=== PATIENT | female | born 1960 | race Caucasian/White ===

== ENCOUNTER 2020-06-01 12:55 | Emergency (ER) | payer OTHER ==
--- OUTSIDE RECORDS SUMMARY | 2020-06-01 12:58 | XMS REPORT | Continuity of Care Document ---
:1960 Author Organization [facility] t Address [address] [place] [address] Care Team Providers Name Role Phone Jenn BOTELLO L. Primary Care Physician Kian Barajas MD. Attending Clinician Payers Payer Name Policy Type Policy Effective Date Expiration Date Sour ce Number AETNAAETNA PPO [id number] 1997 [facility] 00:00:00 [employer] [id number] 1997-Present PPO Problems This patient has no known problems. Allergies, Adverse Reactions, Alerts Allergy Allergy Status Severity Reaction(s) Onset Inactive Treating Comm ents Source Name Type Date Date Clinician lactulos DA Active [place] 2020-0 [facility] [place] [facility] fructose FA Active [place] 2020-0 [facility] [place] [facility] Iodinate DA Active U 2020-0 [facility] [place] Contrast 00:00: d Media [facility] lactose FA Active [place] 2020-0 [facility] 3[facility] [place] [facility] d [facility] Iodinate DA Active U 2020-0 [facility] d 3-24 [facility] Contrast 00:00: Garza Media 00 [facility] Social History Social Habit Start Date Stop Date Quantity Comments Source Exposure to Not sure [place] [facility] SARS-CoV-2 (event) Sex Assigned At [birth year] [facility] ethodist 00:00:00 00:00:00 Medications This patient has no known medications. Procedures Procedure Date / Time Performed Performing Clinician [place] e COVID-19 QUALITATIVE PCR 2020-05-06 09:26:00 Camacho Barajas Plan of Care Planned Activity Planned Date Details Comments Source Future Scheduled 2019-10-04 INFLUENZA VACCINE [place] [facility] 00:00:00 [code = INFLUENZA VACCINE] Future Scheduled 2010 BREAST CANCER [place] [facility] Test 00:00:00 SCREENING [code = BREAST CANCER SCREENING] Future Scheduled 2010 COLONOSCOPY SCREENING [place] [facility] Test 00:00:00 [code = COLONOSCOPY SCREENING] Future Scheduled 2010 SHINGLES VACCINES [place] [facility] 00:00:00 (#1) [code = SHINGLES VACCINES (#1)] Future Scheduled [address] [facility] thodist Test 00:00:00 malignant neoplasm of cervix (procedure) [code = 142768137] Future Scheduled 1978 Hepatitis C screening [place] [facility] Test 00:00:00 (procedure) [code = 889404127] Future Scheduled 1976 COVID-19 VACCINE (1) [place] [facility] Test 00:00:00 [code = COVID-19 VACCINE (1)] Encounters Start End Encounter Admission Attending Care Care Encounter Source Date/Time Date/Time Type Type Clinicians Facility Department ID 2020-05-06 2020-05-06 Out[facility] [id number] [place] 00:00:00 00:00:00 CAMACHO [facility] Method [facility] Results Test Description Test Time Test Comments Results Result [facility] e Comments - CT ABD PELVIS 2020-05-28 W/O CONT 16:53:00 [facility] 1960 Sex: F Name: JUAN IRIZARRYland : 1960 Age/S: 59 / F [address] Unit #: [id number] Loc: [place] [address] Phys: Yulia Archuleta MD Acct: [id number] Dis Date: Status: ADM IN PHONE #: [phone] Exam Date: 05/28/2020 1635 FAX #: Reason: abd pain EXAMS: CPT: [id number] CT ABD PELVIS W/O CONT 13055 EXAMINATION: - CT ABD PELVIS W/O CONT. LOCATION: S17. HISTORY: Abdominal pain, large bowel obstruction, cholecystectomy. COMPARISON: None. TECHNIQUE: CT of abdomen and pelvis was performed without intravenous contrast as protocol. Oral contrast was administered. One or more the following dose reduction techniques were used: Automated exposure control, adjustment of mA and/or kV according to patient size, and use of iterative reconstruction technique. FINDINGS: Evaluation of intra-abdominal viscera is limited due to lack of intravenous contrast. Visualized lung bases demonstrate dependent changes. 4 mm left lower lobe nodule. Cholecystectomy. Multiple punctate calcifications within spleen. Liver, pancreas and adrenals appear unremarkable. No nephroureterolithiasis . No hydroureteronephrosis. Underdistended urinary bladder. The bowel loops appear normal in course. No bowel obstruction. Administered oral contrast is noted to the level of rectum. Few scattered colonic diverticula. Focal circumferential thickening and luminal narrowing involving hepatic flexure of colon (series 2 image 33). Focal luminal tubular outpouching is also noted proximally (series 601 image 38), nonspecific. Unremarkable appendix. There is suggestion of proximal ascending and terminal ileum wall thickening. No abdominal or pelvic bulky lymphadenopathy. No pneumoperitoneum or free fluid. Atherosclerotic vascular calcifications. Uterus appears unremarkable by CT technique. Visualized osseous structures demonstrate mild degenerative changes. IMPRESSION: Focal circumferential wall thickening with luminal narrowing involving PAGE 1 Signed Report (CONTINUED) Name: JUAN IRIZARRYland : 1960 Age/S: 59 / F [address] Unit #: [id number] Loc: [place] [address] Phys: Yulia Archuleta MD Acct: [id number] Dis Date: Status: ADM IN PHONE #: [phone] Exam Date: 05/28/2020 1630 FAX #: Reason: abd pain EXAMS: CPT: [id number] CT ABD PELVIS W/O CONT 07303 <Continued> hepatic flexure of colon, correlate with colonoscopy and surgical consult. Focal luminal tubular outpouching is also appreciated proximally, nonspecific. No bowel obstruction. Administered oral contrast is noted to the level of rectum. Other findings as above. Findings discussed with MD Geremias at 05/28/2020 4:45 PM. at 1653 Reported and signed by: Terri Braswell M.D. CC: Yulia Archuleta MD; Miky Bianchi MD Technologist:Lindsay Velazquez, RT(R) CTDI: DLP: Trnscb Date/Time: 05/28/2020 (1652) [email or web address] Orig Print D/T: S: 05/28/2020 (051) PAGE 2 Signed Report - XR ABDOMEN 1 V 2020-05-27 08:17:00 [facility] 1960 Sex: F Name: JUAN IRIZARRY [facility] : 1960 Age/S: 59 / F [address] Unit #: [id number] Loc: [place] [address] Phys: Umair Pierce MD Acct: [id number] Dis Date: Status: ADM IN PHONE #: [phone] Exam Date: 05/27/2020604 FAX #: Reason: LARGE BOWEL OBSTRUCTION EXAMS: CPT: [id number] XR ABDOMEN 1 V 14908 Fluoro Time: DAP (Gy m2): Air Kerma (mGy): EXAMINATION: - XR ABDOMEN 1 V. LOCATION: S17. HISTORY: Large bowel obstruction. COMPARISON: Abdominal x-ray 05/26/2020. FINDINGS/ IMPRESSION: Two frontal views of the abdomen demonstrates lung bases to be clear. Presumed calcified right suprahilar lymph node noted. Interval removal of enteric tube. Postoperative clips in right upper quadrant of abdomen. Scattered air noted throughout colon and small bowel loops. Degenerative changes of lumbar spine, including both sacroiliac joints. at 0817 Reported and signed by: Terri Braswell M.D. CC: Yulia Archuleta MD; Umair Pierce MD; Miky Bianchi MD; Liliana CALLEJAS PAGE 1 Signed Report Name: JUAN IRIZARRY [place] : 1960 Age/S: 59 / F [address] Unit #: [id number] Loc: [place] [address] Phys: Umair Pierce MD Acct: [id number] Dis Date: Status: ADM IN PHONE #: [phone] Exam Date: 05/27/2020604 FAX #: Reason: LARGE BOWEL OBSTRUCTION EXAMS: CPT: [id number] XR ABDOMEN 1 V 07173 Fluoro Time: DAP (Gy m2): Air Kerma (mGy): <Continued> Technologist: RT Janeen(R) Trnscb Date/Time: 05/27/2020 (816) [email or web address] Orig Print D/T: S: 05/27/2020 (819) PAGE 2 Signed Report COMPREHENSIVE METABOLIC PANEL 2020-05-27 06:07:00 Test Item Value Reference Range Interpretation Comme nts SODIUM (test code = NA) 141 mmol/L 134-147 N POTASSIUM (test code = K) 3.7 mmol/L 3.4-5.0 N CHLORIDE (test code = CL) 113 mmol/L 100-108 H CARBON DIOXIDE (test code = CO2) 22 mmol/L 21-32 N ANION GAP (test code = GAP) 6.0 GAP calc 4.0-15.0 N GLUCOSE (test code = GLU) 75 MG/DL 70-110 N BLOOD UREA NITROGEN (test code = BUN) 11 MG/DL 7-18 N GLOMERULAR FILTRATION RATE (test code = GFR) >=60 max estimate estG FR >60 CREATININE (test code = CREAT) 0.5 MG/DL 0.6-1.0 L TOTAL PROTEIN (test code = PROT) 5.5 G/DL 6.4-8.2 L ALBUMIN (test code = ALB) 2.9 G/DL 3.4-5.0 L GLOBULIN (test code = GLOB) 2.6 GM/dL ALBUMIN/GLOBULIN RATIO (test code = A/G) 1.1 RATIO 1.2-2.2 L CALCIUM (test code = CA) 8.1 MG/DL 8.5-10.1 L BILIRUBIN TOTAL (test code = BILT) 0.60 MG/DL 0.2-1.2 N SGOT/AST (test code = AST) 127 Unit/L 15-37 H SGPT/ALT (test code = ALT) 136 Unit/L 12-78 H ALKALINE PHOSPHATASE TOTAL (test code = ALKP) 108 Unit/L 45-117 N CBC W/AUTO [id number] 05:34:00 Test Item Value Reference Range Interpretation Comments WHITE BLOOD CELL (test code = 6.3 K/mm3 3.5-11.0 N WBC) RED BLOOD CELL (test code = 3.91 M/mm3 4.70-6.10 L RBC) HEMOGLOBIN (test code = HGB) 12.2 G/DL 10.4-14.9 N HEMATOCRIT (test code = HCT) 37.1 % 31.5-44.1 N MEAN CELL VOLUME (test code = 94.9 Fl 84.5-98.6 N MCV) MEAN CELL HGB (test code = MCH) 31.2 pg 27.0-34.2 N MEAN CELL HGB CONCETRATION 32.9 G/DL 31.5-34.0 N (test code = MCHC) RED CELL DISTRIBUTION WIDTH 13.3 SD 11.5-14.5 N (test code = RDW) PLATELET COUNT (test code = 193 K/mm3 150-450 N PLT) MEAN PLATELET VOLUME (test code 12.10 fL 7.0-10.5 H = MPV) NEUTROPHIL % (test code = NT%) 51.2 % 40-76 N IMMATURE GRANULOCYTE % (test 0.3 % 0.0-5.0 N code = IG%) LYMPHOCYTE % (test code = LY%) 35.2 % 20.5-51.1 N MONOCYTE % (test code = MO%) 8.2 % 1.7-9.3 N EOSINOPHIL % (test code = EO%) 3.5 % 0.0-6.0 N BASOPHIL % (test code = BA%) 1.6 % 0.0-2.0 N NUCLEATED RBC % (test code = 0.0 /100WBC% 0.0-1.0 N NRBC%) NEUTROPHIL # (test code = NT#) 3.2 K/mm3 1.8-7.6 N IMMATURE GRANULOCYTE # (test 0.02 x10 3/uL 0.00-0.03 N code = IG#) LYMPHOCYTE # (test code = LY#) 2.2 K/mm3 0.6-3.2 N MONOCYTE # (test code = MO#) 0.5 K/mm3 0.3-1.1 N EOSINOPHIL # (test code = EO#) 0.2 K/mm3 0.0-0.4 N BASOPHIL # (test code = BA#) 0.1 K/mm3 0.0-0.1 N NUCLEATED RBC # (test code = 0.0 K/mm3 0.0-0.1 N NRBC#) MANUAL DIFF REQUIRED (test code NO DIFF/SCN CRITERIA = MDIFF) - XR ABDOMEN 1 [id number] 22:43:00 [facility] 1960 Sex: F Name: JUAN IRIZARRY : 1960 Age/S: 59 / F [address] [facility] Unit #: [id number] Loc: [place] [address] Phys: Umair Pierce MD Acct: [id number] Dis Date: Status: ADM IN PHONE #: [phone] Exam Date: 05/26/20202233 FAX #: Reason: NGT PLACEMENT EXAMS: CPT: [id number] XR ABDOMEN 1 V 02362 Fluoro Time: DAP (Gy m2): Air Kerma (mGy): EXAM: ABDOMEN ONE VIEW IN DICATION: NGT PLACEMENT LOCATION: B2 COMPARISON: None available TECHNIQUE: AP view of the abdomen. FINDINGS: The enteric tube tip overliesthe stomach with the sidehole in the distal esophagus. The bowel gas pattern is normal. No pneumoperitoneum is identified. No abnormal calcifications. There are surgical clips in the right upper quadrant. The osseous structures are unremarkable. IMPRESSION: Enteric tube tip overlies the stomach with the sidehole in the distal esophagus. Recommend advancement. at 2243 Reported and signed by: Estefany Schafer M.D. CC: Yulia Archuleta MD; Umair Pierce MD; Miky Bianchi MD; Liliana ANGLIN 1 Signed Report Name: JUAN IRIZARRYland : 1960 Age/S: 59 / F [id number] [place] [address] Unit #: [id number] Loc: [place] [address] Phys: Umair Pierce MD Acct: [id number] Dis Date: Status: ADM IN PHONE #: [phone] Exam Date: 05/26/20202233 FAX #: Reason: NGT PLACEMENT EXAMS: CPT: [id number] XR ABDOMEN 1 V 15045 Fluoro Time: DAP (Gy m2): Air Kerma (mGy): <Continued> Technologist: Tereza Muñiz RT(R)(CT) Trnscb Date/Time: 05/26/2020 (530) [email or web address] Orig Print D/T: S: 05/26/2020 (0668) PAGE 2 Signed Report GLUCOSE BEDSIDE [id number] 22:09:00 Test Item Value Reference Range Interpretation Comments GLUCOSE BEDSIDE TESTING (test code = 81 mg/dL 70-110 N GLUBED) COVID-19 qualitative [id number] 20:40:40 Test Item Value Reference Range Interpretation Comments Interpretation (test Negative results do code = 0440658) not preclude 2019-nCoV infection and should not be used as the sole basis for treatment or other patient management decisions. Negative results must be combined with clinical observations, patient history, and epidemiological information. COVID-19 qualitative Not-Detected Not-Detected PCR result (test code = 12084-3) COVID-19 qualitative See link below for C ase Number: PCR (test code = PDF Lab Report [id number]) Montez Villalta
[2020-06-01 14:04] LABS: Urine Blood Negative (Negative); Urine Glucose Negative (Negative); Urine Protein Negative (Negative)
[2020-06-01] MEDS ORDERED: MORPHINE 4 MG/ML SYR ONE ×3 (14:28→22:24)
[2020-06-01] MEDS ORDERED: ONDANSETRON 4 MG/2 ML VIAL ONE (14:29)
[2020-06-01] MEDS ORDERED: NA CHLORIDE 0.9% 1,000 ML ONE ×2 (14:29→22:14)
[2020-06-01 14:39] LABS: Basophils % 0.2 % (0-1.3); Hematocrit 45.5 % (36.0-45.0); MPV 11.4 fL (7.6-11.3); RBC Red Blood Cell Count 4.93 M/uL (3.86-4.86)
[2020-06-01 15:15] LABS: ALT/SGPT 38 U/L (12-78); AST/SGOT 17 U/L (15-37); Alkaline Phosphatase 106 U/L (45-117); BUN Blood Urea Nitrogen 10 mg/dL (7-18); Bicarbonate 24 mmol/L (21-32); Bilirubin Direct 0.2 mg/dL (0-0.2); Bilirubin Total 0.9 mg/dL (0.2-1.0); Glucose Level 98 mg/dL (74-106); Lipase 67 U/L (73-393); Potassium 3.8 mmol/L (3.5-5.1); Protein, Total 7.5 g/dL (6.4-8.2); Sodium Level 139 mmol/L (136-145)
--- NOTE | 2020-06-01 16:46 | RAD REPORT ---
EXAM DESCRIPTION: CT - Abdomen Pelvis Wo Contrast - 06/01/2020 4:30 pm CLINICAL HISTORY: Abdominal pain COMPARISON: None TECHNIQUE: Computed axial tomography of the abdomen and pelvis was obtained. IV was not requested. O ral contrast was given. Coronal reconstructions performed. All CT scans are performed using dose optimization technique as appropriate and may include automated exposure control or mA/KV adjustment according to patient size. FINDINGS: The evaluation of solid organs and vessels is limited secondary to the lack of contrast a dministration. Splenic granulomata are present. Liver, pancreas, adrenals kidneys appear grossly normal. Moderate dilatation all of the small bowel. The ascending colon is dilated. 2.5 centimeter mass is pr esent within the hepatic flexure of the colon. The appendix is dilated. . IMPRESSION: 2.5 centimeter mass suspected within the hepatic flexure resulting in an obstruction Dilatation of the appendix probably secondary to the obstruction rather than appendicitis
--- NOTE | 2020-06-01 17:53 | ER ---
Nurse's Notes [facility] Name: Arcelia Leavitt Age: 59 yrs Sex: Female : 1960 Arrival Date: 06/01/2020 Time: 12:[address] Private MD: Diagnosis: Other intestinal obstruction;Other intra-abdominal and pelvic swelling, mass and lump-2.5 cm mass within the hepatic fixture of the colon Presentation: 06/01 13:24 Chief complaint: Patient states: Upper abd pain with N/V/slight diarrhea for 2 days. ll1 Just released from [facility] on Sunday for bowel obstruction. Feels similar. No fever. Coronavirus screen: Client denies travel out of the [place] in the last 14 days. At this time, the client does not indicate any symptoms associated with coronavirus-19. Ebola Screen: Patient denies travel to an Ebola-affected area in the 21 days before illness onset. Initial Sepsis Screen: Does the patient meet any 2 criteria? HR > 90 bpm. No. Patient's initial sepsis screen is negative. Does the patient have a suspected source of infection? Yes: Acute abdominal pain. Risk Assessment: Do you want to hurt yourself or someone else? Patient reports no desire to harm self or others. Onset of symptoms was May 31, 2020. 13:24 Method Of Arrival: Ambulatory [facility] 13:24 Acuity: [place] 3 ll1 Historical: - Allergies: 13:26 IVP dye; ll1 - PMHx: 13:26 None; ll1 - PSHx: 13:26 ; ll1 - Immunization history:: Flu vaccine is up to date. - Social history:: Smoking status: Patient reports the use of cigarette tobacco products, smokes one-half pack cigarettes per day. Screenin:30 Abuse screen: Denies threats or abuse. Denies injuries from another. Nutritional jl7 screening: No deficits noted. Tuberculosis screening: No symptoms or risk factors identified. Fall Risk IV access (20 points). Total Rodriguez Fall Scale indicates No Risk (0-24 pts). Assessment: 14:30 General: Appears in no apparent distress. uncomfortable, Behavior is calm, cooperative, jl7 appropriate for age. Pain: Complains of pain in epigastric area, right upper quadrant and right lower quadrant Pain currently is 10 out of 10 on a pain scale. Is intermittent. Neuro: Level of Consciousness is awake, alert, obeys commands, Oriented to person, place, time, situation. Cardiovascular: Patient's skin is warm and dry. Respiratory: Airway is patent Respiratory effort is even, unlabored, Respiratory pattern is regular, symmetrical. GI: Abdomen is non-distended, Abd is soft X 4 quads Abdomen is tender to palpation in epigastric area and right upper quadrant Reports nausea. Derm: Skin is pink, warm \T\ dry. 15:30 Reassessment: Patient appears in no apparent distress at this time. Patient and/or [facility] family updated on plan of care and expected duration. Pain level reassessed. Patient is alert, oriented x 3, equal unlabored respirations, skin warm/dry/pink. 16:30 Reassessment: Patient appears in no apparent distress at this time. No changes from [facility] previously documented assessment. Patient and/or family updated on plan of care and expected duration. Pain level reassessed. Patient is alert, oriented x 3, equal unlabored respirations, skin warm/dry/pink. 17:30 Reassessment: Patient appears in no apparent distress at this time. No changes from [facility] previously documented assessment. Patient and/or family updated on plan of care and expected duration. Pain level reassessed. Patient is alert, oriented x 3, equal unlabored respirations, skin warm/dry/pink. 18:30 Reassessment: Patient appears in no apparent distress at this time. No changes from [facility] previously documented assessment. Patient and/or family updated on plan of care and expected duration. Pain level reassessed. Patient is alert, oriented x 3, equal unlabored respirations, skin warm/dry/pink. 19:30 General: Appears in no apparent distress. comfortable, Behavior is calm, cooperative, rr5 appropriate for age. 19:30 Neuro: Level of Consciousness is awake, alert, obeys commands, Oriented to person, rr5 place, time. Cardiovascular: Capillary refill < 3 seconds Patient's skin is warm and dry. Respiratory: Airway is patent Respiratory effort is even, unlabored, Respiratory pattern is regular, symmetrical. GI: Abdomen is round non-distended, NGT in place, to suction. Site clean. Abd is soft Abdomen is tender to palpation in epigastric area. : No signs and/or symptoms were reported regarding the genitourinary system. EENT: No signs and/or symptoms were reported regarding the EENT system. Musculoskeletal: Capillary refill < 3 seconds. 20:40 Reassessment: Patient appears in no apparent distress at this time. Patient is alert, rr5 oriented x 3, equal unlabored respirations, skin warm/dry/pink. awaiting for dr santos to arrange transfer to other facility. 21:30 Reassessment: dr santos arrived discussed with the provider the plan of care, patient rr5 is for transfer. 22:10 Reassessment: Patient appears in no apparent distress at this time. Patient is alert, rr5 oriented x 3, equal unlabored respirations, skin warm/dry/pink. complaint of abdominal pain. ED provider with order made and carried out. 23:30 Reassessment: Patient appears in no apparent distress at this time. Patient is alert, rr5 oriented x 3, equal unlabored respirations, skin warm/dry/pink. awaiting for EMS transport. 06/02 00:36 Reassessment: Patient appears in no apparent distress at this time. Patient is alert, rr5 oriented x 3, equal unlabored respirations, skin warm/dry/pink. report given to [facility] ambulance awake alert vital signs taken and recorded. Vital Signs: 06/01 13:24 BP 142 / 100; Pulse 95; Resp 16; Temp 98.1; Pulse Ox 96% ; Weight 57.61 kg; Height 5 ll1 ft. 5 in. (165.10 cm); Pain 10/10; 15:07 BP 128 / 56; Pulse 72; Resp 15; Pulse Ox 99% ; jl7 16:00 BP 100 / 84; Pulse 68; Resp 17; Pulse Ox 98% ; jl7 16:45 BP 105 / 94; Pulse 69; Resp 15; Pulse Ox 97% ; jl7 17:30 BP 110 / 69; Pulse 61; Resp 17; Pulse Ox 96% ; jl7 18:47 BP 124 / 73; Pulse 72; Resp 17; Pulse Ox 95% ; jl7 19:40 BP 117 / 72; Pulse 61; Resp 16; Pulse Ox 94% ; rr5 20:30 BP 113 / 65; Pulse 64; Resp 17; Temp 98; Pulse Ox 98% ; rr5 21:30 BP 116 / 89; Pulse 58; Resp 15; Pulse Ox 97% ; rr5 22:22 BP 120 / 78; Pulse 63; Resp 15; Pulse Ox 98% ; rr5 23:30 BP 115 / 78; Pulse 60; Resp 15; Pulse Ox 98% ; rr5 06/02 00:37 BP 111 / 77; Pulse 65; Resp 17; Pulse Ox 98% ; rr5 06/01 13:24 Body Mass Index 21.13 (57.61 kg, 165.10 cm) ll1 ED Course: 06/01 12:58 Patient arrived in ED. as 13:25 Triage completed. ll1 13:26 Arm band placed on Patient placed in an exam room, on a stretcher. ll1 13:47 Yoshi Harvey, RN CARDIAC CATH is PHCP. pm1 13:47 Daxa Chi MD is Attending Physician. pm1 13:48 Mark Freeman RN is Primary Nurse. jl7 14:30 Patient has correct armband on for positive identification. Placed in gown. Bed in low jl7 position. Call light in reach. Side rails up X 1. Pulse ox on. NIBP on. Warm blanket given. 14:30 Initial lab(s) drawn, by me, sent to lab. Inserted saline lock: 20 gauge in right jl7 forearm, using aseptic technique. Blood collected. 16:48 Abdomen In Process Unspecified. EDMS 18:19 initiated transfer to [facility], Yoshi spoke with surgeon, surgeon bd requested to talk to dr woodward, when he is available. 18:27 spoke with Angelia Nova at [facility], stated that Dr Woodward will be in surgery for a bd couple of hours, he will return to er when he is done and will contact transfer center to be connected with surgeon manufacturing production technician. 18:51 NGT: inserted 12 Fr. via left nare. verified placement of air over stomach, verified jl7 return of gastric contents, to intermittent suction. Returned bile. Amount of gastric contents removed by suction 50ml. Patient tolerated well. 19:07 Chest Single View XRAY In Process Unspecified. EDMS 21:[address] Woodward with the surgeon at [facility]. tt3 06/02 00:38 No provider procedures requiring assistance completed. Patient transferred, IV remains rr5 in place. intact, No redness/swelling at site. Administered Medications: 06/01 14:20 Drug: Zofran (Ondansetron) 4 mg Route: IVP; Site: right forearm; jl7 15:30 Follow up: Response: No adverse reaction jl7 14:20 Drug: NS 0.9% 1000 ml Route: IV; Rate: 1000 ml; Site: right forearm; jl7 15:30 Follow up: Response: No adverse reaction; IV Status: Completed infusion; IV Intake: jl7 1000ml 14:22 Drug: morphine 4 mg Route: IVP; Site: right forearm; jl7 14:35 Follow up: Response: No adverse reaction; Pain is decreased jl7 18:30 Drug: morphine 4 mg Route: IVP; Site: right antecubital; jl7 18:49 Follow up: Response: No adverse reaction; Pain is decreased jl7 22:19 Drug: morphine 4 mg {Note: rass 0.} Route: IVP; Site: right forearm; rr5 23:20 Follow up: Response: No adverse reaction; RASS: Alert and Calm (0) rr5 22:20 Drug: NS 0.9% 1000 ml Route: IV; Rate: 125 ml/hr; Site: right forearm; rr5 06/02 00:40 Follow up: Response: No adverse reaction; IV Status: Infusion continued upon transfer; rr5 IV Intake: 250ml Intake: 06/01 15:30 IV: 1000ml; Total: 1000ml. jl7 06/02 00:40 IV: 250ml; Total: 1250ml. rr5 Outcome: 06/01 17:49 Discharge ordered by MD. pm1 17:53 ER care complete, transfer ordered by MD. pm1 06/02 00:38 Discharged to home ambulatory. rr5 Condition: stable Instructed on the need for transfer. 00:41 Patient left the ED. rr5 Signatures: Dispatcher [employer] EDMS Hetal Rothman Amelia as Marinas, Patrick, GARTH RN CARDIAC CATH pm1 Mark Freeman RN RN jl7 Jb Mathews RN RN rr5 Kristina Roman RN RN ll1 Dilshad Buchanan tt3
--- NOTE | 2020-06-01 17:53 | EDPHYS ---
Physician Documentation [facility] Name: Arcelia Leavitt Age: 59 yrs Sex: Female : 1960 Arrival Date: 06/01/2020 Time: 12:[address] Private MD: ED Physician Daxa Chi HPI: 06/01 14:00 This 59 yrs old Female presents to ER via Ambulatory with complaints of pm1 Abdominal Pain, Abdominal Swelling. 14:00 The patient presents with abdominal pain in the upper abdomen, abdominal distention in pm1 the right upper quadrant, that is not currently present. Onset: The symptoms/episode began/occurred 2 day(s) ago. The symptoms do not radiate. Associated signs and symptoms: Pertinent positives: nausea, vomiting, and diarrhea, Pertinent negatives: chest pain, constipation, dysuria, fever, shortness of breath. The symptoms are described as crampy, sharp. Modifying factors: The symptoms are alleviated by nothing, the symptoms are aggravated by food. Severity of pain: in the emergency department the pain is actually worse. Feels similar to prior bowel obstruction.. The patient has been recently seen by a physician: with similar presenting complaints, and apparently given a diagnosis of bowel obstruction. Hospitalized at [facility]. Was seen by Dr. Walden there. Historical: - Allergies: 13:26 IVP dye; ll1 - PMHx: 13:26 None; ll1 - PSHx: 13:26 ; ll1 - Immunization history:: Flu vaccine is up to date. - Social history:: Smoking status: Patient reports the use of cigarette tobacco products, smokes one-half pack cigarettes per day. ROS: 14:00 Constitutional: Negative for fever, chills, and weight loss, Cardiovascular: Negative pm1 for chest pain, palpitations, and edema, Respiratory: Negative for shortness of breath, cough, wheezing, and pleuritic chest pain. 14:00 Back: Negative for injury and pain, : Negative for injury, bleeding, discharge, and swelling, MS/Extremity: Negative for injury and deformity, Skin: Negative for injury, rash, and discoloration, Neuro: Negative for headache, weakness, numbness, tingling, and seizure. 14:00 Abdomen/GI: Positive for abdominal pain, nausea, vomiting, and diarrhea, Negative for constipation. Exam: 14:00 Constitutional: This is a well developed, well nourished patient who is awake, alert, pm1 and in no acute distress. Head/Face: Normocephalic, atraumatic. 14:00 Back: No spinal tenderness. No costovertebral tenderness. Full range of motion. Skin: Warm, dry with normal turgor. Normal color with no rashes, no lesions, and no evidence of cellulitis. MS/ Extremity: Pulses equal, no cyanosis. Neurovascular intact. Full, normal range of motion. 14:00 Cardiovascular: Exam negative for acute changes, Rate: normal, Rhythm: regular, Pulses: no pulse deficits are appreciated, Heart sounds: normal, normal S1and S2. 14:00 Respiratory: Exam negative for acute changes, respiratory distress, shortness of breath, Breath sounds: are clear throughout. 14:00 Abdomen/GI: Inspection: abdomen appears normal, distension, is not seen, Palpation: soft, in all quadrants, mild abdominal tenderness, in the epigastric area, mass, is not appreciated. 14:00 Neuro: Exam negative for acute changes, Orientation: is normal, Mentation: is normal, Motor: is normal, moves all fours, Sensation: is normal, no obvious gross deficits. Vital Signs: 13:24 BP 142 / 100; Pulse 95; Resp 16; Temp 98.1; Pulse Ox 96% ; Weight 57.61 kg; Height 5 ll1 ft. 5 in. (165.10 cm); Pain 10/10; 15:07 BP 128 / 56; Pulse 72; Resp 15; Pulse Ox 99% ; jl7 16:00 BP 100 / 84; Pulse 68; Resp 17; Pulse Ox 98% ; jl7 16:45 BP 105 / 94; Pulse 69; Resp 15; Pulse Ox 97% ; jl7 17:30 BP 110 / 69; Pulse 61; Resp 17; Pulse Ox 96% ; jl7 18:47 BP 124 / 73; Pulse 72; Resp 17; Pulse Ox 95% ; jl7 19:40 BP 117 / 72; Pulse 61; Resp 16; Pulse Ox 94% ; rr5 20:30 BP 113 / 65; Pulse 64; Resp 17; Temp 98; Pulse Ox 98% ; rr5 21:30 BP 116 / 89; Pulse 58; Resp 15; Pulse Ox 97% ; rr5 22:22 BP 120 / 78; Pulse 63; Resp 15; Pulse Ox 98% ; rr5 23:30 BP 115 / 78; Pulse 60; Resp 15; Pulse Ox 98% ; rr5 06/02 00:37 BP 111 / 77; Pulse 65; Resp 17; Pulse Ox 98% ; rr5 06/01 13:24 Body Mass Index 21.13 (57.61 kg, 165.10 cm) ll1 MDM: 06/01 13:48 Patient medically screened. pm1 15:47 Data reviewed: vital signs. Data interpreted: Pulse oximetry: on room air is 99 %. pm1 Interpretation: normal. 16:23 Physician consultation: Sunday Walden MD regarding consult, patient's condition, Is pm1 familiar with the patient and saw her at [facility] when she was admitted there. She is a patient of Dr. Kc and would like for me to contact him first . 16:53 Physician consultation: Sunday Walden MD in the emergency department to see patient at pm1 16:53, consult with Dr. Urrutia and contact Dr. Kc. If Dr. Kc is not available would be available for consultation. 17:27 Physician consultation: Juan Francisco Urrutia MD was contacted at 17:27, regarding consult, pm1 patient's condition, after a discussion of the case, a recommendation for transfer for higher level of care is made, Dr. Urrutia evaluated the patient and discussed with Dr. Walden. They both recommend transfer of the patient. 17:37 Counseling: I had a detailed discussion with the patient and/or guardian regarding: the pm1 historical points, exam findings, and any diagnostic results supporting the discharge/admit diagnosis, lab results, radiology results, the need to transfer to another facility, for higher level of care. 18:15 Physician consultation: MD Mackenzie regarding regarding transfer, to [facility]. pm1 patient's condition, Would like to talk to Dr. Urrutia. Informed him that DR. Urrutia is currently in the OR and will have him contact him through the transfer center once he is available after surgery. 21:40 ED course: Dr. Urrutia came back to the ER, reevaluated the patient. He spoke to the pm1 general surgeon, Dr. Mackenzie, at [facility]. Patient was accepted for transfer. 21:48 Physician consultation: MD Damon was contacted at 21:49, regarding regarding pm1 transfer, patient's condition, and will see patient. 06/01 13:59 Order name: Basic Metabolic Panel pm1 06/01 13:59 Order name: CBC with Diff pm1 06/01 13:59 Order name: Hepatic Function; Complete Time: 15:38 pm1 06/01 13:59 Order name: Lipase; Complete Time: 15:38 pm1 06/01 14:00 Order name: Basic Metabolic Panel; Complete Time: 15:38 EDMS 06/01 14:00 Order name: CBC with Automated Diff; Complete Time: 15:11 EDMS 06/01 14:03 Order name: Urine Dipstick-Ancillary; Complete Time: 14:41 EDMS 06/01 14:05 Order name: Abdomen ; Complete Time: 16:51 EDMS 06/01 18:56 Order name: Chest Single View XRAY; Complete Time: 19:16 pm1 06/01 13:59 Order name: IV Saline Lock; Complete Time: 15:04 pm1 06/01 13:59 Order name: Labs collected and sent; Complete Time: 15:04 pm1 06/01 13:59 Order name: Urine Dipstick-Ancillary (obtain specimen); Complete Time: 15:04 pm1 06/01 18:02 Order name: NG Tube; Complete Time: 18:46 pm1 Administered Medications: 14:20 Drug: Zofran (Ondansetron) 4 mg Route: IVP; Site: right forearm; jl7 15:30 Follow up: Response: No adverse reaction jl7 14:20 Drug: NS 0.9% 1000 ml Route: IV; Rate: 1000 ml; Site: right forearm; jl7 15:30 Follow up: Response: No adverse reaction; IV Status: Completed infusion; IV Intake: jl7 1000ml 14:22 Drug: morphine 4 mg Route: IVP; Site: right forearm; jl7 14:35 Follow up: Response: No adverse reaction; Pain is decreased jl7 18:30 Drug: morphine 4 mg Route: IVP; Site: right antecubital; jl7 18:49 Follow up: Response: No adverse reaction; Pain is decreased jl7 22:19 Drug: morphine 4 mg {Note: rass 0.} Route: IVP; Site: right forearm; rr5 23:20 Follow up: Response: No adverse reaction; RASS: Alert and Calm (0) rr5 22:20 Drug: NS 0.9% 1000 ml Route: IV; Rate: 125 ml/hr; Site: right forearm; rr5 06/02 00:40 Follow up: Response: No adverse reaction; IV Status: Infusion continued upon transfer; rr5 IV Intake: 250ml Disposition: 06/01/20 17:53 Transfer ordered to [facility]. Diagnosis are Other intestinal obstruction, Other intra-abdominal and pelvic swelling, mass and lump - 2.5 cm mass within the hepatic fixture of the colon. - Reason for transfer: Higher level of care. - Accepting physician is MD. - Condition is Stable. - Problem is new. - Symptoms have improved. Addendum: 06/04/2020 15:39 Co-signature as Attending Physician, Daxa Chi MD. m a2 Signatures: Dispatcher [employer] EDWI Yoshi Harvey, GARTH STAKEHOLDER MANAGER pm1 Mark Freeman RN RN jl7 Daxa Chi MD MD ma2 Jb Mathews, ERIC RN rr5 Kristina Roman, ERIC RN ll1 Corrections: (The following items were deleted from the chart) 06/01 14:05 14:00 Abdomen Pelvis W Con+CT.RAD.BRZ ordered. [facility] EDMS 17:50 17:49 06/01/2020 17:49 Discharged to Home. Impression: Other intestinal obstruction; pm1 Intra-abdominal and pelvic swelling, mass and lump - 2.5 cm mass at hepatic flexure of the colon. Condition is Stable. Forms are Medication Reconciliation Form, Thank You Letter, Antibiotic Education, Prescription Opioid Use. Follow up: Emergency Department; When: As needed; Reason: Worsening of condition. Follow up: Private Physician; When: 2 - 3 days; Reason: Recheck today's complaints, Continuance of care, Re-evaluation by your physician. Problem is new. Symptoms have improved. pm1 06/02 00:41 06/01 17:53 06/01/2020 17:53 Transfer ordered to [facility]. rr5 Diagnosis is Other intestinal obstruction; Other intra-abdominal and pelvic swelling, mass and lump - 2.5 cm mass within the hepatic fixture of the colon. Reason for transfer: Higher level of care. Accepting physician is MD. Condition is Stable. Problem is new. Symptoms have improved. pm1 06/02 00:06/01 16:53 Physician consultation: Sunday Walden MD in the emergency department to pm1 see patient at 16:53, consult with Dr. Urrutia and contact Dr. Kc. If Dr. Kc is not available would be available for consultation, pm1 06/02 00:06/01 21:40 ED course: Dr. Urrutia came back to the ER, reevaluated the patient. He pm1 spoke to the general surgeon, Dr. Mackenzie, at [facility]. Patient was accepted for transfer. pm1 06/02 00:06/01 18:15 Physician consultation: MD Mackenzie regarding regarding transfer, to [address] patient's condition, Would like to talk to Dr. Urrutia, pm1
[2020-06-01] MEDS ORDERED: LIDOCAINE VISCOUS 2% SOLN 15 ML UDC ONE (18:37)
--- NOTE | 2020-06-01 19:13 | RAD REPORT ---
EXAM DESCRIPTION: Kirstin Single View06/01/2020 7:07 pm CLINICAL HISTORY: Device placement nasogastric tube placement IMPRESSION: A nasogastric tube has its tip within the stomach. .
[2020-06-02 02:47] VITALS: TEMP 98
[2020-06-02 02:54] VITALS: O2SAT 98
[2020-06-02 02:56] VITALS: BP 111/77
== END 2020-06-02 00:41 | disposition short-term general hospital (02) ==
LOC: ER 12:55
DX: K56.699 Other intestinal obstruction unspecified as to partial versus complete obstruction (principal); R19.09 Other intra-abdominal and pelvic swelling, mass and lump; F17.210 Nicotine dependence, cigarettes, uncomplicated; Z88.8 Allergy status to other drugs, medicaments and biological substances
CPT/HCPCS: 85025; 80048; 36415; 80076; 81003; 83690; 74176; 71045; J7030 ×2; J2405; 99285

== ENCOUNTER 2020-10-19 16:43 | Emergency (ER) | payer OTHER ==
--- OUTSIDE RECORDS SUMMARY | 2020-10-19 16:49 | XMS REPORT | Continuity of Care Document ---
:1960 Author Organization [facility] t Address [address] [place] [address] [address] [place] [address] Care Team Providers Name Role Phone Jenn BOTELLO L. Primary Care Physician TIFFANY Attending Clinician Unavailable MARILIA Attending Clinician Unavailable Tiffany BOTELLO Attending Clinician TIFFANY Attending Clinician Unavailable Anne Zacarias MD Attending Clinician Marilia BOTELLO Attending Clinician ANNE ZACARIAS Attending Clinician Unavailable Alea Glaser MD Attending Clinician Nadja BOTELLO Attending Clinician Lisa Damon MD Attending Clinician Nury BOTELLO Attending Clinician Lisa DAMON Attending Clinician Unavailable Jenn BOTELLO L. Attending Clinician MD Kian BARAJAS. Attending Clinician Unavailable MARILIA Admitting Clinician Unavailable Lisa DAMON Admitting Clinician Unavailable MD Bibiana BARAJAS Admitting Clinician Unavailable Payers Payer Name Policy Type Policy Effective Date Expiration Date Sour ce Number HMO/QPOS/SELECT [id number] 2017 2020 - AETNA 00:00:00 00:00:00 AETNA - MGD [id number] [facility] - CAREAETNA HMO 00:00:[address] POS [id number] 03/1997-PresentHM O/POS AETNAAETNA PPO [id number] [facility] OPEN 00:00:00 Hospital [id number] 1997-Present PPO Problems Condition Condition Condition Status Onset Resolution Last Treating Co mments Source Name Details Category Date Date Treatment Clinician Date Acute Acute Disease Active [facility]-22 [facility] - failure failure 00:00: Medical without without 00 Center hepatic hepatic coma coma Acute Acute Disease Active [facility] dehydratio dehydratio 4-22 [facility] k[facility] - n n 00:00: Medical 00 [place] Anemia, Anemia, Disease Active [facility] chronic chronic 4-22 [facility] - disease disease 00:00: Medical 00 Center S/P right S/P right Disease Active [facility] hemicolect hemicolect 4-15 Valorie kes - freddie freddie 00:00: Medical 00 Center Acute Acute Disease Active [facility] postoperat postoperat 4-15 Val[facility] kes - nusrat pain nusrat pain 00:00: Medica l 00 Center Postproced Postproced Disease Active [facility] ural ural 4-15 [facility] - hypotensio hypotensio 00:00: Me dical n n 00 Center Acute Acute Disease Active [facility] blood loss blood loss 4-15 Valorie kes - anemia anemia 00:00: Medical 00 Center Nausea and Nausea and Disease Active [facility] vomiting, vomiting, 4-12 Luke [facility] - intractabi intractabi 00:00: Me dical lity of lity of 00 Center vomiting vomiting not not specified, specified, unspecifie unspecifie d vomiting d vomiting type type Large Large Disease Active [facility] bowel bowel 3-31 [facility] - obstructio obstructio 00:00: Me dical n n 00 Center Allergies, Adverse Reactions, Alerts Allergy Allergy Status Severity Reaction(s) Onset Inactive Treating Comm ents Source Name Type Date Date Clinician Iodine Drug Active Itching, I.v [facility] And Intolera Palpitations 3-31 contrast [facility] - Iodide nce 00:00: only Medical Containi 00 Center ng Products Iodinate DA Active [facility] d 3-26 [place] Contrast 00:00: d Media 00 [facility] lactulos DA Active HI [facility] e 3-26 Clear 00:00: Garza 00 [facility] lactose FA Active [facility] 3-26 Clear 00:00: Garza [facility] fructose FA Active HI [facility] 3-26 Clear 00:00: Garza [facility] Iodinate DA Active U [facility] d 3-24 Clear Contrast 00:00: Garza Media [facility] Iodinate DA Active U [facility] d 4-24 Clear Contrast 00:00: Garza Media 00 [facility] morphine DA Active U 1997- [facility] 4-24 Clear 00:00: Garza [facility] sertrali DA Active U [facility] ne 4-24 Clear 00:00: Garza [facility] nefazodo DA Active U 1997- [facility] ne 4-24 Clear 00:00: Garza [facility] Social History Social Habit Start Date Stop Date Quantity Comments Source History SDVT [facility] - Alcohol Std Drinks Medica [facility] History SDVT [facility] - Alcohol Binge Medical Gerri [facility] Sex Assigned At [facility] Cigarettes smoked 2020-06-16 2020-06-[address] [facility] [facility] - current (pack per 00:00:00 00:00:00 [facility] Center day) - Reported Cigarette 2020-06-16 2020-06-[address] [facility] - pack-years 00:00:00 00:00:00 [facility] Tobacco use and 2020-06-16 2020-06-16 Never used [facility] kes - exposure 00:00:00 00:00:00 [facility] Alcohol intake 2020-06-16 2020-06-[address] [facility] - 00:00:00 00:00:00 non-drinker Medical Cente r (finding) History SDOH 2020-06-15 2020-06-[address] [facility] - Alcohol Frequency 00:00:00 00:00:00 Medical Center Smoking Status Start Date Stop Date Source Unknown if ever smoked [facility] Current every day smoker 2020-06-16 00:00:[address] [facility] Medications Ordered Filled Start Stop Current Ordering Indication Dosage Frequency Signature Comments Components Source Medication Medication Date Date Medication? Clinician (SIG) Name Name pantoprazol Yes 40mg QD Take [address] e 4-21 by mouth [facility] - (PROTONIX) 18:15: daily. Medic al 40 MG 08 Center tablet acetaminoph Yes 650mg Take [address] en 4-21 mg by [facility] - (TYLENOL) 18:15: mouth Medical 325 MG 08 every 6 Center tablet (six) hours as needed for Pain. gabapentin 2021- No 300mg [id number] Take [address] (NEURONTIN) 06-23- [id number] capsule [facility] - 300 MG 00:00: 23:59 3D (300 mg Medical capsule 00 :00 total) by Center mouth 3 (three) times daily. cyclobenzap 2020- No 10mg Q.[id number] Take [address] rine 06-23 05- [id number] tablet (10 Valorie kes - (FLEXERIL) 00:00: 23:59 3D mg total) M edical 10 MG 00 :00 by mouth 3 Center tablet (three) times daily for 10 days. cephalexin No 250mg Q.25D Take [address] (KEFLEX) 06-23- capsule [facility] - 250 MG 00:00: 23:59 (250 mg Medical capsule 00 :00 total) by Center mouth 4 (four) times daily for 5 days. traMADoL 2020- No 50mg Take [address] (ULTRAM) 50 06-04 tablet (50 L ukes - mg tablet 00:00: 00:00 mg total) Me dical 00 :00 by mouth Center every 8 (eight) hours as needed for Pain for up to 10 days. Max Daily Amount: 150 mg polyethylen 2020- No 17g QD Take [address] e glycol 06-04-05 by mouth [facility] - (GLYCOLAX) 00:00: 23:59 daily for M edical 17 gram 00 :00 3 days. Center packet traMADoL 50mg Take 1 [facility] (ULTRAM) 50 4-02 06-04 tablet (50 L ukes - mg tablet 00:00: 00:00 mg total) Me dical 00 :00 by mouth Center every 8 (eight) hours as needed for Pain for up to 10 days. Max Daily Amount: 150 mg Vital Signs Vital Name Observation Time Observation Value Comments Source Systolic blood 2020-07-19 10:25:00 105 mm[Hg] [facility] Diastolic blood 2020-07-19 10:25:00 63 mm[Hg] [facility] Heart rate 2020-07-19 10:25:00 89 /min [facility] Body temperature 2020-07-19 10:25:00 36.33 [facility] Respiratory rate 2020-07-19 10:25:00 14 /min [facility] Oxygen saturation in 2020-07-19 10:25:00 100 /min [facility] Arterial blood by Medical Ce nter Pulse oximetry Body height 2020-07-19 08:20:00 165.1 cm [facility] Body weight 2020-07-19 08:20:00 50.803 kg [facility] BMI 2020-07-19 08:20:00 18.64 kg/m2 [facility] Procedures Procedure Date / Time Performing Clinician Source Performed IR PORT-A-CATH PLACEMENT 2020-07-19 10:20:00 Rachel Allen [place] [facility] CBC W/PLT COUNT & AUTO 2020-07-19 07:38:00 Opal Bergeron [facility] DIFFERENTIAL [facility] PROTHROMBIN TIME/INR 2020-07-19 07:38:00 Opal Bergeron [facility] APTT 2020-07-19 07:38:00 Opal Bergeron [facility] POCT-GLUCOSE METER 2020-06-23 12:01:00 Marilia [facility] POCT-GLUCOSE METER 2020-06-23 05:51:00 Castillo-Talbert, [facility] MAGNESIUM 2020-06-23 04:54:00 Tyree Carmona [facility] PHOSPHORUS 2020-06-23 04:54:00 Mathew [facility] CBC (HEMOGRAM ONLY) 2020-06-23 04:54:00 Kristie Aly [facility] HEPATIC FUNCTION PANEL 2020-06-23 04:54:00 Kristie Aly [facility] BASIC METABOLIC PANEL (7) 2020-06-23 04:54:00 HensonTerell chavez [facility] POCT-GLUCOSE METER 2020-06-23 00:01:00 Castillo-Talbert, [facility] POCT-GLUCOSE METER 2020-06-22 17:48:00 Castillo-Talbert, [facility] POCT-GLUCOSE METER 2020-06-22 11:51:00 Castillo-Talbert, [facility] POCT-GLUCOSE METER 2020-06-22 05:45:00 Castillo-Talbert, [facility] MAGNESIUM 2020-06-22 04:27:00 Mathew Loreeumberto [facility] PHOSPHORUS 2020-06-22 04:27:00 Mathew [facility] CBC (HEMOGRAM ONLY) 2020-06-22 04:27:00 Kristie Aly [facility] HEPATIC FUNCTION PANEL 2020-06-22 04:27:00 Kristie Aly [facility] BASIC METABOLIC PANEL (7) 2020-06-22 04:27:00 HensonTerell chavez [facility] POCT-GLUCOSE METER 2020-06-22 00:11:00 Castillo-Talbert, [facility] POCT-GLUCOSE METER 2020-06-21 17:40:00 [facility]SE [facility]ER 2020-06-21 11:36:00 Castillo-Talbert, [facility] POCT-GLUCOSE METER 2020-06-21 05:12:00 Castillo-Talbert, [facility] MAGNESIUM 2020-06-21 02:53:00 Mathew, [facility] PHOSPHORUS 2020-06-21 02:53:00 [facility], [facility] CBC (HEMOGRAM ONLY) 2020-06-21 02:53:00 Kristie Aly [facility] HEPATIC FUNCTION PANEL 2020-06-21 02:53:00 Kristie Aly [facility] BASIC METABOLIC PANEL (7) 2020-06-21 02:53:00 Kristie Aly [facility] POCT-GLUCOSE METER 2020-06-20 23:43:[facility] (7) 2020-06-20 21:54:00 Kristie Aly [place] POCT-GLUCOSE METER 2020-06-20 17:55:[facility]OLIC PANEL (7) 2020-06-20 14:21:00 Kristie Aly [place] [facility] POCT-GLUCOSE METER 2020-06-20 11:45:00 [facility] POCT-GLUCOSE METER 2020-06-20 05:45:00 Castillo-Talbert, [facility] MAGNESIUM 2020-06-20 04:45:00 [facility] 2020-06-20 04:45:00 [facility], [facility] CBC (HEMOGRAM ONLY) 2020-06-20 04:45:00 Kristie Aly [facility] HEPATIC FUNCTION PANEL 2020-06-20 04:45:00 Kristie Aly [facility] BASIC METABOLIC PANEL (7) 2020-06-20 04:45:00 Kristie Aly [place] [facility] POCT-GLUCOSE METER 2020-06-19 23:49:00 [facility] BASIC METABOLIC PANEL (7) 2020-06-19 22:02:00 Kristie Aly [place] [facility] POCT-GLUCOSE METER 2020-06-19 18:20:00 [facility] BASIC METABOLIC PANEL (7) 2020-06-19 13:44:00 Kristie Aly [place] POCT-GLUCOSE METER 2020-06-19 11:30:00 [facility] POCT-GLUCOSE METER 2020-06-19 05:56:00 [facility] MAGNESIUM 2020-06-19 04:35:00 Mathew [facility] PHOSPHORUS 2020-06-19 04:35:00 [facility] CBC (HEMOGRAM ONLY) 2020-06-19 04:35:00 Kristie Aly [facility] HEPATIC FUNCTION PANEL 2020-06-19 04:35:00 Kristie Aly [facility] BASIC METABOLIC PANEL (7) 2020-06-19 04:35:00 Kristie Aly [place] TRIGLYCERIDES 2020-06-19 04:35:00 Kristie Aly [facility] POCT-GLUCOSE METER 2020-06-19 00:05:00 [facility] PREPARE RBC 2020-06-18 23:54:00 [facility] BASIC METABOLIC PANEL (7) 2020-06-18 21:37:00 Kristie Aly [facility] POCT-GLUCOSE METER 2020-06-18 17:24:00 [facility] BASIC METABOLIC PANEL (7) 2020-06-18 13:56:00 Kristie Aly [place] [facility] CBC W/PLT COUNT & AUTO 2020-06-18 13:56:00 Kristie Aly [facility] MAGNESIUM 2020-06-18 13:56:00 Kristie Aly [facility] PHOSPHORUS 2020-06-18 13:56:00 Kristie Aly [facility] POCT-GLUCOSE METER 2020-06-18 12:01:00 [facility] POCT-GLUCOSE METER 2020-06-18 05:43:00 [facility] MAGNESIUM 2020-06-18 05:26:00 [facility] PHOSPHORUS 2020-06-18 05:26:00 [facility] COMPREHENSIVE METABOLIC 2020-06-18 05:26:00 [facility] CBC (HEMOGRAM ONLY) 2020-06-18 05:26:00 [facility] TRIGLYCERIDES 2020-06-18 05:26:00 [facility] POCT-GLUCOSE METER 2020-06-17 23:10:00 [facility] CBC W/PLT COUNT & AUTO 2020-06-17 20:08:00 Kristie Aly [facility] PROTHROMBIN TIME/INR 2020-06-17 20:08:00 [facility] APTT 2020-06-17 20:08:00 [facility] FIBRINOGEN 2020-06-17 20:08:00 [facility] POCT-GLUCOSE METER 2020-06-17 17:20:00 [facility]IEW PORTABLE / 2020-06-17 16:20:00 Kristie Aly [facility] CBC (HEMOGRAM ONLY) 2020-06-17 15:06:00 [facility] POCT-GLUCOSE METER 2020-06-17 12:00:00 [facility] CBC (HEMOGRAM ONLY) 2020-06-17 07:27:00 Cathy Neff [facility] THROMBOELASTOGRAPH (TEG) 2020-06-17 03:44:00 [facility] PROTHROMBIN TIME/INR 2020-06-17 03:43:00 [facility] APTT 2020-06-17 03:43:00 [facility] FIBRINOGEN 2020-06-17 03:43:00 Cathy Neff [facility] MAGNESIUM 2020-06-17 03:43:00 Mathew [facility] PHOSPHORUS 2020-06-17 03:43:00 [facility] COMPREHENSIVE METABOLIC 2020-06-17 03:43:00 Castillo-[facility] CBC (HEMOGRAM ONLY) 2020-06-17 03:43:00 Cathy Neff [facility] POCT-GLUCOSE METER 2020-06-17 03:43:00 [facility] TRANSFUSE LEUKO-REDUCED RED 2020-06-17 03:27:09 [facility] BLOOD CELLS [facility] CBC W/PLT COUNT & AUTO 2020-06-16 20:19:00 Luciano Espinoza [facility] POCT-GLUCOSE METER 2020-06-16 17:56:00 Castillo-[facility] CBC (HEMOGRAM ONLY) 2020-06-16 16:44:00 [facility] PROTHROMBIN TIME/INR 2020-06-16 16:44:00 [facility] APTT 2020-06-16 16:44:00 [facility] FIBRINOGEN 2020-06-16 16:44:00 [facility] PLATELET COUNT 2020-06-16 16:44:00 [facility] LACTIC ACID, VENOUS 2020-06-16 15:48:00 [facility] POCT-GLUCOSE METER 2020-06-16 11:34:00 [facility] COMPREHENSIVE METABOLIC 2020-06-16 06:13:00 [facility] CBC W/PLT COUNT & AUTO 2020-06-16 03:19:00 Beau Olvera [facility] MAGNESIUM 2020-06-16 03:19:00 Tyree Carmona [facility] PHOSPHORUS 2020-06-16 03:19:00 Mathew [facility] TISSUE EXAM 2020-06-16 01:10:00 [facility] HGB/HCT (H&H) - STAT LAB 2020-06-16 00:45:28 Nam Glaser [facility] BLOOD GAS, ARTERIAL 2020-06-16 00:45:28 Nam Glaser [facility] CALCIUM, IONIZED 2020-06-16 00:45:28 Nam Glaser [facility] SODIUM NA-STAT LAB 2020-06-16 00:45:28 Nam Glaser [facility] POTASSIUM-STAT LAB 2020-06-16 00:45:28 Nam Glaser [facility] GLUCOSE-STAT LAB 2020-06-16 00:45:28 Nam Glaser [facility] LAPAROTOMY,EXPLORATORY 2020-06-15 23:36:00 Marilia [facility] XR ABDOMEN / KUB 1 VIEW 2020-06-15 13:08:00 [facility] XR ABDOMEN / KUB 1 VIEW 2020-06-15 10:35:00 [facility] PT/APTT 2020-06-15 08:44:00 [facility] HEPATITIS C ANTIBODY 2020-06-15 08:44:00 [facility] HEPATITIS C PCR, 2020-06-15 08:44:00 [facility] HEPATITIS B PANEL 2020-06-15 08:44:00 [facility] HEPATITIS A PANEL 2020-06-15 08:44:00 [facility] ABORH, MANUAL 2020-06-15 04:39:00 Jeaneth Weiner [facility] TYPE AND SCREEN, AUTOMATED 2020-06-15 01:39:00 HensonTerell neff [facility] CBC W/PLT COUNT & AUTO 2020-06-15 01:39:[address] [facility] DIFFERENTIAL [facility] CARCINOEMBRYONIC ANTIGEN 2020-06-15 01:39:00 Terell Henson [facility] ([facility]) [facility] BASIC METABOLIC PANEL (7) 2020-06-15 01:39:00 HensonTerell [facility] MAGNESIUM 2020-06-15 01:39:00 Tyree Carmona [facility] PHOSPHORUS 2020-06-15 01:39:00 Tyree Carmona [facility] HEPATIC FUNCTION PANEL 2020-06-15 01:39:00 HensonTerell [facility] SARS-COV2/RT-PCR ([facility] & REF 2020-06-15 00:55:00 MathewTyree sandoval [facility] - LABS) [facility] ECG 12-LEAD 2020-06-14 22:15:11 Unknown, Hl7 Doctor [facility] CT ABDOMEN/PELVIS WITHOUT IV 2020-06-14 20:09:[address] [facility] CONTRAST [facility] US ABDOMEN LIMITED 2020-06-14 19:07:00 Rell [facility] LACTIC ACID, VENOUS 2020-06-14 17:22:[address] [facility] CBC W/PLT COUNT & AUTO 2020-06-14 16:15:00 Rell [facility] DIFFERENTIAL [facility] COMPREHENSIVE METABOLIC 2020-06-14 16:15:00 [facility] 2020-06-14 [facility] 2020-06-14 16:15[facility]00 [facility] RE[facility] OF PROCEDURE - 2020-06-14 00:00:00 Provider, Default [facility] - ENDOSCOPY SCAN Scanning [facility] CBC W/PLT COUNT & AUTO 2020-06-04 03:45:[address] [facility] S t [facility] - DIFFERENTIAL [facility] COMPREHENSIVE METABOLIC 2020-06-04 03:45:[address] [facility] CBC W/PLT COUNT & AUTO 2020-06-03 04:20:00 Civuniguntdevan, [facility] S t [facility] - DIFFERENTIAL [facility] MAGNESIUM 2020-06-03 04:20:[address] [facility] PHOSPHORUS 2020-06-03 04:20:[address] [facility] COMPREHENSIVE METABOLIC 2020-06-03 04:20:00 Civunjorgea [facility] - PANEL [facility] XR ABDOMEN / KUB 1 VIEW 2020-06-02 13:50:00 Nitin Ana [facility] SARS-COV2/RT-PCR ([facility] & REF 2020-06-02 10:03:00 [facility] CBC W/PLT COUNT & AUTO 2020-06-02 09:02:00 Grace Damon [facility] BASIC METABOLIC PANEL (7) 2020-06-02 09:02:00 Grace Damon [facility] HEPATIC FUNCTION PANEL 2020-06-02 09:02:00 Grace Damon [facility] PROTHROMBIN TIME/INR 2020-06-02 09:02:00 Grace Damon [facility] COVID-19 QUALITATIVE RT-PCR 2020-05-06 15:26:00 Camacho Barajas [facility] Plan of Care Planned Activity Planned Date Details Comments Source Future Scheduled 2020-11-03 INFLUENZA VACCINE (#1) [facility] Test 00:00:00 [code = INFLUENZA Medical Ce nter VACCINE (#1)] Future Scheduled 2020-03-[address] [facility] - Test 00:00:00 (12+) [code = Medical Center DEPRESSION SCREENING (12+)] Future Scheduled 2010 SHINGLES VACCINES ([address] [facility] - Test 00:00:00 of 2) [code = SHINGLES Medic al Center VACCINES (1 of 2)] Future Scheduled [address] [facility] - Test 00:00:00 (procedure) [code = Medical Center 81173056] Future Scheduled [address] [facility] - Test 00:00:00 [facility] cervix (procedure) [code = 504851109] Future Scheduled 1979-12-21 DTAP/TDAP/TD VACCINES [facility] Test 00:00:00 (1 - Tdap) [code = Medical C enter DTAP/TDAP/TD VACCINES (1 - Tdap)] Future Scheduled 1972 COVID-19 VACCINE (1) [facility] - Test 00:00:00 [code = COVID-[address] VACCINE (1)] Future Scheduled [address] [facility] - Test 00:00:00 0-64 YRS (1 of 1 - Medical C enter PPSV23) [code = PNEUMOCOCCAL VACCINE 0-64 YRS (1 of 1 - PPSV23)] Future Scheduled [address] [facility] - Test 00:00:00 [facility] breast (procedure) [code = 889636732] Future Scheduled [address] [facility] - Test 00:00:[address] [facility] colon (procedure) [code = 252769279] Future Scheduled Screening for [facility] Test malignant neoplasm of cervix (procedure) [code = 032984065] Future Scheduled BREAST CANCER [facility] Test SCREENING [code = BREAST CANCER SCREENING] Future Scheduled [facility] [code = COLONOSCOPY SCREENING] Future Scheduled SHINGLES VACCINES (#[facility]) [facility] [code = SHINGLES VACCINES (#1)] Future Scheduled [facility]ZA [facility]INE [facility] [code = INFLUENZA VACCINE] Future Scheduled COVID-19 [facility]ACCINE (1) [facility] [code = COVID-19 VACCINE (1)] Future Scheduled [facility] (procedure) [code = 146736419] Encounters Start End Encounter Admission Attending Care Care Encounter Source Date/Time Date/Time Type Type Clinicians Facility Department ID 2020-10-15 2020-10-15 Outpatient [facility] [id number] [facility] 07:47:06 23:59:00 [facility] 2020-10-13 2020-10-13 Outpatient TIFFANY [facility] [id number] [facility] 15:35:42 15:52:31 RACHEL [facility] 2020-10-01 2020-10-01 Outpatient [facility] [id number] [facility] 07:42:07 23:59:00 [facility] 2020-09-29 2020-09-29 Outpatient TIFFANY, [facility] [id number] [facility] 14:38:16 15:05:55 TANNAZ [facility] 2020-09-17 2020-09-17 Outpatient [facility] [id number] [facility] 07:28:51 23:59:00 [facility] 2020-09-15 2020-09-15 Outpatient TIFFANY, [facility] [id number] [facility] 13:35:21 14:05:27 TANNAZ [facility] 2020-09-09 2020-09-09 Outpatient CASTILLO-VALENTIN [facility] [id number] [facility] 12:35:53 14:43:35 L, VERITO [facility] 2020-09-03 2020-09-03 Outpatient [facility] [id number] [facility] 07:37:50 23:59:00 [facility] 2020-09-01 2020-09-01 Outpatient TIFFANY, [facility] [facility] [id number] [facility] 13:57:35 14:48:52 [employer] 2020-08-26 2020-08-26 Outpatient [facility] [id number] [facility] 14:15:22 15:32:16 L, VERITO [employer] 2020-05-06 2020-05-06 [facility] Jenn, 1.2.840.1 [id number] Methodi 09:19:56 09:34:56 Camacho L. [address] 3.430.2.7 Hospit a .3.030949 l .8 2020-05-06 2020-05-06 Outpatient [facility]ENLESLEY [facility] [id number] [place] 00:00:00 00:00:00 CAMACHO [address] 2020-05-06 2020-05-06 Travel 1.2.840.1 1.2.979.945 [id number] Methodi 00:00:00 00:00:[address] 3.430.2.7 0.2.7.3.698 spita .3.309074 084.8 l .8 Results Test Description Test Time Test Comments Results Result Sourc e Comments ANG, TUNNEL CATH 2020-07-19 Reason for [facility]EN[facility] INS 16:15:00 Exam:->C18.2 W/[facility] 1960 Sex: F FINAL REPORT Chest port insertion, 07/19/2020. History: Colon cancer. Modality: Sonography and fluoroscopy. Sedation: Versed 1 mg and fentanyl 50 mcg given intravenously for conscious sedation. Vital signs were monitored throughout the procedure by a nurse, and remained stable. Physician intra-service time was 30 minutes. Sales Coach: Chary. Executive Office Manager: None. Approach: Internal jugular vein - right. Estimated blood loss: < 5 cc. Specimen: None. Fluoroscopy Time: 0.04 min. Dose (Ka,r): 0.5 mGy. Technique: Informed written consent was obtained. Discussion of risks, benefits, and alternatives were made with the patient. The patient expressed understanding and agreed to proceed. All elements maximal sterile barrier technique was utilized for this procedure, including utilization of sterile scrub solution for skin prep, a large sterile sheet to cover the areas of the patient that were not prepped, and hand hygiene, mask, head covering, and sterile gown for performing radiologist and scrub technologist. The skin was anesthetized with 2% lidocaine. Ultrasound evaluation showed a patent and compressible right internal jugular vein, which was punctured under direct real-time ultrasound guidance with a micropuncture needle. An ultrasound image was saved to PACS. A 0.018 inch wire was placed through the needle into the right atrium. A 4 Danish micropuncture sheath was placed. A subcutaneous tunnel and pocket were created in the right anterior chest wall by blunt dissection. The pocket was flushed with antibiotic solution. A Bard power injectable port was placed within the pocket and the catheter brought through the tunnel. A peel-away sheath was placed in the right IJ vein and the catheter was advanced through the sheath, with its distal tip terminating near the cavoatrial junction. The peel-away sheath was removed. The catheter was cut at 23 cm and attached to the port. The port was flushed and aspirated easily following placement. The skin incision was closed with 3-0 running subcuticular Monocryl and Steri-Strips. The small jugular incision site was closed using Steri-Strips. The patient tolerated the procedure well and left the department in the same condition. Results: Spot radiograph of the chest demonstrates the new right IJ Port-A-Cath to lie in the expected position with its tip near the cavoatrial junction. Impression: Successful, uncomplicated placement of a right internal jugular chest port using sonographic and fluoroscopic guidance, with conscious sedation. Signed: Robbie Diez MDReport Verified Date/Time: 07/19/2020 16:15:16 Reading Location: [place] [address] Angio Body Reading Room Port-a-Cath 2020-07-19 Interface, External C [facility] Placement 16:15:00 Ris In - 07/19/2020 - Med ical 4:17 PM [facility] REPORT Chest port insertion, 07/19/2020. History: Colon cancer. Modality: Sonography and fluoroscopy. Sedation: Versed 1 mg and fentanyl 50 mcg given intravenously for conscious sedation. Vital signs were monitored throughout the procedure by a nurse, and remained stable. Physician intra-service time was 30 minutes. Sales Coach: Chary. Executive Office Manager: None. Approach: Internal jugular vein - right. Estimated blood loss: < 5 cc. Specimen: None. Fluoroscopy Time: 0.04 min. Dose (Ka,r): 0.5 mGy. Technique: Informed written consent was obtained. Discussion of risks, benefits, and alternatives were made with the patient. The patient expressed understanding and agreed to proceed. All elements maximal sterile barrier technique was utilized for this procedure, including utilization of sterile scrub solution for skin prep, a large sterile sheet to cover the areas of the patient that were not prepped, and hand hygiene, mask, head covering, and sterile gown for performing radiologist and scrub technologist. The skin was anesthetized with 2% lidocaine. Ultrasound evaluation showed a patent and compressible right internal jugular vein, which was punctured under direct real-time ultrasound guidance with a micropuncture needle. An ultrasound image was saved to PACS. A 0.018 inch wire was placed through the needle into the right atrium. A 4 Danish micropuncture sheath was placed. A subcutaneous tunnel and pocket were created in the right anterior chest wall by blunt dissection. The pocket was flushed with antibiotic solution. A [employer] power injectable port was placed within the pocket and the catheter brought through the tunnel. A peel-away sheath was placed in the right IJ vein and the catheter was advanced through the sheath, with its distal tip terminating near the cavoatrial junction. The peel-away sheath was removed. The catheter was cut at 23 cm and attached to the port. The port was flushed and aspirated easily following placement. The skin incision was closed with 3-0 running subcuticular Monocryl and Steri-Strips. The small jugular incision site was closed using Steri-Strips. The patient tolerated the procedure well and left the department in the same condition. Results: Spot radiograph of the chest demonstrates the new right IJ Port-A-Cath to lie in the expected position with its tip near the cavoatrial junction. Impression: Successful, uncomplicated placement of a right internal jugular chest port using sonographic and fluoroscopic guidance, with conscious sedation. Signed: Robbie Diez MDReport Verified Date/Time: 07/19/2020 16:15:16 Reading Location: [place] [address] Angio Body Reading Room Prothrombin time/INR 2020-07-19 08:09:00 Test Item Value Reference Range Interpretation Comme nts Protime (test code = 12.9 See_Comment [Autom ated message] The 5902-2) system which ge nerated this result tra nsmitted reference range : 11.9 - 14.2 seconds. T he reference range was not used to interpr et this result as normal/abnormal . INR (test code = 1.00 See_Comment [Automated message] The 6301-6) system which ge nerated this result tra nsmitted reference range : <=5.90. The reference r ariana was not used to int erpret this result as normal/abnormal . ALEXIS (test code = ALEXIS) Effective 07/31/2018: PT Reference Range ChangeNew: 11.9-14.2 Previous: 11.7-14.7 RECOMMENDED COUMADIN/WARFARIN INR THERAPY RANGESSTANDARD DOSE: 2.0-3.0 Includes: PROPHYLAXIS for venous thrombosis, systemic embolization; TREATMENT for venous thrombosis and/or pulmonary embolus.HIGH RISK: Target INR is 2.5-3.5 for patients wiht mechanical heart valves. Lab Interpretation Normal (test code = 94142-5) [facility] 08:09[facility]00 Test Item Value Reference Range Interpretation Comments PTT (test code = 26729-4) 27.8 See_Comment [ Automated message] The system Maimai generated this result transmitted ref erence range: 22.5 - 3 6.0 seconds. The re ference range was not u sed to interpret this result as normal/abnor mal. Lab Interpretation (test Normal code = 64471-8) [facility]/[id number] 08:09:00 Test Item Value Reference Range Interpretation Comments PROTIME (BEAKER) 12.9 seconds 11.9-14.2 (test code = 759) INR (BEAKER) (test 1.00 See_Comment [Automat ed message] code = 370) The system Maimai generated this result transmitted ref erence range: <=5.90. The reference range was not used to int erpret this result as normal/abnormal . Effective 07/31/2018: PT Reference Range ChangeNew: 11.9-14.2 Previous: 11.7- 14.7RECOMMENDED COUMADIN/WARFARIN INR THERAPY RANGESSTANDARD DOSE: 2.0-3.0 Includes: PROPHYLAXIS for venous thrombosis, systemic embolization; TREATMENT for venous thrombosis and/or pulmonary embolus.HIGH RISK: Target INR is2.5-3.5 for patients wiht mechanical heart valves.[id number] 08:09:00 Test Item Value Reference Range Interpretation Comments PARTIAL THROMBOPLASTIN TIME 27.8 seconds 22.5-36.0 (BEAKER) (test code = 760) CBC with platelet count + automated [id number] 08:05:00 Test Item Value Reference Range Interpretation Comments WBC (test code = 6690-2) 9.1 See_Comment [A utomated message] The system Maimai generated this result transmitted ref erence range: 3.5 - 10 .5 K/L. The refe rence range was not u sed to interpret this result as normal/abnor mal. RBC (test code = 789-8) 4.37 See_Comment [Au tomated message] The system Maimai generated this result transmitted ref erence range: 3.93 - 5 .22 M/L. The refe rence range was not u sed to interpret this result as normal/abnor mal. MCHC (test code = 786-4) 31.7 See_Comment L [A utomated message] The system Maimai generated this result transmitted ref erence range: 32.2 - 3 5.5 GM/DL. The refe rence range was not u sed to interpret this result as normal/abnor mal. Hematocrit (test code = 39.8 % 34.1-44.9 4544-3) MCV (test code = 787-2) 91.1 fL 79.4-94.8 MCH (test code = 785-6) 28.8 pg 25.6-32.2 RDW (test code = 788-0) 14.3 % 11.7-14.4 Platelets (test code = 450 See_Comment [Aut omated message] 777-3) The system Maimai generated this result transmitted ref erence range: 150 - 45 0 K/CU MM. The referen ce range was not u sed to interpret this result as normal/abnor mal. MPV (test code = 9.9 fL 9.4-12.3 86764-9) nRBC (test code = 413) 0 See_Comment [Aut omated message] The system Maimai generated this result transmitted ref erence range: 0 - 0 /1 00 WBC. The refere nce range was not u sed to interpret this result as normal/abnor mal. % Neutros (test code = 64 % 429) % Lymphs (test code = 27 % 430) % Monos (test code = 6 % 431) % Eos (test code = 432) 2 % % Baso (test code = 437) 1 % # Neutros (test code = 5.82 See_Comment [Aut omated message] 670) The system Maimai generated this result transmitted ref erence range: 1.56 - 6 .13 K/L. The refe rence range was not u sed to interpret this result as normal/abnor mal. # Lymphs (test code = 2.42 See_Comment [Auto mated message] 414) The system Maimai generated this result transmitted ref erence range: 1.18 - 3 .74 K/L. The refe rence range was not u sed to interpret this result as normal/abnor mal. # Monos (test code = 0.50 See_Comment H [Autom ated message] 415) The system Maimai generated this result transmitted ref erence range: 0.24 - 0 .36 K/L. The refe rence range was not u sed to interpret this result as normal/abnor mal. # Eos (test code = 416) 0.18 See_Comment [Au tomated message] The system Maimai generated this result transmitted ref erence range: 0.04 - 0 .36 K/L. The refe rence range was not u sed to interpret this result as normal/abnor mal. # Baso (test code = 417) 0.11 See_Comment H [A utomated message] The system Maimai generated this result transmitted ref erence range: 0.01 - 0 .08 K/L. The refe rence range was not u sed to interpret this result as normal/abnor mal. Immature 0 % 0-1 Granulocytes-Relative (test code = 2801) Lab Interpretation (test Abnormal code = 74315-2) [facility] W/PLT COUNT & AUTO [id number] 08:05:00 Test Item Value Reference Range Interpretation Comments WHITE BLOOD CELL COUNT (BEAKER) 9.1 K/ L 3.5-10.5 (test code = 775) RED BLOOD CELL COUNT (BEAKER) 4.37 M/ L 3.93-5.22 (test code = 761) HEMOGLOBIN (BEAKER) (test code = 12.6 GM/DL 11.2-15.7 410) HEMATOCRIT (BEAKER) (test code = 39.8 % 34.1-44.9 411) MEAN CORPUSCULAR VOLUME (BEAKER) 91.1 fL 79.4-94.8 (test code = 753) MEAN CORPUSCULAR HEMOGLOBIN 28.8 pg 25.6-32.2 (BEAKER) (test code = 751) MEAN CORPUSCULAR HEMOGLOBIN CONC 31.7 GM/DL 32.2-35.5 L (BEAKER) (test code = 752) RED CELL DISTRIBUTION WIDTH 14.3 % 11.7-14.4 (BEAKER) (test code = 412) PLATELET COUNT (BEAKER) (test 450 K/CU MM 150-450 code = 756) MEAN PLATELET VOLUME (BEAKER) 9.9 fL 9.4-12.3 (test code = 754) NUCLEATED RED BLOOD CELLS 0 /100 WBC 0-0 (BEAKER) (test code = 413) NEUTROPHILS RELATIVE PERCENT 64 % (BEAKER) (test code = 429) LYMPHOCYTES RELATIVE PERCENT 27 % (BEAKER) (test code = 430) MONOCYTES RELATIVE PERCENT 6 % (BEAKER) (test code = 431) EOSINOPHILS RELATIVE PERCENT 2 % (BEAKER) (test code = 432) BASOPHILS RELATIVE PERCENT 1 % (BEAKER) (test code = 437) NEUTROPHILS ABSOLUTE COUNT 5.82 K/ L 1.56-6.13 (BEAKER) (test code = 670) LYMPHOCYTES ABSOLUTE COUNT 2.42 K/ L 1.18-3.74 (BEAKER) (test code = 414) MONOCYTES ABSOLUTE COUNT (BEAKER) 0.50 K/ L 0.24-0.36 H (test code = 415) EOSINOPHILS ABSOLUTE COUNT 0.18 K/ L 0.04-0.36 (BEAKER) (test code = 416) BASOPHILS ABSOLUTE COUNT (BEAKER) 0.11 K/ L 0.01-0.08 H (test code = 417) IMMATURE GRANULOCYTES-RELATIVE 0 % 0-1 PERCENT (BEAKER) (test code = 2801) CT THORAX [id number] 07:56:16 [facility] : 1960 Sex: FCLINICAL INDICATION: C18.2 Malignant neoplasm of ascending colon. Diagnosed with colon cancer 2 weeks ago. Emergency surgery, now has ileostomy bag. Rule out mets. Status post cholecystectomy and two C-sections.MODALITY: DTI - [employer] CT TECHNIQUE: Unenhanced helical scans through the chest were performed.Computed Tomography Dose Index (CTDI): 5.75 mGy.IMPRESSION:1. No evidence of metastatic disease in the chest.2. Mild fibrotic changes.3. Evidence of prior granulomatous disease.FINDINGS:COMPARISON: None.There is mild apical paraseptal emphysema and mild honeycombing at the posterior aspectof the lower lobes. No suspicious pulmonary nodule or significant parenchymal consolidation. A calcified granuloma is present in the left upper lobe. The airways are patent. There is no pleural effusion, focal thickening or mass.There are mediastinal calcifications, with a bulky conglomerate at the right lower paratracheal/hilar lymph node station measuring 2.0 x 2.0 x 4.0 cm. Scattered, noncalcifiedlymph nodes are noted, however there is no pathologic mediastinal or hilar lymphadenopathy. Coronaryartery and aortic arch calcifications are present. The heart is not enlarged. No pericardial thickening or effusion. The great vessels are otherwise unremarkable. No pathologic axillary or supraclavicular lymphadenopathy. The thyroid is homogeneous without focal abnormality.The chest wall is intact. No lytic or blastic osseous lesions. Thoracic spondylosis.Scattered punctate calcifications are noted throughout the spleen. Status post cholecystectomy.[facility] 436: [id number] (For official use only.)Tissue Exam 2020-06-25 11:27:00 Test Item Value Reference Range Interpretation Comments Case Report (test Surgical Pathology Report code = 104) Case: [id number] Authorizing Provider: Verito Capellan MD Collected: 06/16/2020 01:10 AM Ordering Location: [facility] Received: 06/16/2020 09:42 AM SERVICES Pathologist: Radha Limon MD Specimen: Soft Tissue, Other, RIGHT COLON DIAGNOSIS (test r2qclRFsWWDtv6fpBANdbBVcHtP code = 3220) wMzNcZnRuYmpcdWMxIHtccnRmMV xlcGljOTIwMlxhbnNpXHNwbHRwZ 3GqwphiUJbqFA9vAU7bpWthoKUw pJJwUOTsOeLel3cpb596fCSzm9p iTAJNczjhsHj5tCkgE89bq9J8Ad gkP2cxVHOoQXEvG6LzNB1hVDNjG rs9CKV5SWq3XOYdonZuyGmbuR6u NyMsNROOWkGSB1vBZpqaSemKHZQ eCDaHWLoGE8hIZ0AIZRt3QLVgnl w1JLSwLYAJQJRQC8HULnYSVh7CY SvvKQ5JGHZOUYTZCD4CC12ZSImr ZOcIOdGBXL5POAJYGTUhlNQbWSE gICAgICAgICAgICAtIEdSRUFURV HILMPWRI4YYQGFDISTJ0dXEbK2V DQuMiBDTVxwYXIgICAgICAgICAg NFDqNJ3cQ0RGA9yYO74SWJdMXrR IHYBjKNcEB7LMGBDANOFSCJnVFx nVSNLWL9HDOWSjMO5ZWrTCIACIZ 13YSXLvSoWVEJoRXd7EPmeIHpID HZDGE1KiJvNBDQXATWVYDUVWDIH BZG5CSZPSCGUggvp7ICIwLAZJSN ADYBRHKWPKBCWGH0JVR15zOSTZE 8mDNlRRIVkAPPeLCMIKT5RlYBUX Lg9NSBlwHMpUVSLWZxWQBEFPHPE RJSVEMCNhEIxNYHENEEYTY3OGKD UXYfPBZiQSA0eMHEGIEDRNK7ONK mVWDp6FDNvcUIJvKRUgRKDgOTKu MRTmJT6rBm2HMLfjFZvTVPoMElL SK2IMAXFxVQ2YGPQHXygJJGTSWK mfJS1NXUMEB91xGCXFOrYPRdsWO HovVFCkzVYwDO6cWq3EImQHBS4f ZJgGPEirQa5WTTFpG2yAKO5AWKQ NISXMA4DFDZuMENQNZuBWRu5QRR GuBK0wJSwqKAKxuexsDMZnNIUsT THvIEJgHOHdFWoaQWJNZVYMRS3D ZLJiVGHzDEGXMBDXLJRSOX2LKo1 IYJJPKB9VTSFimzp2ROQnODSEGZ FGLyEUQGOUMWJIEU5PZNPLLGeVM Q9AXGRCXVYWZULIAjEVZC2TZDVn eni8YAJmPOWFCAeZNYMPOFYKNXV FAOtPXYPVLyUZCEBKGKXOVR9CNI FTIChTRVZFTikgSURFTlRJRklFR SbgQHGsJPKUZ7FsWp8EFxN+MTAg YQ1arCMkXRDtIdMdNWMFIkUHSDP iAXZGFr2WRJNtSKaDX9OQULWOSU LOWUsKBZZQBWXleqp5LJVoRTQTM EJBOaOOHXMHHVQqJF8NYOBQMUNa O31EBIQFPIDACXaCFTCAWESpyyU dYIWvAGNuOMVeTLVbZDKhN4pzSf UjfKEnKMYKGX8AW3cSZoKNUXFCY AKWBWXYS6cUINVQEItHHpGgyQHE PXdpKVmVHaO4nLmmDVWasEbelwy tPXMIXBIeNM6xWR34VGLscbRxOT RrEDOuRSOwMNCuQKYOFTKfK6vIB 9DBWMUkIeRLE7SSWOXdme18KKA4 NyRgu6G4BYV5OLZkFRTrs5flZJP mbGFuZzEwMzNcZnRuYmpcdWMxXG IrGxIjk2qau409iMHxy9ccJOXrN eD0jWSsCMThnSFrV982UKBiJQcc w9rdi8OhVAFbuPOiv6V1DNNVxik xiJt8eEpoJ69rz1D7QumaY8ybXC LqROUnY7IsVH6tOCLmKrt8KWU7U YK0VZShPAFuL8VmYZ5yTMDshCWn XTz1u9iowPhvANGjZVM0d9ijGSo jhrFsTH8zov9oaJx4b4vzxvIuIW YpUNWcgSZQRGXmQ9QjuApmDz0sq Qp0eQavIgpfYLG2Ozo8BC9zfr51 ymd0nVbjDZMjgffvSrK3BCheNAZ axwiiMIg1TIssTZItmWH4KPRvmL JrU4KeFPAkST3mjjz0VCW1TXmiR OKoQjZ4CGKboUOqGJHtiZpbMFcx n797ZIR3XkKrKN9pK8Fjg5L0rY3 elUJdWKUfqYHxZtSnUIVigc3ucU QiMEvcc3YhMYE8cbW8qAAdgJDlQ YWvWjR5SYzlQP9fez71WYLrOLK3 vx9ljJEqlIvozxXvvYWnSDrrQ7J cYCAyp594ESIkI1ZlEUYqi6B3sk DqIfGkKNNqmXN8uvD0YEQoGU7ri ccuq3qbEWisMCckHCHuckL4upU2 PYSrrZOuG9ZwbA0zAHQmMW6sozt ov9vdXQD6WYenFRWfTJI9WdMrQD Kdh7Uhmqg1EgKbf4LhlGBjQQwgQ 81xd465PTFuajJgH1hvtTEsablr lCWrwdafVNjevcV6KGPaDMzycrj gQSZgKAkaM7ayPjWuILMraFxoSG uvm6DvWRPzROZaJhHvsDKsYMXrT io7APFjyUKmRPFlXdKqO8bqzmxj FtEYMNGpa4ihG7csjYJXhNDqW1D gPQhqwhGcUObtSTiuQGJrLRS5UY 99PBztUZVhql32 COMMENT (test code t9mybRDhWWSwyQQ6EbYcMPQem5o = 3359) ik8CzrFHskVYkCFyjwQLfccCwam 45aKT5rR61RM1qXHFpGmW8DWAqt kR2Jis2DNUfWOSfsEXhR092c7ue u6fygaHboXA2uAztWHNbOJLuYIe pCQOdSwIvAHRmb3PdpVBceXSlo7 YrVMEnUJIhob42qJ1maVOwcLZ4S sXaYNUdNSEzx59qSQVqF7zrr7Vo k7cfXMSsZoOwRWIqpGLnf4Nov0J 0IS4ml0Zqx5khFRIvVDEyYOLsZG Jny6a9lLXyRKLfYNukGI39mTGdB HOyJWUwxUYam2a8jPUhUFDjDJ16 YW9qTXMrEFCvtCDaBCIodNYcz7W yIHBvbHlwcyBhcmUgPiAxMCBtbS 5vGOydoiUrcXzfBOK8ifYsSCJfF HAyZCYcg8j7wA9vwATou2alORCx xPQxAJSfEYMwfS3kGOTdzAKFQZ6 uXHBhclxwYXIgUmVmZXJlbmNlOi CoyRUbcgyrS8l9lg8uWWG3yx0ko 5ZuerBdIx3bKi2warXdJ4yiX3Jf ALX4CWFhYDBcChBuHkMjAIhvWM8 wZGZccGFyfQ== SYNOPTIC REPORT COLON AND RECTUM: (test code = 71) Resection, Including Transanal Disk Excision of Rectal Neoplasms (COLON AND RECTUM: RESECTION - All Specimens) 8th Edition - Protocol posted: 04/30/2019 SPECIMEN Procedure: Right hemicolectomy TUMOR Tumor Site: Ascending colon Histologic Type: Adenocarcinoma Histologic Grade: G2: Moderately differentiated Tumor Size: Greatest dimension (Centimeters): 4.2 cm Tumor Extension: Tumor invades the visceral peritoneum Macroscopic Tumor Perforation: Present Lymphovascular Invasion: Present Perineural Invasion: Present Treatment Effect: No known presurgical therapy MARGINS Margins: Proximal Margin: Uninvolved by invasive carcinoma, high grade dysplasia / intramucosal carcinoma, and low grade dysplasia Distance of Tumor from Margin: 15.8 cm Distal Margin: Uninvolved by invasive carcinoma, high grade dysplasia / intramucosal carcinoma, and low grade dysplasia Distance of Tumor from Margin: 7.2 cm Radial (circumferential) or Mesenteric Margin: Uninvolved by invasive carcinoma Distance of Tumor from Margin: Cannot be determined LYMPH NODES Number of Lymph Nodes Involved: 0 Number of Lymph Nodes Examined: 14 Tumor Deposits: Not identified PATHOLOGIC STAGE CLASSIFICATION (pTNM, AJCC 8th Edition) Primary Tumor (pT): pT4a Regional Lymph Nodes (pN): pN0 ADDITIONAL FINDINGS Additional Findings: Adenoma(s) Additional Findings: sessile serrated and hyperplastic polyps Colon and Rectum Biomarker Reporting Template (COLON AND RECTUM: BIOMARKER REPORTING TEMPLATE - All Specimens) Protocol posted: 05/01/2018 RESULTS Mismatch Repair: Immunohistochemistry (IHC) Testing for Mismatch Repair (MMR) Proteins: MLH1 Result: Intact nuclear expression Immunohistochemistry (IHC) Testing for Mismatch Repair (MMR) Proteins: MSH2 Result: Intact nuclear expression Immunohistochemistry (IHC) Testing for Mismatch Repair (MMR) Proteins: MSH6 Result: Intact nuclear expression Immunohistochemistry (IHC) Testing for Mismatch Repair (MMR) Proteins: PMS2 Result: Intact nuclear expression Immunohistochemistry (IHC) Testing for Mismatch Repair (MMR) Proteins: Background nonneoplastic tissue / internal control with intact nuclear expression IHC Interpretation#: No loss of nuclear expression of MMR proteins: low probability of MSI-H Microsatellite Instability (MSI): MSI-Stable (NUPUR) CPT Code(s) (test v7ikgSBpDXRofTG9XwOyMCFqz1v code = 3357) iu0KwnBCumBQvPNdbaYUojiLgdg 88pMP4uQ75NS7yLCIhKxO4SAUbf kO0Kij6HNUxJPVprBCuS000n4ye x6huagKwcLJ0rNarPHNwCZOgABn oGEOmHmTkVTpjIHzuBCf4WxWuAK ggMSwgODgzNDEgeCAzXHBhcn0= CLINICAL HISTORY y3ebaIFoEUJfjNF4LwMmEQMan9v (test code = 3356) pz4CekUUdcBZzNTcyrZLxqpRkob 01nCZ0lY48LN2hSQBoVyQ0FWBuj eX3Kyz3SSBgGRCcsYUsP294m5yk c6pwmhZwhWW0cHccEBHnXONlIBi yRCCjUhDhR49jlEioKu37LPrmz8 XndUC0A4Nri15nPRPzar5= SPECIMEN SOURCE t9nhnMDeSWWyzMN4WyAsOVNur8d (test code = 3377) ht4XrxGYkrYBpCRgmtREkvdGmxv 48bKZ5nE30TY1qCOApLzO8QIMgn dO5Kwi9WUEvZPJrgDNlE945k9ah k1ueplWlbDQ9lUcpAGElWRQqVEb vWUIjZkAqN13taQQ4zJWgnFVuWT 90iBOeBWcsVBV5 GROSS DESCRIPTION z3lolGQlRTKwvFE4PdLtUQYnk0s (test code = 3366) yr9BauMTrmQKwDNighJYepxQhfg 88zYZ8xW01QN7bFUVqXrX6TYJim yX0Zzs9NTJqDGPgsYBlP059z3rz n5paxqNxjXD4jYsmWDZcZXAnMVn eXCTwPtRpVX8sEcXpEUj4OKUxLb Xrh9yqjHOyXPfxHXH7gBHdHYLcT ERrYCKzJI86V0EhaaHrTSamQHZm LOPrqN1aDI50gEShuqInnmUuLaK tJiGzfLebf7EdJJUtqMsuchxewr zlfTSiE33id06xDQfjFLQfXS4uD ZDsXLkpUOixdet3sMA1YOBgTgHf rXWypyYifMFfMQElmjP5IYWwfD4 zbNBcoGB7yOraIHPjEA5tMBLaEZ gaWGkulxq1tMF6MLWiHOYinRCaq qQtxAOuIKXavwYtg7tytpghMI0b ABKaOS37HXAbRIukZRcvacr3wGS 4IDAuOSBjbSBpbiBkaWFtZXRlci BsbNDsJ1mdPHYtmRFterWlnHDpc zGnlKIrqZ4vFL72NEBsTD5wKLB4 rKUsqWJzLI2id2XkeEUhjL3wSUy eWPRbef7eSPWxjcY2WW0lsEokhi aln67mk1YgXFNvFRMoyKHhnsSyj WMuXHBhclxwYXIgVXBvbiBvcGVu dW7pBNE5lJMrDWHdupPmIJMmRzK zjJEnlgYfER5nqVxdN8whI6DhKq WwPP20cOEpUZX5ptyluXLjTACdz FVxvrIkvvE3dGRhILDrCN6zzJ8h DBWkyM5lWPShPHGhtVYaBy4dMUG eVWYlu98kvByoKFBvs6UvbPEcBB PhlK7sSA9bRNY5EqsnG56wNqYrs HL1aDDxvBGfuSnlOOghbFXkN3xr PE42VSTvXJbzIAqrzDqiKBSxVSV wwzNxeKOzWG80GCP6YYVaXCCesH AgyUSuBE0lv8IsuEBioB9iNItdL O7uc4LcL3Rrc3BelHEkySPbBBAu MUIqSBWhkYXgjv0lNCFdYRDrYOV az4QmINlqJGYnoCKpXFjoBIJeZE XnTHC2tZAyzdZyYPBcFA4mcZ8gQ IZrvE5hDLApAUCaMTMjEIGwoDa4 nGHoFIUzO2BzECEvaeM6vFPjPZM yXRKdzm1hkP5eVVOnu6NinKAimU 9seXBzIHJhbmdpbmcgZnJvbSAwL rdhwK9sQx3uWMNxKTqvDSpcINR1 ORH7TFNfnIMlp1wyvt0xUWssLG8 kAEEeq9HjwN2lkYKjnSCvZQ3rJD WtQWZiy74giNxhTLLuw2ojwXRxF V0uyntdxyEsbqCbYX3pRKMrORYn m58waUxnGHOri7WyrFWeRCTbxD5 qJTXiRAEqDGY9zOYbjeRjQHKnMR 7wdF7gYDXxnC9zBT60S86iGZQjj yBlZGVtYXRvdXMuIFxwYXJccGFy OUNzCPP5KYVxhX3wyASowDP7lDH pjzAaFVhttGDaZVCbiS8jMARubA 09u3h3DUYvjBMxt5BaTHqdFSWzZ Y1ilO8iVHsfpMxdbl5foGYcASLl Z1ifzZKpsLQyJDkfBc1sAJRfLBB bTREzSVFvOEhkQKYsyiwniNj3EB AyN5Avi62tXEW3jvLcNBMmXNabI CM5sNnir01fp3Twk0XfVB6fIGYa IGFuZCBhcHBlYXJzIHRvIGludmF kZSBpbnRvIHRoZSBtZXNlbnRlcn moBFVyHVK1LBazWLHklOWhbnBrs pGxAU7dDJYkMpQlwRDoHkWthY2y TR81OFEjZZm9sBwvm2YkuKFvcXI 7lIIpv5Hipr78bZAzvZRpxwtlLM xwYXJccGFyIFRoZSBhcHBlbmRpe DBvcpReUEMgWLwagEPsZTI1xH8w TWNrfN9bwuX4GTCbHS3mYGVoI1S hiJFiUrWSnHTfqEOfHV9tuKBlQO 19NKMrSDBaXPX8nTNiv1PenLW0n Mnhy89zz4RplYJzBN9nSEYmNzIG nCt2xPSxHFLqeY2tuLIzv3CkycZ mwpXgzWWufuOaVmvhYTIoCL0maP 9iXAFsq42zTG85NCSiFLWsEZHhu YRrbeDnydDlkHMauYNujO6vjjQj a23oXMQuOCGjfHMnb7AgUsQdHWF aFsM1iLGwxBRpC7XuyAIqkS6blP Iuz3HcqzApcoK0OX8hoTcqqjVao vIqcN7oa9ybunOguAKnPELumISo e5YemGX7tBCeHVLkJ3Nqx23bFQM gGHYkcFXseZL1STIdRQUwpaaqMO EoSE7lTUCaCMU3SAMmciXDruBtD 5ItoVXqrBvdGSsjvOSpG2wdNXOi obPDeYUuVLMyaw9pFUGdtwVwiOz lnznmc2Dzij74tDIfnHEaa2qrDO KebREcREDmG5Ifr32uA30eAWlza VJnHKRbEK19N73pONifmPDvF3po QKBxoeErKMRbGMFqimZVXb8tICJ pwmFcledgLF5gyhzerhmqZM9qJh QuVUiiDXVfFGDcSMXef4Iojo43v LRmdTHqgtGeHGWyN2SbCJEko4Jc IGBzyVoee8QnbN37SAThu95hTUY kvlBYWO6sCHBxCDDxPFXjP1NxUO dnMfLvz2cddfNmYWwspWDuDPyjY UDlQESafEOzfmB9fgXsIKH8dLRa cHJveGltYWwpKFxwYXIgQTctQTk mgGQavnExMOirqCIjhnX0nsLeAN Hnl8ZjFWXdbiGQAPHvFUH4WKPjk 9GrkBKzeH3qtIWjAGMccaPRSxJw QZHaZY1omQkyEisyMKD2WTLoxJb gOKK2GVniONLzjULbp1PpuXU1wZ EhTNasTEFfOBIdIS5sKXOdfM1tj FZul2GeAIDweBIhF4TcXOSxdHLo WHGlXn54w91uyXenkZmejy2zNAI qLHQgv2EypPZtZHjiQGMzWFOiPX 4oYNNltN2ndVIuj6KcPDQdnWLmE 9WlNXUibHMdHIJiNU7dmcVwaMom tBrckc2oBIxjWuawTBE8WCDvIXL vxuDYXaIwg69kJQo1hNJsNN3pAT CgUPTwd0JqqCAhQBvmJVJvXJQ6Z KJczcYybCxaySvjkv6vMJDsFTkt iEFmtPvhNXHvYOK7HOF6ST3jYPa er9OrPOTzw7V4JQKyNTGtFEAkef 9zYVxwYXIgSkcvZXdccGFyXHBhc eDCRATbNbMKdKIiY4UsFKodrwZr seBikAEdTAHgYBFtQTI7HImiJcS xQLisKWFeUF9wFQ0nj2UyQXN3mT ehrFvfA9qjQOZxUIRrscQYIBRiI hOxJOzjcMXdxTIvkK5olLNom2Nq r5ksBRBqM0fqfKUozV== MICROSCOPIC v6jumBLvUNDpwJB0AwKbHBYdc6k DESCRIPTION (test ss8RabYRreGJuYBwjoWZtpfRiyn code = 3371) 33tBD6bY64IV6yBKYxUtX3CVHzl bS7Utr9INQwTBDtmTOiB863q7uj o3oaerIzxFN6bBtxFTEzISGxCNe bWZUiKaHlWNDiOc2jwMLrIzuwIX J9 SPECIAL STUDIES u7eljXRkGUVeqEZ0PwIzHMLjt4n (test code = 3376) gp8CwtTLocNVwWJqywRQfmjYncd 29vMI2gE94AE7eBDRzRzD3FEGnd gZ7Rzt0UGWdCSAfvYXcT554TAVk VEIouZzvfwu4yQ28IDDxsF2kmRH cXYw4RIWlzwOdkZdhrI4bTsVjAw FiAbNMkBYmmX93SXYljwB4UHYpu 60ql4EhjGdxtmMyWMBmPFruR9j7 JTHkNGFbQAI6v2Cgz5TxeE7buW8 gaVatrM0pjEGomLP2mbxgn2Fgh3 ZpK6sblXHhaWLvahHiQXMsbvAiQ JEzHBWVnJ56ah3ccUV6h5OaYD2i o7KnxDElFUyLCSDWPGF3xI0pAUP vciBNaXNtYXRjaCBSZXBhaXIgKE 1NUikgUHJvdGVpbnMgXHBhciAgI QAnDOYzVTQnNVRbIRvDIO2eTJ85 NMN4GN16W1dyERAtAYmyevQag3h vblxwYXIgICAgICAgICAgICAgIE 1TSDItIEludGFjdCBudWNsZWFyI XV2cCHwn8Que87ewCAgXPOzYWEu MMCoSPRbITHZZ5a3OOMCipRxE4I ptaEqzUZqjcQvrRSfZTVddF5fSC GcwoHbITMyBKUsQFVcNKWgTF1YD c3nPX06KIM5PU69I6rtIBKzDSij zmYyb2iplyyhLQKoOUGdBDCtUEV kCCXeMQFbB0cqsh00daBdxf2jbn ZgjKmem9CaJfR9cJHkrYCvdE31V EVsKTucC40urKYfxZD3hGRzULjs gLKqmTPtfDWwGALpCXC7oNDot1J hy62keSJmPRCnDCPzCIImGhCAWM VsOK05UGZdwdB2TZQxn84mkKMyO XElQKLsEZOkVBSiDAXrNUFoMd7l nS7cxyHqCwXvwTEfFZSvXRJ7pXD cx1Mij67hu7GeBU6BLSCll9MlgE 7eNrGhe8rglYToUvMadNpeoZixz 5FxpYtank1rZLWgtSeoxZImwT5a dGFiaWxpdHktaGlnaCAoTVNJLUg tLPDuvwptKHKkQi6HSHxpKBDlCY RcGCKlFMZplUPjhXLqb23tBVTiZ GEvBPWhLj58TUHIUBTplU17ZCDy bmJ8XYJau41lQbADeBXpDJUiBEA 5gSFhBKIzd6TrVQKaz9TrNfDxD5 6pf2alRGLnAPUlhvAhb95oUQMvq 33oEXKaLUXvmXiecCQfyVHjm4Ny LKjvvNlpfaX6oKOfHFcathG9kGP yL747gkVznDvqLsHpqhRlUXGeoM 6fftLeKGF9ngYax4Gud7NeyEeyF D2qPSSiVc6vSGckuf5gbW6qKAAe e9OasghbAHVsvnugYIKgzIJnQHP Dl446hi3mKHMvcBTgfcAxvgArDH KrfRPovFLlIRpiCXRzIQ4dpW8ui NwvnH3ktARvgGG5fpmjlWEumL8i D3GaRPXgg0Cobhdmr8ElECVnzeO tca7kTHFpiESRVGbgc5MqD3BwAH j3f9UnsMtiGEgaZUo3IzIxGXEcr NHrvBUASN86NBEwEMBqkNlxjJ7c xZJRGIObdmB5l3V7GFduIRLiGOi 0PApaezKrKAIspZ9sPXRqLG3jRP a0ypXfVPYus1KvVY5gRYThpKYpM RO5PMTdw5IrU0Wkx8DlOEWqKASp le7xweEyDaDIaDNxOMVdom59NTL kCH6iN3cnKCQhDKSokpFoaXKfx3 HzQHFzkHZ2iJMpTJ5IImJFi89kO VMpWEJHdnCpDFDavFiaaDN1yvX4 sU9eMlUNsVLtVcLPQEcmtaZlLBG lbh5yyhYtUOGsEKMwy2TmoVIfoA JaqcJkR5Esu9OsCTOwuu33QKcmv GRzam95ZV9gO6Pxr1UfmN0lYGuo YTRzi4ZthCDahBSeVTRgw9XzL6w mmlatGVhuvZTtlN9oXYPgCTa7WR Jjq2RxSFKti6FaCrSocdJnFOQoZ IUdVISblZ09IIS4iLmtiIdqxyYw EJ8lFALugjHnOJLpNLVwqD0xTWa iwqNtWLIhqaF3p9O8ZVrfGACyln LpBfwaXZK0cvCmoeV5eHCeW3xly tjdQSfaFVYbd8KqgE8kxEPXnNVa w5VmqNBuqYWDfBMwAO1kcqTgVH0 hCGV4VLxcKUGXPMJwAQqlZPGkCQ B7OHweVxjcKJZ1okIwFKBuj5RmP UfhK6peC21dzTeirJg2xLQnhWcv oVIxkUFoYAYqjsG3e9N9EPKge8O pbmcuXHBhclxmMFxmczIwXHBhcn 0= Gross assessment [facility] was performed at [place], Department of (test code = 2777) Pathology, [address] [place] [address], Technical component [facility] was performed at [place], Department of (test code = 2778) Pathology, [address] [place] [address], [facility] component was [facility] Department of performed at (test Pathology, [address] [place] [address] code = [address], [place] [address], [facility] [id number] 11:27:00Surgical Pathology Report Case: [id number] Authorizing Provider: Verito Capellan MD Collected: 06/16/2020 01:10 AM Ordering Location: [facility] PERIOPERATIVE Received: 06/16/2020 09:42 AM SERVICES Pathologist: Radha Limon MD Specimen: Soft Tissue, Other, RIGHT COLON A. COLON, RIGHT, HEMICOLECTOMY: - ADENOCARCINOMA, MODERATELY-POORLY DIFFERENTIATED - GREATEST TUMOR DIMENSION : 4.2 CM - CARCINOMA INVADES THROUGH MUSCULARIS PROPRIA INTO PERICOLIC FAT INVOLVING SEROSA / VISCERAL PERITONEUM - SURGICAL RESECTION MARGINS NEGATIVE FOR ADENOMA, HIGH GRADE DYSPLASIA,INTRAMUCOSAL OR INVASIVE ADENOCARCINOMA - FOCAL LYMPHOVASCULAR AND PERINEURAL INVASION IDENTIFIED - FOURTEEN LYMPH NODES WITHOUT METASTATIC CARCINOMA (0/14) - CARCINOMA IS MSI STABLE/PROFICIENT - APPENDIX WITH NO PATHOLOGICAL ALTERATION - MULTIPLE SESSILE SERRATED ADENOMAS (SEVEN) IDENTIFIED, AT LEAST FOUR >10 MM - TUBULAR ADENOMAS (FOUR) IDENTIFIED - HYPERPLASTIC POLYPS(ONE) IDENTIFIED - PATHOLOGIC STAGE CLASSIFICATION (pTNM, AJCC 8th Edition)- pT4 a N0 Mx - SEE SYNOPTIC REPORT Signing Pathologist Direct Phone Line: [phone] signed by Radha Limon MD on 06/25/2020 at 11:27 AMTumor is measured approximately 4. 2 cm from 14 glass slides. At least seven sessile serrated polyps are identified, all polyps are >5 mm and at least four polyps are > 10 mm. This suggests serrated polyposis syndrome as defined by WHO.Reference: https://www.gastrojournal.org/article/[email or web address])[email or web address]/pdfCOLON AND RECTUM: Resection, Including Transanal Disk Excision of Rectal Neoplasms (COLON AND RECTUM: RESECTION - All Specimens)8th Edition - Protocol posted: 04/30/2019SPECIMEN Procedure: Right hemicolectomy TUMOR Tumor Site: Ascending colon Histologic Type: Adenocarcinoma Histologic Grade: G2: Moderately differentiated Tumor Size: Greatest dimension (Centimeters): 4.2 cm Tumor Extension: Tumor invades the visceral peritoneum Macroscopic Tumor Perforation: Present Lymphovascular Invasion: Present Perineural Invasion: Present Treatment Effect: No known presurgical therapyMARGINS Margins: Proximal Margin: Uninvolved by invasive carcinoma, high grade dysplasia / intramucosal carcinoma, and low grade dysplasia Distance of Tumor from Margin: 15.8 cm Distal Margin: Uninvolved by invasive carcinoma, high grade dysplasia / intramucosal carcinoma, and low grade dysplasia Distance of Tumor from Margin: 7.2 cm Radial (circumferential) or Mesenteric Margin: Uninvolved by invasive carcinoma Distance of Tumor from Margin: Cannot be determined LYMPH NODES Number of Lymph Nodes Involved: 0 Number of Lymph Nodes Examined: 14 Tumor Deposits: Not identified PATHOLOGIC STAGE CLASSIFICATION (pTNM, AJCC 8th Edition) Primary Tumor (pT): pT4a Regional Lymph Nodes (pN): pN0 ADDITIONAL FINDINGS Additional Findings: Adenoma(s) Additional Findings: sessile serrated and hyperplastic polyps Colon and Rectum Biomarker Reporting Template (COLON AND RECTUM: BIOMARKER REPORTING TEMPLATE - All Specimens)Protocol posted: 05/01/2018RESULTS Mismatch Repair: Immunohistochemistry (IHC) Testing for Mismatch Repair (MMR) Proteins: MLH1 Result: Intact nuclear expression Immuno histochemistry (IHC) Testing for Mismatch Repair (MMR) Proteins: MSH2 Result: Intact nuclear expression Immunohistochemistry (IHC) Testing for Mismatch Repair (MMR) Proteins: MSH6 Result: Intact nuclear expression Immunohistochemistry (IHC) Testing for Mismatch Repair (MMR) Proteins: PMS2 Result: Intact nuclear expression Immunohistochemistry (IHC) Testing for Mismatch Repair (MMR) Proteins: Background nonneoplastic tissue / internal control with intact nuclear expression IHC Interpretation#: No loss of nuclear expression of MMR proteins: low probability of MSI-H Microsatellite Instability (MSI): MSI-Stable (NUPUR) 26905, 45449 x 1, 15629 x 3Small-bowel obstruction Soft tissue, other A. Received fresh labeled with the patient's name, accession number and "soft tissue, other, right colon" is a 8.0 cm in length x 2.6 cm in diameter terminal ileum, a 15.2 cm in length x 5.1 cm in diameter colon, and a 5.6 cm in length x 0.9 cm in diameter attached appendix and up to 4.8 cm of attached mesentery. The serosa is montiel-pink, smooth and hyperemic.Upon opening, there is a 2.3 cm in length circumferential strictured mass in the ascending colon that is 7.2 cm from the distal margin and 15.8 cm from the proximal margin overlaid with adherent mesentery and omentum mesentery. The mass grossly appears 0.5 cm from the serosa. In the cecum and ascending colon there are multiple (greater than 5) montiel-pink sessile polyps ranging from 0.8 to 2.0 cm in greatest dimension. The nearest polyp is 8.3 cm from the proximal margin and 1.0 cm from the distal margin. The cecum and ascending colon mucosa is edematous. The terminal ileum and distal colon uninvolved mucosa is red-pink with normal architectural folds. The mass is serially sectioned to reveal a thickness of 1.3 cm and appears to invade into the mesentery. The wall thickness ranges from 0.3 to 0.8 cm (thickest at the stenotic mass). The appendix is serially sectioned to reveal no fecalith. The lumen is 0.4 cm and the wall thickness is 0.2 cm. Multiple lymph nodes are identified ranging from 0.4 to 1.0 cm in greatest dimension. The cut surface of the largest lymph nodes is montiel-pink and homogeneous. [employer] sections are submitted.Ink code:[place]-proximal marginBlue-serosa overlying stenotic massSection code:A1- mucosal margin, en faceA2-mesenteric margin, en lkdqU8-A4-raxcfomsbdtn (A3- greatest depth of invasion)A5-mass to ascending colon (distal)A6-mass to cecum (proximal)(A7-A9-mass (A9 mass to serosa)M27-M70-igsrwcm skaxfaD34-jkguoifm bisected tip, wall service representative A21-one lymph node, bisected A22-two lymph nodes, bisected A23-one lymph node, bisected A24-one lymph node, bisected A25- one lymph node, bisected R45-obas lymph nodes, yrvyncR32-Q64-puwehnc tissue near serosaJG/Gaby 42: Ileocecal valveA 43-A 49: Remainder of mass, full thicknessA 50: 2 intact lymph nodesCGPerformed.The interpretation of this case included the use of immunohistochemistry or special stains.- Immunohistochemistry (IHC) Testing for Mismatch Repair (MMR) Proteins MLH1- Intactnuclear expression MSH2- Intact nuclear expression MSH6- Intact nuclear expression PMS2- Intact nuclear expression Background nonneoplastic tissue/internal control with intact nuclear expression IHC Interpretation - No loss of nuclear expression of MMR proteins: low probability of microsatellite instability-high (MSI-H)NOTE: There are exceptions to the above IHC interpretations. These results should not be considered in isolation, andclinical correlation with genetic counseling is recommended to assess the need for germline testing.Control slides are adequate. Immunohistochemistry technical testing was performed at [facility], Pathology Laboratory where it was developed and its performance characteristics were determined. It has not been cleared or approved by the U.S. Food and Drug Administration. The FDA has determined that such clearance or approval is not necessary. The test is used for clinical purposes. It should not be regarded as investigational or for research. This laboratory is certified under the Clinical Laboratory Improvement Amendments of 1988 (CLIA-88) as qualified to perform high complexity clinical laboratory testing.[facility], Department of Pathology, [address] [place] [address], [facility], [facility] of [facility] , [address] [place] [address], [facility], [facility], [address] [place] [address], HIW-Glucose [id number] 12:14:00 Test Item Value Reference Range Interpretation Comments POC-Glucose Meter (test 116 mg/dL 70-110 H : TE STED AT [facility] code = 1538) [address] [place] [address], 770 [address]: Extrusion Former/Techni juan ID = [id number] for RBENDA MARIANO S Lab Interpretation (test Abnormal code = 55217-0) [facility] [id number] 12:14:00 Test Item Value Reference Range Interpretation Comments POC-GLUCOSE METER 116 mg/dL 70-110 H : TESTED A T [facility] 6720 (BEAKER) (test code = BANDARCHRISTOFER Méndez [facility], 1538) [address]: Extrusion Former/Techni juan ID = [id number] for PRINCESS SHERITA Basic Metabolic [id number] 06:27:00 Test Item Value Reference Range Interpretation Comments Sodium (test code = 135 meq/L 136-145 L 2951-2) Potassium (test code = 4.3 meq/L 3.5-5.1 2823-3) Chloride (test code = 102 meq/L 98-107 2075-0) CO2 (test code = 25 meq/L 22-29 8-9) BUN (test code = 15 mg/dL 7-21 3094-0) Creatinine (test code 0.50 mg/dL 0.57-1.25 L = 2160-0) Glucose (test code = 96 mg/dL 70-105 2345-7) Calcium (test code = 8.6 mg/dL 8.4-10.2 58019-4) EGFR (test code = 126 mL/min/1.73 [place] [address]-5) NOT ACCURATE CREATININE CLEARANCE IN PREDICTING GLOMERULAR FILTRATION RATE . ESTIMATED GFR I S NOT APPLICABLE FOR DIALYSIS PATIENTS. ALEXIS (test code = ALEXIS) Extrusion Former ID - JONH W Lab Interpretation Abnormal (test code = 29770-0) [facility] CampusHepatic function [id number] 06:27:00 Test Item Value Reference Range Interpretation Comments Protein, Total (test 6.2 See_Comment [Autom ated code = 2885-2) message] The system which generated this result transmit norberto reference range : 6.0 - 8.3 gm/dL . The reference range was not u sed to interpret th is result as normal/abnormal . Albumin (test code = 3.2 g/dL 3.5-5 L 91667-1) Total Bilirubin (test 0.7 mg/dL 0.2-1.2 code = 1974-2) Bilirubin, Direct 0.3 mg/dL 0.1-0.5 (test code = 1967-7) Alkaline Phosphatase 217 U/L 40-150 H (test code = 6768-6) AST (test code = 66 U/L 5-34 H 1920-8) ALT (test code = 141 U/L 6-55 H 1742-6) ALEXIS (test code = ALEXIS) Extrusion Former ID - JONH W Lab Interpretation Abnormal (test code = 86659-5) [facility] CampusMagnesium2021-04-21 06:27:00 Test Item Value Reference Range Interpretation Comments Magnesium (test code = 2.1 mg/dL 1.6-2.6 69443-6) ALEXIS (test code = ALEXIS) Extrusion Former ID - JONH W Lab Interpretation (test Normal code = 65908-3) [facility] CampusPhosphorus2021-04-21 06:27:00 Test Item Value Reference Range Interpretation Comments Phosphorus (test code = 4.4 mg/dL 2.3-4.7 2777-1) ALEXIS (test code = ALEXIS) Extrusion Former ID Yue BORJA W Lab Interpretation (test Normal code = 44695-8) [facility] CampusBASIC METABOLIC [id number] 06:27:00 Test Item Value Reference Range Interpretation Comments SODIUM (BEAKER) 135 meq/L 136-145 L (test code = 381) POTASSIUM (BEAKER) 4.3 meq/L 3.5-5.1 (test code = 379) CHLORIDE (BEAKER) 102 meq/L 98-107 (test code = 382) CO2 (BEAKER) (test 25 meq/L 22-29 code = 355) BLOOD UREA NITROGEN 15 mg/dL 7-21 (BEAKER) (test code = 354) CREATININE (BEAKER) 0.50 mg/dL 0.57-1.25 L (test code = 358) GLUCOSE RANDOM 96 mg/dL 70-105 (BEAKER) (test code = 652) CALCIUM (BEAKER) 8.6 mg/dL 8.4-10.2 (test code = 697) EGFR (BEAKER) (test 126 mL/min/1.73 ESTIM ATED GFR IS code = 1092) sq m NOT ACCURATE CREATININE CLEARANCE IN PREDICTING GLOMERULAR FILTRATION RATE . ESTIMATED GFR I S NOT APPLICABLE FOR DIALYSIS PATIEN TS. Extrusion Former ID - JONH [id number] 06:27:00 Test Item Value Reference Range Interpretation Comments MAGNESIUM (BEAKER) (test code = 2.1 mg/dL 1.6-2.6 627) Extrusion Former ID Yue BORJA [id number] 06:27:00 Test Item Value Reference Range Interpretation Comments PHOSPHORUS (BEAKER) (test code = 4.4 mg/dL 2.3-4.7 604) Extrusion Former ID - JONH WHEPATIC FUNCTION [id number] 06:27:00 Test Item Value Reference Range Interpretation Comments TOTAL PROTEIN (BEAKER) (test code = 6.2 gm/dL 6.0-8.3 770) ALBUMIN (BEAKER) (test code = 1145) 3.2 g/dL 3.5-5.0 L BILIRUBIN TOTAL (BEAKER) (test code 0.7 mg/dL 0.2-1.2 = 377) BILIRUBIN DIRECT (BEAKER) (test 0.3 mg/dL 0.1-0.5 code = 706) ALKALINE PHOSPHATASE (BEAKER) (test 217 U/L 40-150 H code = 346) AST (SGOT) (BEAKER) (test code = 66 U/L 5-34 H 353) ALT (SGPT) (BEAKER) (test code = 141 U/L 6-55 H 347) Extrusion Former ID - JONH WPOCT-GLUCOSE [id number] 06:04:00 Test Item Value Reference Range Interpretation Comments POC-GLUCOSE METER 109 mg/dL 70-110 : TESTED A T [facility] 6720 (BEAKER) (test code = [place], 1538) [address]: Extrusion Former/Techni juan ID = [id number] for Maria Victoria Gaines CBC (Hemogram only)2020-06-23 05:40:00 Test Item Value Reference Range Interpretation Comments WBC (test code = 6690-2) 9.0 See_Comment [A utomated message] The system Maimai generated this result transmitted ref erence range: 3.5 - 10 .5 K/L. The refe rence range was not u sed to interpret this result as normal/abnor mal. RBC (test code = 789-8) 3.43 See_Comment L [Au tomated message] The system Maimai generated this result transmitted ref erence range: 3.93 - 5 .22 M/L. The refe rence range was not u sed to interpret this result as normal/abnor mal. MCHC (test code = 786-4) 32.7 See_Comment L [A utomated message] The system Maimai generated this result transmitted ref erence range: 32.2 - 3 5.5 GM/DL. The refe rence range was not u sed to interpret this result as normal/abnor mal. Hematocrit (test code = 32.4 % 34.1-44.9 L 4544-3) MCV (test code = 787-2) 94.5 fL 79.4-94.8 MCH (test code = 785-6) 30.9 pg 25.6-32.2 RDW (test code = 788-0) 13.6 % 11.7-14.4 Platelets (test code = 254 See_Comment [Aut omated message] 770-3) The system Maimai generated this result transmitted ref erence range: 150 - 45 0 K/CU MM. The referen ce range was not u sed to interpret this result as normal/abnor mal. MPV (test code = 10.7 fL 9.4-12.3 99805-5) nRBC (test code = 413) 0 See_Comment [Aut omated message] The system Maimai generated this result transmitted ref erence range: 0 - 0 /1 00 WBC. The refere nce range was not u sed to interpret this result as normal/abnor mal. Lab Interpretation (test Abnormal code = 11116-7) [facility] (HEMOGRAM ONLY)2020-06-23 05:40:00 Test Item Value Reference Range Interpretation Comments WHITE BLOOD CELL COUNT (BEAKER) 9.0 K/ L 3.5-10.5 (test code = 775) RED BLOOD CELL COUNT (BEAKER) 3.43 M/ L 3.93-5.22 L (test code = 761) HEMOGLOBIN (BEAKER) (test code = 10.6 GM/DL 11.2-15.7 L 410) HEMATOCRIT (BEAKER) (test code = 32.4 % 34.1-44.9 L 411) MEAN CORPUSCULAR VOLUME (BEAKER) 94.5 fL 79.4-94.8 (test code = 753) MEAN CORPUSCULAR HEMOGLOBIN 30.9 pg 25.6-32.2 (BEAKER) (test code = 751) MEAN CORPUSCULAR HEMOGLOBIN CONC 32.7 GM/DL 32.2-35.5 (BEAKER) (test code = 752) RED CELL DISTRIBUTION WIDTH 13.6 % 11.7-14.4 (BEAKER) (test code = 412) PLATELET COUNT (BEAKER) (test 254 K/CU MM 150-450 code = 756) MEAN PLATELET VOLUME (BEAKER) 10.7 fL 9.4-12.3 (test code = 754) NUCLEATED RED BLOOD CELLS 0 /100 WBC 0-0 (BEAKER) (test code = 413) POCT-GLUCOSE [id number] 00:14:00 Test Item Value Reference Range Interpretation Comments POC-GLUCOSE METER 117 mg/dL 70-110 H : TESTED A T [facility] 6720 (BEAKER) (test code = [facility], 1538) [address]: Extrusion Former/Techni juan ID = [id number] for Maria Victoria Gaines POCT-GLUCOSE [id number] 18:09:00 Test Item Value Reference Range Interpretation Comments POC-GLUCOSE METER 105 mg/dL 70-110 : TESTED A T [facility] 6720 (BEAKER) (test code = [facility], 1538) [address]: Extrusion Former/Techni juan ID = [id number] for Wi lliams, Areiona POCT-GLUCOSE [id number] 12:04:00 Test Item Value Reference Range Interpretation Comments POC-GLUCOSE METER 134 mg/dL 70-110 H : TESTED A T [facility] 6720 (BEAKER) (test code = [facility], 1538) [address]: Extrusion Former/Techni juan ID = [id number] for Wi lliams, Areiona POCT-GLUCOSE [id number] 05:57:00 Test Item Value Reference Range Interpretation Comments POC-GLUCOSE METER 108 mg/dL 70-110 : TESTED A T [facility] 6720 (BEAKER) (test code = [facility], 1538) [address]: Extrusion Former/Techni juan ID = [id number] for Maria Victoria Gaines BASIC METABOLIC [id number] 05:32:00 Test Item Value Reference Range Interpretation Comments SODIUM (BEAKER) 135 meq/L 136-145 L (test code = 381) POTASSIUM (BEAKER) 4.3 meq/L 3.5-5.1 (test code = 379) CHLORIDE (BEAKER) 102 meq/L 98-107 (test code = 382) CO2 (BEAKER) (test 24 meq/L 22-29 code = 355) BLOOD UREA NITROGEN 14 mg/dL 7-21 (BEAKER) (test code = 354) CREATININE (BEAKER) 0.49 mg/dL 0.57-1.25 L (test code = 358) GLUCOSE RANDOM 96 mg/dL 70-105 (BEAKER) (test code = 652) CALCIUM (BEAKER) 8.7 mg/dL 8.4-10.2 (test code = 697) EGFR (BEAKER) (test 129 mL/min/1.73 ESTIM ATED GFR IS code = 1092) sq m NOT ACCURATE CREATININE CLEARANCE IN PREDICTING GLOMERULAR FILTRATION RATE . ESTIMATED GFR I S NOT APPLICABLE FOR DIALYSIS PATIEN TS. Extrusion Former ID - FLOWER [id number] 05:32:00 Test Item Value Reference Range Interpretation Comments MAGNESIUM (BEAKER) (test code = 2.0 mg/dL 1.6-2.6 627) Extrusion Former ID - FLOWER [id number] 05:32:00 Test Item Value Reference Range Interpretation Comments PHOSPHORUS (BEAKER) (test code = 4.2 mg/dL 2.3-4.7 604) Extrusion Former ID - FLOWER MHEPATIC FUNCTION [id number] 05:32:00 Test Item Value Reference Range Interpretation Comments TOTAL PROTEIN (BEAKER) (test code = 6.2 gm/dL 6.0-8.3 770) ALBUMIN (BEAKER) (test code = 1145) 3.3 g/dL 3.5-5.0 L BILIRUBIN TOTAL (BEAKER) (test code 0.9 mg/dL 0.2-1.2 = 377) BILIRUBIN DIRECT (BEAKER) (test 0.4 mg/dL 0.1-0.5 code = 706) ALKALINE PHOSPHATASE (BEAKER) (test 208 U/L 40-150 H code = 346) AST (SGOT) (BEAKER) (test code = 59 U/L 5-34 H 353) ALT (SGPT) (BEAKER) (test code = 140 U/L 6-55 H 347) Extrusion Former ID - FLOWER [facility] (HEMOGRAM ONLY)2020-06-22 05:08:00 Test Item Value Reference Range Interpretation Comments WHITE BLOOD CELL COUNT (BEAKER) 9.3 K/ L 3.5-10.5 (test code = 775) RED BLOOD CELL COUNT (BEAKER) 3.51 M/ L 3.93-5.22 L (test code = 761) HEMOGLOBIN (BEAKER) (test code = 10.6 GM/DL 11.2-15.7 L 410) HEMATOCRIT (BEAKER) (test code = 33.0 % 34.1-44.9 L 411) MEAN CORPUSCULAR VOLUME (BEAKER) 94.0 fL 79.4-94.8 (test code = 753) MEAN CORPUSCULAR HEMOGLOBIN 30.2 pg 25.6-32.2 (BEAKER) (test code = 751) MEAN CORPUSCULAR HEMOGLOBIN CONC 32.1 GM/DL 32.2-35.5 L (BEAKER) (test code = 752) RED CELL DISTRIBUTION WIDTH 13.7 % 11.7-14.4 (BEAKER) (test code = 412) PLATELET COUNT (BEAKER) (test 207 K/CU MM 150-450 code = 756) MEAN PLATELET VOLUME (BEAKER) 10.8 fL 9.4-12.3 (test code = 754) NUCLEATED RED BLOOD CELLS 0 /100 WBC 0-0 (BEAKER) (test code = 413) POCT-GLUCOSE [id number] 00:25:00 Test Item Value Reference Range Interpretation Comments POC-GLUCOSE METER 116 mg/dL 70-110 H : TESTED A T [facility] ([facility]) (test code = [facility], 153) 36038: Extrusion Former/Techni juan ID = [id number] for Maria Victoria Gaines POCT-GLUCOSE [id number] 18:07:00 Test Item Value Reference Range Interpretation Comments POC-GLUCOSE METER 120 mg/dL 70-110 H : TESTED A T [facility] (BEAKER) (test code = [facility], 153) 91252: Extrusion Former/Techni juan ID = [id number] for Wi lliams, Areiona POCT-GLUCOSE [id number] 11:49:00 Test Item Value Reference Range Interpretation Comments POC-GLUCOSE METER 118 mg/dL 70-110 H : TESTED A T [facility] (BEAKER) (test code = [facility], 153) [id number]: Extrusion Former/Techni juan ID = [id number] for Wi lliams, Areiona POCT-GLUCOSE [id number] 05:24:00 Test Item Value Reference Range Interpretation Comments POC-GLUCOSE METER 105 mg/dL 70-110 : TESTED A T [facility] (BEAKER) (test code = [facility], 153) 99152: Extrusion Former/Techni juan ID = [id number] for WI LLIAMS, MAGGIE BASIC METABOLIC [id number] 04:34:00 Test Item Value Reference Range Interpretation Comments SODIUM (BEAKER) 138 meq/L 136-145 (test code = 381) POTASSIUM (BEAKER) 4.5 meq/L 3.5-5.1 (test code = 379) CHLORIDE (BEAKER) 104 meq/L 98-107 (test code = 382) CO2 (BEAKER) (test 24 meq/L 22-29 code = 355) BLOOD UREA NITROGEN 12 mg/dL 7-21 (BEAKER) (test code = 354) CREATININE (BEAKER) 0.51 mg/dL 0.57-1.25 L (test code = 358) GLUCOSE RANDOM 85 mg/dL 70-105 (BEAKER) (test code = 652) CALCIUM (BEAKER) 9.0 mg/dL 8.4-10.2 (test code = 697) EGFR (BEAKER) (test 123 mL/min/1.73 ESTIM ATED GFR IS code = 1092) sq m NOT ACCURATE CREATININE CLEARANCE IN PREDICTING GLOMERULAR FILTRATION RATE . ESTIMATED GFR I S NOT APPLICABLE FOR DIALYSIS PATIEN TS. Extrusion Former ID - [id number] 04:34:00 Test Item Value Reference Range Interpretation Comments MAGNESIUM (BEAKER) (test code = 2.1 mg/dL 1.6-2.6 627) Extrusion Former ID - [id number] 04:34:00 Test Item Value Reference Range Interpretation Comments PHOSPHORUS (BEAKER) (test code = 4.1 mg/dL 2.3-4.7 604) Extrusion Former ID - ADMINHEPATIC FUNCTION [id number] 04:34:00 Test Item Value Reference Range Interpretation Comments TOTAL PROTEIN (BEAKER) (test code = 6.5 gm/dL 6.0-8.3 770) ALBUMIN (BEAKER) (test code = 1145) 3.5 g/dL 3.5-5.0 BILIRUBIN TOTAL (BEAKER) (test code 1.0 mg/dL 0.2-1.2 = 377) BILIRUBIN DIRECT (BEAKER) (test 0.5 mg/dL 0.1-0.5 code = 706) ALKALINE PHOSPHATASE (BEAKER) (test 196 U/L 40-150 H code = 346) AST (SGOT) (BEAKER) (test code = 52 U/L 5-34 H 353) ALT (SGPT) (BEAKER) (test code = 171 U/L 6-55 H 347) Extrusion Former ID - ADMINCBC (HEMOGRAM ONLY)2020-06-21 04:16:00 Test Item Value Reference Range Interpretation Comments WHITE BLOOD CELL COUNT (BEAKER) 9.0 K/ L 3.5-10.5 (test code = 775) RED BLOOD CELL COUNT (BEAKER) 3.68 M/ L 3.93-5.22 L (test code = 761) HEMOGLOBIN (BEAKER) (test code = 11.2 GM/DL 11.2-15.7 410) HEMATOCRIT (BEAKER) (test code = 34.6 % 34.1-44.9 411) MEAN CORPUSCULAR VOLUME (BEAKER) 94.0 fL 79.4-94.8 (test code = 753) MEAN CORPUSCULAR HEMOGLOBIN 30.4 pg 25.6-32.2 (BEAKER) (test code = 751) MEAN CORPUSCULAR HEMOGLOBIN CONC 32.4 GM/DL 32.2-35.5 (BEAKER) (test code = 752) RED CELL DISTRIBUTION WIDTH 13.8 % 11.7-14.4 (BEAKER) (test code = 412) PLATELET COUNT (BEAKER) (test 210 K/CU MM 150-450 code = 756) MEAN PLATELET VOLUME (BEAKER) 11.2 fL 9.4-12.3 (test code = 754) NUCLEATED RED BLOOD CELLS 0 /100 WBC 0-0 (BEAKER) (test code = 413) POCT-GLUCOSE [id number] 23:57:00 Test Item Value Reference Range Interpretation Comments POC-GLUCOSE METER 107 mg/dL 70-110 : TESTED A T [facility] 6720 (BEAKER) (test code = YE Méndez [facility], 1538) [address]: Extrusion Former/Techni juan ID = [id number] for MAGGIE GIRARD BASIC METABOLIC [id number] 22:34:00 Test Item Value Reference Range Interpretation Comments SODIUM (BEAKER) 136 meq/L 136-145 (test code = 381) POTASSIUM (BEAKER) 4.5 meq/L 3.5-5.1 Specimen slightly (test code = 379) hemolyzed CHLORIDE (BEAKER) 105 meq/L 98-107 (test code = 382) CO2 (BEAKER) (test 22 meq/L 22-29 code = 355) BLOOD UREA NITROGEN 11 mg/dL 7-21 (BEAKER) (test code = 354) CREATININE (BEAKER) 0.48 mg/dL 0.57-1.25 L Specimen slightly (test code = 358) hemolyzed GLUCOSE RANDOM 110 mg/dL 70-105 H (BEAKER) (test code = 652) CALCIUM (BEAKER) 8.3 mg/dL 8.4-10.2 L (test code = 697) EGFR (BEAKER) (test 132 mL/min/1.73 ESTIM ATED GFR IS code = 1092) sq m NOT ACCURATE CREATININE CLEARANCE IN PREDICTING GLOMERULAR FILTRATION RATE . ESTIMATED GFR I S NOT APPLICABLE FOR DIALYSIS PATIEN TS. Extrusion Former ID - DBPOCT-GLUCOSE [id number] 18:07:00 Test Item Value Reference Range Interpretation Comments POC-GLUCOSE METER 110 mg/dL 70-110 : TESTED A T [facility] 6720 (BEAKER) (test code = [facility] Dev [facility], 1538) 624[address]: Extrusion Former/Techni juan ID = [id number] for LILIBETH LIM BASIC METABOLIC [id number] 14:53:00 Test Item Value Reference Range Interpretation Comments SODIUM (BEAKER) 139 meq/L 136-145 (test code = 381) POTASSIUM (BEAKER) 4.2 meq/L 3.5-5.1 (test code = 379) CHLORIDE (BEAKER) 105 meq/L 98-107 (test code = 382) CO2 (BEAKER) (test 26 meq/L 22-29 code = 355) BLOOD UREA NITROGEN 10 mg/dL 7-21 (BEAKER) (test code = 354) CREATININE (BEAKER) 0.48 mg/dL 0.57-1.25 L (test code = 358) GLUCOSE RANDOM 118 mg/dL 70-105 H (BEAKER) (test code = 652) CALCIUM (BEAKER) 8.4 mg/dL 8.4-10.2 (test code = 697) EGFR (BEAKER) (test 132 mL/min/1.73 ESTIM ATED GFR IS code = 1092) sq m NOT ACCURATE CREATININE CLEARANCE IN PREDICTING GLOMERULAR FILTRATION RATE . ESTIMATED GFR I S NOT APPLICABLE FOR DIALYSIS PATIEN TS. Extrusion Former ID - DBPOCT-GLUCOSE [id number] 11:57:00 Test Item Value Reference Range Interpretation Comments POC-GLUCOSE METER 112 mg/dL 70-110 H : TESTED A T [facility] 6720 (BEAKER) (test code = [facility] Dev [place], 1538) 699[address]: Extrusion Former/Techni juan ID = [id number] for LILIBETH LIM POCT-GLUCOSE [id number] 06:16:00 Test Item Value Reference Range Interpretation Comments POC-GLUCOSE METER 107 mg/dL 70-110 : TESTED A T [facility] 6720 (BEAKER) (test code = YE Méndez [place], 1538) 77[address]: Extrusion Former/Techni juan ID = [id number] for MAGGIE GIRARD BASIC METABOLIC [id number] 05:49:00 Test Item Value Reference Range Interpretation Comments SODIUM (BEAKER) 138 meq/L 136-145 (test code = 381) POTASSIUM (BEAKER) 4.0 meq/L 3.5-5.1 (test code = 379) CHLORIDE (BEAKER) 105 meq/L 98-107 (test code = 382) CO2 (BEAKER) (test 25 meq/L 22-29 code = 355) BLOOD UREA NITROGEN 9 mg/dL 7-21 (BEAKER) (test code = 354) CREATININE (BEAKER) 0.48 mg/dL 0.57-1.25 L (test code = 358) GLUCOSE RANDOM 115 mg/dL 70-105 H (BEAKER) (test code = 652) CALCIUM (BEAKER) 8.1 mg/dL 8.4-10.2 L (test code = 697) EGFR (BEAKER) (test 132 mL/min/1.73 ESTIM ATED GFR IS code = 1092) sq m NOT ACCURATE CREATININE CLEARANCE IN PREDICTING GLOMERULAR FILTRATION RATE . ESTIMATED GFR I S NOT APPLICABLE FOR DIALYSIS PATIEN TS. Extrusion Former ID - [id number] 05:49:00 Test Item Value Reference Range Interpretation Comments MAGNESIUM (BEAKER) (test code = 2.1 mg/dL 1.6-2.6 627) Extrusion Former ID - [id number] 05:49:00 Test Item Value Reference Range Interpretation Comments PHOSPHORUS (BEAKER) (test code = 4.6 mg/dL 2.3-4.7 604) Extrusion Former ID - EDASIHEPATIC FUNCTION [id number] 05:49:00 Test Item Value Reference Range Interpretation Comments TOTAL PROTEIN (BEAKER) (test code = 5.3 gm/dL 6.0-8.3 L 770) ALBUMIN (BEAKER) (test code = 1145) 2.9 g/dL 3.5-5.0 L BILIRUBIN TOTAL (BEAKER) (test code 0.9 mg/dL 0.2-1.2 = 377) BILIRUBIN DIRECT (BEAKER) (test 0.4 mg/dL 0.1-0.5 code = 706) ALKALINE PHOSPHATASE (BEAKER) (test 140 U/L 40-150 code = 346) AST (SGOT) (BEAKER) (test code = 25 U/L 5-34 353) ALT (SGPT) (BEAKER) (test code = 178 U/L 6-55 H 347) Extrusion Former ID - EDASICBC (HEMOGRAM ONLY)2020-06-20 05:17:00 Test Item Value Reference Range Interpretation Comments WHITE BLOOD CELL COUNT (BEAKER) 6.1 K/ L 3.5-10.5 (test code = 775) RED BLOOD CELL COUNT (BEAKER) 3.19 M/ L 3.93-5.22 L (test code = 761) HEMOGLOBIN (BEAKER) (test code = 9.7 GM/DL 11.2-15.7 L 410) HEMATOCRIT (BEAKER) (test code = 29.8 % 34.1-44.9 L 411) MEAN CORPUSCULAR VOLUME (BEAKER) 93.4 fL 79.4-94.8 (test code = 753) MEAN CORPUSCULAR HEMOGLOBIN 30.4 pg 25.6-32.2 (BEAKER) (test code = 751) MEAN CORPUSCULAR HEMOGLOBIN CONC 32.6 GM/DL 32.2-35.5 (BEAKER) (test code = 752) RED CELL DISTRIBUTION WIDTH 14.0 % 11.7-14.4 (BEAKER) (test code = 412) PLATELET COUNT (BEAKER) (test 152 K/CU MM 150-450 code = 756) MEAN PLATELET VOLUME (BEAKER) 11.3 fL 9.4-12.3 (test code = 754) NUCLEATED RED BLOOD CELLS 0 /100 WBC 0-0 (BEAKER) (test code = 413) POCT-GLUCOSE [id number] 00:10:00 Test Item Value Reference Range Interpretation Comments POC-GLUCOSE METER 131 mg/dL 70-110 H : TESTED A T [facility] 6720 (BEAKER) (test code = [facility], 1538) 716[address]: Extrusion Former/Techni juan ID = [id number] for MAGGIE GIRARD BASIC METABOLIC [id number] 22:40:00 Test Item Value Reference Range Interpretation Comments SODIUM (BEAKER) 137 meq/L 136-145 (test code = 381) POTASSIUM (BEAKER) 4.6 meq/L 3.5-5.1 Specimen moderately (test code = 379) hemolyzed CHLORIDE (BEAKER) 105 meq/L 98-107 (test code = 382) CO2 (BEAKER) (test 22 meq/L 22-29 code = 355) BLOOD UREA NITROGEN 8 mg/dL 7-21 (BEAKER) (test code = 354) CREATININE (BEAKER) 0.50 mg/dL 0.57-1.25 L Specimen moderately (test code = 358) hemolyzed GLUCOSE RANDOM 115 mg/dL 70-105 H (BEAKER) (test code = 652) CALCIUM (BEAKER) 8.1 mg/dL 8.4-10.2 L (test code = 697) EGFR (BEAKER) (test 126 mL/min/1.73 ESTIM ATED GFR IS code = 1092) sq m NOT ACCURATE CREATININE CLEARANCE IN PREDICTING GLOMERULAR FILTRATION RATE . ESTIMATED GFR I S NOT APPLICABLE FOR DIALYSIS PATIEN TS. Extrusion Former ID - DBOperator ID - DBPOCT-GLUCOSE [id number] 18:33:00 Test Item Value Reference Range Interpretation Comments POC-GLUCOSE METER 117 mg/dL 70-110 H : TESTED A T [facility] 6720 (BEAKER) (test code = [facility], 1538) 57766: Extrusion Former/Techni juan ID = [id number] for LILIBETH LIM BASIC METABOLIC [id number] 14:12:00 Test Item Value Reference Range Interpretation Comments SODIUM (BEAKER) 139 meq/L 136-145 (test code = 381) POTASSIUM (BEAKER) 4.0 meq/L 3.5-5.1 Specimen slightly (test code = 379) hemolyzed CHLORIDE (BEAKER) 103 meq/L 98-107 (test code = 382) CO2 (BEAKER) (test 28 meq/L 22-29 code = 355) BLOOD UREA NITROGEN 7 mg/dL 7-21 (BEAKER) (test code = 354) CREATININE (BEAKER) 0.50 mg/dL 0.57-1.25 L Specimen slightly (test code = 358) hemolyzed GLUCOSE RANDOM 141 mg/dL 70-105 H (BEAKER) (test code = 652) CALCIUM (BEAKER) 8.3 mg/dL 8.4-10.2 L (test code = 697) EGFR (BEAKER) (test 126 mL/min/1.73 ESTIM ATED GFR IS code = 1092) sq m NOT ACCURATE CREATININE CLEARANCE IN PREDICTING GLOMERULAR FILTRATION RATE . ESTIMATED GFR I S NOT APPLICABLE FOR DIALYSIS PATIEN TS. Extrusion Former ID - EDASIPOCT-GLUCOSE [id number] 11:41:00 Test Item Value Reference Range Interpretation Comments POC-GLUCOSE METER 104 mg/dL 70-110 : TESTED A T [facility] 6720 (BEAKER) (test code = [facility], 1538) 57853: Extrusion Former/Techni juan ID = [id number] for LILIBETH LIM POCT-GLUCOSE [id number] 06:22:00 Test Item Value Reference Range Interpretation Comments POC-GLUCOSE METER 128 mg/dL 70-110 H : TESTED A T [facility] 6720 (BEAKER) (test code = [facility] [employer] [facility], 1538) 65966: Extrusion Former/Techni juan ID = [id number] for MAGGIE GIRARD [id number] 05:29:00 Test Item Value Reference Range Interpretation Comments Triglycerides (test 116 mg/dL code = 2571-8) ALEXIS (test code = ALEXIS) TRIGLYCERIDE REFERENCE RANGELow Risk <150Borderline Risk 150-199High Risk 200-499Very High Risk >=500Operator ID - [facility] [id number] 05:29:00 Test Item Value Reference Range Interpretation Comments MAGNESIUM (BEAKER) (test code = 1.9 mg/dL 1.6-2.6 627) Extrusion Former ID - EDASIBASIC METABOLIC [id number] 05:29:00 Test Item Value Reference Range Interpretation Comments SODIUM (BEAKER) 137 meq/L 136-145 (test code = 381) POTASSIUM (BEAKER) 3.7 meq/L 3.5-5.1 (test code = 379) CHLORIDE (BEAKER) 102 meq/L 98-107 (test code = 382) CO2 (BEAKER) (test 29 meq/L 22-29 code = 355) BLOOD UREA NITROGEN 7 mg/dL 7-21 (BEAKER) (test code = 354) CREATININE (BEAKER) 0.44 mg/dL 0.57-1.25 L (test code = 358) GLUCOSE RANDOM 111 mg/dL 70-105 H (BEAKER) (test code = 652) CALCIUM (BEAKER) 8.0 mg/dL 8.4-10.2 L (test code = 697) EGFR (BEAKER) (test 146 mL/min/1.73 ESTIM ATED GFR IS code = 1092) sq m NOT ACCURATE CREATININE CLEARANCE IN PREDICTING GLOMERULAR FILTRATION RATE . ESTIMATED GFR I S NOT APPLICABLE FOR DIALYSIS PATIEN TS. Extrusion Former ID - [id number] 05:29:00 Test Item Value Reference Range Interpretation Comments PHOSPHORUS (BEAKER) (test code = 2.8 mg/dL 2.3-4.7 604) Extrusion Former ID - [id number] 05:29:00 Test Item Value Reference Range Interpretation Comments TRIGLYCERIDES (BEAKER) (test code = 116 mg/dL 540) TRIGLYCERIDE REFERENCE RANGELow Risk <150Borderline Risk 150-199High Risk 200-499Very High Risk>=500Operator ID - EDASIHEPATIC FUNCTION [id number] 05:29:00 Test Item Value Reference Range Interpretation Comments TOTAL PROTEIN (BEAKER) (test code = 5.2 gm/dL 6.0-8.3 L 770) ALBUMIN (BEAKER) (test code = 1145) 2.9 g/dL 3.5-5.0 L BILIRUBIN TOTAL (BEAKER) (test code 0.9 mg/dL 0.2-1.2 = 377) BILIRUBIN DIRECT (BEAKER) (test 0.5 mg/dL 0.1-0.5 code = 706) ALKALINE PHOSPHATASE (BEAKER) (test 142 U/L 40-150 code = 346) AST (SGOT) (BEAKER) (test code = 42 U/L 5-34 H 353) ALT (SGPT) (BEAKER) (test code = 261 U/L 6-55 H 347) Extrusion Former ID - EDASICBC (HEMOGRAM ONLY)2020-06-19 05:03:00 Test Item Value Reference Range Interpretation Comments WHITE BLOOD CELL COUNT (BEAKER) 5.9 K/ L 3.5-10.5 (test code = 775) RED BLOOD CELL COUNT (BEAKER) 3.27 M/ L 3.93-5.22 L (test code = 761) HEMOGLOBIN (BEAKER) (test code = 10.0 GM/DL 11.2-15.7 L 410) HEMATOCRIT (BEAKER) (test code = 30.1 % 34.1-44.9 L 411) MEAN CORPUSCULAR VOLUME (BEAKER) 92.0 fL 79.4-94.8 (test code = 753) MEAN CORPUSCULAR HEMOGLOBIN 30.6 pg 25.6-32.2 (BEAKER) (test code = 751) MEAN CORPUSCULAR HEMOGLOBIN CONC 33.2 GM/DL 32.2-35.5 (BEAKER) (test code = 752) RED CELL DISTRIBUTION WIDTH 14.3 % 11.7-14.4 (BEAKER) (test code = 412) PLATELET COUNT (BEAKER) (test 147 K/CU MM 150-450 L code = 756) MEAN PLATELET VOLUME (BEAKER) 11.7 fL 9.4-12.3 (test code = 754) NUCLEATED RED BLOOD CELLS 0 /100 WBC 0-0 (BEAKER) (test code = 413) POCT-GLUCOSE [id number] 00:27:00 Test Item Value Reference Range Interpretation Comments POC-GLUCOSE METER 113 mg/dL 70-110 H : TESTED A T [facility] 6720 (BEAKER) (test code = [place], 1538) [address]: Extrusion Former/Techni juan ID = [id number] for MAGGIE GIRARD [id number] 23:54:00 Test Item Value Reference Range Interpretation Comments CROSSMATCH (test code = 2264) COMPATIBLE Unit ABO (test code = A Pos [id number]) UNIT NUMBER (test code = [id number] 934-0) Status (test code = 6377738) READY Blood Bank Product (test code RED BLOOD CELLS = 2263) PRODUCT CODE (test code = [id number] 933-2) [facility] Campus[facility] [id number] 22:19:00 Test Item Value Reference Range Interpretation Comments SODIUM (BEAKER) 139 meq/L 136-145 (test code = 381) POTASSIUM (BEAKER) 3.5 meq/L 3.5-5.1 (test code = 379) CHLORIDE (BEAKER) 103 meq/L 98-107 (test code = 382) CO2 (BEAKER) (test 30 meq/L 22-29 H code = 355) BLOOD UREA NITROGEN 5 mg/dL 7-21 L (BEAKER) (test code = 354) CREATININE (BEAKER) 0.45 mg/dL 0.57-1.25 L (test code = 358) GLUCOSE RANDOM 103 mg/dL 70-105 (BEAKER) (test code = 652) CALCIUM (BEAKER) 7.8 mg/dL 8.4-10.2 L (test code = 697) EGFR (BEAKER) (test 143 mL/min/1.73 ESTIM ATED GFR IS code = 1092) sq m NOT ACCURATE CREATININE CLEARANCE IN PREDICTING GLOMERULAR FILTRATION RATE . ESTIMATED GFR I S NOT APPLICABLE FOR DIALYSIS PATIEN TS. Extrusion Former ID - RALPH CPOCT-GLUCOSE [id number] 17:36:00 Test Item Value Reference Range Interpretation Comments POC-GLUCOSE METER 130 mg/dL 70-110 H : TESTED A T [facility] 6720 (BEAKER) (test code = YE Dev [facility], 1538) 965[address]: Extrusion Former/Techni juan ID = [id number] for RA MOS, NEGIN BASIC METABOLIC [id number] 15:07:00 Test Item Value Reference Range Interpretation Comments SODIUM (BEAKER) 138 meq/L 136-145 (test code = 381) POTASSIUM (BEAKER) 3.7 meq/L 3.5-5.1 (test code = 379) CHLORIDE (BEAKER) 103 meq/L 98-107 (test code = 382) CO2 (BEAKER) (test 29 meq/L 22-29 code = 355) BLOOD UREA NITROGEN 11 mg/dL 7-21 (BEAKER) (test code = 354) CREATININE (BEAKER) 0.46 mg/dL 0.57-1.25 L (test code = 358) GLUCOSE RANDOM 140 mg/dL 70-105 H (BEAKER) (test code = 652) CALCIUM (BEAKER) 7.5 mg/dL 8.4-10.2 L (test code = 697) EGFR (BEAKER) (test 139 mL/min/1.73 ESTIM ATED GFR IS code = 1092) sq m NOT ACCURATE CREATININE CLEARANCE IN PREDICTING GLOMERULAR FILTRATION RATE . ESTIMATED GFR I S NOT APPLICABLE FOR DIALYSIS PATIEN TS. Extrusion Former ID - [id number] 15:02:00 Test Item Value Reference Range Interpretation Comments MAGNESIUM (BEAKER) (test code = 2.5 mg/dL 1.6-2.6 627) Extrusion Former ID - [id number] 15:02:00 Test Item Value Reference Range Interpretation Comments PHOSPHORUS (BEAKER) (test code = 3.2 mg/dL 2.3-4.7 604) Extrusion Former ID - DBCBC W/PLT COUNT & AUTO [id number] 14:09:00 Test Item Value Reference Range Interpretation Comments WHITE BLOOD CELL COUNT (BEAKER) 4.6 K/ L 3.5-10.5 (test code = 775) RED BLOOD CELL COUNT (BEAKER) 2.96 M/ L 3.93-5.22 L (test code = 761) HEMOGLOBIN (BEAKER) (test code = 9.2 GM/DL 11.2-15.7 L 410) HEMATOCRIT (BEAKER) (test code = 27.3 % 34.1-44.9 L 411) MEAN CORPUSCULAR VOLUME (BEAKER) 92.2 fL 79.4-94.8 (test code = 753) MEAN CORPUSCULAR HEMOGLOBIN 31.1 pg 25.6-32.2 (BEAKER) (test code = 751) MEAN CORPUSCULAR HEMOGLOBIN CONC 33.7 GM/DL 32.2-35.5 (BEAKER) (test code = 752) RED CELL DISTRIBUTION WIDTH 14.5 % 11.7-14.4 H (BEAKER) (test code = 412) PLATELET COUNT (BEAKER) (test 123 K/CU MM 150-450 L code = 756) MEAN PLATELET VOLUME (BEAKER) 11.6 fL 9.4-12.3 (test code = 754) NUCLEATED RED BLOOD CELLS 0 /100 WBC 0-0 (BEAKER) (test code = 413) NEUTROPHILS RELATIVE PERCENT 58 % (BEAKER) (test code = 429) LYMPHOCYTES RELATIVE PERCENT 33 % (BEAKER) (test code = 430) MONOCYTES RELATIVE PERCENT 7 % (BEAKER) (test code = 431) EOSINOPHILS RELATIVE PERCENT 1 % (BEAKER) (test code = 432) BASOPHILS RELATIVE PERCENT 0 % (BEAKER) (test code = 437) NEUTROPHILS ABSOLUTE COUNT 2.67 K/ L 1.56-6.13 (BEAKER) (test code = 670) LYMPHOCYTES ABSOLUTE COUNT 1.50 K/ L 1.18-3.74 (BEAKER) (test code = 414) MONOCYTES ABSOLUTE COUNT (BEAKER) 0.33 K/ L 0.24-0.36 (test code = 415) EOSINOPHILS ABSOLUTE COUNT 0.06 K/ L 0.04-0.36 (BEAKER) (test code = 416) BASOPHILS ABSOLUTE COUNT (BEAKER) 0.02 K/ L 0.01-0.08 (test code = 417) IMMATURE GRANULOCYTES-RELATIVE 0 % 0-1 PERCENT (BEAKER) (test code = 2801) POCT-GLUCOSE [id number] 12:14:00 Test Item Value Reference Range Interpretation Comments POC-GLUCOSE METER 131 mg/dL 70-110 H : TESTED A T [facility] 6720 (BEAKER) (test code = [place], 1538) [address]: Extrusion Former/Techni juan ID = [id number] for Vi ce (contract), Yeimy le [id number] 11:18:00 Test Item Value Reference Range Interpretation Comments TRIGLYCERIDES (BEAKER) (test code = 107 mg/dL 540) TRIGLYCERIDE REFERENCE RANGELow Risk <150Borderline Risk 150-199High Risk 200-499Very High Risk>=500Operator ID - RALPH [id number] 06:53:00 Test Item Value Reference Range Interpretation Comments PHOSPHORUS (BEAKER) (test code = 1.4 mg/dL 2.3-4.7 LL 604) Extrusion Former ID - EDASIComprehensive metabolic [id number] 06:46:00 Test Item Value Reference Range Interpretation Comments Protein, Total (test 4.7 See_Comment L [Autom ated code = 2885-2) message] The system which generated this result transmit norberto reference range : 6.0 - 8.3 gm/dL . The reference range was not u sed to interpret th is result as normal/abnormal . Albumin (test code = 2.7 g/dL 3.5-5 L 55789-5) Alkaline Phosphatase 120 U/L 40-150 (test code = 6768-6) Total Bilirubin (test 1.1 mg/dL 0.2-1.2 code = 1974-2) Sodium (test code = 138 meq/L 187-283 7110-2) Potassium (test code 3.4 meq/L 3.5-5.1 L = 2823-3) Chloride (test code = 104 meq/L 98-107 2075-0) CO2 (test code = 30 meq/L 22-29 H 2028-9) BUN (test code = 10 mg/dL 7-21 3094-0) Creatinine (test code 0.49 mg/dL 0.57-1.25 L = 2160-0) Glucose (test code = 126 mg/dL 70-105 H 2345-7) Calcium (test code = 7.5 mg/dL 8.4-10.2 L 58702-6) AST (test code = 71 U/L 5-34 H 1920-8) ALT (test code = 320 U/L 6-55 H 1742-6) EGFR (test code = 129 mL/min/1.73 [place] [address]-8) NOT ACCURATE CREATININE CLEARANCE IN PREDICTING GLOMERULAR FILTRATION RATE . ESTIMATED GFR I S NOT APPLICABLE FOR DIALYSIS PATIEN TS. ALEXIS (test code = ALEXIS) Extrusion Former ID - [id number] Lab Interpretation Abnormal (test code = 55124-6) [facility] [id number] 06:46:00 Test Item Value Reference Range Interpretation Comments TOTAL PROTEIN 4.7 gm/dL 6.0-8.3 L (BEAKER) (test code = 770) ALBUMIN (BEAKER) 2.7 g/dL 3.5-5.0 L (test code = 1145) ALKALINE PHOSPHATASE 120 U/L 40-150 (BEAKER) (test code = 346) BILIRUBIN TOTAL 1.1 mg/dL 0.2-1.2 (BEAKER) (test code = 377) SODIUM (BEAKER) (test 138 meq/L 136-145 code = 381) POTASSIUM (BEAKER) 3.4 meq/L 3.5-5.1 L (test code = 379) CHLORIDE (BEAKER) 104 meq/L 98-107 (test code = 382) CO2 (BEAKER) (test 30 meq/L 22-29 H code = 355) BLOOD UREA NITROGEN 10 mg/dL 7-21 (BEAKER) (test code = 354) CREATININE (BEAKER) 0.49 mg/dL 0.57-1.25 L (test code = 358) GLUCOSE RANDOM 126 mg/dL 70-105 H (BEAKER) (test code = 652) CALCIUM (BEAKER) 7.5 mg/dL 8.4-10.2 L (test code = 697) AST (SGOT) (BEAKER) 71 U/L 5-34 H (test code = 353) ALT (SGPT) (BEAKER) 320 U/L 6-55 H (test code = 347) EGFR (BEAKER) (test 129 ESTIMATE D GFR IS code = 1092) mL/min/1.73 sq NOT ACCURA TE m CREATININE CLEARANCE IN PREDICTING GLOMERULAR FILTRATION RATE . ESTIMATED GFR I S NOT APPLICABLE FOR DIALYSIS PATIEN TS. Extrusion Former ID - [id number] 06:45:00 Test Item Value Reference Range Interpretation Comments MAGNESIUM (BEAKER) (test code = 1.9 mg/dL 1.6-2.6 627) Extrusion Former ID - [id number] (HEMOGRAM ONLY)2020-06-18 06:05:00 Test Item Value Reference Range Interpretation Comments WHITE BLOOD CELL COUNT (BEAKER) 4.7 K/ L 3.5-10.5 (test code = 775) RED BLOOD CELL COUNT (BEAKER) 2.95 M/ L 3.93-5.22 L (test code = 761) HEMOGLOBIN (BEAKER) (test code = 8.9 GM/DL 11.2-15.7 L 410) HEMATOCRIT (BEAKER) (test code = 27.2 % 34.1-44.9 L 411) MEAN CORPUSCULAR VOLUME (BEAKER) 92.2 fL 79.4-94.8 (test code = 753) MEAN CORPUSCULAR HEMOGLOBIN 30.2 pg 25.6-32.2 (BEAKER) (test code = 751) MEAN CORPUSCULAR HEMOGLOBIN CONC 32.7 GM/DL 32.2-35.5 (BEAKER) (test code = 752) RED CELL DISTRIBUTION WIDTH 14.7 % 11.7-14.4 H (BEAKER) (test code = 412) PLATELET COUNT (BEAKER) (test 128 K/CU MM 150-450 L code = 756) MEAN PLATELET VOLUME (BEAKER) 11.8 fL 9.4-12.3 (test code = 754) NUCLEATED RED BLOOD CELLS 0 /100 WBC 0-0 (BEAKER) (test code = 413) POCT-GLUCOSE [id number] 05:56:00 Test Item Value Reference Range Interpretation Comments POC-GLUCOSE METER 122 mg/dL 70-110 H : TESTED A T BSC 6720 (BEAKER) (test code = YE Dev [facility], 1538) [address]235: Extrusion Former/Techni juan ID = [id number] for MS IBI, MNCEDISI RAD, CHEST, 1 VIEW, NON [id number] 23:36:00Reason for exam:->Post picc placement verificationShould this be performed at the bedside?->Yes [facility] CJUAN VALORIE : 1960 Sex: FFINAL REPORT History: PICC line placement. Comparison: None. Findings: A single view of the chest is submitted. A left PICC line tip overlies the cavoatrial junction. Thecardiac silhouette is within normal limits for size. There are calcified lymph nodes in the right paratracheal mediastinum. There is no focal consolidation, pneumothorax, large pleural effusion or evidence of overt pulmonary edema. There is no acute bony abnormality. An enteric tube tip overlies the mid gastric lumen. Surgical clips overlie the right upper quadrant. Signed: Bereket Herrera MDReport Verified Date/Time: 06/17/2020 23:36:21 XR chest 1 view portable / [id number] 23:36:00Interface, External Ris In - 06/17/2020 11:38 PM CDTFINAL REPORT History: PICC line placement. Comparison: None. Findings: A single view of the chest is submitted. A left PICC line tip overlies the cavoatrial junction. The cardiac silhouette is within normal limits for size. There are calcified lymph nodes in the right paratracheal mediastinum. There is no focal consolidation, pneumothorax, large pleural effusion or evidence of overt pulmonary edema. There is no acute bony abnormality. An enteric tube tip overlies the mid gastric lumen. Surgical clips overlie the right upper quadrant. Signed: Bereket Herrera MDReport Verified Date/Time: 06/17/2020 23:36:21 [facility] 2020[facility]06[facility]17 23:22:00 Test Item Value Reference Range Interpretation Comments POC-GLUCOSE METER 108 mg/dL 70-110 : TESTED A T [facility] 6720 (BEAKER) (test code = YE Méndez [facility], 1538) [address]: Extrusion Former/Techni juan ID = [id number] for GUSTAVO EDWARDS [id number] 20:37:00 Test Item Value Reference Range Interpretation Comments Fibrinogen (test code = 3255-7) 479 mg/dl 225-434 H Lab Interpretation (test code = Abnormal 97939-7) [facility] Campus[facility]/[id number] 20:37:00 Test Item Value Reference Range Interpretation Comments PROTIME (BEAKER) 16.2 seconds 11.9-14.2 H (test code = 759) INR (BEAKER) (test 1.34 See_Comment [Automat ed message] code = 370) The system Maimai generated this result transmitted ref erence range: <=5.90. The reference range was not used to int erpret this result as normal/abnormal . Effective 07/31/2018: PT Reference Range ChangeNew: 11.9-14.2 Previous: 11.7- 14.7RECOMMENDED COUMADIN/WARFARIN INR THERAPY RANGESSTANDARD DOSE: 2.0-3.0 Includes: PROPHYLAXIS for venous thrombosis, systemic embolization; TREATMENT for venous thrombosis and/or pulmonary embolus.HIGH RISK: Target INR is2.5-3.5 for patients wiht mechanical heart valves.[id number] 20:37:00 Test Item Value Reference Range Interpretation Comments FIBRINOGEN LEVEL (BEAKER) (test 479 mg/dl 225-434 H code = 658) [id number] 20:37:00 Test Item Value Reference Range Interpretation Comments PARTIAL THROMBOPLASTIN TIME 38.3 seconds 22.5-36.0 H (BEAKER) (test code = 760) CBC W/PLT COUNT & AUTO [id number] 20:27:00 Test Item Value Reference Range Interpretation Comments WHITE BLOOD CELL COUNT (BEAKER) 4.4 K/ L 3.5-10.5 (test code = 775) RED BLOOD CELL COUNT (BEAKER) 2.87 M/ L 3.93-5.22 L (test code = 761) HEMOGLOBIN (BEAKER) (test code = 8.7 GM/DL 11.2-15.7 L 410) HEMATOCRIT (BEAKER) (test code = 26.4 % 34.1-44.9 L 411) MEAN CORPUSCULAR VOLUME (BEAKER) 92.0 fL 79.4-94.8 (test code = 753) MEAN CORPUSCULAR HEMOGLOBIN 30.3 pg 25.6-32.2 (BEAKER) (test code = 751) MEAN CORPUSCULAR HEMOGLOBIN CONC 33.0 GM/DL 32.2-35.5 (BEAKER) (test code = 752) RED CELL DISTRIBUTION WIDTH 14.9 % 11.7-14.4 H (BEAKER) (test code = 412) PLATELET COUNT (BEAKER) (test 129 K/CU MM 150-450 L code = 756) MEAN PLATELET VOLUME (BEAKER) 11.8 fL 9.4-12.3 (test code = 754) NUCLEATED RED BLOOD CELLS 0 /100 WBC 0-0 (BEAKER) (test code = 413) NEUTROPHILS RELATIVE PERCENT 65 % (BEAKER) (test code = 429) LYMPHOCYTES RELATIVE PERCENT 25 % (BEAKER) (test code = 430) MONOCYTES RELATIVE PERCENT 8 % (BEAKER) (test code = 431) EOSINOPHILS RELATIVE PERCENT 1 % (BEAKER) (test code = 432) BASOPHILS RELATIVE PERCENT 1 % (BEAKER) (test code = 437) NEUTROPHILS ABSOLUTE COUNT 2.84 K/ L 1.56-6.13 (BEAKER) (test code = 670) LYMPHOCYTES ABSOLUTE COUNT 1.08 K/ L 1.18-3.74 L (BEAKER) (test code = 414) MONOCYTES ABSOLUTE COUNT (BEAKER) 0.37 K/ L 0.24-0.36 H (test code = 415) EOSINOPHILS ABSOLUTE COUNT 0.06 K/ L 0.04-0.36 (BEAKER) (test code = 416) BASOPHILS ABSOLUTE COUNT (BEAKER) 0.03 K/ L 0.01-0.08 (test code = 417) IMMATURE GRANULOCYTES-RELATIVE 1 % 0-1 PERCENT (BEAKER) (test code = 2801) POCT-GLUCOSE [id number] 17:32:00 Test Item Value Reference Range Interpretation Comments POC-GLUCOSE METER 84 mg/dL 70-110 : TESTED A T [facility] 6720 (BEAKER) (test code = YE Dev [place], 1538) [address]: Extrusion Former/Techni juan ID = [id number] for SIBA I (V), ANNESSA CBC (HEMOGRAM ONLY)2020-06-17 15:22:00 Test Item Value Reference Range Interpretation Comments WHITE BLOOD CELL COUNT (BEAKER) 4.6 K/ L 3.5-10.5 (test code = 775) RED BLOOD CELL COUNT (BEAKER) 2.79 M/ L 3.93-5.22 L (test code = 761) HEMOGLOBIN (BEAKER) (test code = 8.7 GM/DL 11.2-15.7 L 410) HEMATOCRIT (BEAKER) (test code = 25.4 % 34.1-44.9 L 411) MEAN CORPUSCULAR VOLUME (BEAKER) 91.0 fL 79.4-94.8 (test code = 753) MEAN CORPUSCULAR HEMOGLOBIN 31.2 pg 25.6-32.2 (BEAKER) (test code = 751) MEAN CORPUSCULAR HEMOGLOBIN CONC 34.3 GM/DL 32.2-35.5 (BEAKER) (test code = 752) RED CELL DISTRIBUTION WIDTH 14.8 % 11.7-14.4 H (BEAKER) (test code = 412) PLATELET COUNT (BEAKER) (test 127 K/CU MM 150-450 L code = 756) MEAN PLATELET VOLUME (BEAKER) 11.8 fL 9.4-12.3 (test code = 754) NUCLEATED RED BLOOD CELLS 0 /100 WBC 0-0 (BEAKER) (test code = 413) POCT-GLUCOSE [id number] 12:13:00 Test Item Value Reference Range Interpretation Comments POC-GLUCOSE METER 62 mg/dL 70-110 L : TESTED A T [facility] 6720 (BEAKER) (test code = [place], 1538) [address]: Extrusion Former/Techni juan ID = [id number] for Dandre christina (contract)Ralph CBC (HEMOGRAM ONLY)2020-06-17 07:34:00 Test Item Value Reference Range Interpretation Comments WHITE BLOOD CELL COUNT (BEAKER) 5.6 K/ L 3.5-10.5 (test code = 775) RED BLOOD CELL COUNT (BEAKER) 3.11 M/ L 3.93-5.22 L (test code = 761) HEMOGLOBIN (BEAKER) (test code = 9.6 GM/DL 11.2-15.7 L 410) HEMATOCRIT (BEAKER) (test code = 28.8 % 34.1-44.9 L 411) MEAN CORPUSCULAR VOLUME (BEAKER) 92.6 fL 79.4-94.8 (test code = 753) MEAN CORPUSCULAR HEMOGLOBIN 30.9 pg 25.6-32.2 (BEAKER) (test code = 751) MEAN CORPUSCULAR HEMOGLOBIN CONC 33.3 GM/DL 32.2-35.5 (BEAKER) (test code = 752) RED CELL DISTRIBUTION WIDTH 14.6 % 11.7-14.4 H (BEAKER) (test code = 412) PLATELET COUNT (BEAKER) (test 142 K/CU MM 150-450 L code = 756) MEAN PLATELET VOLUME (BEAKER) 11.8 fL 9.4-12.3 (test code = 754) NUCLEATED RED BLOOD CELLS 0 /100 WBC 0-0 (BEAKER) (test code = 413) COMPREHENSIVE METABOLIC [id number] 06:31:00 Test Item Value Reference Range Interpretation Comments TOTAL PROTEIN 4.4 gm/dL 6.0-8.3 L (BEAKER) (test code = 770) ALBUMIN (BEAKER) 2.8 g/dL 3.5-5.0 L (test code = 1145) ALKALINE PHOSPHATASE 135 U/L 40-150 (BEAKER) (test code = 346) BILIRUBIN TOTAL 2.0 mg/dL 0.2-1.2 H (BEAKER) (test code = 377) SODIUM (BEAKER) (test 137 meq/L 136-145 code = 381) POTASSIUM (BEAKER) 4.2 meq/L 3.5-5.1 (test code = 379) CHLORIDE (BEAKER) 103 meq/L 98-107 (test code = 382) CO2 (BEAKER) (test 25 meq/L 22-29 code = 355) BLOOD UREA NITROGEN 11 mg/dL 7-21 (BEAKER) (test code = 354) CREATININE (BEAKER) 0.56 mg/dL 0.57-1.25 L (test code = 358) GLUCOSE RANDOM 89 mg/dL 70-105 (BEAKER) (test code = 652) CALCIUM (BEAKER) 7.8 mg/dL 8.4-10.2 L (test code = 697) AST (SGOT) (BEAKER) 148 U/L 5-34 H (test code = 353) ALT (SGPT) (BEAKER) 466 U/L 6-55 H (test code = 347) EGFR (BEAKER) (test 111 ESTIMATE D GFR IS code = 1092) mL/min/1.73 sq NOT ACCURA TE m CREATININE CLEARANCE IN PREDICTING GLOMERULAR FILTRATION RATE . ESTIMATED GFR I S NOT APPLICABLE FOR DIALYSIS PATIEN TS. Extrusion Former ID - FLOWER MSpecimen slightly [id number] 06:29:00 Test Item Value Reference Range Interpretation Comments MAGNESIUM (BEAKER) (test code = 2.0 mg/dL 1.6-2.6 627) Extrusion Former ID - FLOWER [id number] 06:29:00 Test Item Value Reference Range Interpretation Comments PHOSPHORUS (BEAKER) (test code = 2.9 mg/dL 2.3-4.7 604) Extrusion Former ID - FLOWER MThromboelastograph (TEG)2020-06-17 05:46:00 Test Item Value Reference Range Interpretation Comments TEG Activated Clotting 4.2 See_Comment [Aut omated message] Time (test code = The system which 07064-2) generated this result transmitted ref erence range: 4.0 - 7. 0 minutes. The reference range was not used to int erpret this result as normal/abnormal . TEG Fibrinogen Activity 72.0 See_Comment [Au tomated message] (test code = 60761-5) The sy stem which generated this result transmitted ref erence range: 61.0 - 7 3.0 degrees. The reference range was not used to int erpret this result as normal/abnormal . TEG Platelet Aggregation 63.9 See_Comment [A utomated message] (test code = 15842-2) The sy stem which generated this result transmitted ref erence range: 55.0 - 6 5.0 MM. The referen ce range was not u sed to interpret this result as normal/abnor mal. TEG Fibrinolysis (test 4.7 % 0-5 code = 36461-2) TEG-H Activated Clotting 4.3 See_Comment [A utomated message] Time (test code = 1411) The system which generated this result transmitted ref erence range: 4.0 - 7. 0 minutes. The reference range was not used to int erpret this result as normal/abnormal . TEG-H Fibrinogen 71.7 See_Comment [Automated message] Activity (test code = The sy stem which 1412) generated this result transmitted ref erence range: 61.0 - 7 3.0 degrees. The reference range was not used to int erpret this result as normal/abnormal . TEG-H Platelet 63.0 See_Comment [Automated m essage] Aggregation (test code = The system which 1413) generated this result transmitted ref erence range: 55.0 - 6 5.0 MM. The referen ce range was not u sed to interpret this result as normal/abnor mal. TEG-H Fibrinolysis (test 6.7 % 0-5 H code = 1414) Lab Interpretation (test Abnormal code = 58279-3) [facility]ROMBO[facility]AST[facility] ([facility]G)2020-06-17 05:46:00 Test Item Value Reference Range Interpretation Comments TEG ACTIVATED CLOTTING TIME 4.2 minutes 4.0-7.0 (BEAKER) (test code = 1407) TEG FIBRINOGEN ACTIVITY (BEAKER) 72.0 degrees 61.0-73.0 (test code = 1408) TEG PLT. AGGREGATION (BEAKER) 63.9 MM 55.0-65.0 (test code = 1409) TEG FIBRINOLYSIS (BEAKER) (test 4.7 % 0.0-5.0 code = 1410) [facility] ACTIVATED CLOTTING TIME 4.3 minutes 4.0-7.0 (BEAKER) (test code = 1411) [facility] FIBRINOGEN ACTIVITY (BEAKER) 71.7 degrees 61.0-73.0 (test code = 1412) TGH PLT. AGGREGATION (BEAKER) 63.0 MM 55.0-65.0 (test code = 1413) [facility] FIBRINOLYSIS (BEAKER) (test 6.7 % 0.0-5.0 H code = 1414) [id number] 04:38:00 Test Item Value Reference Range Interpretation Comments FIBRINOGEN LEVEL (BEAKER) (test 371 mg/dl 225-434 code = 658) [id number] 04:38:00 Test Item Value Reference Range Interpretation Comments PARTIAL THROMBOPLASTIN TIME 36.2 seconds 22.5-36.0 H (BEAKER) (test code = 760) PROTHROMBIN TIME/[id number] 04:37:00 Test Item Value Reference Range Interpretation Comments PROTIME (BEAKER) 18.1 seconds 11.9-14.2 H (test code = 759) INR (BEAKER) (test 1.54 See_Comment [Automat ed message] code = 370) The system Maimai generated this result transmitted ref erence range: <=5.90. The reference range was not used to int erpret this result as normal/abnormal . Effective 07/31/2018: PT Reference Range ChangeNew: 11.9-14.2 Previous: 11.7- 14.7RECOMMENDED COUMADIN/WARFARIN INR THERAPY RANGESSTANDARD DOSE: 2.0-3.0 Includes: PROPHYLAXIS for venous thrombosis, systemic embolization; TREATMENT for venous thrombosis and/or pulmonary embolus.HIGH RISK: Target INR is2.5-3.5 for patients wiht mechanical heart valves.CBC (HEMOGRAM ONLY)2020-06-17 04:18:00 Test Item Value Reference Range Interpretation Comments WHITE BLOOD CELL COUNT (BEAKER) 6.0 K/ L 3.5-10.5 (test code = 775) RED BLOOD CELL COUNT (BEAKER) 3.29 M/ L 3.93-5.22 L (test code = 761) HEMOGLOBIN (BEAKER) (test code = 10.1 GM/DL 11.2-15.7 L 410) HEMATOCRIT (BEAKER) (test code = 30.3 % 34.1-44.9 L 411) MEAN CORPUSCULAR VOLUME (BEAKER) 92.1 fL 79.4-94.8 (test code = 753) MEAN CORPUSCULAR HEMOGLOBIN 30.7 pg 25.6-32.2 (BEAKER) (test code = 751) MEAN CORPUSCULAR HEMOGLOBIN CONC 33.3 GM/DL 32.2-35.5 (BEAKER) (test code = 752) RED CELL DISTRIBUTION WIDTH 13.9 % 11.7-14.4 (BEAKER) (test code = 412) PLATELET COUNT (BEAKER) (test 140 K/CU MM 150-450 L code = 756) MEAN PLATELET VOLUME (BEAKER) 12.4 fL 9.4-12.3 H (test code = 754) NUCLEATED RED BLOOD CELLS 0 /100 WBC 0-0 (BEAKER) (test code = 413) POCT-GLUCOSE [id number] 03:55:00 Test Item Value Reference Range Interpretation Comments POC-GLUCOSE METER 86 mg/dL 70-110 : TESTED A T [facility] 6720 (BEAKER) (test code = YE [place], 1538) [address]: Extrusion Former/Techni juan ID = [id number] for Thalia Hargrove CBC W/PLT COUNT & AUTO [id number] 21:40:00 Test Item Value Reference Range Interpretation Comments WHITE BLOOD CELL COUNT (BEAKER) 7.6 K/ L 3.5-10.5 (test code = 775) RED BLOOD CELL COUNT (BEAKER) 2.56 M/ L 3.93-5.22 L (test code = 761) HEMOGLOBIN (BEAKER) (test code = 7.9 GM/DL 11.2-15.7 L 410) HEMATOCRIT (BEAKER) (test code = 24.0 % 34.1-44.9 L 411) MEAN CORPUSCULAR VOLUME (BEAKER) 93.8 fL 79.4-94.8 (test code = 753) MEAN CORPUSCULAR HEMOGLOBIN 30.9 pg 25.6-32.2 (BEAKER) (test code = 751) MEAN CORPUSCULAR HEMOGLOBIN CONC 32.9 GM/DL 32.2-35.5 (BEAKER) (test code = 752) RED CELL DISTRIBUTION WIDTH 13.1 % 11.7-14.4 (BEAKER) (test code = 412) PLATELET COUNT (BEAKER) (test 153 K/CU MM 150-450 code = 756) MEAN PLATELET VOLUME (BEAKER) 12.2 fL 9.4-12.3 (test code = 754) NUCLEATED RED BLOOD CELLS 0 /100 WBC 0-0 (BEAKER) (test code = 413) NEUTROPHILS RELATIVE PERCENT 86 % (BEAKER) (test code = 429) LYMPHOCYTES RELATIVE PERCENT 9 % (BEAKER) (test code = 430) MONOCYTES RELATIVE PERCENT 5 % (BEAKER) (test code = 431) EOSINOPHILS RELATIVE PERCENT 0 % (BEAKER) (test code = 432) BASOPHILS RELATIVE PERCENT 0 % (BEAKER) (test code = 437) NEUTROPHILS ABSOLUTE COUNT 6.48 K/ L 1.56-6.13 H (BEAKER) (test code = 670) LYMPHOCYTES ABSOLUTE COUNT 0.70 K/ L 1.18-3.74 L (BEAKER) (test code = 414) MONOCYTES ABSOLUTE COUNT (BEAKER) 0.36 K/ L 0.24-0.36 (test code = 415) EOSINOPHILS ABSOLUTE COUNT 0.00 K/ L 0.04-0.36 L (BEAKER) (test code = 416) BASOPHILS ABSOLUTE COUNT (BEAKER) 0.01 K/ L 0.01-0.08 (test code = 417) IMMATURE GRANULOCYTES-RELATIVE 0 % 0-1 PERCENT (BEAKER) (test code = 2801) Hepatitis C PCR, [id number] 21:00:00 Test Item Value Reference Range Interpretation Comments HCV PCR, Quantitative HCV RNA not detected HCV RNA not (test code = 91914-9) detected ALEXIS (test code = ALEXIS) This test uses a Real-Time Polymerase Chain Reaction (RT-PCR) methodology and was performed using LÓPE[employer] Ampliprep/LÓPEZ TaqMan HCV test kit version 2.0 ([employer]). Reportable range for this assay is 15 - 100,000,000 IU per mL (1.18 - 8.00 Log IU/mL). Lab Interpretation Normal (test code = 78435-3) [facility], [id number] 21:00:00 Test Item Value Reference Range Interpretation Comments HCV RESULT COMPONENT HCV RNA not detected HCV RNA not detected (ANANDAKER) (test code = 2699) This test uses a Real-Time Polymerase Chain Reaction (RT-PCR) methodology and was performed using [employer] Ampliprep/LÓPEZ TaqMan HCV test kit version 2.0 ([employer]).Reportable range for this assay is 15 - 100,000,000 IU per mL (1.18 - 8.00 Log IU/mL).POCT-GLUCOSE [id number] 18:08:00 Test Item Value Reference Range Interpretation Comments POC-GLUCOSE METER 113 mg/dL 70-110 H : TESTED A T [facility] 6720 (LORY) (test code = YE Méndez [facility], 1538) [address]: Extrusion Former/Techni juan ID = [id number] for Da vis, Thea ECG 12 [id number] 17:38:28Interface, External Ris In - 06/16/2020 5:38 PM CDTVentricular Rate 61 BPMAtrial Rate 61 BPMP-R Interval 140 msQRS Duration 94 msQ-T Interval 458 msQTC Calculation(Bazett) 461 msP [place] 53 degreesR [place] 73 degreesT [place] 39 degreesNormal sinus rhythmNormal ECGNo previous ECGs availableConfirmed by MD Hugo Roberto ([id number]) on 06/16/2020 5:38:25 PM [facility] CampusAPTT2021-04-14 17:02:00 Test Item Value Reference Range Interpretation Comments PARTIAL THROMBOPLASTIN TIME 32.8 seconds 22.5-36.0 (BEAKER) (test code = 760) PROTHROMBIN TIME/[id number] 17:01:00 Test Item Value Reference Range Interpretation Comments PROTIME (BEAKER) 18.0 seconds 11.9-14.2 H (test code = 759) INR (BEAKER) (test 1.53 See_Comment [Automat ed message] code = 370) The system Maimai generated this result transmitted ref erence range: <=5.90. The reference range was not used to int erpret this result as normal/abnormal . Effective 07/31/2018: PT Reference Range ChangeNew: 11.9-14.2 Previous: 11.7- 14.7RECOMMENDED COUMADIN/WARFARIN INR THERAPY RANGESSTANDARD DOSE: 2.0-3.0 Includes: PROPHYLAXIS for venous thrombosis, systemic embolization; TREATMENT for venous thrombosis and/or pulmonary embolus.HIGH RISK: Target INR is2.5-3.5 for patients wiht mechanical heart valves.[id number] 17:01:00 Test Item Value Reference Range Interpretation Comments FIBRINOGEN LEVEL (BEAKER) (test 366 mg/dl 225-434 code = 658) Platelet [id number] 16:53:00 Test Item Value Reference Range Interpretation Comments Platelets (test code = 250 See_Comment [Aut omated message] 267-3) The system Maimai generated this result transmitted ref erence range: 150 - 45 0 K/CU MM. The referen ce range was not u sed to interpret this result as normal/abnor mal. Lab Interpretation (test Normal code = 34514-0) [facility] (HEMOGRAM ONLY)2020-06-16 16:53:00 Test Item Value Reference Range Interpretation Comments WHITE BLOOD CELL COUNT (BEAKER) 14.5 K/ L 3.5-10.5 H (test code = 775) RED BLOOD CELL COUNT (BEAKER) 3.70 M/ L 3.93-5.22 L (test code = 761) HEMOGLOBIN (BEAKER) (test code = 11.5 GM/DL 11.2-15.7 410) HEMATOCRIT (BEAKER) (test code = 35.0 % 34.1-44.9 411) MEAN CORPUSCULAR VOLUME (BEAKER) 94.6 fL 79.4-94.8 (test code = 753) MEAN CORPUSCULAR HEMOGLOBIN 31.1 pg 25.6-32.2 (BEAKER) (test code = 751) MEAN CORPUSCULAR HEMOGLOBIN CONC 32.9 GM/DL 32.2-35.5 (BEAKER) (test code = 752) RED CELL DISTRIBUTION WIDTH 13.2 % 11.7-14.4 (BEAKER) (test code = 412) PLATELET COUNT (BEAKER) (test 250 K/CU MM 150-450 code = 756) MEAN PLATELET VOLUME (BEAKER) 11.8 fL 9.4-12.3 (test code = 754) NUCLEATED RED BLOOD CELLS 0 /100 WBC 0-0 (BEAKER) (test code = 413) PLATELET [id number] 16:53:00 Test Item Value Reference Range Interpretation Comments PLATELET COUNT (BEAKER) (test 250 K/CU MM 150-450 code = 756) Lactic acid, [id number] 16:09:00 Test Item Value Reference Range Interpretation Comments Lactate, Venous (test code = 1.95 mmol/L 0.5-2.2 2872) ALEXIS (test code = ALEXIS) Extrusion Former ID - BS Lab Interpretation (test Normal code = 69187-7) [facility] CampusLACTIC ACID, [id number] 16:09:00 Test Item Value Reference Range Interpretation Comments LACTATE BLOOD VENOUS (2) (BEAKER) 1.95 mmol/L 0.50-2.20 (test code = 2872) Extrusion Former ID - BSPOCT-GLUCOSE [id number] 11:46:00 Test Item Value Reference Range Interpretation Comments POC-GLUCOSE METER 98 mg/dL 70-110 : TESTED A T [facility] 6720 (BEAKER) (test code = [place], 1538) [address]: Extrusion Former/Techni juan ID = [id number] for Lenny gutierrez Thea COMPREHENSIVE METABOLIC [id number] 07:46:00 Test Item Value Reference Range Interpretation Comments TOTAL PROTEIN 5.2 gm/dL 6.0-8.3 L (BEAKER) (test code = 770) ALBUMIN (BEAKER) 3.0 g/dL 3.5-5.0 L (test code = 1145) ALKALINE PHOSPHATASE 252 U/L 40-150 H (BEAKER) (test code = 346) BILIRUBIN TOTAL 2.1 mg/dL 0.2-1.2 H (BEAKER) (test code = 377) SODIUM (BEAKER) (test 135 meq/L 136-145 L code = 381) POTASSIUM (BEAKER) 3.9 meq/L 3.5-5.1 (test code = 379) CHLORIDE (BEAKER) 102 meq/L 98-107 (test code = 382) CO2 (BEAKER) (test 20 meq/L 22-29 L code = 355) BLOOD UREA NITROGEN 9 mg/dL 7-21 (BEAKER) (test code = 354) CREATININE (BEAKER) 0.56 mg/dL 0.57-1.25 L (test code = 358) GLUCOSE RANDOM 100 mg/dL 70-105 (BEAKER) (test code = 652) CALCIUM (BEAKER) 7.6 mg/dL 8.4-10.2 L (test code = 697) AST (SGOT) (BEAKER) 830 U/L 5-34 H (test code = 353) ALT (SGPT) (BEAKER) 1262 U/L 6-55 H (test code = 347) EGFR (BEAKER) (test 111 ESTIMATE D GFR IS code = 1092) mL/min/1.73 sq NOT ACCURA TE m CREATININE CLEARANCE IN PREDICTING GLOMERULAR FILTRATION RATE . ESTIMATED GFR I S NOT APPLICABLE FOR DIALYSIS PATIEN TS. Extrusion Former ID - PIAYA [id number] 04:08:00 Test Item Value Reference Range Interpretation Comments MAGNESIUM (BEAKER) 1.7 mg/dL 1.6-2.6 Specimen moderately (test code = 627) hemolyzed Extrusion Former ID - [id number] 04:08:00 Test Item Value Reference Range Interpretation Comments PHOSPHORUS (BEAKER) 3.4 mg/dL 2.3-4.7 Specimen moderately (test code = 604) hemolyzed Extrusion Former ID - ADMINCBC W/PLT COUNT & AUTO [id number] 03:49:00 Test Item Value Reference Range Interpretation Comments WHITE BLOOD CELL COUNT (BEAKER) 9.3 K/ L 3.5-10.5 (test code = 775) RED BLOOD CELL COUNT (BEAKER) 4.73 M/ L 3.93-5.22 (test code = 761) HEMOGLOBIN (BEAKER) (test code = 14.4 GM/DL 11.2-15.7 410) HEMATOCRIT (BEAKER) (test code = 44.4 % 34.1-44.9 411) MEAN CORPUSCULAR VOLUME (BEAKER) 93.9 fL 79.4-94.8 (test code = 753) MEAN CORPUSCULAR HEMOGLOBIN 30.4 pg 25.6-32.2 (BEAKER) (test code = 751) MEAN CORPUSCULAR HEMOGLOBIN CONC 32.4 GM/DL 32.2-35.5 (BEAKER) (test code = 752) RED CELL DISTRIBUTION WIDTH 12.9 % 11.7-14.4 (BEAKER) (test code = 412) PLATELET COUNT (BEAKER) (test 238 K/CU MM 150-450 code = 756) MEAN PLATELET VOLUME (BEAKER) 11.9 fL 9.4-12.3 (test code = 754) NUCLEATED RED BLOOD CELLS 0 /100 WBC 0-0 (BEAKER) (test code = 413) NEUTROPHILS RELATIVE PERCENT 89 % (BEAKER) (test code = 429) LYMPHOCYTES RELATIVE PERCENT 9 % (BEAKER) (test code = 430) MONOCYTES RELATIVE PERCENT 2 % (BEAKER) (test code = 431) EOSINOPHILS RELATIVE PERCENT 0 % (BEAKER) (test code = 432) BASOPHILS RELATIVE PERCENT 1 % (BEAKER) (test code = 437) NEUTROPHILS ABSOLUTE COUNT 8.22 K/ L 1.56-6.13 H (BEAKER) (test code = 670) LYMPHOCYTES ABSOLUTE COUNT 0.82 K/ L 1.18-3.74 L (BEAKER) (test code = 414) MONOCYTES ABSOLUTE COUNT (BEAKER) 0.14 K/ L 0.24-0.36 L (test code = 415) EOSINOPHILS ABSOLUTE COUNT 0.01 K/ L 0.04-0.36 L (BEAKER) (test code = 416) BASOPHILS ABSOLUTE COUNT (BEAKER) 0.05 K/ L 0.01-0.08 (test code = 417) IMMATURE GRANULOCYTES-RELATIVE 1 % 0-1 PERCENT (BEAKER) (test code = 2801) Calcium, [id number] 01:05:00 Test Item Value Reference Range Interpretation Comments Calcium, Ion (test code = 1994-) 1.06 mmol/L 1.12-1.27 L pH, Blood (test code = 60393-3) 7.46 Lab Interpretation (test code = Abnormal 96385-6) [id number] 01:05:00 Test Item Value Reference Range Interpretation Comments CALCIUM IONIZED (BEAKER) (test 1.06 mmol/L 1.12-1.27 L code = 698) PH, BLOOD (BEAKER) (test code = 7.46 1810) Blood gas, [id number] 01:04:00 Test Item Value Reference Range Interpretation Comments pH, Arterial (test code 7.48 7.35-7.45 H = 2744-1) pCO2, Arterial (test 33 See_Comment L [Autom ated message] code = 2019-8) The system [facility] generated this result transmit norberto reference range : 35 - 45 mm Hg. The reference range was not used to interpret this result as normal/abnormal . pO2, Arterial (test 170 See_Comment H [Automa norberto message] code = 2703-7) The system [facility] generated this result transmit norberto reference range : 80 - 90 mm Hg. The reference range was not used to interpret this result as normal/abnormal . O2 Sat, Arterial (test 99.3 % 96-97 H code = 2708-6) HCO3, Arterial (test 24 mmol/L 21-29 code = 1960-4) Base Excess, Arterial 0.5 mmol/L -2-3 (test code = 1925-7) Patient Temperature 36.1 (test code = 8310-5) FIO2 (test code = 1819) 50 Lab Interpretation Abnormal (test code = 43715-8) [facility] [id number] 01:04:00 Test Item Value Reference Range Interpretation Comments Hemoglobin (test code = 13.5 See_Comment [Au tomated message] 786-4) The system [facility] generated this result transmitted ref erence range: 12.0 - 1 5.0 GM/DL. The refe rence range was not u sed to interpret this result as normal/abnor mal. Hematocrit (test code = 40.0 % 36-45 4544-3) Lab Interpretation (test Normal code = 54294-6) [facility] [id number] 01:04:00 Test Item Value Reference Range Interpretation Comments Glucose (test code = 2345-7) 87 mg/dL 70-110 Lab Interpretation (test code = Normal 10188-2) [facility] [id number] 01:04:00 Test Item Value Reference Range Interpretation Comments Sodium (test code = 2951-2) 132 meq/L 136-145 L Lab Interpretation (test code = Abnormal 40456-6) [facility] [id number] 01:04:00 Test Item Value Reference Range Interpretation Comments Potassium (test code = 2823-3) 3.5 meq/L 3.6-5.5 L Lab Interpretation (test code = Abnormal 49711-0) [facility]GLU[facility]SE-STAT [id number] 01:04:00 Test Item Value Reference Range Interpretation Comments GLUCOSE RANDOM (BEAKER) (test code = 87 mg/dL 70-110 652) POTASSIUM-STAT [id number] 01:04:00 Test Item Value Reference Range Interpretation Comments POTASSIUM (BEAKER) (test code = 3.5 meq/L 3.6-5.5 L 379) HGB/HCT (H&H) - STAT [id number] 01:04:00 Test Item Value Reference Range Interpretation Comments HEMOGLOBIN (BEAKER) (test code = 13.5 GM/DL 12.0-15.0 410) HEMATOCRIT (BEAKER) (test code = 40.0 % 36.0-45.0 411) BLOOD GAS, [id number] 01:04:00 Test Item Value Reference Range Interpretation Comments PH ARTERIAL (BEAKER) (test code = 7.48 7.35-7.45 H 383) PCO2 ARTERIAL (BEAKER) (test code 33 mm Hg 35-45 L = 384) PO2 ARTERIAL (BEAKER) (test code = 170 mm Hg 80-90 H 385) O2 SATURATION ARTERIAL (BEAKER) 99.3 % 96.0-97.0 H (test code = 386) HCO3 ARTERIAL (BEAKER) (test code 24 mmol/L 21-29 = 388) BASE EXCESS ARTERIAL (BEAKER) 0.5 mmol/L -2.0-3.0 (test code = 387) PATIENT TEMPERATURE (BEAKER) (test 36.1 code = 1818) FIO2 (BEAKER) (test code = 1819) 50.0 SODIUM NA-STAT [id number] 01:04:00 Test Item Value Reference Range Interpretation Comments SODIUM (BEAKER) (test code = 381) 132 meq/L 136-145 L RAD, ABDOMEN/KUB, 1 VIEW [id number] 14:05:00Reason for exam:->confirm NGT placementShould this be performed at the bedside?->Yes [facility] VALORIE : 1960 Sex: FFINAL REPORT CLINICAL HISTORY: confirm NGT placement TECHNIQUE: Supine abdomen COMPARISON: 06/15/2020 IMPRESSION: The NGT has retracted into the distal stomach. The bowel gas pattern is unchanged. Free air and air-fluid levels are not definitively seen, but also cannot be excluded on the supine view. Signed: Alea Gonzalez MDReport Verified Date/Time: 06/15/2020 14:05:02 Reading Location: [facility] Radiology Reading Room XR abdomen / KUB 1 [id number] 14:05:00Interface, External Ris In - 06/15/2020 2:07 PM CDTFINAL REPORT CLINICAL HISTORY: confirm NGT placement TECHNIQUE: Supine abdomen COMPARISON: 06/15/2020 IMPRESSION: The NGT has retracted into the distal stomach. The bowel gas pattern is unchanged. Free air and air-fluid levels are not definitively seen, but also cannot be excluded on the supine view. Signed: Alea Gonzalez Verified Date/Time: 06/15/2020 14:05:02 Reading Location: [facility] Radiology [facility] VIEW [id number] 11:30:00Reason for exam:->NGT placement [facility] : 1960 Sex: FFINAL REPORT CLINICAL HISTORY: NGT placement TECHNIQUE: Supine abdomen COMPARISON: CT 06/14/2020 IMPRESSION: There is a new NGT extending into the proximal duodenum. Right upper quadrant surgical clips are again seen. Multiple dilated loops of bowel are again seen, with slight hyperdensity suggesting retained contrast from the prior CT. Free air and air-fluid levels are not definitively seen, but also cannot be excluded on the supine view. Signed: Alea Gonzalez Verified Date/Time: 06/15/2020 11:30:17 Reading Location: [facility] Radiology Reading Room Hepatitis B [id number] 09:45:00 Test Item Value Reference Range Interpretation Comments Hep B Core Total Ab Nonreactive Nonreactive (test code = 33791-8) Hep B S Ab (test <8.0 See_Comment [Automated code = 94133-5) message] The system which generated this result transmitted reference range : <8.0 mIU/mL. Th e reference range was not used to interpret this result as normal/abnormal . HBsAg Screen (test Nonreactive Nonreactive code = 5195-3) ALEXIS (test code = Extrusion Former ID - ALEXIS) FLOWER M Lab Interpretation Normal (test code = 78226-0) [facility] B [id number] 09:45:00 Test Item Value Reference Range Interpretation Comments HEPATITIS B CORE TOTAL ANTIBODY Nonreactive Nonreactive (BEAKER) (test code = 497) HEPATITIS B SURFACE ANTIBODY < mIU/mL <8.0 (BEAKER) (test code = 647) HEPATITIS B SURFACE ANTIGEN (2) Nonreactive Nonreactive (BEAKER) (test code = 2585) Extrusion Former ID - FLOWER MHepatitis C [id number] 09:42:00 Test Item Value Reference Range Interpretation Comments Hepatitis C Ab (test Nonreactive Nonreactive code = 50093-8) ALEXIS (test code = ALEXIS) Extrusion Former ID - FLOWER M Lab Interpretation (test Normal code = 49166-4) [facility] A [id number] 09:42:00 Test Item Value Reference Range Interpretation Comments Hep A IgM (test code = Nonreactive Nonreactive 01003-1) Hep A IgG (test code = Nonreactive Nonreactive 97503-1) ALEXIS (test code = ALEXIS) Extrusion Former ID - FLOWER M Lab Interpretation (test Normal code = 79578-6) [facility] C [id number] 09:42:00 Test Item Value Reference Range Interpretation Comments HEPATITIS C ANTIBODY (BEAKER) Nonreactive Nonreactive (test code = 367) Extrusion Former ID - FLOWER MHEPATITIS A [id number] 09:42:00 Test Item Value Reference Range Interpretation Comments HEPATITIS A IGM ANTIBODY (BEAKER) Nonreactive Nonreactive (test code = 498) HEPATITIS A IGG ANTIBODY (BEAKER) Nonreactive Nonreactive (test code = 2797) Extrusion Former ID - FLOWER [id number] 09:17:00 Test Item Value Reference Interpretation Comments Range Protime (test code = 18.8 See_Comment H [Autom ated 5902-2) message] The system which generated this result transmitted reference range : 11.9 - 14.2 seconds. The reference range was not used to interpret this result as normal/abnormal . INR (test code = 1.62 See_Comment [Automated 3431-6) message] The system which generated this result transmitted reference range : <=5.90. The reference range was not used to interpret this result as normal/abnormal . PTT (test code = 38.1 See_Comment H [Automated 97537-0) message] The system which generated this result transmitted reference range : 22.5 - 36.0 seconds. The reference range was not used to interpret this result as normal/abnormal . ALEXIS (test code = Effective 07/31/2018: ALEXIS) PT Reference Range ChangeNew: 11.9-14.2 Previous: 11.7-14.7 RECOMMENDED COUMADIN/WARFARIN INR THERAPY RANGESSTANDARD DOSE: 2.0-3.0 Includes: PROPHYLAXIS for venous thrombosis, systemic embolization; TREATMENT for venous thrombosis and/or pulmonary embolus.HIGH RISK: Target INR is 2.5-3.5 for patients wiht mechanical heart valves. Lab Interpretation Abnormal (test code = 76446-0) [facility] CampusPT/[id number] 09:17:00 Test Item Value Reference Range Interpretation Comments PROTIME (BEAKER) (test 18.8 seconds 11.9-14.2 H code = 759) INR (BEAKER) (test 1.62 See_Comment [Automat ed code = 370) message] The sy stem which generated this result transmitted reference range : <=5.90. The reference range was not used to interpret this result as normal/abnormal . PARTIAL THROMBOPLASTIN 38.1 seconds 22.5-36.0 H TIME (BEAKER) (test code = 760) Effective 07/31/2018: PT Reference Range ChangeNew: 11.9-14.2 Previous: 11.7- 14.7RECOMMENDED COUMADIN/WARFARIN INR THERAPY RANGESSTANDARD DOSE: 2.0-3.0 Includes: PROPHYLAXIS for venous thrombosis, systemic embolization; TREATMENT for venous thrombosis and/or pulmonary embolus.HIGH RISK: Target INR is2.5-3.5 for patients wiht mechanical heart valves.SARS-CoV2/RT-PCR (Asymptomatic ONLY) 2020-06-15 09:07:00 Test Item Value Reference Range Interpretation Comments SARS-COV2/RT-PCR Negative Not Detected, (test code = Negative, See 08658-5) external report for linked test SARS-COV-2 [facility] PERFORMING LAB (test code = 19104-8) ALEXIS (test code = Negative result for this ALEXIS) test determines that SARS-CoV-2 RNA was not present in the specimen above the Limit of Detection (LOD). However, Negative results do not preclude SARS-CoV-2 infection and should not be used as the sole basis for treatment or patient management decisions. Negative results must be combined with clinical observations, patient history, and epidemiological information. A false negative result may occur if a specimen is improperly collected, transported or handled. A false negative result should be considered if patient's recent exposures or clinical presentation indicate that COVID-19 (SARS-CoV-2) is likely and diagnostic tests for other causes of illness are negative. Re-testing should be considered in cases of suspected false negatives. The limit of detection for this assay is 800 copies/mL. This SARS CoV-2 test is a real-time RT-PCR test intended for the qualitative detection of nucleic acid from SARS-CoV-2 in a nasopharyngeal swab specimen collected from individuals suspected of COVID-19 by their healthcare provider. This test has not been Food and Drug Administration (FDA) cleared or approved. This is a modified version of an approved Emergency Use Authorization (EUA) and is in the process of review by the FDA. Once authorized by the FDA, the issued EUA will be effective until the declaration that circumstances exist justifying the authorization of the emergency use of in vitro diagnostic tests for detection and/or diagnosis of COVID-19 is terminated under Section 564(b)(2) of the Act or the EUA is revoked under Section 564(g) of the Act. Fact Sheet for Healthcare Providers:https://www.IMGuest ideTwentyFeet.efw-suhl/sites/default/f flex/product/documents/F act_Sheet_HC_Providers_L nic_TOAP-BkZ-5.pdf Fact Sheet for Healthcare Patients:https://www.Cro Yachting.efw-suhl/sites/default/fi les/product/documents/Fa ct_Sheet_Patients_Lyra_S ARS-CoV-2.pdf Performing Laboratory:[place] [address] [place] [address] [facility])2020-06-15 09:07:00 Test Item Value Reference Range Interpretation Comments SARS-COV2/RT-PCR (test Negative Not Detected, Negative, code = 5194197) See external report for linked test SARS-COV-[address] [facility] CHIO (test code = 9858329) Negative result for this test determines that SARS-CoV-2 RNA was not present in the specimen above the Limit of Detection (LOD). However, Negative results do not preclude SARS-CoV-2 infection and should not be used as the sole basis for treatment or patient management decisions. Negative results mustbe combined with clinical observations, patient history, and epidemiological information. A false negative result may occur if a specimen is improperly collected, transported or handled. A false negative result should be considered if patient's recent exposures or clinical presentation indicate that COVID-19 (SARS-CoV-2) is likely and diagnostic tests for other causes of illness are negative. Re-testing should be considered in cases of suspected false negatives.The limit of detection for this assay is 800 copies/mL.This SARS CoV-2 test is a real-time RT-PCR test intended for the qualitative detection of nucleic acid from SARS-CoV-2 in a nasopharyngeal swab specimen collected from individuals susp ected of COVID-19 by their healthcare provider.This test has not been Food and Drug Administration (FDA) cleared or approved. This is a modified version of an approved Emergency Use Authorization (EUA) and is in the process of review by the FDA. Once authorized by the FDA, the issued EUA will be effective until the declaration that circumstances exist justifying the authorization of the emergency use of in vitro diagnostic tests for detection and/or diagnosis of COVID-19 is terminated under Section 564(b)(2) of the Act or the EUA is revoked under Section 564(g) of the Act.Fact Sheet for Healthcare Providers:https://www.WebinarHero.efw-suhl/sites/default/files/product/documents/Fact_Shee k_XA_Bvsskdtfy_Pqsd_SUAX-OlE-2.pdfFact Sheet for Healthcare Patients:https://www.WebinarHero.efw-suhl/sites/default/files/product/ documents/Rwff_Kpaek_Vhcfeyen_Gmed_RMXM-MfX-8.pdfPerforming Laboratory:[facility], [place] [address]WJBOJ, manual 2020-06-15 05:17:00 Test Item Value Reference Range Interpretation Comments ABO Grouping (test code = 2588) A Rh Factor (test code = 2589) POS [facility] CampusBASI METABOLIC [id number] 03:09:00 Test Item Value Reference Range Interpretation Comments SODIUM (BEAKER) 134 meq/L 136-145 L (test code = 381) POTASSIUM (BEAKER) 3.6 meq/L 3.5-5.1 (test code = 379) CHLORIDE (BEAKER) 100 meq/L 98-107 (test code = 382) CO2 (BEAKER) (test 25 meq/L 22-29 code = 355) BLOOD UREA NITROGEN 11 mg/dL 7-21 (BEAKER) (test code = 354) CREATININE (BEAKER) 0.56 mg/dL 0.57-1.25 L (test code = 358) GLUCOSE RANDOM 85 mg/dL 70-105 (BEAKER) (test code = 652) CALCIUM (BEAKER) 7.9 mg/dL 8.4-10.2 L (test code = 697) EGFR (BEAKER) (test 111 mL/min/1.73 ESTIM ATED GFR IS code = 1092) sq m NOT ACCURATE CREATININE CLEARANCE IN PREDICTING GLOMERULAR FILTRATION RATE . ESTIMATED GFR I S NOT APPLICABLE FOR DIALYSIS PATIEN TS. Extrusion Former ID - FLOWER [id number] 02:51:00 Test Item Value Reference Range Interpretation Comments MAGNESIUM (BEAKER) (test code = 2.0 mg/dL 1.6-2.6 627) Extrusion Former ID - FLOWER [id number] 02:51:00 Test Item Value Reference Range Interpretation Comments PHOSPHORUS (BEAKER) (test code = 3.7 mg/dL 2.3-4.7 604) Extrusion Former ID - FLOWER MHEPATIC FUNCTION [id number] 02:51:00 Test Item Value Reference Range Interpretation Comments TOTAL PROTEIN (BEAKER) (test code = 5.2 gm/dL 6.0-8.3 L 770) ALBUMIN (BEAKER) (test code = 1145) 3.2 g/dL 3.5-5.0 L BILIRUBIN TOTAL (BEAKER) (test code 1.1 mg/dL 0.2-1.2 = 377) BILIRUBIN DIRECT (BEAKER) (test 0.7 mg/dL 0.1-0.5 H code = 706) ALKALINE PHOSPHATASE (BEAKER) (test 153 U/L 40-150 H code = 346) AST (SGOT) (BEAKER) (test code = 1089 U/L 5-34 H 353) ALT (SGPT) (BEAKER) (test code = 1043 U/L 6-55 H 347) Extrusion Former ID - FLOWER MCarcinoembryonic Antigen (CEA)2020-06-15 02:40:00 Test Item Value Reference Range Interpretation Comments CEA, SERUM (test code = 2.1 ng/mL 0-5 2038-08) ALEXIS (test code = ALEXIS) Extrusion Former ID - DB Lab Interpretation (test Normal code = 33903-9) [facility] CampusCARCINOEMBRYONIC ANTIGEN (CEA)2020-06-15 02:40:00 Test Item Value Reference Range Interpretation Comments CARCINOEMBRYONIC ANTIGEN (BEAKER) 2.1 ng/mL 0.0-5.0 (test code = 685) Extrusion Former ID - DBType and screen, [id number] 02:39:00 Test Item Value Reference Range Interpretation Comments ABO/RH AUTOMATED (BEAKER) (test A POSITIVE code = 2260) Ab Scrn (test code = 890-4) NEGATIVE [facility] CampusCBC W/PLT COUNT & AUTO [id number] 01:59:00 Test Item Value Reference Range Interpretation Comments WHITE BLOOD CELL COUNT (BEAKER) 7.2 K/ L 3.5-10.5 (test code = 775) RED BLOOD CELL COUNT (BEAKER) 4.32 M/ L 3.93-5.22 (test code = 761) HEMOGLOBIN (BEAKER) (test code = 13.5 GM/DL 11.2-15.7 410) HEMATOCRIT (BEAKER) (test code = 39.1 % 34.1-44.9 411) MEAN CORPUSCULAR VOLUME (BEAKER) 90.5 fL 79.4-94.8 (test code = 753) MEAN CORPUSCULAR HEMOGLOBIN 31.3 pg 25.6-32.2 (BEAKER) (test code = 751) MEAN CORPUSCULAR HEMOGLOBIN CONC 34.5 GM/DL 32.2-35.5 (BEAKER) (test code = 752) RED CELL DISTRIBUTION WIDTH 12.8 % 11.7-14.4 (BEAKER) (test code = 412) PLATELET COUNT (BEAKER) (test 207 K/CU MM 150-450 code = 756) MEAN PLATELET VOLUME (BEAKER) 11.8 fL 9.4-12.3 (test code = 754) NUCLEATED RED BLOOD CELLS 0 /100 WBC 0-0 (BEAKER) (test code = 413) NEUTROPHILS RELATIVE PERCENT 72 % (BEAKER) (test code = 429) LYMPHOCYTES RELATIVE PERCENT 23 % (BEAKER) (test code = 430) MONOCYTES RELATIVE PERCENT 4 % (BEAKER) (test code = 431) EOSINOPHILS RELATIVE PERCENT 1 % (BEAKER) (test code = 432) BASOPHILS RELATIVE PERCENT 1 % (BEAKER) (test code = 437) NEUTROPHILS ABSOLUTE COUNT 5.12 K/ L 1.56-6.13 (BEAKER) (test code = 670) LYMPHOCYTES ABSOLUTE COUNT 1.61 K/ L 1.18-3.74 (BEAKER) (test code = 414) MONOCYTES ABSOLUTE COUNT (BEAKER) 0.26 K/ L 0.24-0.36 (test code = 415) EOSINOPHILS ABSOLUTE COUNT 0.08 K/ L 0.04-0.36 (BEAKER) (test code = 416) BASOPHILS ABSOLUTE COUNT (BEAKER) 0.07 K/ L 0.01-0.08 (test code = 417) IMMATURE GRANULOCYTES-RELATIVE 0 % 0-1 PERCENT (BEAKER) (test code = 2801) CT, [id number] 21:22:00Reason for exam:->ABDOMINAL PAINReason for exam:->NAUSEAReason for exam:->EMESISIs the patient ?->NoWhat is the patient's sedation requirement?->No Sedation [facility] 1960 Sex: FFINAL REPORT ABDOMINAL AND PELVIS CT DATED 06/14/2020 CLINICAL INFORMATION: Unlisted Reason for ExamABDOMINAL PAINNAUSEAEMESIS TECHNIQUE: Axial images of the abdomen andpelvis were obtained from diaphragm to the pubic symphysis with GI contrast. Intravenous contrast was not given. This exam was performed according to our departmental dose-optimization program, which in cludes automated exposure control, adjustment of the mA and/or kV according to patient size and/or use of interactive reconstruction technique. COMMENT: Liver and spleen are normal in size without focal abnormality. There is diffusely decreased attenuation liver consistent with fatty hepatic infiltrate. Gallbladder is contracted. No gallstone or biliary dilatation is noted. Pancreas and adrenals areunremarkable. Both kidneys are normal in size and functioning. No hydronephrosis, hydroureter, urolithiasis is seen. There is dilatation of the small bowel measures up to 4.2 cm in diameter. The small bowel is fluid-filled to that. The large bowel is also filled with fluid and air in the ascending and transverse colon. The descending and sigmoid colon are collapsed. Appendix is prominent measuring up to 9 mm in diameter. No inflammatory changes are seen adjacent to to the cecum or the appendix. Uterus is atrophic. The urinary bladder is contracted. No mass, adenopathy or ascites is present. IMPRESSION:1. Fluid-filled prompt small and large bowel suggestive of enterocolitis.2. Nonspecific dilatation of the appendix.3. Fatty liver. Signed: Jm Suttonort Verified Date/Time: 06/14/2020 21:22:32 Reading Location: [facility] [id number] Consult Reading Room CT abdomen pelvis without [id number] 21:22:00Interface, External Ris In - 06/14/2020 9:24 PM CDTFINAL REPORT ABDOMINAL AND PELVIS CT DATED 06/14/2020 CLINICAL INFORMATION: Unlisted Reason for ExamABDOMINAL PAINNAUSEAEMESIS TECHNIQUE: Axial images of the abdomen and pelvis were obtained from diaphragm to the pubic symphysis with GI contrast. Intravenous contrast was not given. This exam was performed according to our departmental dose-optimization program, which includes automated exposure control, adjustment of the mAand/or kV according to patient size and/or use of interactive reconstruction technique. COMMENT: Liver and spleen are normal in size without focal abnormality. There is diffusely decreased attenuation liver consistent with fatty hepatic infiltrate. Gallbladder is contracted. No gallstone or biliary dilatation is noted. Pancreas and adrenals are unremarkable. Both kidneys are normal in size and functioning. No hydronephrosis, hydroureter, urolithiasis is seen. There is dilatation of the small bowel measures up to 4.2 cm in diameter. The small bowel is fluid-filled to that. The large bowel is alsofilled with fluid and air in the ascending and transverse colon. The descending and sigmoid colon are collapsed. Appendix is prominent measuring up to 9 mm in diameter. No inflammatory changes are seenadjacent to to the cecum or the appendix. Uterus is atrophic. The urinary bladder is contracted. No mass, adenopathy or ascites is present. IMPRESSION:1. Fluid-filled prompt small and large bowel suggestive of enterocolitis.2. Nonspecific dilatation of the appendix.3. Fatty liver. Signed: Jm [facility] Verified Date/Time: 06/14/2020 21:22:32 Reading Location: [address] Consult Reading Room [facility], LIMITED 2020-06-14 20:21:00Abdomen limited area? Add comment if clarification is needed.->Right upper quadrantReason for exam:->ABDOMINAL PAINReason for exam:->NAUSEAReason for exam:->EMESIS [facility] : 1960 Sex: FFINAL REPORT TECHNIQUE: Grayscale ultrasound of the right abdomen. INDICATION: ABDOMINAL PAINNAUSEAEMESIS. COMPARISON: None. FINDINGS: MIDLINE VASCULATURE: The visualizedinferior vena cava is patent. Portal vein is patent. The maximum visualized aortic diameter is 1.6 cm. LIVER: Smooth liver contour. Diffusely echogenic parenchyma compatible with fatty infiltration. Nofocal lesions. The main portal vein measures 1.1 cm. BILIARY:Gallbladder: Prior cholecystectomy. Common bile duct measures 0.7 cm, within normal limits. No intrahepatic biliary ductal dilatation. PANCREAS: Incompletely visualized due to overlying bowel gas. PERITONEUM: No free fluid. RIGHT KIDNEY: Normal in size. No hydronephrosis. No sonographically evident solid mass lesion. IMPRESSION: 1. No ultrasound finding to account for abdominal pain. 2. Cholecystectomy. 3. Hepatic steatosis. Signed: Jm Blunt MDReport Verified Date/Time: 06/14/2020 20:21:26 US abdomen [id number] 20:21:00Interface, External Ris In - 06/14/2020 8:23 PM CDTFINAL REPORT TECHNIQUE: Grayscale ultrasound of the right abdomen. INDICATION: ABDOMINAL PAINNAUSEAEMESIS. COMPARISON: None. FINDINGS: MIDLINE VASCULATURE: The visualized inferior vena cava is patent. Portal vein is patent. The maximum visualized aortic diameter is 1.6 cm. LIVER: Smooth liver contour. Diffusely echogenic parenchyma compatible with fatty infiltration. No focal lesions. The main portal vein measures 1.1 cm. JEANE IARY:Gallbladder: Prior cholecystectomy. Common bile duct measures 0.7 cm, within normal limits. No intrahepatic biliary ductal dilatation. PANCREAS: Incompletely visualized due to overlying bowel gas.PERITONEUM: No free fluid. RIGHT KIDNEY: Normal in size. No hydronephrosis. No sonographically evident solid mass lesion. IMPRESSION: 1. No ultrasound finding to account for abdominal pain. 2. Cholecystectomy. 3. Hepatic steatosis. Signed: Jm Blunt MDReport Verified Date/Time: 06/14/2020 20:21:26 [facility] CenterLACTIC ACID, [id number] 17:43:00 Test Item Value Reference Range Interpretation Comments LACTATE BLOOD VENOUS 0.81 mmol/L 0.50-2.20 Specime n slightly (2) (BEAKER) (test hemolyzed code = 2872) Extrusion Former ID - [id number] 16:58:00 Test Item Value Reference Range Interpretation Comments Lipase (test code = 3040-3) 10 U/L 8-78 ALEXIS (test code = ALEXIS) Extrusion Former ID - DB Lab Interpretation (test Normal code = 22545-3) [facility] CampusCOMPREHENSIVE METABOLIC [id number] 16:58:00 Test Item Value Reference Range Interpretation Comments TOTAL PROTEIN 6.6 gm/dL 6.0-8.3 Specimen sligh tly (BEAKER) (test code = hemoly zed 770) ALBUMIN (BEAKER) 3.9 g/dL 3.5-5.0 Specimen sl ightly (test code = 1145) hemolyzed ALKALINE PHOSPHATASE 180 U/L 40-150 H (BEAKER) (test code = 346) BILIRUBIN TOTAL 1.1 mg/dL 0.2-1.2 Specimen sli ghtly (BEAKER) (test code = hemoly zed 377) SODIUM (BEAKER) (test 138 meq/L 136-145 code = 381) POTASSIUM (BEAKER) 3.8 meq/L 3.5-5.1 Specimen slightly (test code = 379) hemolyzed CHLORIDE (BEAKER) 100 meq/L 98-107 (test code = 382) CO2 (BEAKER) (test 22 meq/L 22-29 code = 355) BLOOD UREA NITROGEN 14 mg/dL 7-21 (BEAKER) (test code = 354) CREATININE (BEAKER) 0.64 mg/dL 0.57-1.25 Specimen slightly (test code = 358) hemolyzed GLUCOSE RANDOM 100 mg/dL 70-105 (BEAKER) (test code = 652) CALCIUM (BEAKER) 8.6 mg/dL 8.4-10.2 (test code = 697) AST (SGOT) (BEAKER) 1243 U/L 5-34 H Specimen slightly (test code = 353) hemolyzed ALT (SGPT) (BEAKER) 1024 U/L 6-55 H Specimen slightly (test code = 347) hemolyzed EGFR (BEAKER) (test 95 mL/min/1.73 ESTIMA NORBERTO GFR IS code = 1092) sq m NOT ACCURATE CREATININE CLEARANCE IN PREDICTING GLOMERULAR FILTRATION RATE . ESTIMATED GFR I S NOT APPLICABLE FOR DIALYSIS PATIEN TS. Extrusion Former ID - [id number] 16:58:00 Test Item Value Reference Range Interpretation Comments LIPASE (BEAKER) (test code = 749) 10 U/L 8-78 Extrusion Former ID - DBPROTHROMBIN TIME/[id number] 16:46:00 Test Item Value Reference Range Interpretation Comments PROTIME (BEAKER) 18.4 seconds 11.9-14.2 H (test code = 759) INR (BEAKER) (test 1.59 See_Comment [Automat ed message] code = 370) The system Maimai generated this result transmitted ref erence range: <=5.90. The reference range was not used to int erpret this result as normal/abnormal . Effective 07/31/2018: PT Reference Range ChangeNew: 11.9-14.2 Previous: 11.7- 14.7RECOMMENDED COUMADIN/WARFARIN INR THERAPY RANGESSTANDARD DOSE: 2.0-3.0 Includes: PROPHYLAXIS for venous thrombosis, systemic embolization; TREATMENT for venous thrombosis and/or pulmonary embolus.HIGH RISK: Target INR is2.5-3.5 for patients wiht mechanical heart valves.CBC W/PLT COUNT & AUTO [id number] 16:42:00 Test Item Value Reference Range Interpretation Comments WHITE BLOOD CELL COUNT (BEAKER) 11.6 K/ L 3.5-10.5 H (test code = 775) RED BLOOD CELL COUNT (BEAKER) 5.04 M/ L 3.93-5.22 (test code = 761) HEMOGLOBIN (BEAKER) (test code = 15.6 GM/DL 11.2-15.7 410) HEMATOCRIT (BEAKER) (test code = 45.1 % 34.1-44.9 H 411) MEAN CORPUSCULAR VOLUME (BEAKER) 89.5 fL 79.4-94.8 (test code = 753) MEAN CORPUSCULAR HEMOGLOBIN 31.0 pg 25.6-32.2 (BEAKER) (test code = 751) MEAN CORPUSCULAR HEMOGLOBIN CONC 34.6 GM/DL 32.2-35.5 (BEAKER) (test code = 752) RED CELL DISTRIBUTION WIDTH 12.7 % 11.7-14.4 (BEAKER) (test code = 412) PLATELET COUNT (BEAKER) (test 285 K/CU MM 150-450 code = 756) MEAN PLATELET VOLUME (BEAKER) 11.8 fL 9.4-12.3 (test code = 754) NUCLEATED RED BLOOD CELLS 0 /100 WBC 0-0 (BEAKER) (test code = 413) NEUTROPHILS RELATIVE PERCENT 84 % (BEAKER) (test code = 429) LYMPHOCYTES RELATIVE PERCENT 11 % (BEAKER) (test code = 430) MONOCYTES RELATIVE PERCENT 4 % (BEAKER) (test code = 431) EOSINOPHILS RELATIVE PERCENT 0 % (BEAKER) (test code = 432) BASOPHILS RELATIVE PERCENT 1 % (BEAKER) (test code = 437) NEUTROPHILS ABSOLUTE COUNT 9.67 K/ L 1.56-6.13 H (BEAKER) (test code = 670) LYMPHOCYTES ABSOLUTE COUNT 1.26 K/ L 1.18-3.74 (BEAKER) (test code = 414) MONOCYTES ABSOLUTE COUNT (BEAKER) 0.49 K/ L 0.24-0.36 H (test code = 415) EOSINOPHILS ABSOLUTE COUNT 0.02 K/ L 0.04-0.36 L (BEAKER) (test code = 416) BASOPHILS ABSOLUTE COUNT (BEAKER) 0.09 K/ L 0.01-0.08 H (test code = 417) IMMATURE GRANULOCYTES-RELATIVE 0 % 0-1 PERCENT (BEAKER) (test code = 2801) [id number] 00:00:00Ordered by an unspecified provider.[facility] Campus[facility]PREH[facility] METABOL[facility] [id number] 04:56:00 Test Item Value Reference Range Interpretation Comments TOTAL PROTEIN 5.9 gm/dL 6.0-8.3 L (BEAKER) (test code = 770) ALBUMIN (BEAKER) 3.6 g/dL 3.5-5.0 (test code = 1145) ALKALINE PHOSPHATASE 97 U/L 40-150 (BEAKER) (test code = 346) BILIRUBIN TOTAL 0.3 mg/dL 0.2-1.2 (BEAKER) (test code = 377) SODIUM (BEAKER) (test 141 meq/L 136-145 code = 381) POTASSIUM (BEAKER) 4.3 meq/L 3.5-5.1 (test code = 379) CHLORIDE (BEAKER) 108 meq/L 98-107 H (test code = 382) CO2 (BEAKER) (test 26 meq/L 22-29 code = 355) BLOOD UREA NITROGEN 6 mg/dL 7-21 L (BEAKER) (test code = 354) CREATININE (BEAKER) 0.68 mg/dL 0.57-1.25 (test code = 358) GLUCOSE RANDOM 95 mg/dL 70-105 (BEAKER) (test code = 652) CALCIUM (BEAKER) 8.9 mg/dL 8.4-10.2 (test code = 697) AST (SGOT) (BEAKER) 16 U/L 5-34 (test code = 353) ALT (SGPT) (BEAKER) 35 U/L 6-55 (test code = 347) EGFR (BEAKER) (test 89 mL/min/1.73 ESTIMA NORBERTO GFR IS code = 1092) sq m NOT ACCURATE CREATININE CLEARANCE IN PREDICTING GLOMERULAR FILTRATION RATE . ESTIMATED GFR I S NOT APPLICABLE FOR DIALYSIS PATIEN TS. Extrusion Former ID - EDASICBC W/PLT COUNT & AUTO [id number] 04:28:00 Test Item Value Reference Range Interpretation Comments WHITE BLOOD CELL COUNT (BEAKER) 6.9 K/ L 3.5-10.5 (test code = 775) RED BLOOD CELL COUNT (BEAKER) 4.19 M/ L 3.93-5.22 (test code = 761) HEMOGLOBIN (BEAKER) (test code = 12.9 GM/DL 11.2-15.7 410) HEMATOCRIT (BEAKER) (test code = 40.6 % 34.1-44.9 411) MEAN CORPUSCULAR VOLUME (BEAKER) 96.9 fL 79.4-94.8 H (test code = 753) MEAN CORPUSCULAR HEMOGLOBIN 30.8 pg 25.6-32.2 (BEAKER) (test code = 751) MEAN CORPUSCULAR HEMOGLOBIN CONC 31.8 GM/DL 32.2-35.5 L (BEAKER) (test code = 752) RED CELL DISTRIBUTION WIDTH 12.9 % 11.7-14.4 (BEAKER) (test code = 412) PLATELET COUNT (BEAKER) (test 199 K/CU MM 150-450 code = 756) MEAN PLATELET VOLUME (BEAKER) 12.6 fL 9.4-12.3 H (test code = 754) NUCLEATED RED BLOOD CELLS 0 /100 WBC 0-0 (BEAKER) (test code = 413) NEUTROPHILS RELATIVE PERCENT 53 % (BEAKER) (test code = 429) LYMPHOCYTES RELATIVE PERCENT 36 % (BEAKER) (test code = 430) MONOCYTES RELATIVE PERCENT 8 % (BEAKER) (test code = 431) EOSINOPHILS RELATIVE PERCENT 3 % (BEAKER) (test code = 432) BASOPHILS RELATIVE PERCENT 1 % (BEAKER) (test code = 437) NEUTROPHILS ABSOLUTE COUNT 3.61 K/ L 1.56-6.13 (BEAKER) (test code = 670) LYMPHOCYTES ABSOLUTE COUNT 2.47 K/ L 1.18-3.74 (BEAKER) (test code = 414) MONOCYTES ABSOLUTE COUNT (BEAKER) 0.53 K/ L 0.24-0.36 H (test code = 415) EOSINOPHILS ABSOLUTE COUNT 0.17 K/ L 0.04-0.36 (BEAKER) (test code = 416) BASOPHILS ABSOLUTE COUNT (BEAKER) 0.08 K/ L 0.01-0.08 (test code = 417) IMMATURE GRANULOCYTES-RELATIVE 0 % 0-1 PERCENT (BEAKER) (test code = 2801) COMPREHENSIVE METABOLIC [id number] 06:50:00 Test Item Value Reference Range Interpretation Comments TOTAL PROTEIN 5.5 gm/dL 6.0-8.3 L (BEAKER) (test code = 770) ALBUMIN (BEAKER) 3.4 g/dL 3.5-5.0 L (test code = 1145) ALKALINE PHOSPHATASE 100 U/L 40-150 (BEAKER) (test code = 346) BILIRUBIN TOTAL 0.4 mg/dL 0.2-1.2 (BEAKER) (test code = 377) SODIUM (BEAKER) (test 139 meq/L 136-145 code = 381) POTASSIUM (BEAKER) 3.7 meq/L 3.5-5.1 (test code = 379) CHLORIDE (BEAKER) 106 meq/L 98-107 (test code = 382) CO2 (BEAKER) (test 24 meq/L 22-29 code = 355) BLOOD UREA NITROGEN 4 mg/dL 7-21 L (BEAKER) (test code = 354) CREATININE (BEAKER) 0.57 mg/dL 0.57-1.25 (test code = 358) GLUCOSE RANDOM 98 mg/dL 70-105 (BEAKER) (test code = 652) CALCIUM (BEAKER) 8.6 mg/dL 8.4-10.2 (test code = 697) AST (SGOT) (BEAKER) 22 U/L 5-34 (test code = 353) ALT (SGPT) (BEAKER) 42 U/L 6-55 (test code = 347) EGFR (BEAKER) (test 109 ESTIMATE D GFR IS code = 1092) mL/min/1.73 sq NOT ACCURA TE m CREATININE CLEARANCE IN PREDICTING GLOMERULAR FILTRATION RATE . ESTIMATED GFR I S NOT APPLICABLE FOR DIALYSIS PATIEN TS. Extrusion Former ID - KATHY [id number] 06:50:00 Test Item Value Reference Range Interpretation Comments MAGNESIUM (BEAKER) (test code = 1.8 mg/dL 1.6-2.6 627) Extrusion Former ID - KATHY [id number] 06:50:00 Test Item Value Reference Range Interpretation Comments PHOSPHORUS (BEAKER) (test code = 3.4 mg/dL 2.3-4.7 604) Extrusion Former ID - KATHY LCBC W/PLT COUNT & AUTO [id number] 05:46:00 Test Item Value Reference Range Interpretation Comments WHITE BLOOD CELL COUNT (BEAKER) 6.5 K/ L 3.5-10.5 (test code = 775) RED BLOOD CELL COUNT (BEAKER) 3.89 M/ L 3.93-5.22 L (test code = 761) HEMOGLOBIN (BEAKER) (test code = 12.0 GM/DL 11.2-15.7 410) HEMATOCRIT (BEAKER) (test code = 36.2 % 34.1-44.9 411) MEAN CORPUSCULAR VOLUME (BEAKER) 93.1 fL 79.4-94.8 (test code = 753) MEAN CORPUSCULAR HEMOGLOBIN 30.8 pg 25.6-32.2 (BEAKER) (test code = 751) MEAN CORPUSCULAR HEMOGLOBIN CONC 33.1 GM/DL 32.2-35.5 (BEAKER) (test code = 752) RED CELL DISTRIBUTION WIDTH 12.9 % 11.7-14.4 (BEAKER) (test code = 412) PLATELET COUNT (BEAKER) (test 168 K/CU MM 150-450 code = 756) MEAN PLATELET VOLUME (BEAKER) 12.7 fL 9.4-12.3 H (test code = 754) NUCLEATED RED BLOOD CELLS 0 /100 WBC 0-0 (BEAKER) (test code = 413) NEUTROPHILS RELATIVE PERCENT 49 % (BEAKER) (test code = 429) LYMPHOCYTES RELATIVE PERCENT 39 % (BEAKER) (test code = 430) MONOCYTES RELATIVE PERCENT 7 % (BEAKER) (test code = 431) EOSINOPHILS RELATIVE PERCENT 4 % (BEAKER) (test code = 432) BASOPHILS RELATIVE PERCENT 1 % (BEAKER) (test code = 437) NEUTROPHILS ABSOLUTE COUNT 3.18 K/ L 1.56-6.13 (BEAKER) (test code = 670) LYMPHOCYTES ABSOLUTE COUNT 2.49 K/ L 1.18-3.74 (BEAKER) (test code = 414) MONOCYTES ABSOLUTE COUNT (BEAKER) 0.45 K/ L 0.24-0.36 H (test code = 415) EOSINOPHILS ABSOLUTE COUNT 0.25 K/ L 0.04-0.36 (BEAKER) (test code = 416) BASOPHILS ABSOLUTE COUNT (BEAKER) 0.08 K/ L 0.01-0.08 (test code = 417) IMMATURE GRANULOCYTES-RELATIVE 0 % 0-1 PERCENT (BEAKER) (test code = 2801) SARS-COV2/RT-PCR ([facility])2020-06-02 15:22:00 Test Item Value Reference Range Interpretation Comments SARS-COV2/RT-PCR (test Negative Not Detected, Negative, code = 5963170) See external report for linked test SARS-COV-[address] [facility] (test code = 3753835) Negative result for this test determines that SARS-CoV-2 RNA was not present in the specimen above the Limit of Detection (LOD). However, Negative results do not preclude SARS-CoV-2 infection and should not be used as the sole basis for treatment or patient management decisions. Negative results mustbe combined with clinical observations, patient history, and epidemiological information. A false negative result may occur if a specimen is improperly collected, transported or handled. A false negative result should be considered if patient's recent exposures or clinical presentation indicate that COVID-19 (SARS-CoV-2) is likely and diagnostic tests for other causes of illness are negative. Re-testing should be considered in cases of suspected false negatives.The limit of detection for this assay is 800 copies/mL.This SARS CoV-2 test is a real-time RT-PCR test intended for the qualitative detection of nucleic acid from SARS-CoV-2 in a nasopharyngeal swab specimen collected from individuals susp ected of COVID-19 by their healthcare provider.This test has not been Food and Drug Administration (FDA) cleared or approved. This is a modified version of an approved Emergency Use Authorization (EUA) and is in the process of review by the FDA. Once authorized by the FDA, the issued EUA will be effective until the declaration that circumstances exist justifying the authorization of the emergency use of in vitro diagnostic tests for detection and/or diagnosis of COVID-19 is terminated under Section 564(b)(2) of the Act or the EUA is revoked under Section 564(g) of the Act.Fact Sheet for Healthcare Providers:https://www.IMGuestidel.com/sites/default/files/product/documents/Fact_Shee h_XG_Uzyuwqngc_Aedz_FNQB-ZhZ-4.pdfFact Sheet for Healthcare Patients:https://www.IMGuestidel.com/sites/default/files/product/ documents/Wwcd_Qwsnq_Tjvmulku_Jecu_XJSQ-WuX-3.pdfPerforming Laboratory:[facility], [place] [address]LME, ABDOMEN/KUB, 1 VIEW [id number] 14:21:00Include stomach \\T\\ rectumReason for exam:->abd distention, possible obstructionShould this be performed at the bedside?->Yes [facility] : 1960 Sex: FFINAL REPORT RAD, ABDOMEN/KUB, 1 VIEW AP CLINICAL INDICATION: abd distention, possible obstruction COMPARISON: None TECHNIQUE: Two frontal radiographs of the abdomen. IMPRESSION: The bowel gas pattern is nonspecific, but nonobstructive. Stool admixed with contrast is present throughout the colon. No pneumatosis. The regional skeleton is intact. Signed: JR Engel Robert MDReport Verified Date/Time: 06/02/2020 14:21:35 Reading Location: [facility] Radiology Reading Room BASIC METABOLIC [id number] 10:07:00 Test Item Value Reference Range Interpretation Comments SODIUM (BEAKER) 138 meq/L 136-145 (test code = 381) POTASSIUM (BEAKER) 4.0 meq/L 3.5-5.1 (test code = 379) CHLORIDE (BEAKER) 109 meq/L 98-107 H (test code = 382) CO2 (BEAKER) (test 23 meq/L 22-29 code = 355) BLOOD UREA NITROGEN 7 mg/dL 7-21 (BEAKER) (test code = 354) CREATININE (BEAKER) 0.60 mg/dL 0.57-1.25 (test code = 358) GLUCOSE RANDOM 76 mg/dL 70-105 (BEAKER) (test code = 652) CALCIUM (BEAKER) 8.1 mg/dL 8.4-10.2 L (test code = 697) EGFR (BEAKER) (test 102 mL/min/1.73 ESTIM ATED GFR IS code = 1092) sq m NOT ACCURATE CREATININE CLEARANCE IN PREDICTING GLOMERULAR FILTRATION RATE . ESTIMATED GFR I S NOT APPLICABLE FOR DIALYSIS PATIEN TS. Extrusion Former ID - RALPH CHEPATIC FUNCTION [id number] 10:07:00 Test Item Value Reference Range Interpretation Comments TOTAL PROTEIN (BEAKER) (test code = 5.3 gm/dL 6.0-8.3 L 770) ALBUMIN (BEAKER) (test code = 1145) 3.2 g/dL 3.5-5.0 L BILIRUBIN TOTAL (BEAKER) (test code 0.6 mg/dL 0.2-1.2 = 377) BILIRUBIN DIRECT (BEAKER) (test 0.3 mg/dL 0.1-0.5 code = 706) ALKALINE PHOSPHATASE (BEAKER) (test 110 U/L 40-150 code = 346) AST (SGOT) (BEAKER) (test code = 42 U/L 5-34 H 353) ALT (SGPT) (BEAKER) (test code = 60 U/L 6-55 H 347) Extrusion Former ID - RALPH CPROTHROMBIN TIME/[id number] 09:37:00 Test Item Value Reference Range Interpretation Comments PROTIME (BEAKER) 14.1 seconds 11.9-14.2 (test code = 759) INR (BEAKER) (test 1.13 See_Comment [Automat ed message] code = 370) The system Maimai generated this result transmitted ref erence range: <=5.90. The reference range was not used to int erpret this result as normal/abnormal . Effective 07/31/2018: PT Reference Range ChangeNew: 11.9-14.2 Previous: 11.7- 14.7RECOMMENDED COUMADIN/WARFARIN INR THERAPY RANGESSTANDARD DOSE: 2.0-3.0 Includes: PROPHYLAXIS for venous thrombosis, systemic embolization; TREATMENT for venous thrombosis and/or pulmonary embolus.HIGH RISK: Target INR is2.5-3.5 for patients wiht mechanical heart valves.CBC W/PLT COUNT & AUTO [id number] 09:21:00 Test Item Value Reference Range Interpretation Comments WHITE BLOOD CELL COUNT (BEAKER) 5.1 K/ L 3.5-10.5 (test code = 775) RED BLOOD CELL COUNT (BEAKER) 3.71 M/ L 3.93-5.22 L (test code = 761) HEMOGLOBIN (BEAKER) (test code = 11.6 GM/DL 11.2-15.7 410) HEMATOCRIT (BEAKER) (test code = 34.9 % 34.1-44.9 411) MEAN CORPUSCULAR VOLUME (BEAKER) 94.1 fL 79.4-94.8 (test code = 753) MEAN CORPUSCULAR HEMOGLOBIN 31.3 pg 25.6-32.2 (BEAKER) (test code = 751) MEAN CORPUSCULAR HEMOGLOBIN CONC 33.2 GM/DL 32.2-35.5 (BEAKER) (test code = 752) RED CELL DISTRIBUTION WIDTH 13.0 % 11.7-14.4 (BEAKER) (test code = 412) PLATELET COUNT (BEAKER) (test 165 K/CU MM 150-450 code = 756) MEAN PLATELET VOLUME (BEAKER) 12.3 fL 9.4-12.3 (test code = 754) NUCLEATED RED BLOOD CELLS 0 /100 WBC 0-0 (BEAKER) (test code = 413) NEUTROPHILS RELATIVE PERCENT 50 % (BEAKER) (test code = 429) LYMPHOCYTES RELATIVE PERCENT 38 % (BEAKER) (test code = 430) MONOCYTES RELATIVE PERCENT 6 % (BEAKER) (test code = 431) EOSINOPHILS RELATIVE PERCENT 4 % (BEAKER) (test code = 432) BASOPHILS RELATIVE PERCENT 2 % (BEAKER) (test code = 437) NEUTROPHILS ABSOLUTE COUNT 2.56 K/ L 1.56-6.13 (BEAKER) (test code = 670) LYMPHOCYTES ABSOLUTE COUNT 1.97 K/ L 1.18-3.74 (BEAKER) (test code = 414) MONOCYTES ABSOLUTE COUNT (BEAKER) 0.30 K/ L 0.24-0.36 (test code = 415) EOSINOPHILS ABSOLUTE COUNT 0.20 K/ L 0.04-0.36 (BEAKER) (test code = 416) BASOPHILS ABSOLUTE COUNT (BEAKER) 0.09 K/ L 0.01-0.08 H (test code = 417) IMMATURE GRANULOCYTES-RELATIVE 0 % 0-1 PERCENT (BEAKER) (test code = 2801) - CT ABD PELVIS W/O [id number] 16:53:00 [facility] 1960 Sex: F Name: JUAN IRIZARRY [facility] : 1960 Age/S: 59 / F [id number] [place] Unit #: [id number] Loc: [place] [address] Phys: Yulia Archuleta MD Acct: [id number] Dis Date: Status: ADM IN PHONE #: [phone] Exam Date: 05/28/2020 1637 FAX #: Reason: abd pain EXAMS: CPT: [id number] CT ABD PELVIS W/O CONT 95113 EXAMINATION: - CT ABD PELVIS W/O CONT. LOCATION: S17. HISTORY: Abdominal pain, large bowel obstruction, cholecystectomy. COMPARISON: None. TECHNIQUE:CT of abdomen and pelvis was performed without intravenous contrast as protocol. Oral contrastwas administered. One or more the following dose [...] Liver, pancreas and adrenals appear unremarkable. No nephroureterolithiasis. No hydroureteronephrosis. Underdistended urinary bladder. The bowel loops appear normal in course. No bowel obstruction. Administered oral contrast is noted to the level of rectum. Few scattered colonic diverticula. Focal circumferential thickening and luminal narrowing involving hepatic flexure of colon (series 2 image 33). Focalluminal tubular outpouching is also noted proximally (series [...] PAGE 1 Signed Report (CONTINUED) Name: JUAN IRIZARRY [facility] : 1960 Age/S: 59 / F [id number] [place] [address] Unit #: [id number] Loc: [place] [address] Phys: Yulia Archuleta MD Acct: [id number] Dis Date: Status: ADM IN PHONE #: [phone] Exam Date:05/28/2020 1630 FAX #: Reason: abd pain EXAMS: CPT: [id number] CT ABD PELVIS W/O CONT 61594 <Continued> hepatic flexure of colon, correlate with [...] (1652) t.SDR.ANS4 Orig Print D/T: S: 05/28/2020 (1655) PAGE 2 Signed Report- CT ABD PELVIS W/O [id number] 16:53:00 [facility] : 1960 Sex: F Name: JUAN IRIZARRY [facility] : 1960ge/S: 59 / F [id number] [place] Unit #: [id number] Loc: [place] [address] Phys: Yulia Archuleta MD Acct: [id number] Dis Date: 05/29/2020 Status: DIS IN PHONE#: [phone] Exam Date: 05/28/2020 1631 FAX #: Reason:abd pain EXAMS: CPT: [id number] CT ABD PELVIS W/O CONT 99963 EXAMINATION: - CT ABD PELVIS W/O CONT. [...] spleen. Liver, pancreas and adrenals appear unremarkable. Nonephroureterolithiasis. No hydroureteronephrosis. Underdistended urinary bladder. The bowel [...] technique. Visualized osseous structures demonstrate mild degenerative changes.IMPRESSION: Focal circumferential wall thickening with luminal narrowing involving PAGE 1 Signed Report (CONTINUED) Name: HALLIE IRIZARRY [facility] : 1960 Age/S: 59 / F [address] [address] [place] Unit #: [id number] Loc: [place] [address]Eqhe: Yulia Archuleta MD Acct: [id number] Dis Date: 05/29/2020 Status: DIS IN PHONE #: [phone] Exam Date: 05/28/2020 1630 FAX #: Reason: abd pain EXAMS: CPT: [id number] CT ABD PELVIS W/O CONT 81967 <Continued> hepatic flexure of colon, correlate with [...] RT(R) CTDI: DLP: Trnscb Date/Time: 05/28/2020 (1652) t.MICHELLER.[email or web address] Orig Print D/T: S: 05/28/2020 (1655) PAGE 2 Signed Report- XR ABDOMEN 1 [id number] 08:17:00[facility] : 1960 Sex: F Name: JUAN CJUAN [facility] : 1960 Age/S: 59 / F [id number] [place] [address] Unit #: [id number] Loc: [place] [address] Phys: Umair Pierce MD Acct: [id number] Dis Date: Status: ADM IN PHONE #: [phone] Exam Date: 05/27/2020604 FAX #: Reason: LARGE BOWEL OBSTRUCTION EXAMS: CPT: [id number] XR ABDOMEN 1 V 66822 Fluoro Time: DAP (Gy m2): Air Kerma [...] PAGE 1 Signed Report Name: JUAN IRIZARRY [place] : 1960 Age/S: 59 / F [id number] [facility] Unit #: [id number] Loc: [place] [address] Phys: Umair Pierce MD Acct: [id number] Dis Date: Status: ADM IN PHONE #: [phone] Exam Date: 05/27/2020 06 FAX #: Reason: LARGE BOWEL OBSTRUCTION EXAMS: CPT: [id number] XR ABDOMEN 1 V 05146 Fluoro Time: DAP (Gy m2): Air Kerma (mGy): <Continued> Technologist: Jm Muñiz RT(R) Trnscb Date/Time: 05/27/2020 (0 817) [email or web address] Orig Print D/T: S: 05/27/2020 (0820) PAGE 2 Signed Report- XR ABDOMEN 1 [id number] 08:17:00[facility] : 1960 Sex: F Name: JUAN IRIZARRY [facility] : 1960ge/S: 59 / F [address] [place] Unit #: [id number] Loc: [place] [address] Phys: Umair Pierce MD Acct: [id number] Dis Date: 20200529 Status: DIS IN PHONE#: [phone] Exam Date: 05/27/2020 0605 FAX #: Reason: LARGE BOWEL OBSTRUCTION EXAMS: CPT: [id number] XR ABDOMEN 1 V 70996 Fluoro Time: DAP (Gy m2): Air Kerma [...] PAGE 1 Signed Report Name: JUAN IRIZARRY [facility] : 1960 Age/S: 59 / F [address] [place] Unit #: [id number] Loc: [place] [address] Phys: Umair Pierce MD Acct: [id number] Dis Date: 20200529 Status: DIS IN PHONE #: [phone] Exam Date: 05/27/2020 06 FAX #: Reason: LARGE BOWEL OBSTRUCTION EXAMS: CPT: [id number] XR ABDOMEN 1 V 44192 Fluoro Time: DAP (Gy m2): Air Kerma (mGy): <Continued&gt ; Technologist: Jm Muñiz RT(R) Trnscb Date/Time: 05/27/2020 (816) t.[email or web address] Orig Print D/T: S: 05/27/2020 (819) PAGE 2 Signed Report COMPREHENSIVE METABOLIC [id number] 06:07:00 Test Item Value Reference Range Interpretation Comments SODIUM (test code = NA) 141 mmol/L 134-147 N POTASSIUM (test code = 3.7 mmol/L 3.4-5.0 N K) CHLORIDE (test code = 113 mmol/L 100-108 H CL) CARBON DIOXIDE (test 22 mmol/L 21-32 N code = CO2) ANION GAP (test code = 6.0 GAP calc 4.0-15.0 N GAP) GLUCOSE (test code = 75 MG/DL 70-110 N GLU) BLOOD UREA NITROGEN 11 MG/DL 7-18 N (test code = BUN) GLOMERULAR FILTRATION >=60 max estimate >60 RATE (test code = GFR) estGFR CREATININE (test code = 0.5 MG/DL 0.6-1.0 L CREAT) TOTAL PROTEIN (test code 5.5 G/DL 6.4-8.2 L = PROT) ALBUMIN (test code = 2.9 G/DL 3.4-5.0 L ALB) GLOBULIN (test code = 2.6 GM/dL GLOB) ALBUMIN/GLOBULIN RATIO 1.1 RATIO 1.2-2.2 L (test code = A/G) CALCIUM (test code = CA) 8.1 MG/DL 8.5-10.1 L BILIRUBIN TOTAL (test 0.60 MG/DL 0.2-1.2 N code = BILT) SGOT/AST (test code = 127 Unit/L 15-37 H AST) SGPT/ALT (test code = 136 Unit/L 12-78 H ALT) ALKALINE PHOSPHATASE 108 Unit/L 45-117 N TOTAL (test code = ALKP) CBC W/AUTO [id number] 05:34:00 Test Item Value Reference Range Interpretation [...] CRITERIA = MDIFF) - XR ABDOMEN 1 [id number] 22:43:00 [facility] 1960 Sex: F Name: JUAN IRIZARRY [facility] : 1960 Age/S: 59 / F [id number] [address] [place] Unit #: [id number] Loc: [place] [address] Phys: Umair Pierce MD Acct: [id number] Dis Date: Status: ADM IN PHONE #: [phone] Exam Date: 05/26/20201 FAX #: Reason: NGT PLACEMENT EXAMS: CPT: [id number] XR ABDOMEN 1 V 11512 Fluoro Time: DAP (Gy m2): Air Kerma [...] Liliana ANGLIN 1 Signed Report Name: JUAN IRIZARRY Barcl[place] : 1960 Age/S: 59 / F [id number] [address] [place] Unit #: [id number] Loc: [place] [address] Phys: Umair Pierce MD Acct: [id number] Dis Date: Status: ADM IN PHONE #: [phone] Exam Date: 05/26/20202233 FAX #: Reason: NGT PLACEMENT EXAMS: CPT: [id number] XR ABDOMEN 1 V 84089 Fluoro Time: DAP (Gy m2): Air Kerma (mGy): <Continued> Technologist: Tereza Muñiz RT(R)(CT) Trnscb Date/Time: 05/26/2020 (2242) 16 Orig Print D/T: S: 05/26/2020 (2245) PAGE 2 Signed Report- XR ABDOMEN 1 [id number] 22:43:00 [facility] : 1960 Sex: F Name: JUAN IRIZARRY [facility] : 1960ge/S: 59 / F [id number] [address] [place] Unit #: [id number] Loc: [place] [address] Phys: Umair Pierce MD Acct: [id number] Dis Date: 20200529 Status: DIS IN PHONE#: [phone] Exam Date: 05/26/20202233 FAX #: Reason: NGT PLACEMENT EXAMS: CPT: [id number] XR ABDOMEN 1 V 28927 Fluoro Time: DAP (Gy m2): Air Kerma (mGy): EXAM: ABDOMEN ONE VIEW I NDICATION: NGT PLACEMENT LOCATION: B2 COMPARISON: None available TECHNIQUE: AP view of the abdomen. FINDINGS: The enteric tube tip overlies the stomach with the [...] PAGE 1 Signed Report Name: JUAN IRIZARRY [facility] : 1960 Age/S: 59 / F [id number] [facility] Unit #: [id number] Loc: [place] [address] [facility] s: Umair Pierce MD Acct: [id number] Dis Date: 20200529 Status: DIS IN PHONE #: [phone] Exam Date: 05/26/20202233 FAX #: Reason: NGT PLACEMENT EXAMS: CPT: [id number] XR ABDOMEN 1 V 69130 Fluoro Time: DAP (Gy m2):Air Kerma (mGy): <Continued> Technologist: RT Nicole(R)(CT) Trnscb Date/Time: 05/26/2020 (2242) 16 Orig Print D/T: S: 05/26/2020 (6936) PAGE 2 Signed ReportGLUCOSE BEDSIDE [id number] 22:09:00 Test Item Value Reference Range Interpretation Comments GLUCOSE BEDSIDE TESTING (test code = 81 mg/dL 70-110 N GLUBED) COVID-19 qualitative [id number] 02:40:40 Test Item Value Reference Range Interpretation Comments Interpretation (test code = 7066681) COVID-19 qualitative RT-PCR Not-Detected Not-Detected result (test code = 70010-9) COVID-19 qualitative RT-PCR See link below for (test code = 7070) PDF Lab Report Pawan AndersonARS-CoV-2 (COVID-19) RNA [Presence] in Respiratory specimen by LAURA with probe [id number] 20:40:23 Test Item Value Reference Range Interpretation Comments SARS-CoV-2 (COVID-19) RNA Not detected Not-Detected [Presence] in Respiratory specimen by LAURA with probe detection (test code = 38248-1)
[2020-10-19 18:47] LABS: Absolute Lymphocytes (CBC) 1.1 K/uL (0.7-4.9); Basophils % 0.4 % (0-1.3); Hematocrit 40.4 % (36.0-45.0); MPV 8.6 fL (7.6-11.3)
[2020-10-19 18:48] LABS: ALT/SGPT 53 U/L (12-78); AST/SGOT 22 U/L (15-37); Albumin 3.5 g/dL (3.4-5.0); Alkaline Phosphatase 138 U/L (45-117); BUN Blood Urea Nitrogen 8 mg/dL (7-18); Bicarbonate 25 mmol/L (21-32); Bilirubin Direct 0.1 mg/dL (0-0.2); Bilirubin Total 0.4 mg/dL (0.2-1.0); Glucose Level 90 mg/dL (74-106); Lipase 98 U/L (73-393); Potassium 3.6 mmol/L (3.5-5.1); Protein, Total 7.8 g/dL (6.4-8.2); Sodium Level 138 mmol/L (136-145)
[2020-10-19 19:13] LABS: Blood Morphology Comment NOT SEEN (NOT SEEN); Platelet Estimate ADEQ; White Blood Cell Scan OK (OK)
--- NOTE | 2020-10-19 21:35 | ER ---
Nurse's Notes [facility] Name: Arcelia Leavitt Age: 59 yrs Sex: Female : 1960 Arrival Date: 10/19/2020 Time: 16:44 Bed Waiting Private MD: Diagnosis: Presentation: 10/19 17:55 Chief complaint: Patient states: Surgeon sent me here because my ileostomy stoma is jl7 prolapsed and it's painful, started 1 week ago and is getting worse. Coronavirus screen: Client denies travel out of the [place] in the last 14 days. At this time, the client does not indicate any symptoms associated with coronavirus-19. Ebola Screen: No symptoms or risks identified at this time. Initial Sepsis Screen: Does the patient meet any 2 criteria? No. Patient's initial sepsis screen is negative. Does the patient have a suspected source of infection? No. Patient's initial sepsis screen is negative. Risk Assessment: Do you want to hurt yourself or someone else? Patient reports no desire to harm self or others. Onset of symptoms was October 12, 2020. 17:55 Method Of Arrival: Ambulatory jl7 17:55 Acuity: [place] 3 jl7 20:30 Note pt stoma evaluated by Dr Cruz in [facility]. bb Historical: - Allergies: 17:59 IVP DYE; jl7 - Home Meds: 17:59 Chemo [Active]; jl7 - PMHx: 17:59 Colon cancer; jl7 - PSHx: 17:59 ileostomy; Port-a-cath; jl7 - Immunization history:: Adult Immunizations up to date, Client reports receiving the 2nd dose of the Covid vaccine, Pfizer. - Social history:: Smoking status: Patient reports the use of cigarette tobacco products. Assessment: 21:34 Neuro: Level of Consciousness is awake, alert, obeys commands, Oriented to person, bb place, time, situation, pt states she wants her IV removed she is tired of waiting and wants to go home. IV removed pt left ED with steady gait accompanied by spouse. Vital Signs: 17:55 BP 111 / 93; Pulse 88; Resp 19; Temp 97.2; Pulse Ox 98% ; Weight 56.7 kg; Height 5 ft. jl7 5 in. (165.10 cm); Pain 8/10; 17:55 Body Mass Index 20.80 (56.70 kg, 165.10 cm) jl7 ED Course: 16:44 Patient arrived in ED. am2 17:59 Triage completed. jl7 17:59 Arm band placed on right wrist. jl7 Administered Medications: No medications were administered Outcome: 21:35 Patient left the ED. bb Signatures: An Buckley RN RN bb Mark Freeman RN RN minesh7 Alondra Cooper am
[2020-10-19 21:51] VITALS: BP 111/93; TEMP 97.2; O2SAT 98
== END 2020-10-19 21:35 | disposition left against medical advice (07) ==
LOC: ER 16:43
DX: Z53.21 Procedure and treatment not carried out due to patient leaving prior to being seen by health care provider (principal)
CPT/HCPCS: 36415; 80048; 80076; 83690; 85025; 99281

== ENCOUNTER 2021-04-29 06:53 | Day surgery (SDC) | payer OTHER ==
[2021-04-27 15:18] LABS: Absolute Lymphocytes (CBC) 2.7 K/uL (0.7-4.9); Hematocrit 38.6 % (36.0-45.0); Lymphocytes % 35.4 % (15.3-44.8); MPV 8.6 fL (7.6-11.3)
[2021-04-29] MEDS ORDERED: CEFAZOLIN SODIUM 1 GM/VIAL ONE (07:06)
[2021-04-29] MEDS ORDERED: NA CHLORIDE 0.9% 50 ML ONE (07:06)
[2021-04-29] MEDS ORDERED: Ringers Lactate 1,000 ML IV ONE (07:06)
[2021-04-29] MEDS ORDERED: FENTANYL CITR 100 MCG/2 ML ONE (08:22)
[2021-04-29] MEDS ORDERED: BUPIVACAINE 0.5% PF 10 ML VIAL ONE (08:22)
[2021-04-29] MEDS ORDERED: MIDAZOLAM HCL 2 MG/2 ML INJ ONE (08:22)
[2021-04-29] MEDS ORDERED: propofoL 200 MG/20 ML VIAL IV ONE (08:22)
[2021-04-29] MEDS ORDERED: LIDOCAINE 1% MPF 5 ML VIAL ONE (08:23)
[2021-04-29] MEDS ORDERED: KETOROLAC 30 MG/ML INJ ONE (08:35)
[2021-04-29] MEDS ORDERED: Mastisol Adhesive Liq ONE (08:58)
[2021-04-29 10:12] VITALS: TEMP 97.1
[2021-04-29 10:20] VITALS: BP 91/56; O2SAT 99
--- NOTE | 2021-04-29 10:32 | OP ---
Date of Procedure: 04/29/2021 Surgeon: Triston Carter MD Riverboat Master: Keith Douglas, surgical orderly certified. Preoperative Diagnosis: Colon cancer, status post Port-A-Cath placement. Postoperative Diagnosis: Colon cancer, status post Port-A-Cath placement. Procedure: Removal of Port-A-Cath. Estimated Blood Loss: Minimal. Specimens: Port-A-Cath device. Findings: As above. Anesthesia: MAC. Complications: None. Disposition: The patient tolerated the procedure in stable condition and taken to Recovery in good g eneral condition. Description Of Procedure: The patient was brought to the OR and placed in supine position. MAC anes thesia was begun. The patient was prepped and draped in the usual sterile fashion. Marcaine 0.5% wa s infiltrated locally, and then #15 blade was used to make a 3 cm incision over the Port-A-Cath. Sub cutaneous tissue divided. Port-A-Cath device was identified and freed from the surrounding tissue wi th sharp and blunt dissection. Bleeding was controlled with cautery, and then Port-A-Cath device was removed and sent to Pathology for identification. Wound was irrigated. Bleeding was controlled wit h cautery. 3-0 chromic was used to approximate the subcutaneous tissue and close the skin. Sterile dressing was applied. The patient was awakened and taken to Recovery in good general condition. Discharge Note: The patient will go to Day Surgery and home when stable. Disposition: Home. Condition: Stable. Discharge Instructions: Resume home medications and diet. Activity as tolerated. No heavy lifting. Remove outer dressing in 2 days. Shower. Keep wound clean and dry. Keep Steri-Strips on at all t imes. Tylenol No.3 one tablet p.o. q.4 p.r.n. pain. Follow up in my office in 2 weeks. Call for ap pointment. /MODL Voice ID: [id number] Report ID: [id number]
== END 2021-04-29 09:40 | disposition home or self-care (01) ==
LOC: PRE 06:53
PROVIDERS: ATTEND Surgery
PROC: 0JPT0WZ Removal of Totally Implantable Vascular Access Device from Trunk Subcutaneous Tissue and Fascia, Open Approach (ICD-10-PCS; principal; 2021-04-29 08:15)
DX: C18.9 Malignant neoplasm of colon, unspecified (principal); Z20.822 Contact with and (suspected) exposure to COVID-19
CPT/HCPCS: 85025; 36415; 88300; 36590; U0003; J2704; J2250; J3010; J7120; J0690

== ENCOUNTER → 2023-04-05 | Emergency (ER) | payer OTHER ==
[~2023-04-05] MED LIST: FAMOTIDINE 20 MG/2 ML VIAL IV ONE; KCL 20 MEQ/100 mL IVPB 200 ML IV ONE; LIDOCAINE VISCOUS 2% 10ML ORAL SOLN ONE; MORPHINE 4 MG/ML SYR ONE; NACHLORIDE 0.45% 1,000 ML IV ONE; ONDANSETRON 4 MG/2 ML VIAL ONE
--- OUTSIDE RECORDS SUMMARY | 2023-04-05 17:45 | XMS REPORT | Clinical Summary ---
Author Name Unknown Organization [facility] Address [address] [place] [address] Care Team Providers Care Nurse Ortho Name Role Phone Anjel Yoder MD Primary Care Provider Ivan Rubi MD Primary Care Provider [phone] Walter Lin PA Unavailable [phone] Allergies Active Allergy Reactions Criticality Noted Date Comments Iodinated Contrast Media Hives 06/26/1997 13hr Prep of Prednisone 50 mg x 3 PO and Benadryl PO x 1 ( her own medication ) prior to scan.Post CT patient did well. Iodine 11/17/2022 Lactose GI Intolerance 05/28/2020 Other reaction(s): NAUSEA, IBS Medications Medication Sig Dispensed Refills Start Date End Date Status aspirin 81 mg EC tablet Take 1 tablet (81 mg) by mouth daily. 0 10/11/19 23 024 Active clopidogrel (PLAVIX) 75 mg tablet Take 1 tablet (75 mg) by mouth daily. 0 10/11/19 23 024 Active METOPROLOL TARTRATE ORAL Take 12.5 mg by mouth twice daily. 0 10/10/19 23 Active rosuvastatin (CRESTOR) 40 mg tablet Take 1 tablet (40 mg) by mouth at bedtime. 0 10/11/19 23 024 Active zolpidem (AMBIEN) 5 mg tablet Take 1 tablet (5 mg) by mouth nightly as needed. 0 11/01/19 23 Active acetaminophen (TYLENOL) 500 mg tablet Take 1 tablet (500 mg) by mouth every 6 (six) hours as needed for mild pain. 0 Active dexAMETHasone (DECADRON) 4 mg tabletIndications: Adenocarcinoma, NOS of ascending colon Take 1 tablet (4 mg) by mouth daily with breakfast. Take on day 2, 3 and 4 of each chemotherapy cycle. Keep extra tablets for future cycles. 24 tablet 1 12/05/19 23 Active ondansetron (ZOFRAN) 8 mg tabletIndications: Adenocarcinoma, NOS of ascending colon Take 1 tablet (8 mg) by mouth every 8 (eight) hours as needed for nausea or vomiting ((First choice)). 30 tablet 5 12/05/19 23 Active prochlorperazine (COMPAZINE) 10 mg tabletIndications: Adenocarcinoma, NOS of ascending colon Take 1 tablet (10 mg) by mouth every 6 (six) hours as needed for nausea or vomiting ((Second Choice)). 60 tablet 5 12/05/19 23 Active loperamide (Imodium A-D) 2 mg tabletIndications: Adenocarcinoma, NOS of ascending colon 2 tabs po 1st loose stool, then 1 tab q2h until diarrhea free for 12 hours. May take 2 tabs q4hrs at night. (First Choice) 100 tablet 5 12/05/19 23 Active diphenoxylate-atro pine (LOMOTIL) 2.5 mg-0.025 mg per tabletIndications: Adenocarcinoma, NOS of ascending colon Take 1-2 tablets by mouth every 6 (six) hours as needed for diarrhea (loose stool.(Second choice)). Not to exceed 8 tablets per day 60 tablet 5 12/05/19 23 Active traMADol (Ultram) 50 mg tabletIndications: Neoplasm related pain (acute) (chronic) Take 1 tablet (50 mg) by mouth every 8 (eight) hours as needed for moderate pain or severe pain. 45 tablet 0 12/06/19 23 Active ferrous sulfate 325 (65 FE) MG EC tablet Take 1 tablet (325 mg) by mouth daily with breakfast. 0 Active predniSONE (DELTASONE) 50 mg tabletIndications: Adenocarcinoma, NOS of ascending colon Take 1 tablet, 13 hours, 7 hours, and [address] scan with contrast. Refill is there to car pick up driver for future scans. 3 tablet 1 01/02/20 23 Active HYDROcodone-acetam inophen ([place]) 5 mg-325 mg per tabletIndications: Adenocarcinoma, NOS of ascending colon Take 1 tablet by mouth every 6 (six) hours as needed for moderate pain or severe pain. 120 tablet 0 03/26/19 24 Active pantoprazole (PROTONIX) 40 mg EC tablet Take 1 tablet (40 mg) by mouth. 0 023 Discontinued ALPRAZolam (XANAX) 0.25 mg tablet TAKE 1 TABLET BY MOUTH EVERY 12 HOURS NEEDED FOR SEVERE ANXIETY 0 09/11/19 23 023 Discontinued(Th erapy completed) dexAMETHasone (DECADRON) 4 mg tablet Take 1 tablet (4 mg) by mouth as directed. On days 2, 3, 4 chemo 0 11/21/19 23 Discontinued(Re order) diphenoxylate-atro pine (LOMOTIL) 2.5 mg-0.025 mg per tablet 1 tablet. 0 Discontinued( erapy completed) ondansetron (ZOFRAN-ODT) 4 mg disintegrating tablet Dissolve 1 tablet (4 mg) on the tongue every 6 (six) hours as needed. 0 Discontinued(Re order) no115/iron/folic acid ( 19 ORAL) Take by mouth daily. 0 Discontinued(Al ternate therapy) traMADol (Ultram) 50 mg tabletIndications: Adenocarcinoma, NOS of ascending colon Take 1 tablet (50 mg) by mouth every 8 (eight) hours as needed for moderate pain or severe pain for up to 10 days. 30 tablet 0 12/06/19 23 023 Discontinued(Er ror) traMADol (Ultram) 50 mg tabletIndications: Adenocarcinoma, NOS of ascending colon Take 1 tablet (50 mg) by mouth every 8 (eight) hours as needed for moderate pain or severe pain for up to 10 days. 30 tablet 0 12/06/19 23 023 Discontinued(Er ror) diphenhydrAMINE (Banophen) 50 mg capsuleIndications :Adenocarcinoma, NOS of ascending colon Take 1 capsule (50 mg) by mouth once for 1 dose. Take [address] scan with contrast. Refill is there to car pick up driver for future scans. 1 capsule 1 01/02/20 23 023 Active Problems Problem Noted Date Diagnosed Date Adenocarcinoma, NOS of ascending colon 3 Cancer Staging:Clinical:Stage IVC(pM1c) - Signed by Walter Lin PA on 11/21/2022 Encounters Date Type Department Care Team Description 03/29/2023 Telephone [facility] [address] [place] [address], [facility] [place] [address] Lena Randhawa RN 03/26/2023 11:00 AM [facility] Follow-Up Colorectal [facility] - Medical Oncology [address] [place] [address], [facility] [place] [address] Ivan Rubi MD Adenocarcinoma, NOS of ascending colon 03/26/2023 9:37 AM [facility] - 03/26/2023 11:59 PM [facility] Hospital Encounter [facility] [address] [place] [address] Ivan Rubi MD Adenocarcinoma, NOS of ascending colon Discharge Disposition: Home 03/26/2023 Orders Only [facility] [address] [place] [address], [address] [place] [address] [place] [address] Aracely Redmond [facility] 03/26/2023 Travel 03/12/2023 2:00 PM [facility] Telemedicine [facility] [place] [facility] On[facility] [address] [place] [address], [address] [place] [address] Ivan Rubi MD Adenocarcinoma, NOS of ascending colon (Primary Dx) 03/12/2023 Orders Only [facility] [address] [place] [address], [address] [place] [address] [place] [address] Aracely Redmond [facility] Adenocarcinoma, NOS of ascending colon (Primary Dx) 03/09/2023 Orders Only [facility] [place] - Infusion [address] [place] [address] [address] [place] [address] Ivan Rubi MD Adenocarcinoma, NOS of ascending colon (Primary Dx) 03/02/2023 9:00 AM [facility] Infusion [facility] [place] [facility] Infusion [address] [place] [address] [address] [place] [address] Ivan Rubi MD Jacob, Saly, RN Adenocarcinoma, NOS of ascending colon 03/02/2023 Travel 02/28/2023 8:00 AM [facility] Infusion [facility] [place] [facility] [address] [place] [address] [address] [place] [address] Ivan Rubi MD Silvan, Maureen Faith, ERIC Adenocarcinoma, NOS of ascending colon (Primary Dx) 02/28/2023 Travel 02/23/2023 Orders Only [facility] [address] [place] [address] Main dg, 7th [place] [address] Ivan Rubi MD 02/21/2023 Orders Only [facility] [place] [facility] [address] [place] [address] [address] [place] [address] Ivan Rubi MD Adenocarcinoma, NOS of ascending colon (Primary Dx) 02/19/2023 Orders Only [facility] [address] [place] [address] Main Bldg, 7th [place] [address] [facility] Ad[facility], NOS of ascending colon (Primary Dx) 02/16/2023 8:00 AM [facility] Infusion [facility] [place] [facility] [address] [place] [address] [address] [place] [address] Ivan Rubi MD Silvan, Maureen Faith, RN Adenocarcinoma, NOS of ascending colon 02/16/2023 Travel 02/14/2023 7:45 AM [facility] Infusion [facility] [place] [facility] [address] [place] [address] [address] [place] [address] Ivan Rubi MD Silvan, Maureen Faith, RN Adenocarcinoma, NOS of ascending colon (Primary Dx) 02/14/2023 Travel 02/02/2023 11:45 AM [facility] Infusion [facility] [place] [facility] [address] [place] [address] [address] [place] [address] Ivan Rubi MD Landicho, Michael S, RN Adenocarcinoma, NOS of ascending colon 02/02/2023 Travel 01/31/2023 12:00 PM [facility] Infusion [facility] [place] [facility] [address] [place] [address] [address] [place] [address] Ivan Rubi MD Venegas, Carrie A, RN Adenocarcinoma, NOS of ascending colon (Primary Dx) 01/31/2023 Travel 01/31/2023 Orders Only [facility] [place] [facility] [address] [facility] [address] [place] [address] Ivan Rubi MD Adenocarcinoma, NOS of ascending colon (Primary Dx) 01/30/2023 Orders Only [facility] [address] [place] [address], [address] [place] [address] [place] [address] Ivan Rubi MD Adenocarcinoma, NOS of ascending colon (Primary Dx) 01/29/2023 9:20 AM [facility] Follow-Up [facility] - Medical Oncology [address] [place] [address], [address] [place], [place] [address]ator [place] [address] Ivan Rubi MD Adenocarcinoma, NOS of ascending colon (Primary Dx) 01/29/2023 6:55 AM [facility] Ancillary Procedure [facility] [address] [place] [address] Ivan Rubi MD Adenocarcinoma, NOS of ascending colon 01/29/2023 Travel 01/27/2023 10:46 AM [facility] - 01/27/2023 11:59 PM [facility] Hospital Encounter [facility] [address] [place] [address] Ivan Rubi MD Adenocarcinoma, NOS of ascending colon Discharge Disposition: Home 01/24/2023 Orders Only [facility] [address] [place] [address], [address] [place] [address] [place] [address] Ivan Rubi MD Adenocarcinoma, NOS of ascending colon (Primary Dx) 01/24/2023 Orders Only [facility] [address] [place] [address], [address] [place] [address] [place] [address] Nanci Barr PA 01/24/2023 Telephone [facility] [address] [place] [address] [facility] [address] [place] [address] Jumana Bernard RN 01/19/2023 12:00 PM [facility] Infusion [facility] [place] [facility] [address] [facility] [address] [place] [address] Ivan Rubi MD Landicho, Michael S, RN Adenocarcinoma, NOS of ascending colon (Primary Dx) 01/19/2023 Travel 01/17/2023 12:00 PM [facility] Infusion [facility] [place] [facility] [address] [place] [address] Ivan Rubi MD Jones, Ashley D, RN Adenocarcinoma, NOS of ascending colon (Primary Dx) 01/17/2023 Travel 01/15/2023 Telephone [facility] - Medical Oncology [address] [place] [address], 7th [place] [address] Tevin Braswell MD 01/05/2023 11:00 AM CDT Infusion [facility] [place] [facility] [address] [place] [address] Ivan Rubi MD Rodil, Virginia C RN Adenocarcinoma, NOS of ascending colon 01/05/2023 Travel 01/03/2023 10:00 AM CDT Infusion [facility] [place] [facility] [address] [place] [address] Ivan Rubi MD Pakeltis, Melody J RN Adenocarcinoma, NOS of ascending colon (Primary Dx) 01/03/2023 Travel 01/03/2023 Orders Only [facility] [place] [facility] [address] [place] [address] Ivan Rubi MD Adenocarcinoma, NOS of ascending colon (Primary Dx) 01/01/2023 10:20 AM CDT Follow-Up [facility] - Medical Oncology [address] [place] [address], 7th [place] [address] Ivan Rubi MD Adenocarcinoma, NOS of ascending colon (Primary Dx) 01/01/2023 7:56 AM CDT - 01/01/2023 11:59 PM CDT Hospital Encounter [facility] [address] [place] [address], [place] [address] Walter Lin PA Adenocarcinoma, NOS of ascending colon Discharge Disposition: Home 01/01/2023 Orders Only [facility] [address] [place] [address] Main [facility], 7th [place] [address] Nanci Barr PA 01/01/2023 Travel 12/29/2022 11:03 AM CDT - 12/29/2022 11:59 PM CDT Hospital Encounter Quinn King MD Faber, Jamie M PA Adenocarcinoma, NOS of ascending colon (Primary Dx) Discharge Disposition: Home 12/22/2022 12:45 PM CDT Infusion [facility] [place] [facility] [address] [place] [address] [address] [place] [address] Ivan Rubi MD Mendoza, Gina B RN Adenocarcinoma, NOS of ascending colon 12/22/2022 Travel 2022 12:00 PM CDT Infusion [facility] [place] [facility] [address] [place] [address] [address] [place] [address] Ivan Rubi MD Venegas, Carrie A RN Adenocarcinoma, NOS of ascending colon (Primary Dx) 2022 Travel 2022 Orders Only [facility] [address] [place] [address], 7th [place] [address] Ivan Rubi MD 12/19/2022 10:30 AM CDT Telemedicine [facility] [address] [place] [address] Main [facility], 7th [place] [address] Walter Lin PA Adenocarcinoma, NOS of ascending colon (Primary Dx) 12/14/2022 Orders Only [facility] [address] [place], [place] [address]dg, 7th [place] [address] Walter Lin PA Adenocarcinoma, NOS of ascending colon (Primary Dx) 12/09/2022 11:15 AM CDT - 12/09/2022 11:59 PM CDT Hospital Encounter [facility] - Main [address] Main dg, 2nd [place] [address] Ivan Rubi MD Argueta, Dorothy Anne Did, RN Adenocarcinoma, NOS of ascending colon Discharge Disposition: Home 12/09/2022 9:20 AM CDT - 12/09/2022 11:14 AM CDT Hospital Encounter [facility] [address] [facility], 8th [place] [address] Ivan Rubi MD Valeriano, Jermainecef D [place] Disposition: Home 12/09/2022 Travel 12/07/2022 10:15 AM CDT Infusion [facility] [place] [facility] [address] [facility] [address] [place] [address] Ivan Rubi MD Mendoza, Gina B RN Adenocarcinoma, NOS of ascending colon (Primary Dx) 12/07/2022 Travel 12/05/2022 12:00 PM CDT Ancillary Procedure Diagnostic Center [facility], 2nd [place] [address] Ivan Rubi MD Adenocarcinoma, NOS of ascending colon 12/05/2022 Orders Only [facility] [address] [place] [address], 7th [place] [address] Ivan Rubi MD Neoplasm related pain (acute) (chronic) (Primary Dx) 12/04/2022 1:42 PM CDT - 12/04/2022 11:59 PM CDT Hospital Encounter [facility] [address] [place] [address], [place] [address] Ivan Rubi MD Adenocarcinoma, NOS of ascending colon Discharge Disposition: Home 12/04/2022 11:00 AM CDT Follow-Up [facility] - Medical Oncology [address] [place] [address], 7th [place] [address] Ivan Rubi MD Adenocarcinoma, NOS of ascending colon 12/04/2022 8:57 AM CDT - 12/04/2022 1:41 PM CDT Hospital Encounter [facility] [address] [place] [address], [place] [address] Walter Lin PA Adenocarcinoma, NOS of ascending colon Discharge Disposition: Home 12/04/2022 Orders Only [facility] [address] [place] [address] Main [facility], 7th [place] [address] Ivan Rubi MD Adenocarcinoma, NOS of ascending colon (Primary Dx) 12/04/2022 Orders Only [facility] [address] [place] [address] Main dg, 7th [place] [address] Aracely Redmond [facility] Adenocarcinoma, NOS of ascending colon (Primary Dx) 12/04/2022 Travel 11/21/2022 1:00 PM CDT Telemedicine [facility] [address] [place] [address] Main [facility], 7th [place] [address] Walter Lin PA Adenocarcinoma, NOS of ascending colon (Primary Dx) 11/20/2022 Lab Requisition [facility] Bj Ramos MD Ashly, MD Radha Discharge Disposition: Home 11/15/2022 10:00 AM CDT NPR [facility] PATIENT ACCESS 11/10/2022 Travel 11/02/2022 3:35 AM CDT Ancillary Procedure [facility] [address] [place] [address] Cancer 11/02/2022 3:30 AM CDT Ancillary Procedure [facility] [address] [place] [address] Cancer 11/02/2022 3:25 AM CDT Ancillary Procedure [facility] [address] [place] [address] Cancer 11/02/2022 3:20 AM CDT Ancillary Procedure [facility] [address] [place] [address] Cancer 11/02/2022 3:15 AM CDT Ancillary Procedure [facility] [address] [place] [address] Cancer 11/02/2022 3:10 AM CDT Ancillary Procedure [facility] [address] [place] [address] Cancer 11/02/2022 3:05 AM CDT Ancillary Procedure [facility] [address] [place] [address] Cancer 11/02/2022 3:00 AM CDT Ancillary Procedure [facility] [address] [place] [address] Cancer 11/02/2022 2:55 AM CDT Ancillary Procedure [facility] [address] [place] [address] Cancer 11/02/2022 2:50 AM CDT Ancillary Procedure [facility] [address] [place] [address] Cancer 11/02/2022 2:45 AM CDT Ancillary Procedure [facility] [address] [place] [address] Cancer 11/02/2022 2:40 AM CDT Ancillary Procedure [facility] [address] [place] [address] Cancer after 04/05/2022 Surgical History Surgery Date Site/Laterality Comments COLON SURGERY 2019 COLONOSCOPY 2019 CORONARY ARTERY BYPASS GRAFT 2022 CHOLECYSTECTOMY 1990 UPPER GASTROINTESTINAL ENDOSCOPY 2019 Medical History Medical History Date Comments Myocardial infarction 10/07/22 Irregular heart beat 1986 Lung nodule 2020 Cyst of breast 1985 Emphysema 2020 Diverticulitis 2019 Irritable bowel syndrome 2020 Polyp of colon 2020 Menopause 2009 Blood transfusion, without reported diagnosis 20 20 Depressive disorder All my life Anxiety All my life Malignant neoplasm of colon 2020 Malignant tumor of lung 2022 Family History Medical History Relation Name Comments Lung cancer Brother Santos Breast cancer Mother Candis Lung cancer Mother Candis Bone cancer Sister 1 Lymphoma Sister 2 Relation Name Status Comments Brother Santos Mother Candis Sister 1 Sister 2 Alive Social History Tobacco Use Types Packs/Day Years Used Date Smoking Tobacco: Some Days Cigarettes 0.5 35 Last attempted to quit: 10/07/2022 Smokeless Tobacco: Never Tobacco Cessation:Ready to Q uit: Not Asked; Counseling Given: Not Answered Alcohol Use Standard Drinks/Week Comments Not Currently 0 (1 standard drink = 0.6 oz pur e alcohol) Sex and Gender Information Value Date Recorded Sex Assigned at Female 11/13/2022 8:52 AM CDT Gender Identity Female 11/13/2022 8:52 AM CDT Sexual Orientation Straight 11/13/2022 8: 52 AM CDT Job Start Date Occupation Industry Not on file Not on file Not on file Obstetrics History Last Filed Vital Signs Vital Sign Reading Time Taken Comments Blood Pressure 116/82 03/26/2023 11:09 AM [facility] Pulse 86 03/26/2023 11:09 AM [facility] Temperature 36.4 C (97.5 F) 03/26/2023 11:[address] Respiratory Rate 18 03/26/2023 11:09 AM [facility] Oxygen Saturation 97% 03/26/2023 11:09 AM [facility] Inhaled Oxygen Concentration - - Weight 65.9 kg (145 lb 4.5 oz) 03/26/2023 11:00 AM [facility] Height 164 cm (5' 4.57") 12/04/2022 2:01 PM CDT Body Mass Index 24.5 12/04/2022 2:01 PM CDT Plan of Treatment Upcoming Encounters Date Type Department Care Team Description 04/30/2023 8:00 AM [facility] Telemedicine [facility] - [facility]ive Care [address] [place], [place] [id number] Ivan Rubi MD [address] [place] [address] Health Maintenance Due Date Last Done Comments COVID-19 Vaccination (3 - Pf izer risk series) 10/09/2020 09/11/2020, 08/16/2020 Procedures Procedure Name Priority Date/Time Associated Diagnosis Comments .CBC Routine 03/26/2023 9:47 AM [facility] Adenocarcinoma, NOS of ascending colon CARCINOEMBRYONIC ANTIGEN Routine 024 9:47 AM [facility] Adenocarcinoma, NOS of ascending colon LACTATE DEHYDROGENASE Routine 03/26/2023 9:47 AM [facility] Adenocarcinoma, NOS of ascending colon PHOSPHORUS LEVEL Routine 03/26/2023 9:47 AM [facility] Adenocarcinoma, NOS of ascending colon MAGNESIUM LEVEL Routine 03/26/2023 9:47 AM [facility] Adenocarcinoma, NOS of ascending colon COMPREHENSIVE METABOLIC PANEL Routine 03/26/2023 9:47 AM [facility] Adenocarcinoma, NOS of ascending colon COMPLETE BLOOD COUNT W/ DIFFERENTIAL Routine 03/26/2023 9:47 AM [facility] Adenocarcinoma, NOS of ascending colon .CBC Routine 02/28/2023 7:13 AM [facility] Adenocarcinoma, NOS of ascending colon COMPLETE BLOOD COUNT W/ DIFFERENTIAL Routine 02/28/2023 7:13 AM [facility] Adenocarcinoma, NOS of ascending colon MAGNESIUM LEVEL Routine 02/28/2023 7:13 AM [facility] Adenocarcinoma, NOS of ascending colon COMPREHENSIVE METABOLIC PANEL Routine 02/28/2023 7:13 AM [facility] Adenocarcinoma, NOS of ascending colon .CBC Routine 02/14/2023 6:46 AM [facility] Adenocarcinoma, NOS of ascending colon COMPLETE BLOOD COUNT W/ DIFFERENTIAL Routine 02/14/2023 6:46 AM [facility] Adenocarcinoma, NOS of ascending colon .CBC Routine 01/31/2023 11:09 AM [facility] Adenocarcinoma, NOS of ascending colon COMPLETE BLOOD COUNT W/ DIFFERENTIAL Routine 01/31/2023 11:09 AM [facility] Adenocarcinoma, NOS of ascending colon CT CHEST ABDOMEN PELVIS W CONTRAST Routine 01/29/2023 9:10 AM [facility] Adenocarcinoma, NOS of ascending colon .CBC Routine 01/27/2023 10:50 AM [facility] Adenocarcinoma, NOS of ascending colon CARCINOEMBRYONIC ANTIGEN Routine 023 10:50 AM [facility] Adenocarcinoma, NOS of ascending colon LACTATE DEHYDROGENASE Routine 01/27/2023 10:50 AM [facility] Adenocarcinoma, NOS of ascending colon PHOSPHORUS LEVEL Routine 01/27/2023 10:5 0 AM [facility] Adenocarcinoma, NOS of ascending colon MAGNESIUM LEVEL Routine 01/27/2023 10:50 AM [facility] Adenocarcinoma, NOS of ascending colon COMPREHENSIVE METABOLIC PANEL Routine 01/27/2023 10:50 AM [facility] Adenocarcinoma, NOS of ascending colon COMPLETE BLOOD COUNT W/ DIFFERENTIAL Routine 01/27/2023 10:50 AM [facility] Adenocarcinoma, NOS of ascending colon .CBC Routine 01/17/2023 11:12 AM [facility] Adenocarcinoma, NOS of ascending colon COMPLETE BLOOD COUNT W/ DIFFERENTIAL Routine 01/17/2023 11:12 AM [facility] Adenocarcinoma, NOS of ascending colon .CBC Routine 01/03/2023 9:25 AM CDT Adenocarcinoma, NOS of ascending colon COMPLETE BLOOD COUNT W/ DIFFERENTIAL Routine 01/03/2023 9:25 AM CDT Adenocarcinoma, NOS of ascending colon .CBC Routine 01/01/2023 8:12 AM CDT Adenocarcinoma, NOS of ascending colon PHOSPHORUS LEVEL Routine 01/01/2023 8:12 AM CDT Adenocarcinoma, NOS of ascending colon MAGNESIUM LEVEL Routine 01/01/2023 8:12 AM CDT Adenocarcinoma, NOS of ascending colon LACTATE DEHYDROGENASE Routine 01/01/2023 8:12 AM CDT Adenocarcinoma, NOS of ascending colon COMPREHENSIVE METABOLIC PANEL Routine 01/01/2023 8:12 AM CDT Adenocarcinoma, NOS of ascending colon COMPLETE BLOOD COUNT W/ DIFFERENTIAL Routine 01/01/2023 8:12 AM CDT Adenocarcinoma, NOS of ascending colon ABDULAZIZ BOTELLO SOLID TUMOR GENOMIC ASSAY FUSIONS 2018 INTERPRETATION AND REPORT Routine 12/29/2022 11:06 AM CDT Adenocarcinoma, NOS of ascending colon ABDULAZIZ BOTELLO MDA FLAVIA MUTATION ANALYSIS PRECISION PANEL INTERPRETATION AND REPORT Routine 12/29/2022 11:06 AM CDT Adenocarcinoma, NOS of ascending colon FRACTIONATED BILIRUBIN Routine 11:10 AM CDT Adenocarcinoma, NOS of ascending colon TOTAL PROTEIN Routine 2022 11:10 AM CDT Adenocarcinoma, NOS of ascending colon ASPARTATE AMINOTRANSFERASE Routine 2022 11:10 AM CDT Adenocarcinoma, NOS of ascending colon ALANINE AMINOTRANSFERASE Routine 023 11:10 AM CDT Adenocarcinoma, NOS of ascending colon ALKALINE PHOSPHATASE Routine 2022 11:10 AM CDT Adenocarcinoma, NOS of ascending colon ALBUMIN LEVEL Routine 2022 11:10 AM CDT Adenocarcinoma, NOS of ascending colon CALCIUM LEVEL Routine 2022 11:10 AM CDT Adenocarcinoma, NOS of ascending colon .GLOMERULAR FILTRATION RATE Routine 2022 11:10 AM CDT Adenocarcinoma, NOS of ascending colon SERUM CREATININE Routine 2022 11:1 0 AM CDT Adenocarcinoma, NOS of ascending colon ELECTROLYTE PANEL Routine 2022 11: 10 AM CDT Adenocarcinoma, NOS of ascending colon BLOOD UREA NITROGEN Routine 2022 1 1:10 AM CDT Adenocarcinoma, NOS of ascending colon GLUCOSE LEVEL Routine 2022 11:10 AM CDT Adenocarcinoma, NOS of ascending colon DIFFERENTIAL Routine 2022 11:10 AM CDT Adenocarcinoma, NOS of ascending colon .CBC Routine 2022 11:10 AM CDT Adenocarcinoma, NOS of ascending colon CARCINOEMBRYONIC ANTIGEN Routine 023 11:10 AM CDT Adenocarcinoma, NOS of ascending colon COMPREHENSIVE METABOLIC PANEL Routine 2022 11:10 AM CDT Adenocarcinoma, NOS of ascending colon COMPLETE BLOOD COUNT W/ DIFFERENTIAL Routine 2022 11:10 AM CDT Adenocarcinoma, NOS of ascending colon ABDULAZIZ BOTELLO NTRK3 FUSION ANALYSIS MATERIAL REQUEST Routine 12/14/2022 1:19 PM CDT Adenocarcinoma, NOS of ascending colon ABDULAZIZ BOTELLO NTRK2 FUSION ANALYSIS MATERIAL REQUEST Routine 12/14/2022 1:19 PM CDT Adenocarcinoma, NOS of ascending colon ABDULAZIZ BOTELLO NTRK1 FUSION ANALYSIS MATERIAL REQUEST Routine 12/14/2022 1:19 PM CDT Adenocarcinoma, NOS of ascending colon ABDULAZIZ BOTELLO NRAS MUTATION MATERIAL REQUEST Routine 12/14/2022 1:19 PM CDT Adenocarcinoma, NOS of ascending colon ABDULAZIZ BOTELLO KRAS MUTATION MATERIAL REQUEST Routine 12/14/2022 1:19 PM CDT Adenocarcinoma, NOS of ascending colon ABDULAZIZ BOTELLO BRAF MUTATION MATERIAL REQUEST Routine 12/14/2022 1:19 PM CDT Adenocarcinoma, NOS of ascending colon ABDULAZIZ IHC HER2/RACHEL MATERIAL REQUEST Routine 12/14/2022 1:19 PM CDT Adenocarcinoma, NOS of ascending colon VERIFY CATHETER TIP PLACEMENT Routine 12/07/2022 10:15 AM CDT Adenocarcinoma, NOS of ascending colon DIFFERENTIAL Routine 12/07/2022 9:16 AM CDT Adenocarcinoma, NOS of ascending colon .CBC Routine 12/07/2022 9:16 AM CDT Adenocarcinoma, NOS of ascending colon COMPLETE BLOOD COUNT W/ DIFFERENTIAL Routine 12/07/2022 9:16 AM CDT Adenocarcinoma, NOS of ascending colon XR CHEST 2 VW Routine 12/05/2022 11:51 AM CDT Adenocarcinoma, NOS of ascending colon [place] MISC TEST Routine 12/04/2022 1:49 PM CDT NGS BLOOD CONTROL Routine 12/04/2022 9:13 AM CDT HP LB LIQUID BIOPSY PANEL V1 INTERPRETATION AND REPORT Routine 12/04/2022 9:13 AM CDT FRACTIONATED BILIRUBIN Routine 9:13 AM CDT Adenocarcinoma, NOS of ascending colon TOTAL PROTEIN Routine 12/04/2022 9:13 AM CDT Adenocarcinoma, NOS of ascending colon ASPARTATE AMINOTRANSFERASE Routine 12/04/2022 9:13 AM CDT Adenocarcinoma, NOS of ascending colon ALANINE AMINOTRANSFERASE Routine 023 9:13 AM CDT Adenocarcinoma, NOS of ascending colon ALKALINE PHOSPHATASE Routine 12/04/2022 9:13 AM CDT Adenocarcinoma, NOS of ascending colon ALBUMIN LEVEL Routine 12/04/2022 9:13 AM CDT Adenocarcinoma, NOS of ascending colon CALCIUM LEVEL Routine 12/04/2022 9:13 AM CDT Adenocarcinoma, NOS of ascending colon .GLOMERULAR FILTRATION RATE Routine 12/04/2022 9:13 AM CDT Adenocarcinoma, NOS of ascending colon SERUM CREATININE Routine 12/04/2022 9:13 AM CDT Adenocarcinoma, NOS of ascending colon ELECTROLYTE PANEL Routine 12/04/2022 9:1 3 AM CDT Adenocarcinoma, NOS of ascending colon BLOOD UREA NITROGEN Routine 12/04/2022 9 :13 AM CDT Adenocarcinoma, NOS of ascending colon GLUCOSE LEVEL Routine 12/04/2022 9:13 AM CDT Adenocarcinoma, NOS of ascending colon DIFFERENTIAL Routine 12/04/2022 9:13 AM CDT Adenocarcinoma, NOS of ascending colon .CBC Routine 12/04/2022 9:13 AM CDT Adenocarcinoma, NOS of ascending colon PHOSPHORUS LEVEL Routine 12/04/2022 9:13 AM CDT Adenocarcinoma, NOS of ascending colon MAGNESIUM LEVEL Routine 12/04/2022 9:13 AM CDT Adenocarcinoma, NOS of ascending colon LACTATE DEHYDROGENASE Routine 12/04/2022 9:13 AM CDT Adenocarcinoma, NOS of ascending colon COMPREHENSIVE METABOLIC PANEL Routine 12/04/2022 9:13 AM CDT Adenocarcinoma, NOS of ascending colon COMPLETE BLOOD COUNT W/ DIFFERENTIAL Routine 12/04/2022 9:13 AM CDT Adenocarcinoma, NOS of ascending colon CARCINOEMBRYONIC ANTIGEN Routine 023 9:13 AM CDT Adenocarcinoma, NOS of ascending colon HP LB NRAS MUTATION ANALYSIS COLLECTION, BLOOD Routine 12/04/2022 9:13 AM CDT Adenocarcinoma, NOS of ascending colon HP LB BRAF MUTATION ANALYSIS COLLECTION, BLOOD Routine 12/04/2022 9:13 AM CDT Adenocarcinoma, NOS of ascending colon OSI PET CT SKULL TO MID THIGH Routine 10/12/2022 4:12 AM CDT Cancer OSI CHEST Routine 10/07/2022 4:12 AM CDT Cancer after 04/05/2022 Results * (ABNORMAL) .CBC (03/26/2023 9:47 AM [facility]) Only the most recent of11 resultswithin the time period is included. White Blood Cell 9.0 4.1 - 10.5 K/uL 03/26/2023 10:02 AM [facility] Red Blood Cell 4.73 3.99 - 5.46 M/uL 03/26/2023 10:02 AM [facility] Hemoglobin 13.6 12.2 - 15.3 g/dL 03/26/2023 10:02 AM [facility] Hematocrit 42.5 36.4 - 46.8 % 03/26/2023 10:02 AM [facility] Mean Cell Volume 90 82 - 99 fL 03/26/2023 10:02 AM [facility] Mean Cell Hemoglobin 28.8 26.6 - 33.2 pg 03/26/2023 10:02 AM [facility] Mean Cell Hemoglobin Concentration 32.0 31.1 - 35.2 g/dL 03/26/2023 10:02 AM [facility] RDW-SD 58.3(H) 37.5 - 49.7 fL 03/26/2023 10:02 AM [facility] Red Cell Diameter Width 17.4(H) 11.6 - 15.5 % 03/26/2023 10:02 AM [facility] Platelet 298 160 - 397 K/uL 03/26/2023 10:02 AM [facility] Mean Platelet Volume 10.1 9.1 - 12.6 fL 03/26/2023 10:02 AM [facility] INRBC 0.0 0.0 - 0.1 /100 WBC 03/26/2023 10:02 AM [facility] Comment: The INRBC (instrument NRBC) value reflects the enumeration of nucleated red blood cells contained in a 200uL sample of whole blood analyzed by the instrument. This value may differ from the NRBC value reported in a manual differential, which is based on a 100 cell differential. Neutrophil % 52.4 43.2 - 72.7 % 03/26/2023 10:02 AM [facility] Lymphocyte % 37.8 16.8 - 46.2 % 03/26/2023 10:02 AM [facility] Monocyte % 7.2 5.1 - 12.5 % 03/26/2023 10:02 AM [facility] Eosinophil % 0.7 0.4 - 6.3 % 03/26/2023 10:02 AM [facility] Basophil % 1.6(H) 0.2 - 1.4 % 03/26/2023 10:02 AM [facility] IGRE % 0.3 0.1 - 1.5 % 03/26/2023 10:02 AM [facility] Comment:The IGRE% includes M etamyelocytes, Myelocytes and Promyelocytes. Neutrophil Abs 4.73 1.95 - 7.25 K/uL 03/26/2023 10:02 AM [facility] Lymphocyte Abs 3.41(H) 1.01 - 3.24 K/uL 03/26/2023 10:02 AM [facility] Monocyte Abs 0.65 0.24 - 0.85 K/uL 03/26/2023 10:02 AM [facility] Eosinophil Abs 0.06 0.02 - 0.50 K/uL 03/26/2023 10:02 AM [facility] Basophil Abs 0.14(H) 0.02 - 0.09 K/uL 03/26/2023 10:02 AM [facility] IG Abs 0.03 0.01 - 0.12 K/uL 03/26/2023 10:02 AM [facility] Blood Peripheral blood specimen / Unknown Venipuncture / Unknown 03/26/2023 9:47 AM [facility] 03/26/2023 9:52 AM [facility] Ivan Rubi MD LAB BLOOD ORDERABLES [facility] Unless otherwise noted, all lab tests performed by: Division of Pathology and Laboratory Medicine [address] [place] [phone] * (ABNORMAL) CMP (03/26/2023 9:47 AM [facility]) Only the most recent of4 resultswithin the time period is included. Bilirubin Total 0.6 <=1.2 mg/dL 03/26/2023 10:48 AM [facility] Comment: Indocyanine Green (ICG) may cause falsely elevated bilirubin results. Total and direct bilirubin must not be measured from samples containing indocyanine green. False elevation of total bilirubin can be seen in patients with IgG concentrations above 28 g/L. This result was previously suppressed from the chart. Bilirubin Direct 0.2 <=0.3 mg/dL 03/26/2023 10:48 AM [facility] Comment: Indocyanine Green (ICG) may cause falsely elevated bilirubin results. Total and direct bilirubin must not be measured from samples containing indocyanine green. This result was previously suppressed from the chart. Bilirubin Indirect 0.4 0.0 - 0.9 mg/dL 03/26/2023 10:48 AM [facility] Comment:This result was prev iously suppressed from the chart. eGFR 89 >=60 mL/min/1. 73 sq. m 03/26/2023 10:48 AM [facility] Comment: The eGFRcr is calculated with the 2020 CKD-EPI creatinine equation using creatinine, patient's age, and sex for adults 18 years of age and older. Other factors, especially muscle mass, may affect accuracy and need to be considered. According to the Kidney Disease: Improving Global Outcomes (KDIGO) CKD Work Group 2012 Clinical Practice Guideline, chronic kidney disease (CKD) is defined as the abnormalities of kidney structure or function, present for more than 3 months, with implications for health. CKD should be classified by cause, GFR category, and albuminuria category. KDIGO guidelines provide the following GFR categories. Stage / Description / GFR mL/min/1.73 m2: G1* / Normal or high / >= 90 G2* / Mildly decreased / 60-89 G3a / Mildly to moderately decreased / 45-59 G3b / Moderately to severely decreased / 30-44 G4 / Severely decreased / 15-29 G5 / Kidney failure / <15 *In the absence of evidence of kidney damage, neither G1 nor G2 fulfill criteria for CKD. Tot Protein 7.3 6.4 - 8.3 gm/dL 03/26/2023 10:48 AM [facility] Comment:This result was prev iously suppressed from the chart. Calcium Level Total 9.9 8.2 - 10.2 mg/dL 03/26/2023 10:48 AM [facility] Comment:This result was prev iously suppressed from the chart. Alkaline Phosphatase 125(H) 35 - 104 U/L 03/26/2023 10:48 AM [facility] Comment:This result was prev iously suppressed from the chart. Albumin Level 4.3 3.5 - 5.2 gm/dL 03/26/2023 10:48 AM [facility] Comment:This result was prev iously suppressed from the chart. AST 21 <=32 U/L 03/26/2023 10:48 AM [facility] Comment:This result was prev iously suppressed from the chart. ALT 15 <=33 U/L 03/26/2023 10:48 AM [facility] Comment:This result was prev iously suppressed from the chart. Sodium Level 139 136 - 145 mmol/L 03/26/2023 10:48 AM [facility] Comment:This result was prev iously suppressed from the chart. Potassium Level 3.7 3.4 - 4.5 mmol/L 03/26/2023 10:48 AM [facility] Comment:This result was prev iously suppressed from the chart. Chloride 97(L) 98 - 107 mmol/L 03/26/2023 10:48 AM [facility] Comment:This result was prev iously suppressed from the chart. CO2 28 22 - 29 mmol/L 03/26/2023 10:48 AM [facility] Comment:This result was prev iously suppressed from the chart. Anion Gap 14 4 - 14 mmol/L 03/26/2023 10:48 AM [facility] Comment:This result was prev iously suppressed from the chart. Creatinine 0.76 0.51 - 0.95 mg/dL 03/26/2023 10:48 AM [facility] Comment:This result was prev iously suppressed from the chart. BUN 16 6 - 23 mg/dL 03/26/2023 10:48 AM [facility] Comment:This result was prev iously suppressed from the chart. Glucose Level 81 70 - 99 mg/dL 03/26/2023 10:48 AM [facility] Comment: Effective 09/29/15, the glucose reference intervals have been updated based on [place] [employer] guidelines (Standards of Medical Care in Diabetes 2016. Diabetes Care 2016; 39: S13-S22). Fasting blood glucose: Normal: 70-99 mg/dL Impaired fasting glucose (increased risk for diabetes or pre-diabetes): 100-125 mg/dL Diabetes mellitus: >/=126 mg/dL Random blood glucose: Normal: 70-199 mg/dL Note: Random glucose >100 mg/dL is associated with increased risk for diabetes. This result was previously suppressed from the chart. Blood Peripheral blood specimen / Unknown Venipuncture / Unknown 03/26/2023 9:47 AM [facility] 03/26/2023 9:52 AM [facility] Ivan Rubi MD LAB BLOOD ORDERABLES Performing Organization Address [facility] Co de Phone Number [facility] Unless otherwise noted, all lab tests performed by: Division of Pathology and Laboratory Medicine [address] [place] [phone] * (ABNORMAL) Phosphorus Level (03/26/2023 9:47 AM [facility]) Only the most recent of4 resultswithin the time period is included. Phosphorus Level 4.8(H) 2.5 - 4.5 mg/dL 03/26/2023 10:48 AM [facility] Blood Peripheral blood specimen / Unknown Venipuncture / Unknown 03/26/2023 9:47 AM [facility] 03/26/2023 9:52 AM [facility] Ivan Rubi MD LAB BLOOD ORDERABLES Performing Organization Address [facility] de Phone Number [facility] Unless otherwise noted, all lab tests performed by: Division of Pathology and Laboratory Medicine [address] [place] [phone] * Magnesium Level (03/26/2023 9:47 AM [facility]) Only the most recent of5 resultswithin the time period is included. Magnesium Level 2.1 1.6 - 2.6 mg/dL 03/26/2023 10:48 AM [facility] Blood Peripheral blood specimen / Unknown Venipuncture / Unknown 03/26/2023 9:47 AM [facility] 03/26/2023 9:52 AM [facility] Ivan Rubi MD LAB BLOOD ORDERABLES Performing Organization Address [facility] Co de Phone Number [facility] Unless otherwise noted, all lab tests performed by: Division of Pathology and Laboratory Medicine [address] [place] [phone] * (ABNORMAL) LDH (03/26/2023 9:47 AM [facility]) Only the most recent of4 resultswithin the time period is included. LDH 255(H) 135 - 214 U/L 03/26/2023 10:48 AM [facility] Blood Peripheral blood specimen / Unknown Venipuncture / Unknown 03/26/2023 9:47 AM [facility] 03/26/2023 9:52 AM [facility] Narrative [facility] - 03/26/2023 10:48 AM [facility] Results greater than 1651 U/L may not be reliable due to matrix effect with extended dilution as it exceeds the trim operator's recommended limit. Caution should be exercised when interpreting such values and done in conjunction with clinical context. Ivan Rubi MD LAB BLOOD ORDERABLES Performing Organization Address [facility] de Phone Number [facility] Unless otherwise noted, all lab tests performed by: Division of Pathology and Laboratory Medicine [address] [place] [phone] * (ABNORMAL) CEA (03/26/2023 9:47 AM [facility]) Only the most recent of4 resultswithin the time period is included. Carcinoembryonic Antigen 29.1(H) <=3.8 ng/mL 03/26/2023 11:04 AM [facility] Blood Peripheral blood specimen / Unknown Venipuncture / Unknown 03/26/2023 9:47 AM [facility] 03/26/2023 9:52 AM [facility] Narrative [facility] - 03/26/2023 11:04 AM [facility] Reference Ranges (age 20-69 years): Non-smoker: 0.0 - 3.8 ng/mL Smoker: 0.0 - 5.5 ng/mL This test is measured by electrochemiluminescence immunoassay on Darlene Ginna immunoassay analyzers. Results obtained in different methods are not interchangeable. Ivan Rubi MD LAB BLOOD ORDERABLES Performing Organization Address [facility] Co de Phone Number [facility] Unless otherwise noted, all lab tests performed by: Division of Pathology and Laboratory Medicine [address] [place] [phone] * CT CAP W contrast (01/29/2023 9:10 AM [facility]) Anatomical Region Laterality Modality Abdomen, Pelvis, Chest Computed Tomography 01/29/2023 10:0 3 AM [facility] Impressions 01/29/2023 10:27 AM [facility] The primary neoplasm has been resected. Recurrent disease is noted at the level of the anastomosis. Omental carcinomatosis is noted. The omental nodules have slightly decreased in the interim. The pulmonary nodule in the right lung is unchanged. Fibrotic changes are noted within the lungs. ACTIONABLE ITEMS/RECOMMENDATIONS: None. Narrative 01/29/2023 10:27 AM [facility] FULL RESULT: Examination: CT CHEST ABDOMEN PELVIS W CONTRAST on 01/29/2023 9:10 AM. Clinical History: Adenocarcinoma, NOS of ascending colon Indication: Cancer staging or restaging, restaging Comparison: 01/10/2021 PET/CT dated 12/12/2022. Technique: CT CHEST ABDOMEN PELVIS W CONTRAST. Findings: CHEST FINDINGS: Lungs and Pleura: Pulmonary nodule is noted (series 3 image 56) measures 0.5 cm, and is stable. Several other pulmonary nodular densities are noted and are unchanged. Fibrotic changes are noted within the lung bases bilaterally, and mild bronchiectatic changes are identified. There is paraseptal emphysema. Cardiomediastinum: The heart is normal in size. Coronary artery calcifications are noted. Lymph nodes: There is no hilar or mediastinal adenopathy. No supraclavicular adenopathy is noted. The tip of the Port-A-Cath terminates within the SVC. ABDOMEN AND PELVIS FINDINGS: Hepatobiliary: No focal hepatic lesions are identified to suggest malignancy. There is no intrahepatic or extrahepatic biliary ductal dilation. The gallbladder has been resected. Spleen: Splenic granulomas identified. Pancreas: The pancreatic head, body, and tail are normal. Adrenal Glands: The adrenal glands are normal. Kidneys, Ureters, Bladder: The kidneys demonstrate symmetric tonsillar enhancement, and there is no evidence of hydronephrosis. There is no retroperitoneal adenopathy. Motion artifact obscures detailed evaluation of the renal upper poles. Gastrointestinal Tract: There is no bowel obstruction. Postoperative changes related to right hemicolectomy are noted. A ventral abdominal hernia containing the omentum is noted. Ileocolic mesenteric lymph nodes are noted and are indeterminate the largest lymph node measures 1.6 x 0.9 cm and is unchanged since the prior study. The anastomosis in the right lower quadrant is intact. Diffuse thickening is noted at the level of the anastomosis and is of concern for recurrent disease (series 3 image 253). Implants are noted within the abdomen and pelvis, for example, the implant within the omentum measures 1.9 x 1.0 cm and has decreased in size from 1.3 x 2.6 cm. The implant in the right lower quadrant measures 1.5 x 1.8 cm and is relatively unchanged. Pelvic Organs: Fibroids are noted within the uterus. A cystic lesion is noted within the right ovary, which measures 2.4 x 1.8 cm. The left ovary is normal. Several fibroids are noted. An implant is noted within the right lower quadrant, which abuts the right ovary, measures 1.7 x 1.7 cm, and is stable. No bladder wall masses are noted. Peritoneum/Retroperitoneum: There is no evidence of ascites. Lymph Nodes: There is no inguinal adenopathy. MUSCULOSKELETAL FINDINGS: Degenerative changes are noted within the lumbar spine and the pelvic bones. A sclerotic lesion is noted within the L1 vertebral body and is thought to represent treated metastases. Procedure Note Magdaleno Pham MD - 01/29/2023 FULL RESULT: Examination: CT CHEST ABDOMEN PELVIS W CONTRAST on 01/29/2023 9:10 AM. Clinical History: Adenocarcinoma, NOS of ascending colon Indication: Cancer staging or restaging, restaging Comparison: 01/10/2021 PET/CT dated 12/12/2022. Technique: CT CHEST ABDOMEN PELVIS W CONTRAST. Findings: CHEST FINDINGS: Lungs and Pleura: Pulmonary nodule is noted (series 3 image 56) measures0.5 cm, and is stable. Several other pulmonary nodular densities are notedand are unchanged. Fibrotic changes are noted within the lung basesbilaterally, and mild bronchiectatic changes are identified. There isparaseptal emphysema. Cardiomediastinum: The heart is normal in size. Coronary arterycalcifications are noted. Lymph nodes: There is no hilar or mediastinal adenopathy. Nosupraclavicular adenopathy is noted. The tip of the Port-A-Cath terminateswithin the SVC. ABDOMEN AND PELVIS FINDINGS: Hepatobiliary: No focal hepatic lesions are identified to suggestmalignancy. There is no intrahepatic or extrahepatic biliary ductaldilation. The gallbladder has been resected. Spleen: Splenic granulomas identified. Pancreas: The pancreatic head, body, and tail are normal. Adrenal Glands: The adrenal glands are normal. Kidneys, Ureters, Bladder: The kidneys demonstrate symmetric tonsillarenhancement, and there is no evidence of hydronephrosis. There is noretroperitoneal adenopathy. Motion artifact obscures detailed evaluationof the renal upper poles. Gastrointestinal Tract: There is no bowel obstruction. Postoperativechanges related to right hemicolectomy are noted. A ventral abdominal hernia containing the omentum is noted. Ileocolic mesenteric lymph nodes are noted and are indeterminate thelargest lymph node measures 1.6 x 0.9 cm and is unchanged since the priorstudy. The anastomosis in the right lower quadrant is intact. Diffuse thickeningis noted at the level of the anastomosis and is of concern for recurrentdisease (series 3 image 253). Implants are noted within the abdomen and pelvis, for example, the implantwithin the omentum measures 1.9 x 1.0 cm and has decreased in size from1.3 x 2.6 cm. The implant in the right lower quadrant measures 1.5 x 1.8cm and is relatively unchanged. Pelvic Organs: Fibroids are noted within the uterus. A cystic lesion isnoted within the right ovary, which measures 2.4 x 1.8 cm. The left ovaryis normal. Several fibroids are noted. An implant is noted within theright lower quadrant, which abuts the right ovary, measures 1.7 x 1.7 cm,and is stable. No bladder wall masses are noted. Peritoneum/Retroperitoneum: There is no evidence of ascites. Lymph Nodes: There is no inguinal adenopathy. MUSCULOSKELETAL FINDINGS: Degenerative changes are noted within the lumbar spine and the pelvicbones. A sclerotic lesion is noted within the L1 vertebral body and isthought to represent treated metastases. IMPRESSION: The primary neoplasm has been resected. Recurrent disease is noted at thelevel of the anastomosis. Omental carcinomatosis is noted. The omentalnodules have slightly decreased in the interim. The pulmonary nodule in the right lung is unchanged. Fibrotic changes arenoted within the lungs. ACTIONABLE ITEMS/RECOMMENDATIONS: None. Ivan Rubi MD IMG CT ORDERABLES * MD MDA FLAVIA: Mutation Analysis Precision Panel Interpretation and Report (12/29/2022 11:06 AM CDT) Source Material [id number] 01/15/2023 7:48 AM [facility] Tumor Block A2 01/15/2023 7:48 AM [facility] *Normal Control Material PB 01/15/2023 7:48 AM [facility] Outside A7 01/15/2023 7:48 AM [facility] MD RYAN ALEJANDRO Result Tree [facility] [id number] SNVs/Indels CNVs Fusions TMB MSI More than 5 genes. See details None None 7 mut/Mb Stable (NUPUR) Somatic Mutations (SNVs/Indels) Gene DNA Protein Location VAF Type ASPM c.4645A>T p.Y3516F Exon 18 27% SNV - Missense BRAF c.1799T>A p.V600E Exon 15 29% SNV - Missense BTK c.1469G>A p.R490H Exon 15 25% SNV - Missense ERCC6 c.1620C>G p.I540M Exon 7 22% SNV - Missense H3-5 c.170C>T p.S57L Exon 1 9% SNV - Missense HGF c.532C>T p.R178* Exon 5 21% SNV - Nonsense LRP1B c.9373G>A p.P8508W Exon 59 5% SNV - Missense CVM9B8O c.2747A>G p.H916R Exon 20 14% SNV - Missense PRKDC c.7561C>T p.R2521* Exon 58 18% SNV - Nonsense TP53 c.427G>A p.V143M Exon 5 39% SNV - Missense WT1 c.613C>G p.P205A Exon 1 11% SNV - Missense Copy Number Variations (CNVs) None Identified Gene Fusions None Identified Cancer type: Adenocarcinoma, colon GUIDE TO STANDARDIZED NOMENCLATURE AND EXPLANATION OF CHANGES: Variants identified are described using an implementation of a standardized nomenclature developed by the Human Genome Variation Society (HGVS, http://www.hgvs.org/ varnomen/). The normative Genbank gene reference sequence identifier and gene symbol in parentheses are provided, followed by the coding DNA sequence change (e.g., "c. 200A>G", which would mean that the position 200 adenine is changed to guanine), and then the inferred protein change (e.g., "p. V35C", which would mean that the amino acid at codon 35 is changed from valine to cysteine). Additional explanations for the DNA and protein changes seen in the current specimen are shown in the following tables: Explanation of DNA variant/mutation types seen in this specimen DNA Change SNV A single nucleotide difference (point mutation) has been identified in the patient sample relative to the reference wild-type gene sequence Explanation of protein variant/mutation types seen in this specimen Protein Change Missense A single amino acid residue change in the patient sample relative to the reference wild-type protein sequence Nonsense A single nucleotide change resulting in a premature stop codon leading to a truncated protein product in the patient sample relative to the reference wild-type protein sequence Additional information on genes/variants with findings identified on this assay: Gene Genomic Variant COSMIC dbSNP ClinVar ASPM [id number] T>A c.4645A>T p.X4880R BRAF chr7:[id number] A>T c.1799T>A p.V600E [id number] BTK chrX:[id number] C>T c.1469G>A p.R490H ERCC6 chr10:98838794 G>C c.1620C>G p.I540M H3-5 chr12:13751450 G>A c.170C>T p.S57L HGF chr7:89652344 G>A c.532C>T p.R178* LRP1B chr2:[id number] C>T c.9373G>A p.W5922Z [id number] chr12:22347712 A>G c.2747A>G p.H916R PRKDC chr8:20491586 G>A c.7561C>T p.R2521* TP53 chr17:9272989 C>T c.427G>A p.V143M [id number] WT1 chr11:84943255 G>C c.613C>G p.P205A Link to COSMIC: https://cancer.sange r.ac.uk/cosmic Link to dbSNP: https://www.ncbi.nlm .nih.gov/snp Link to ClinVar: https://www.ncbi.nlm .nih.gov/clinvar METHODOLOGY: Test Description: The [facility] Mutation Analysis Precision Panel (MDA FLAVIA) assay is a custom high-throughput next generation sequencing-based CLIA assay that uses targeted hybridization-based capture technology for detection of sequence variants/mutations in 610 genes (single nucleotide variants [SNVs] and insertion/deletion alterations [indels]), copy number variants (CNVs) in 583 genes, select gene rearrangements in 34 genes (Fusions), and selected genomic immuno-oncology signatures including microsatellite instability (MSI) and tumor mutational burden (TMB) in DNA isolated from formalin-fixed paraffin embedded (FFPE) tumor tissue and cytology specimens (See Appendix Table 1 and 2). MDA FLAVIA employs DNA extracted from both tumor tissue and paired normal (blood or tissue) specimens in our CLIA-certified molecular diagnostic laboratory. Routine paraffin-embedded tissue from surgical resection specimens, core needle biopsies and fine needle aspirate (cell blocks and cytology smears) are accepted specimen types. A minimum of 50 ng of genomic DNA undergoes whole-genome library construction with adapters carrying Unique Molecular Indices (NEMESIO) allowing tagging of original double-stranded DNA that facilitates statistical reconstruction of reads sequenced as duplicates from a single-amplified genome. A target area of 2.1 megabases (Mb) hg19 genome is enriched with custom hybrid-capture, 120nt dsDNA probes. MDA FLAVIA assay uses the [employer] next generation sequencing platform and bidirectional paired-end sequencing to identify nucleic acid variants for all coding regions from most genes in the panel, the TERT promoter, 1 non-coding RNA gene, and clinically relevant rearrangements. Reported somatic mutations are identified by comparison to the human genome reference sequence GRCh37/hg19 and reviewed in CAD Crowd against a process-matched normal control. Data analysis is performed in house by the [employer] Bioinformatics pipeline (BIP) which relies on the dual-duplex molecular barcoding for consensus analysis to reduce sequencing artifacts and achieve greater sensitivity and positive predictive value. MDA FLAVIA is intended to provide tumor mutation profiling in accordance with institutional guidelines in oncology for patients with solid malignant neoplasms. Report annotation and software: A post-variant calling analysis and annotation tool, CAD Crowd version 1.10.1.583, was used in the construction of this report. The following additional software tools were utilized in the experimental setup and bioinformatic analysis: Spireon Control Software 1.7, [employer]i Real Time Analysis Software 3.4.4, HeyAnita Application MobiVita.CommuniClique and [employer] BIP v1.0. Detailed information about the signal-processing, basecalling, alignment, and variant calling algorithms are available upon request. Test performance specifications: The tumor cellularity in the sample submitted is assessed by a combination of direct morphologic assessment and/or immunophenotypic evaluation as part of the pathology workup. For this assay, sensitivity of detection is related in part to depth of coverage, tumor cellularity, and allelic frequency for the mutation. Although the NGS platform is capable of achieving a much higher analytical sensitivity, for clinical purposes, at around 50 ng input DNA and a minimum of 20% tumor cellularity, we determined the effective lower limit of detection (LoD) for SNVs and INDELs of 5% mutation allelic frequency (one mutant allele in the background of nineteen wild type alleles), 5 fusion breakpoint molecules for Fusion detection, and a threshold of 4 copy number for gene amplifications with an overall panel analytical sensitivity for SNVs 99.2%, INDELs 92.3%, CNVs 97.3%, Fusions 89.1% and MSI 100% while maintaining analytical specificity near 100%. Limitations of the test: [employer] FLAVIA requires a normal non-tumor sample for appropriate interpretation of somatic mutations. Silent mutations (mutations that do not result in an amino acid change) are not reported. A minimum of 20% tumor cellularity is required in the sample for mutation analysis. Clinical tumor specimens below 20% tumor cellularity are not optimal for MSI and TMB interpretation and thus Not Reportable . The primary purpose of this panel is to detect somatic mutations in genes involved in oncogenesis of this patient s tumor. The test or the results thereof should not be used to detect germline variants for hereditary cancer syndromes. If a hereditary cancer syndrome is suspected, separate testing of a germline sample should be performed using an appropriate assay. Variants detected below Limits of Detection (LoD) not deemed to be confirmable by independent, orthogonal methods and/or in significant discordance with the tumor cellularity in the tested sample may be excluded as the clinical significance and reliability of such low-level mutation calls is not clear. Variant allelic frequency (VAF) is included for reported sequence variants and reflects the percentage of mutant reads compared to all reads present at the variant position. This number reflects a complex mixture of factors including tumor cellularity, potential CNVs and loss of heterozygosity, and potential subclonality. In addition, strand or allelic bias can significantly impact the measurement of specific variants in any sequencing platform. The clinical utility or meaning of this number in general is not considered established. Linearity of measurement should not be assumed. Copy number assessment by next generation sequencing can be affected by tumor cellularity, amplitude of gene amplification, enrichment of tumor during pre-analytical phase, library preparation methods and analysis algorithms. False negative results can be obtained in cases with low tumor percentage, low amplicon coverage and/or borderline copy number gains. Correlation with traditional methods of copy number assessment such as fluorescent in situ hybridization (FISH) is recommended as applicable. False negative fusion results can occur in cases with low fusion DNA molecules, low tumor cellularity, fusions occurring in highly repetitive intronic sequence contexts or fusions where the genomic breakpoint does not span within targeted introns covered by the panel (See Appendix Table 2). The assay requires a minimum of 20% tumor sample cellularity to reduce the potential for false negative results. Correlation with traditional methods of fusion detection such as fluorescent in situ hybridization (FISH) is recommended as applicable. Tumor mutational burden (TMB) is determined by measuring the number of somatic mutations occurring in sequenced genes and specified as a rate (mutations per megabase [mut/Mb]). TMB is calculated for all samples and includes the sum of all somatic synonymous and non-synonymous variants present in the sample at a VAF near LoD and above the noise-level of the assay (after filtering). The number of mutations per megabase may be reported as a nominal number rounded to the closest integer. TMB in cases with low sequence quality cannot be established and may be reported as Not Reportable . The microsatellite instability high (MSI-H) and microsatellite stable (NUPUR) reported by [facility] is based on the analysis of 40+ informative microsatellite loci. The total number of sites evaluated is dependent on coverage metrics over candidate MSI regions in the paired tumor and normal samples. Microsatellite instability is reported as Undetermined if the sample does not meet the required thresholds to make a MSI-H or NUPUR call. The thresholds for designating these calls were established by analytical concordance to comparator assays (PCR, IHC and NGS) using a wide selection of tumor tissue types including colorectal and endometrial cancers. Confirmatory testing of microsatellite instability (MSI-PCR, MLH1 promoter methylation) and DNA mismatch repair gene assessment (MMR deficiency) is recommended as applicable for complete evaluation. Correlation with clinicopathologic features and prevalent clinical practice guidelines is recommended for complete evaluation and integration of genomic findings in patient care decisions. Sequencing coverage of the genes: The following table describes the extent and adequacy of coverage for ordered genes only. Covered genes/exons/codons are defined as those having total coverage depth of greater than or equal to 100 UAS-nauor-xpogwczvz, collapsed reads (minimum 100x coverage). Mutations in ordered genes outside the optimally covered regions listed below may be detected with diminished sensitivity and cannot be ruled out. Coverage information for non-ordered genes for this sample is complex and lengthy, but may be requested from the laboratory if required for clinical care or correlative purposes. Coverage for ordered genes and codon(s) tested with a minimum of 100x coverage Gene Exons (codons) tested APPENDIX: Table 1: Genes of interest for SNVs, INDELs and CNVs ABL1 BRCA1 CTNNA1 ETV4 GNA13 IRF2 MGMT PAXX PTPN11 SDHC PAULETTE ABL2 BRCA2 CTNNB1 ETV5 GNAQ IRF4 MITF PBRM1 PTPRB SDHD TENT5C ABRAXAS1 BRD4 CUL3 ETV6 GNAS IRS1 MLH1 PCNA PTPRD SESN1 TERC* ACVR1 BRIP1 CUL4A EWSR1 GPS2 IRS2 MLH3 PDCD1 PTPRS SETBP1 TERT^ ACVR1B BTG1* CUL4B EXO1 GRIN2A JAK1 MPL BWIQ0LS2 PTPRT SETD2 TET1 ACVR2A BTG2* CUX1 EZH2 GRM3 JAK2 MRE11 PDGFB QKI SF3B1 TET2 ADGRA2 BTK CXCR4 FADD GSK3B JAK3 MSH2 PDGFRA RAB35 SGK1 TFE3 AJUBA BUB1 CYLD FANCA H1-2* JESSICA MSH3 PDGFRB RAC1 SH2B3 TGFB1 AKT1 CALR XLZ3A11 FANCC H2AX* KAT6A MSH6 PDK1 RAD21 SH2D1A TGFBR1 AKT2 CARD11 DAXX FANCD2 H2BC5* KDM5A MST1 PER1 RAD50 SHLD1 TGFBR2 AKT3 CASP8 XKYZW7C FANCE H3-3A* KDM5C MST1R PGD RAD51 SHLD2 AFVG072 AKTIP CBFB UOLX7L3 FANCF H3-3B* KDM6A MTAP PGR [id number] SHPRH TMPRSS2 ALK CBL DDB1 FANCG H3-4* KDR MTOR PHF6 RAD51B SHQ1 TNF GNEF84O CCN6 DDR1 FANCI H3-5* KEAP1 MUTYH PHOX2B RAD51C MZQ61E2 TNFAIP3 AMER1 CCNA2 DDR2 FANCL H3C1* STORM MXD4 TPB6C7N RAD51D SLIT2 UITECZ72 ANKRD11 CCND1 DDX3X FANCM H3C10* KIT MYB DKH9Y2I RAD52 SLX4 TOP1 APC CCND2 DICER1 FAS H3C11* KLF4 MYC PIK3C3 RAD54L SMAD2 TOP2A AR CCND3 DIS3 FAT1 H3C12* KLHL6 MYCL PIK3CA RAF1 SMAD3 TOP3A ARAF CCNE1 DLL3 FBXW7 H3C13* KMT2A MYCN PIK3CB RATNA SMAD4 TOPBP1 ARFRP1 CD274 DNA2 FGF10 H3C2* KMT2B MYD88 PIK3CD RASA1 SMARCA2 TP53 ARID1A CD276 DNAJB1 FGF14 H3C3* KMT2C MYOD1 PIK3CG RB1 SMARCA4 NZ01IN4 ARID1B CD74 DNMT1 FGF19 H3C4* KMT2D NBN PIK3R1 RBM10 SMARCAD1 TP53I3 ARID2 CD79A DNMT3A FGF23 H3C6* KNSTRN NCOA3 PIK3R2 RECQL4 SMARCB1 TP63 ARID5B CD79B DNMT3B FGF3 H3C7* KRAS NCOR1 PIK3R3 REL SMARCD1 TRAF2 ASCC3 CD8A DOT1L FGF4 H3C8* LATS1 NEGR1 PIM1 RET SMC1A TRAF7 ASPM CDC20 E2F3 FGF5 HDAC2 LATS2 NF1 PLCG1 REV3L SMC3 SLRHWD16 ASXL1 CDC27 EED FGF6 HDAC9 LCK NF2 PLCG2 RFC1 SMC5 TSC1 ASXL2 CDC6 EGFL7 FGF9 HELQ LIG4 NFE2L2 PLK2 RFC2 SMC6 TSC2 SHAUN CDC73 EGFR FGFR1 HERC2 LMO1 NFKBIA PMAIP1* RFC3 SMO TSHR ATR CDH1 EIF1AX FGFR2 HFM1 LRP1B NHEJ1 PML RFC4 SNCAIP TTK ATRX CDK12 EIF4A2 FGFR3 HGF STEVE NKX2-1 PMS1 RFC5 SOCS1 TYRO3 AURKA CDK2 EIF4E FGFR4 HLA-A MAD2L2 NKX3-1 PMS2 RHEB SOS1 U2AF1 AURKB CDK4 ELF3 FH HNF1A MAGOH NOTCH1 PNKP RHOA SOX10 VEGFA AURKC CDK6 ELOC FLCN HOXB13 MALT1 NOTCH2 PNRC1 RICTOR SOX17 VHL AXIN1 CDK8 EMSY FLT1 HRAS MAP2K1 NOTCH3 POLA1 RIF1 SOX2 VTCN1 AXIN2 CDKN1A ENO1 FLT3 HSD3B1 MAP2K2 NOTCH4 POLD1 RIT1 SOX9 WRN RYAN CDKN1B EP300 FLT4 QEO16VJ7 MAP2K4 NPM1 POLE RMI1 SPEN WT1 B2M CDKN2A EPCAM FOXA1 PDO03OB7 MAP2K7 NRAS POLQ RMI2* SPOP XIAP BAP1 CDKN2B EPHA2 FOXL2 ICOSLG MAP3K1 NSD1 PPARG RNF43 SRC XPO1 BARD1 CDKN2C* EPHA3 FOXO1 ID3* DOG2M06 NSD3 PPM1D ROS1 SRSF2 XRCC2 BBC3 CEBPA EPHA5 FOXP1 IDH1 [id number] NT5C2 KTH7X3L RPA1 SSBP1 XRCC3 BCL10 CENPA EPHA7 FRS2 IDH2 MAP3K4 NTRK1 IQI2E5V RPA2 STAG2 XRCC4 BCL11A CENPE EPHB1 FTO IFNGR1 MAPK1 NTRK2 KAU1R4M RPA3* STAT3 XRCC5 BCL2 CHAF1A ERBB2 FUBP1 IGF1 MAPK3 NTRK3 PPP4R4 RPA4 STAT4 XRCC6 BCL2L1 CHEK1 ERBB3 FYN IGF1R MAPK8 NUP93 PPP6C ZYN0AN6 STAT5A YAP1 OIP8X34 CHEK2 ERBB4 GABRA6 IGF2 MAX NUTM1 PRC1 TAY0BV3 STAT5B YES1 BCL2L2* CIC ERCC1 ZDTZ25Z IKBKE MCL1 PAK1 PRDM1 ULU2PD4 STK11 ZFHX3 BCL6 COL2A1 ERCC2 GATA1 IKZF1 MDC1 PAK3 PREX2 RPTOR STK19 UKX158 BCOR COP1 ERCC3 GATA2 IL10 MDM2 PAK5 PRG4 RSPO1 STK40 MZR440 BCORL1 CREBBP ERCC4 GATA3 IL7R MDM4 PALB2 PFRZL3J RSPO2 SUFU ZRSR2 BCR CRKL ERCC5 GATA4 INHA MED12 PARP1 PRKCI RUNX1 SUZ12 BIRC2 CRLF2 ERCC6 GATA6 INHBA MEF2B PARP2 PRKDC EJNY9C0 SYK BIRC3 CSF1R ERG GEN1 INO80 MEN1 PARP3 PRKN RYBP TBC1D4 BLM CSF3R ERRFI1 GID4 INPP4A MERTK PARP4 PTCH1 SDHA TBX3 BMPR1A CTCF ESR1 GLI1 INPP4B MET PARPBP PTEN SDHAF2 TCF3 BRAF CTLA4 ETV1 GNA11 INSR MGA PAX5 PTK2 SDHB TCF7L2 *Gene not included for CNV reporting ^ Includes promoter region ncRNA Gene Table 2. Genes with select intronic regions for the detection of DNA-based gene rearrangements ALK introns: 18-19 BRCA2 introns: 2 ETV4 introns: 5-6 EZR introns: 9-11 KIT introns: 16 MYB introns: 14 NTRK2 introns: 12 RTANA introns: 2 SDC4 introns: 2 BCR introns: 7-10 CD74 introns: 6-8 ETV5 introns: 6-7 FGFR1 introns: 1,5,17 KMT2A introns: 6-11 MYC introns: 1 NUTM1 introns: 1 RET introns: 7-11 TGM17B4 introns: 4 BRAF introns: 7-10 EGFR introns: 7,15,24-27 ETV6 introns: 5-6 FGFR2 introns: 1,17 MET* introns 13,14 NOTCH2 introns: 26 PDGFRA introns: 7,9,11 ROS1 introns: 31-35 TMPRSS2 introns: 1-3 BRCA1 introns: 2,7-8,12,16,19-20 EML4 introns: 6,13 EWSR1 introns: 7-13 FGFR3 introns: 17 MSH2 introns: 5 NTRK1 introns: 8-10 RAF1 introns: 4-8 RSPO2 introns: 1 *Targeted for MET exon 14 skipping assessment DISCLAIMER: This test was developed and its performance characteristics determined by the Molecular Diagnostic Laboratory (M[facility]) at the [facility] [place]. It has not been cleared by the U.S. Food and Drug Administration. However, such approval is not required for clinical implementation, and the test results on the ordered genes have been shown to be clinically useful. This laboratory is CAP accredited and CLIA certified to perform high complexity molecular testing for clinical purposes. 01/15/2023 7:48 AM [facility]STICS Pathologist Signature . 01/15/2023 7:48 AM [facility]NOSTICS Tissue 12/29/2022 11:0 6 AM CDT 12/29/2022 11:06 AM CDT Walter CINTRON MOLECULAR BIO MARKERS MOLECULAR DIAGNOSTICS [facility] [place] [facility] [address] [place] [address] * Solid Tumor Genomic Assay Fusions 2018 Interpretation and Report (12/29/2022 11:06 AM CDT) Source Material [id number] 01/05/2023 2:07 PM CDT MOLECULAR DIAGNOSTIC Tumor Block A2 01/05/2023 2:07 PM CDT MOLECULAR DIAGNOSTIC Outside A7 01/05/2023 2:07 PM CDT MOLECULAR DIAGNOSTIC Solid Tumor Genomic Assay Fusion Result Tree [facility] [id number] Solid Tumor Genomic Assay 2018 - RNA (Fusions) Clinical test requisition for fusion studies on the following genes was received: NTRK1, NTRK2, NTRK3 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 FINDINGS: Gene Fusions None identified Methodology: Test platform: cDNA prepared from extracted RNA is combined with targeted amplicon based next generation sequencing (NGS) to amplify both a set of expected control RNA sequences and a set of targeted fusion sequences corresponding to clinically relevant known inter- and intragenic fusions in 51 genes (AKT2, ALK, AR, RYAN, BRAF, BRCA1, BRCA2, CDKN2A, EGFR, ERBB4, ERBB2, ERG, ESR1, ETV1, ETV4, ETV5, FGFR1, FGFR2, FGFR3, FGR, FLT3, JAK2, KRAS, MDM4, MET, MYB, MYBL1, NF1, NOTCH1, NOTCH4, NRG1, NTRK1, NTRK2, NTRK3, NUTM1, PDGFRA, PDGFRB, PIK3CA, PPARG, PRKACA, PRKACB, PTEN, RAD51B, RAF1, RB1, RELA, RET, ROS1, RSPO2, RSPO3, and TERT). Sequences are aligned against a synthetic fusion genome and fusions are identified by coverage analysis. Detailed information about the signal-processing, base calling, alignment, and fusion calling including specific fusion partners and break-points, are available upon request. Analytical sensitivity and additional details: Assessing sensitivity/limit of detection for a non-cellular fusion assay is challenging because fusion messenger RNA is likely to be expressed idiosyncratically and non-uniformly with respect to cellular/genomic equivalents. Sensitivity of detection is expected to be influenced both by this expression level and the tumor purity of the sample. Detection of a particular clinical fusion event for this assay requires that both fusion partners and the specific fusion junction between them be flanked by the amplicon primers used. Adequacy of RNA sampling is ensured by requiring that a sample have a minimum of 500,000 mapped cDNA target reads with a minimum average sequence length of 60 base pairs. Details and limitations of the test: - False negative results can be obtained in cases with low fusion RNA expression, low tumor percentage, or fusions that do not correspond exactly to the targeted fusion junctions on the assay. We require a minimum of 20% tumor nuclei in the sample to reduce the potential for false-negative results. Correlation with traditional methods of fusion detection such as fluorescent in situ hybridization (FISH) is recommended as applicable. Report annotation and generation software: A post-variant calling analysis and annotation tool, CAD Crowd version 1.10.1.581, was used in the construction of this report. DISCLAIMER: This test was developed and its performance characteristics determined by the Molecular Diagnostic Laboratory (MDL) at the [facility]. It has not been cleared by the U.S. Food and Drug Administration. However, such approval is not required for clinical implementation, and the test results on the ordered genes have been shown to be clinically useful. This laboratory is CAP accredited and CLIA certified to perform high complexity molecular testing for clinical purposes. 01/05/2023 2:07 PM CDT MOLECULAR DIAGNOSTIC Pathologist Signature . 01/05/2023 2:07 PM CDT MOLECULAR DIAGNOSTIC Tissue 12/29/2022 11:0 6 AM CDT 12/29/2022 11:06 AM CDT Walter CALLEJAS [facility] MOLECULAR BIO MARKERS MOLECULAR DIAGNOSTIC [facility] Molecular Diagnostic Lab [address] [place] [address] * .Serum Creatinine (2022 11:10 AM CDT) Only the most recent of2 resultswithin the time period is included. Creatinine 0.65 0.51 - 0.95 mg/dL [place] Comment:Testing performed at [facility], [address] [place] [id number] Blood 2022 11:1 0 AM CDT 2022 11:24 AM CDT Walter CALLEJAS LAB BLOOD ORDERABLES Performing Organization Address City/[facility]/ZIP Co de Phone Number [facility] [address] [place] [address] [address] [place] [address] * Glomerular Filtration Rate (2022 11:10 AM CDT) Only the most recent of2 resultswithin the time period is included. eGFR 100 >=60 mL/min/1.7 3 sq. m [place] Comment: The eGFRcr is calculated with the 2020 CKD-EPI creatinine equation using creatinine, patient's age, and sex for adults 18 years of age and older. Other factors, especially muscle mass, may affect accuracy and need to be considered. According to the Kidney Disease: Improving Global Outcomes (KDIGO) CKD Work Group 2012 Clinical Practice Guideline, chronic kidney disease (CKD) is defined as the abnormalities of kidney structure or function, present for more than 3 months, with implications for health. CKD should be classified by cause, GFR category, and albuminuria category. KDIGO guidelines provide the following GFR categories Stage Description GFR mL/min/1.73 m2 G1* Normal or high >= 90 G2* Mildly decreased 60-89 G3a Mildly to moderately decreased 45-59 G3b Moderately to severely decreased 30-44 G4 Severely decreased 15-29 G5 Kidney failure <15 *In the absence of evidence of kidney damage, neither G1 nor G2 fulfill criteria for CKD. Testing performed at [facility], [address] [place], [place] [id number] Blood 2022 11:1 0 AM CDT 2022 11:24 AM CDT Walter CALLEJAS LAB BLOOD ORDERABLES [address], [facility] [address] [place] [address] * Fractionated Bilirubin (2022 11:10 AM CDT) Only the most recent of2 resultswithin the time period is included. Bili Total <0.3 <=1.2 mg/dL [place] Comment: Direct and indirect bilirubin will not be reported when Total bilirubin result is <0.3 mg/dL Indocyanine Green (ICG) may cause falsely elevated bilirubin results. Total and direct bilirubin must not be measured from samples containing indocyanine green. False elevation of total bilirubin can be seen in patients with IgG concentrations above 28 g/L. Testing performed at [facility], [address] [place] [address] Blood 2022 11:1 0 AM CDT 2022 11:24 AM CDT Walter CALLEJAS LAB BLOOD ORDERABLES [address], [address] [place] [address] * Differential (2022 11:10 AM CDT) Only the most recent of3 resultswithin the time period is included. Neutrophil % 49.6 43.2 - 72.7 % [place] Comment:All components of th e Differential performed at [facility], [address] [place] [address] Lymphocyte % 35.1 16.8 - 46.2 % [place] Comment:As part of Different ial, testing performed at [facility], [address] [place] [address] Monocyte % 12.3 5.1 - 12.5 % [place] Comment:As part of Different ial, testing performed at [facility], [address] [place] [address] Eosinophil % 1.8 0.4 - 6.3 % [place] Comment:As part of Different ial, testing performed at [facility], [address] [place] [address] Basophil % 1.2 0.2 - 1.4 % [place] Comment:As part of Different ial, testing performed at [facility], [address] [place] [address] Neutrophil Abs 3.28 1.95 - 7.25 K/uL [place] Comment:As part of Different ial, testing performed at [facility], [address] [place] [address] Lymphocyte Abs 2.32 1.01 - 3.24 K/uL [place] Comment:As part of Different ial, testing performed at [facility], [address] [place] [address], [place] [address] Monocyte Abs 0.81 0.24 - 0.85 K/uL [place] Comment:As part of Different ial, testing performed at [facility], [address] [place] [address] Eosinophil Abs 0.12 0.02 - 0.50 K/uL [place] Comment:As part of Different ial, testing performed at [facility], [address] [place] [address] Basophil Abs 0.08 0.02 - 0.09 K/uL [place] Comment:As part of Different ial, testing performed at [facility], [address] [place], [place] [address] Blood 2022 11:1 0 AM CDT 2022 11:24 AM CDT Narrative [place] - 2022 11:27 AM CDT Within 72 hours prior to each chemotherapy infusion. Walter CALLEJAS LAB BLOOD ORDERABLES [address], [address] [place] [address] * BUN (2022 11:10 AM CDT) Only the most recent of2 resultswithin the time period is included. BUN 6 6 - 23 mg/dL [place] Comment:Testing performed at [facility], [address] [place] [address] Blood 2022 11:1 0 AM CDT 2022 11:24 AM CDT Walter CALLEJAS LAB BLOOD ORDERABLES [address], [address] [place] [address] * ALT (2022 11:10 AM CDT) Only the most recent of2 resultswithin the time period is included. ALT 12 <=33 U/L [place] Comment:Testing performed at [facility], [address] [place] [address] Blood 2022 11:1 0 AM CDT 2022 11:24 AM CDT Walter CALLEJAS LAB BLOOD ORDERABLES Performing Organization Address City/[facility]/ZIP Co de Phone Number [address], [facility] [address] [place] [address] * Aspartate Aminotransferase (2022 11:10 AM CDT) Only the most recent of2 resultswithin the time period is included. AST 14 <=32 U/L [place] Comment:Testing performed at [facility], [address] [place] [address] Blood 2022 11:1 0 AM CDT 2022 11:24 AM CDT Walter CALLEJAS LAB BLOOD ORDERABLES Performing Organization Address [facility] Co de Phone Number [address], [facility] [address] [place] [address] * Total Protein (2022 11:10 AM CDT) Only the most recent of2 resultswithin the time period is included. Total Protein 6.7 6.4 - 8.3 g/dL [place] Comment:Testing performed at [facility], [address] [place] [address] Blood 2022 11:1 0 AM CDT 2022 11:24 AM CDT Walter CALLEJAS LAB BLOOD ORDERABLES [address], [address] [place] [address] * Alkaline Phosphatase (2022 11:10 AM CDT) Only the most recent of2 resultswithin the time period is included. Alk Phos 101 35 - 104 U/L [place] Comment:Testing performed at [facility], [address] [place] [address] Blood 2022 11:1 0 AM CDT 2022 11:24 AM CDT Walter CALLEJAS LAB BLOOD ORDERABLES Performing Organization Address [facility] Co de Phone Number [address], [address] [address] * (ABNORMAL) Glucose Level (2022 11:10 AM CDT) Only the most recent of2 resultswithin the time period is included. Glucose Level 101(H) 70 - 99 mg/dL [place] Comment: Effective 09/29/15, the glucose reference intervals have been updated based on [place] [employer] guidelines (Standards of Medical Care in Diabetes 2016. Diabetes Care 2016; 39: S13-S22). Fasting blood glucose: Normal: 70-99 mg/dL Impaired fasting glucose (increased risk for diabetes or pre-diabetes): 100- 125 mg/dL Diabetes mellitus: >/=126 mg/dL Random blood glucose: Normal: 70-199 mg/dL Note: Random glucose >100 mg/dL is associated with increased risk for diabetes Testing performed at [facility], [address] [place] [address] Blood 2022 11:1 0 AM CDT 2022 11:24 AM CDT Walter CALLEJAS LAB BLOOD ORDERABLES Performing Organization Address City/[facility]/ZIP Co de Phone Number [address], [address] [place] [id number] * Calcium Level (2022 11:10 AM CDT) Only the most recent of2 resultswithin the time period is included. Calcium Lvl 9.2 8.4 - 10.2 mg/dL [place] Comment:Testing performed at [facility], [address] [place] [address] Blood 2022 11:1 0 AM CDT 2022 11:24 AM CDT Walter CALLEJAS LAB BLOOD ORDERABLES [place] [id number] * Albumin Level (2022 11:10 AM CDT) Only the most recent of2 resultswithin the time period is included. Albumin Lvl 3.9 3.5 - 5.2 gm/dL [place] Comment:Testing performed at [facility], [address] [place] [address] Blood 2022 11:1 0 AM CDT 2022 11:24 AM CDT Walter CALLEJAS LAB BLOOD ORDERABLES [address], [place] [id number] * Electrolyte Panel (2022 11:10 AM CDT) Only the most recent of2 resultswithin the time period is included. Sodium Lvl 138 136 - 145 mEq/L [place] Comment:Testing performed at [facility], [address] [place], [place] [address] Potassium Lvl 3.8 3.5 - 5.1 mEq/L [place] Comment:Testing performed at [facility], [address] [place], [place] [address] Chloride 104 98 - 107 mEq/L [place] Comment:Testing performed at [facility], [address] [place] [address] CO2 23 22 - 29 mEq/L [place] Comment:Testing performed at [facility], [address] [place] [address] Anion Gap 11 4 - 14 mEq/L [place] Comment:Testing performed at [facility], [address] [place] [address] Blood 2022 11:1 0 AM CDT 2022 11:24 AM CDT Walter CALLEJAS LAB BLOOD ORDERABLES [facility] [address] [facility], [address] [place] [address] * NTRK3 Fusion Analysis with Interpretation and Report (12/14/2022 1:19 PM CDT) Archived Material The test is to be performed on tissue from case [id number]. The case report, slides, and blocks for the cited accession were retrieved from archives. The pathologist examined the candidate H&E slide and selected the block appropriate to the specifications of the ordered molecular analysis. Unstained slides and H&E slide were prepared and forwarded to [facility] where the subject molecular test will be performed. Results will be reported separately. 12/28/2022 11:26 AM CDT [facility] Pathologist Signature 12/28/2022 11:26 AM CDT [facility] Tissue 12/14/2022 1:19 PM CDT 12/14/2022 1:19 PM CDT Walter CALLEJAS [facility] IP [facility] [address] [address], * NTRK2 Fusion Analysis with Interpretation and Report (12/14/2022 1:19 PM CDT) Archived Material The test is to be performed on tissue from case [id number]. The case report, slides, and blocks for the cited accession were retrieved from archives. The pathologist examined the candidate H&E slide and selected the block appropriate to the specifications of the ordered molecular analysis. Unstained slides and H&E slide were prepared and forwarded to [facility] where the subject molecular test will be performed. Results will be reported separately. 12/28/2022 11:26 AM CDT [employer] [facility] Pathologist Signature 12/28/2022 11:26 AM CDT [employer] [facility] Tissue 12/14/2022 1:19 PM CDT 12/14/2022 1:19 PM CDT Walter CALLEJAS [facility] IP [facility] Performing Organization Address [facility] Co de Phone Number [facility] [place] [place] [address], * NTRK1 Fusion Analysis with Interpretation and Report (12/14/2022 1:19 PM CDT) Archived Material The test is to be performed on tissue from case [id number]. The case report, slides, and blocks for the cited accession were retrieved from archives. The pathologist examined the candidate H&E slide and selected the block appropriate to the specifications of the ordered molecular analysis. Unstained slides and H&E slide were prepared and forwarded to [facility] where the subject molecular test will be performed. Results will be reported separately. 12/28/2022 11:26 AM CDT [employer] [facility] Pathologist Signature 12/28/2022 11:26 AM CDT [facility] Tissue 12/14/2022 1:19 PM CDT 12/14/2022 1:19 PM CDT Walter CALLEJAS [facility] IP AP [facility] Performing Organization Address [facility] Co de Phone Number [facility] [place] [phone] [place] [address], [place] * NRAS Mutation Interpretation and Report (12/14/2022 1:19 PM CDT) Archived Material The test is to be performed on tissue from case [id number]. The case report, slides, and blocks for the cited accession were retrieved from archives. The pathologist examined the candidate H&E slide and selected the block appropriate to the specifications of the ordered molecular analysis. Unstained slides and H&E slide were prepared and forwarded to [facility] where the subject molecular test will be performed. Results will be reported separately. 12/28/2022 11:26 AM CDT [facility] Pathologist Signature 12/28/2022 11:26 AM CDT [facility] Tissue 12/14/2022 1:19 PM CDT 12/14/2022 1:19 PM CDT Walter CALLEJAS [facility] [place] [id number] [place] [address], [place] * KRAS Interpretation and Report (12/14/2022 1:19 PM CDT) Pathologist [facility] Archived Material The test is to be performed on tissue from case [id number]. The case report, slides, and blocks for the cited accession were retrieved from archives. The pathologist examined the candidate H&E slide and selected the block appropriate to the specifications of the ordered molecular analysis. Unstained slides and H&E slide were prepared and forwarded to [facility] where the subject molecular test will be performed. Results will be reported separately. 12/28/2022 11:26 AM CDT [facility] Pathologist Signature 12/28/2022 11:26 AM CDT [facility] Tissue 12/14/2022 1:19 PM CDT 12/14/2022 1:19 PM CDT Walter CALLEJAS [facility] IP AP [facility] Performing Organization Address [facility] Co de Phone Number [facility] [place] [address], * BRAF Mutation Interpretation and Report (12/14/2022 1:19 PM CDT) Archived Material The test is to be performed on tissue from case [id number]. The case report, slides, and blocks for the cited accession were retrieved from archives. The pathologist examined the candidate H&E slide and selected the block appropriate to the specifications of the ordered molecular analysis. Unstained slides and H&E slide were prepared and forwarded to [facility] where the subject molecular test will be performed. Results will be reported separately. 12/28/2022 11:[address] [facility] Pathologist Signature 12/28/2022 11:[address] [facility] Tissue 12/14/2022 1:19 PM CDT 12/14/2022 1:19 PM CDT Walter CALLEJAS [facility] IP AP [facility] Performing Organization Address [facility] Co de Phone Number [facility] [place] [address], [place] * IHC HER2/rachel Interpretation and Report (12/14/2022 1:19 PM CDT) Tissue specimen (specimen) 12/14/2022 1:19 PM CDT 12/14/2022 1:19 PM CDT Walter CALLEJAS [facility] IP AP [facility] Performing Organization Address City/[facility]/ZIP Co de Phone Number [facility] [address] [address], [place] * Verify Catheter Tip Placement/Venous Blood Return (12/07/2022 10:15 AM CDT) Narrative Ama Amos APRN - 12/07/2022 10:15 AM CDT Ama Amos APRN 12/07/2022 10:25 AM Central Vascular Access Device Tip Verification Performed by: Ama Amos APRN Authorized by: Ama Amos APRN CVAD Properties Date device placed: Unknown Placed by: OSI Device placement location: Outside facility Catheter Type: Implanted venous port without CT rating visible Catheter lumen: Other Vein location: Internal jugular vein Laterality: Right Tip Verification Properties Diagnostic image available: Chest xray Written diagnostic report available: Yes Tip location per report: Superior vena cava Tip in good position and cleared for infusion Ama Amos APRN IV THERAPY ORDERABLE S * X-ray Chest 2 Views (12/05/2022 11:51 AM CDT) Anatomical Region Laterality Modality Chest Digital Radiogra phy 12/05/2022 11:5 7 AM CDT Impressions 12/05/2022 11:59 AM CDT Central venous catheter appears to be in satisfactory position without visible complication. No acute cardiopulmonary disease. ACTIONABLE ITEMS/RECOMMENDATIONS: None. Narrative 12/05/2022 11:59 AM CDT FULL RESULT: Examination: XR CHEST 2 VW on 12/05/2022 11:51 AM. Clinical History: Adenocarcinoma, NOS of ascending colon Indication: Post-Op Comparison: 11/02/2022 Technique: Posteroanterior, lateral and dual-energy radiographs of the chest Findings: Support Apparatus: Previous longline catheter removed. Right internal jugular port catheter placed with its tip about 5 cm below the azygos arch probably in the superior vena cava. Lungs/Pleura/Mediastinum: Calcified mediastinal lymph nodes. The lungs are normal. There is no mediastinal or hilar adenopathy. The cardiac silhouette is normal. There is no pleural effusion or pneumothorax. Other: Minimal degenerative disk changes in the spine. Cholecystectomy clips. Procedure Note Segundo Barrientos MD - 12/05/2022 FULL RESULT: Examination: XR CHEST 2 VW on 12/05/2022 11:51 AM. Clinical History: Adenocarcinoma, NOS of ascending colon Indication: Post-Op Comparison: 11/02/2022 Technique: Posteroanterior, lateral and dual-energy radiographs of thechest Findings: Support Apparatus: Previous longline catheter removed. Right internaljugular port catheter placed with its tip about 5 cm below the azygos archprobably in the superior vena cava. Lungs/Pleura/Mediastinum: Calcified mediastinal lymph nodes. The lungs arenormal. There is no mediastinal or hilar adenopathy. The cardiacsilhouette is normal. There is no pleural effusion or pneumothorax. Other: Minimal degenerative disk changes in the spine. Cholecystectomyclips. IMPRESSION: Central venous catheter appears to be in satisfactory position withoutvisible complication. No acute cardiopulmonary disease. ACTIONABLE ITEMS/RECOMMENDATIONS: None. 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 Increased risk for toxicity and/or hyperbilirubinemia is not expected with atazanavir, belinostat, dolutegravir, pazopanib, or sacituzumab [facility]. The medication label should be consulted for dosing recommendations. In addition, this genotype indicates carrier status for Gilbert syndrome but is not expected to cause marked congenital unconjugated hyperbilirubinemia. Method See Footnote Genotyping is performed using a PCR-based 5'-nuclease assay. Fluorescently labeled detection probes anneal to the target DNA. PCR is used to amplify the segment of DNA that contains the polymorphism. If the detection probe is an exact match to the target DNA, the 5'-nuclease polymerase degrades the probe, the fire extinguisher mechanic dye is released from the effects of the quencher dye, and a fluorescent signal is detected. Genotypes are assigned based on the allele-specific fluorescent signals that are detected. ([employer] SNP Genotyping Assays User Guide, [employer]) Disclaimer See Footnote Targeted analysis of the following UGT1A1 alleles was performed by a polymerase chain reaction (PCR)-based 5'-nuclease assay using fluorescently labeled detection probes. The variants detected (c.-2951A>G, c.-364C>T, c.-106T>C) are in linkage disequilibrium with the TA repeat alleles, TA5 or *36: c.-41_-40delTA ([id number]),TA7 or *28: c.-41_-40dupTA (g. [id number]). The cDNA positions are provided using [id number] as a reference; genomic coordinates are based on GRCh37. In addition, this assay detects *6 (c.211G>A). The TA7 or *28: c.-41_-40dupTA (g. [id number]) and the TA8 or *37: c.-43_-40dupTATA ([id number]) are both in linkage disequilibrium with c.-2951A>G and c.-364C>T. Therefore, this test is unable to distinguish between TA7 and TA8.TA7 and TA8 are thought to have the same impact on function, and the TA7 is present the vast majority of the time in these instances, so in the presence of the tagging variants, the TA7 is reported. c.-106T>C is associated with the TA5 or *36: c.-41_-40delTA ([id number]) variant. This test does not detect or report variants other than the TA5 (*36), TA7 (*28), and *6 alleles. Numerous additional variants have been described that impair UGT1A1 activity. Results should be interpreted in the context of clinical findings, family history, and other laboratory testing. A negative test result does not exclude risk for adverse drug reactions with [id number] drugs or congenital unconjugated hyperbilirubinemia. If results do not match clinical findings, consider full gene sequencing of the UGT1A1 gene. Drug metabolism may be affected not only by variants in the UGT1A1 gene, but also by other drug-drug interactions. CAUTIONS: Rare variants may be present that could lead to false negative or positive results. If results obtained do not match the clinical findings (phenotype), additional testing should be considered. Samples may contain donor DNA if obtained from patients who received non-leukoreduced blood transfusions or allogeneic hematopoietic stem cell transplantation. Results from samples obtained under these circumstances may not accurately reflect the recipient's genotype. For individuals who have received blood transfusions, the genotype usually reverts to that of the recipient within 6 weeks. For individuals who have received allogeneic hematopoietic stem cell transplantation, a pre-transplant DNA specimen is recommended for testing. UGT1A1 genetic test results in patients who have undergone liver transplantation may not accurately reflect the patient's UGT1A1 status. This test was developed and its performance characteristics determined by [facility] in a manner consistent with CLIA requirements. This test has not been cleared or approved by the U.S. Food and Drug Administration. Reviewed by See Footnote RESULT: Dandre Hall MD Test Performed by: [place] [address] Engineering Operations Leader: Santos Black M.D. Ph.D.; CLIA# [id number] [facility] Test Name UGT1A1 Gene Polymorphism [facility] Varies 12/04/2022 1:49 PM CDT 12/04/2022 2:46 PM CDT Narrative [facility] - 12/22/2022 11:55 AM CDT U1A1Q UGT1A1 Gene Polymorphism (TA repeat)U1A1Q UGT1A1 Gene Polymorphism (TA repeat) Ivan Rubi MD LAB BLOOD ORDERABLES Performing Organization Address City/[facility] Co de Phone Number [facility] Unless otherwise noted, all lab tests performed by: Division of Pathology and Laboratory Medicine [address] [place] [address] * LB Liquid Biopsy Panel V1 Interpretation and Report (12/04/2022 9:13 AM CDT) 12/04/2022 9:13 AM CDT Walter PALMA [facility] (LOUIE BOTELLO) Performing Organization Address [facility] Co de Phone Number [facility] Unless otherwise noted, all lab tests performed by: Division of Pathology and Laboratory Medicine [address] [place] [address] * LB NRAS Mutation Analysis with Interpretation and Report - Liquid Biopsy genotyping when no tumor tissue is available (12/04/2022 9:13 AM CDT) [facility] Molecular Diagnostics (Received) Yes [facility] Blood 12/04/2022 9:13 AM CDT 12/04/2022 1:39 PM CDT Walter PALMA MD BLOOD XAVIRE ECTIONS [facility] Unless otherwise noted, all lab tests performed by: Division of Pathology and Laboratory Medicine [address] [place] [id number] * LB BRAF Mutation Analysis with Interpretation and Report - Liquid Biopsy genotyping when no tumor tissue is available (12/04/2022 9:13 AM CDT) [facility] (Received) Yes [facility] Blood 12/04/2022 9:13 AM CDT 12/04/2022 1:39 PM CDT Walter PALMA MD BLOOD XAVIER ECTIONS [facility] Unless otherwise noted, all lab tests performed by: Division of Pathology and Laboratory Medicine [address] [place] [id number] * NGS Blood Control (12/04/2022 9:13 AM CDT) [facility] (Received) Yes [facility] Blood 12/04/2022 9:13 AM CDT 12/04/2022 1:39 PM CDT Walter LUCAS HP MOLECULAR DIAG IF ORDERABLES [facility] Unless otherwise noted, all lab tests performed by: Division of Pathology and Laboratory Medicine [address] [place] [id number] * OSI PET CT Skull to Mid Thigh (10/12/2022 4:12 AM CDT) Narrative Systemgenerated, Documentation - 11/02/2022 4:12 AM CDT Study acquired at another institution. For comparison only. No Anthony originated interpretation requested or available. Outside Physician IMG OUTSIDE IMAGE OR DERABLES * OSI Chest (10/07/2022 4:12 AM CDT) Narrative Systemgenerated, Documentation - 11/02/2022 4:12 AM CDT Study acquired at another institution. For comparison only. No Anthony originated interpretation requested or available. Outside Physician IMG OUTSIDE IMAGE OR DERABLES after 04/05/2022 Care Teams Nurse Ortho Relationship Specialty Start Date End Date Anjel Yoder MD [address] [place] [id number] PCP - General Gastrointestinal Medical Oncology 11/15/22 11/20/22 Ivan Rubi MD [address] [place] [id number] PCP - General Gastrointestinal Medical Oncology 12/04/22 Walter Lin PA [address] [place] [id number] Physician Maintenance Plumber Gastrointestinal Medical Oncology 11/21/22
[2023-04-05 18:04] LABS: Absolute Lymphocytes (CBC) 1.9 K/uL (0.7-4.9); Hematocrit 40.2 % (36.0-45.0); Lymphocytes % 12.1 % (15.3-44.8); MCV 87.8 fL (80-100); MPV 8.7 fL (7.6-11.3); Platelets 375 thou/uL (152-406); RBC Red Blood Cell Count 4.58 M/uL (3.86-4.86)
[2023-04-05 18:35] LABS: Albumin 3.1 g/dL (3.4-5.0); Bilirubin Total 0.6 mg/dL (0.2-1.0); Potassium 2.9 mEq/L (3.5-5.1); Protein, Total 6.5 g/dL (6.4-8.2)
--- NOTE | 2023-04-05 19:26 | RAD REPORT ---
EXAM DESCRIPTION: CT - CTHCSPWOC - 04/05/2023 6:32 pm CLINICAL HISTORY: fall COMPARISON: No comparisons TECHNIQUE: Axial thin cut noncontrast CT images of the head were obtained. Axial thin cut noncontrast CT images of the cervical spine were obtained. Multiplanar reformatted images were generated and reviewed. All CT scans are performed using dose optimization technique as appropriate and may include automated exposure control or mA/KV adjustment according to patient size. FINDINGS: CT HEAD WITHOUT CONTRAST: No acute hemorrhage, hydrocephalus or extra-axial collection is identified.No areas of brain edema or midline shift. The paranasal sinuses and mastoids are clear.The calvarium is intact. CT CERVICAL SPINE WITHOUT CONTRAST: No fracture or subluxation.Mild endplate, facet, and uncovertebral joint degenerative changes contrib uting to [id number] degrees of neural foraminal narrowing most pronounced at C5-6 and C6-7, wor se on the right.No prevertebral soft tissues swelling is identified. IMPRESSION: No acute traumatic intracranial or cervical spine findings.
--- NOTE | 2023-04-05 19:28 | RAD REPORT ---
EXAM DESCRIPTION: CT - Abdomen Pelvis Wo Contrast - 04/05/2023 6:32 pm CLINICAL HISTORY: Abd pain;Nausea / vomiting COMPARISON: Abdomen Pelvis W/Wo Contrast dated 04/05/2021; Abdomen Pelvis Wo Contrast dated 021 TECHNIQUE: Thin cut axial CT imaging of the abdomen and pelvis was performed without IV contrast. Mu ltiplanar reformats were generated and reviewed. All CT scans are performed using dose optimization technique as appropriate and may include automated exposure control or mA/KV adjustment according to patient size. FINDINGS: No suspicious findings in the lung bases. The liver, spleen, adrenal glands, and pancreas show no suspicious findings apart from punctate foci of calcification throughout the spleen, suggesting benign small granulomas. . Gallbladder was surgica lly removed Symmetric renal contour, without suspicious parenchymal findings within limits of noncontrast techniq ue. No evidence of radiopaque calculi or hydroureteronephrosis. Markedly dilated small bowel loops throughout the abdomen. Transition point appears to be just proxim al to an enteroenteric anastomosis in the right lower quadrant, see axial images 67 through 71. [place] of proximal colectomy and end to side ileocolic anastomosis are present. Anastomotic suture lines that appear to be along the proximal transverse colon, 1 of which appears to be at the end of a blin d loop, appear patent and likely do not communicate with the dilated bowel in my opinion, see coronal image 41 among others. No free air, free fluid or inflammatory stranding. Lobulated fat containing u mbilical hernia. No mass or bulky lymphadenopathy. The urinary bladder is without significant findin g. No suspicious bony findings. IMPRESSION: High-grade small-bowel obstruction with transition point in the right lower quadrant, cl ose to the level of an anterior enteric anastomosis. Other findings as detailed above. The findings were communicated to Michelle Olsen on 04/05/2023 at 19:24 hours.
--- NOTE | 2023-04-05 20:00 | ER ---
Nurse's Notes [facility] Name: Arcelia Leavitt Age: 62 yrs Sex: Female : 1960 Arrival Date: 04/05/2023 Time: 17:41 Bed 6 Private MD: Diagnosis: Small Bowel obstruction;Hypokalemia Presentation: 04/05 17:45 Chief complaint: EMS states: n/v and LLQ pain all day. pt reports falling and hitting kc6 her head the day before last. denies LOC, did not go to the ED at that time. 50mcg of fentanyl and 10mg of reglan given en route by EMS for pain 09/11. BGL 155. Coronavirus screen: At this time, the client does not indicate any symptoms associated with coronavirus-19. Ebola Screen: No symptoms or risks identified at this time. Initial Sepsis Screen: Does the patient meet any 2 criteria? No. Patient's initial sepsis screen is negative. Does the patient have a suspected source of infection? No. Patient's initial sepsis screen is negative. Risk Assessment: Do you want to hurt yourself or someone else? Patient reports no desire to harm self or others. Onset of symptoms was April 05, 2023. 17:45 Method Of Arrival: EMS: [facility] 17:45 Acuity: GAVIOTA 3 kc6 Triage Assessment: 17:47 General: Appears in no apparent distress. comfortable, well groomed, well developed, kc6 Behavior is calm, cooperative, appropriate for age. Pain: Complains of pain in left lower quadrant Pain currently is 3 out of 10 on a pain scale. at worst was 7 out of 10 on a pain scale. EENT: No signs and/or symptoms were reported regarding the EENT system. Neuro: Level of Consciousness is awake, alert, obeys commands, Oriented to person, place, time, situation, Appropriate for age. Cardiovascular: Denies chest pain, Heart tones S1 S2 present Capillary refill < 3 seconds Rhythm is sinus tachycardia. Respiratory: Airway is patent Trachea midline Respiratory effort is even, unlabored, Respiratory pattern is regular, symmetrical, Denies shortness of breath. GI: Abdomen is round Bowel sounds present X 4 quads. Abd is soft X 4 quads Abdomen is tender to palpation in left lower quadrant Reports lower abdominal pain, constipation, nausea, vomiting, Patient currently denies diarrhea. : No signs and/or symptoms were reported regarding the genitourinary system. Derm: Skin is intact, is healthy with good turgor, Skin is pink, warm \T\ dry. Bruising that is dark purple, on face and left eye. Musculoskeletal: No signs and/or symptoms reported regarding the musculoskeletal system. Circulation, motion, and sensation intact. Capillary refill < 3 seconds, Range of motion: intact in all extremities. Historical: - Allergies: 17:47 IVP DYE; kc6 - PMHx: 17:47 colon cancer; kc6 18:02 Myocardial infarction; Hypercholesterolemia; kc6 - PSHx: 17:47 ileostomy; Port-a-cath; Appendectomy; Cholecystectomy; bowel resection; kc6 18:02 Stented artery; kc6 - Immunization history:: Adult Immunizations up to date. - Social history:: Smoking status: Patient denies any tobacco usage or history of. Screenin:50 [facility] ED Fall Risk Assessment (Adult) History of falling in the last 3 months, kc6 including since admission Yes- single mechanical fall (1 pt) Confusion or Disorientation No (0 pts) Intoxicated or Sedated No (0 pts) Impaired Gait No (0 pts) Mobility Assist Device Used No (0 pt) Altered Elimination No (0 pt) Score/Fall Risk Level 0 - 2 = Low Risk. Abuse screen: Denies threats or abuse. Denies injuries from another. Nutritional screening: No deficits noted. Tuberculosis screening: No symptoms or risk factors identified. Assessment: 17:50 Reassessment: please see triage assesment. kc 18:54 Reassessment: Patient appears in no apparent distress at this time. No changes from kc6 previously documented assessment. Patient and/or family updated on plan of care and expected duration. Pain level reassessed. Patient is alert, oriented x 3, equal unlabored respirations, skin warm/dry/pink. 19:29 General: Appears comfortable, Behavior is calm, cooperative, appropriate for age. Pain: ha1 Denies pain. Neuro: Level of Consciousness is awake, alert, obeys commands, Oriented to person, place, time, situation. Cardiovascular: Capillary refill < 3 seconds Patient's skin is warm and dry. Respiratory: Airway is patent Respiratory effort is even, unlabored. GI: Abdomen is round non-distended, Reports bloating, constipation. : No signs and/or symptoms were reported regarding the genitourinary system. Derm: Bruising that is dark purple, on left eye. Musculoskeletal: Range of motion: intact in all extremities. 20:50 Reassessment: Patient and/or family updated on plan of care and expected duration. Pain ha1 level reassessed. Patient is alert, oriented x 3, equal unlabored respirations, skin warm/dry/pink. 21:30 Reassessment: Patient and/or family updated on plan of care and expected duration. Pain ha1 level reassessed. Patient is alert, oriented x 3, equal unlabored respirations, skin warm/dry/pink. 21:30 Reassessment: report given to [facility]. ha1 21:45 Reassessment: Missed attempted on NG tube. ha1 21:58 Reassessment: Dr. Pablo okayed the use of viscous lidocaine for NG tube insertion, jb4 attempted 16fr and 12fr NG tube. Unable to place tube due to inability to clear nasal passage. 21:59 Reassessment: Patient and/or family updated on plan of care and expected duration. Pain ha1 level reassessed. Patient is alert, oriented x 3, equal unlabored respirations, skin warm/dry/pink. Patient states feeling better. Patient states symptoms have improved. Vital Signs: 17:45 BP 124 / 91; Pulse 100; Resp 16 S; Temp 98.2(O); Pulse Ox 98% on R/A; Weight 62.6 kg kc6 (R); Height 5 ft. 5 in. (R); Pain 3/10; 18:54 BP 112 / 83; Pulse 92; Resp 16 S; Pulse Ox 98% on R/A; kc6 19:31 BP 114 / 85; Pulse 89; Resp 18; Pulse Ox 97% on R/A; ha1 20:45 BP 154 / 102; Pulse 96; Resp 17 S; Pulse Ox 98% on R/A; ha1 21:17 BP 145 / 101; Pulse 91; Resp 17 S; Pulse Ox 98% on R/A; ha1 22:00 BP 133 / 96; Pulse 95; Resp 17; Pulse Ox 96% on R/A; as9 17:45 Body Mass Index 22.96 (62.60 kg, 165.1 cm) kc6 17:45 Pain Scale: Adult kc6 ED Course: 17:44 Patient arrived in ED. sb4 17:44 Jesse Pablo DO is Attending Physician. ms3 17:45 Lindsey Hernandez, ERIC is Primary Nurse. kc6 17:47 Triage completed. kc6 17:47 Arm band placed on. kc6 17:50 Patient has correct armband on for positive identification. Bed in low position. Call kc6 light in reach. Side rails up X2. Adult w/ patient. Client placed on continuous cardiac and pulse oximetry monitoring. NIBP monitoring applied. compliance monitor on. 17:50 Maintain EMS IV. Dressing intact. Good blood return noted. Site clean \T\ dry. Gauge \T\ christian 6 site: 18G R HAND. Patient maintains SpO2 saturation greater than 95% on room air. 18:34 CT Abd/Pelvis - Without Contrast In Process Unspecified. EDMS 18:34 CT Head C Spine In Process Unspecified. EDMS 19:35 initiate transfer with amy \T\ [facility]. pm6 20:13 Dr Hahn accepted pt. pm6 20:31 [facility] accepted pt bed #[id number]. pm6 21:54 initiated trnsfer of pt with [facility] ETA 15-20 Min. pm6 22:18 No provider procedures requiring assistance completed. Patient transferred, IV remains ha1 in place. 22:22 Provided Education on: need for transfer. as9 Administered Medications: 17:59 Drug: Famotidine IVP 20 mg IVP once; dilute with 10 mL 0.9% NaCl; give over 2 minutes kc Route: IVP; Site: right hand; 18:54 Follow up: Response: No adverse reaction kc6 18:08 Drug: morphine IVP or IV 4 mg IVP once over 4 mins Route: IVP; Infused Over: 4 mins; 6 Site: right hand; 18:54 Follow up: Response: No adverse reaction; Pain is decreased; RASS: Alert and Calm (0) kc6 20:21 Drug: NS IV 0.45 % 1000 ml IV at 125 ml/hr continuous Route: IV; Rate: 125 ml/hr; Site: jb4 right hand; 22:27 Follow up: Response: No adverse reaction; IV Status: Infusion continued; IV Intake: as9 300ml 20:21 Drug: Potassium Chloride IV 40 mEq IV at calculated rate once; administer over 2-4 jb4 hours Route: IV; Rate: calculated rate; Site: right hand; 22:26 Follow up: Response: No adverse reaction; IV Status: Infusion continued as9 22:10 Drug: Ondansetron IVP 4 mg IVP once; over 2 minutes Route: IVP; Site: right hand; ha1 22:25 Follow up: Response: No adverse reaction; Nausea is decreased as9 22:12 Drug: morphine IVP or IV 4 mg IVP once over 4 mins Route: IVP; Infused Over: 4 mins; ha1 Site: right hand; 22:26 Follow up: Response: No adverse reaction; Pain is decreased; RASS: Alert and Calm (0) as9 Medication: 20:04 VIS not applicable for this client. ha1 Intake: 22:27 IV: 300ml; Total: 300ml. as9 Outcome: 19:59 ER care complete, transfer ordered by . ms3 22:21 Transferred by ground EMS to [facility], Transfer form completed. as9 X-rays sent w/ patient. 22:21 Condition: stable 22:21 Instructed on the need for transfer, Demonstrated understanding of instructions, 22:28 Patient left the ED. as9 Signatures: Dispatcher [employer] EDMS Juan Francisco Beth RN RN jb4 Jesse Pablo DO DO ms3 Elizabeth Morales RN RN ha1 Lindsey Hernandez RN RN kc6 Michelle Olsen PA-C PAMain manrique4 Crystal Meyer pm6 Yariel Kirk RN RN as9 Corrections: (The following items were deleted from the chart) 17:48 17:45 Chief complaint: EMS states: n/v and LLQ pain all day. 50mcg of fentanyl and 10mg kc6 of reglan given en route by EMS for pain 09/11. BGL 155 kc6
--- NOTE | 2023-04-05 20:00 | EDPHYS ---
Physician Documentation [facility] Name: Arcelia Leavitt Age: 62 yrs Sex: Female : 1960 Arrival Date: 04/05/2023 Time: 17:41 Bed 6 Private MD: ED Physician Jesse Pablo HPI: 04/05 17:45 This 62 yrs old Female presents to ER via EMS with complaints of Nausea/Vomiting, ms3 Abdominal Pain. 17:45 62-year-old female presents via [facility] for nausea and vomiting that began today and ms3 unable to keep down p.o. intake. Patient's last chemo for stage IV colon cancer was at [facility] at the end of March. Patient had a CT performed at [facility] on showing impaction patient was transferred to [facility]. EMS notes patient's heart rate to be 140 and decreased to 99 after 500 mL of normal saline. Patient notes she did have a fall 2 days ago. Patient states her discomfort is a 6/10. Historical: - Allergies: 17:47 IVP DYE; kc6 - PMHx: 17:47 colon cancer; kc6 18:02 Myocardial infarction; Hypercholesterolemia; kc6 - PSHx: 17:47 ileostomy; Port-a-cath; Appendectomy; Cholecystectomy; bowel resection; kc6 18:02 Stented artery; kc6 - Immunization history:: Adult Immunizations up to date. - Social history:: Smoking status: Patient denies any tobacco usage or history of. ROS: 17:45 Constitutional: Negative for fever, and chills. Neck: Negative for injury, pain, and ms3 swelling, Cardiovascular: Negative for chest pain, and palpitations. Respiratory: Negative for shortness of breath, cough, wheezing, and pleuritic chest pain, 17:45 MS/Extremity: Negative for injury and deformity, Skin: Negative for injury, rash, and discoloration, 17:45 Abdomen/GI: Positive for abdominal pain, nausea and vomiting, 17:45 All other systems are negative, Exam: 17:45 Constitutional: This is a well developed, well nourished patient who is awake, alert, ms3 and in no acute distress. Head/Face: Normocephalic, atraumatic. Neck: Trachea midline, no cervical lymphadenopathy. Supple, full range of motion without nuchal rigidity, or vertebral point tenderness. No Meningismus. Chest/axilla: Normal chest wall appearance and motion. Nontender with no deformity. Cardiovascular: Regular rate and rhythm with a normal S1 and S2. No gallops, murmurs, or rubs. Normal PMI, no JVD. No pulse deficits. Respiratory: Lungs have equal breath sounds bilaterally, clear to auscultation and percussion. No rales, rhonchi or wheezes noted. No increased work of breathing, no retractions or nasal flaring. Skin: Warm, dry with normal turgor. Normal color with no rashes, no lesions, and no evidence of cellulitis. 17:45 Abdomen/GI: Inspection: abdomen appears normal, Bowel sounds: normal, Palpation: mild abdominal tenderness, in all quadrants, Abdominal scars from previous surgeries present, Vital Signs: 17:45 BP 124 / 91; Pulse 100; Resp 16 S; Temp 98.2(O); Pulse Ox 98% on R/A; Weight 62.6 kg kc6 (R); Height 5 ft. 5 in. (R); Pain 3/10; 18:54 BP 112 / 83; Pulse 92; Resp 16 S; Pulse Ox 98% on R/A; kc6 19:31 BP 114 / 85; Pulse 89; Resp 18; Pulse Ox 97% on R/A; ha1 20:45 BP 154 / 102; Pulse 96; Resp 17 S; Pulse Ox 98% on R/A; ha1 21:17 BP 145 / 101; Pulse 91; Resp 17 S; Pulse Ox 98% on R/A; ha1 22:00 BP 133 / 96; Pulse 95; Resp 17; Pulse Ox 96% on R/A; as9 17:45 Body Mass Index 22.96 (62.60 kg, 165.1 cm) kc6 17:45 Pain Scale: Adult kc6 MDM: 17:44 Patient medically screened. ms3 17:45 Differential diagnosis: Nonspecific abd pain, Bowel obstruction vs Dehydration. ms3 19:54 Management of patient was discussed with the following: Hydraulic Jack Mechanic: Discussed case with ms3 Dr Hoang and he will consult on patient.. 20:20 Data reviewed: vital signs, nurses notes, lab test result(s), radiologic studies, and ms3 as a result, I will transfer patient. Consideration of Admission/Observation Patient transferred to [facility]. Management of patient was discussed with the following: Hospitalist: Discussed case with Dr Hahn and he accepts patient to [facility]. I considered the following discharge prescriptions or medication management in the emergency department Medications were administered in the Emergency Department. See MAR. Independent interpretation of the following test(s) in the Emergency Department CT Scan: My interpretation is CT abdomen and pelvis without IV contrast shows bowel obstruction. Historians other than the Patient: EMS: [facility]. Care significantly affected by the following chronic conditions: Cancer, HLD. 20:22 Counseling: I had a detailed discussion with the patient and/or guardian regarding the ms3 historical points, exam findings, and any diagnostic results supporting the discharge/admit diagnosis, lab results, radiology results, the need to transfer to another facility, for higher level of care. ED course: Discussed with patient necessity for transfer and patient understands and agrees with plan. All questions were answered.. 04/05 17:45 Order name: CBC with Diff; Complete Time: 19:30 ms3 04/05 17:45 Order name: CMP; Complete Time: 19:30 ms3 04/05 17:45 Order name: Lipase; Complete Time: 19:30 ms3 04/05 17:45 Order name: Urinalysis w/ reflexes; Complete Time: 21:48 ms3 04/05 17:45 Order name: CT Abd/Pelvis - Without Contrast; Complete Time: 19:30 ms3 04/05 18:22 Order name: CT Head C Spine; Complete Time: 19:30 ms3 04/05 20:22 Order name: EKG; Complete Time: 20:23 ms3 04/05 17:45 Order name: IV Saline Lock; Complete Time: 17:51 ms3 04/05 17:45 Order name: Labs collected and sent; Complete Time: 17:59 ms3 04/05 19:55 Order name: NPO; Complete Time: 20:01 ms3 04/05 20:22 Order name: EKG - Nurse/Tech; Complete Time: 21:51 ms3 Administered Medications: 17:59 Drug: Famotidine IVP 20 mg IVP once; dilute with 10 mL 0.9% NaCl; give over 2 minutes kc6 Route: IVP; Site: right hand; 18:54 Follow up: Response: No adverse reaction kc6 18:08 Drug: morphine IVP or IV 4 mg IVP once over 4 mins Route: IVP; Infused Over: 4 mins; kc6 Site: right hand; 18:54 Follow up: Response: No adverse reaction; Pain is decreased; RASS: Alert and Calm (0) kc6 20:21 Drug: NS IV 0.45 % 1000 ml IV at 125 ml/hr continuous Route: IV; Rate: 125 ml/hr; Site: jb4 right hand; 22:27 Follow up: Response: No adverse reaction; IV Status: Infusion continued; IV Intake: as9 300ml 20:21 Drug: Potassium Chloride IV 40 mEq IV at calculated rate once; administer over 2-4 jb4 hours Route: IV; Rate: calculated rate; Site: right hand; 22:26 Follow up: Response: No adverse reaction; IV Status: Infusion continued as9 22:10 Drug: Ondansetron IVP 4 mg IVP once; over 2 minutes Route: IVP; Site: right hand; ha1 22:25 Follow up: Response: No adverse reaction; Nausea is decreased as9 22:12 Drug: morphine IVP or IV 4 mg IVP once over 4 mins Route: IVP; Infused Over: 4 mins; ha1 Site: right hand; 22:26 Follow up: Response: No adverse reaction; Pain is decreased; RASS: Alert and Calm (0) as9 Disposition Summary: 04/05/23 19:59 Transfer Ordered Notes: Transfer Location: [facility] ms3 Reason: Higher level of care ms3 Condition: Stable ms3 Problem: new ms3 Symptoms: are unchanged ms3 Accepting Physician: (04/05/23 22:28) as9 Diagnosis - Small Bowel obstruction ms3 - Hypokalemia ms3 Forms: - Medication Reconciliation Form ms3 - SBAR form ms3 Critical care time excluding procedures: 20:22 Critical care time: Bedside Care: 30 minutes, Consultation: 5 minutes. Total time: 35 ms3 minutes Signatures: Dispatcher [employer] EDJuan Francisco Dye RN RN jb4 Jesse Pablo DO DO ms3 Elizabeth Morales RN RN ha1 Lindsey Hernandez RN RN kc6 Vish Friend MD MD rt Yariel Kirk RN RN as9 Corrections: (The following items were deleted from the chart) 21:51 19:55 NG Tube ordered. ms3 jb4 22:11 19:55 Abdomen 1 View (KUB)+RAD.RAD.BRZ ordered. EDMS EDMS 19:59 Dr ms3 as9 : Dr as9 as9
[2023-04-05 20:43] LABS: Specific Gravity 1.025 (1.005-1.030); Urine Bacteria None Seen /HPF (<20); Urine Bilirubin NEGATIVE (Negative); Urine Blood Negative (Negative); Urine Clarity Clear (Clear); Urine Color Light-Yellow (Yellow); Urine Glucose NEGATIVE (Negative); Urine Mucus Slight /HPF (None Seen); Urine Protein TRACE (Negative); Urine RBC <5 /HPF (None Seen); Urine Urobilinogen Normal (Normal)
[2023-04-05 23:17] VITALS: BP 133/96; TEMP 98.2; O2SAT 96
--- NOTE | 2023-04-09 15:11 | EKG ---
Test Date: 2023-04-05 Test Time: 21:03:15 Junior Designer: MEASUREMENT RESULTS: Intervals: Rate: 91 TN: 130 QRSD: 88 QT: 382 QTc: 469 [place]: P: 37 TN: 130 QRS: 59 T: 41 INTERPRETIVE STATEMENTS: Normal sinus rhythm Nonspecific ST abnormality Abnormal ECG No previous ECG available for comparison Electronically Signed On 04-09-23 15:03:01 TITLE CHECKER by Pete Lal
== END ==
LOC: ER 17:41
DX: K56.609 Unspecified intestinal obstruction, unspecified as to partial versus complete obstruction (principal); E87.6 Hypokalemia; Z85.038 Personal history of other malignant neoplasm of large intestine; Z91.041 Radiographic dye allergy status
CPT/HCPCS: 93005; 85025; 81001; 36415; 83690; 80053; 70450; 72125; 74176; J3480; J2405

== ENCOUNTER → 2023-04-20 | Emergency (ER) | payer OTHER ==
[~2023-04-20] MED LIST changes: -FAMOTIDINE 20 MG/2 ML VIAL IV ONE; -KCL 20 MEQ/100 mL IVPB 200 ML IV ONE; +LIDOCAINE 2% W/EPI 1:200,000 MPF 20 ML VIAL IM ONE; -LIDOCAINE VISCOUS 2% 10ML ORAL SOLN ONE; -MORPHINE 4 MG/ML SYR ONE; -NACHLORIDE 0.45% 1,000 ML IV ONE; -ONDANSETRON 4 MG/2 ML VIAL ONE
--- OUTSIDE RECORDS SUMMARY | 2023-04-20 17:33 | XMS REPORT | Clinical Summary ---
Author Name Unknown Organization [facility] [place] Address [address] [place] [address] Care Team Providers Care Experimental Electronics Developer Name Role Phone Anjel Yoder MD Primary Care Provider Ivan Rubi MD Primary Care Provider [phone] Walter Lin PA Unavailable [phone] Allergies Active Allergy Reactions Criticality Noted [...] scan with contrast. Refill is there to pecan picker for future scans. 3 tablet 1 01/02/20 23 Active HYDROcodone-acetam inophen (Crozier) 5 mg-325 mg per tabletIndications: Adenocarcinoma, NOS [...] scan with contrast. Refill is there to pecan picker for future scans. 1 capsule 1 01/02/20 23 023 Active Problems Problem Noted Date Diagnosed Date Adenocarcinoma, NOS of ascending colon 3 Cancer Staging:Clinical:Stage IVC(pM1c) - Signed by Walter Lin PA on 11/21/2022 Encounters Date Type Department Care Team Description 04/05/2023 Telephone MD [facility] Medical Oncology [address] [place] [address] Shellie Tafoya MD 03/29/2023 Telephone Gastrointestinal Center [facility] [facility], 7th [place] [address] Lena Randhawa RN 03/26/2023 11:00 AM [facility] CAPITALIST Follow-Up Colorectal Center - Medical Oncology [facility] [address] [facility], 7th [place] [address] Ivan Rubi MD Adenocarcinoma, NOS of ascending colon 03/26/2023 9:37 AM VENTURE CAPITALIST - 03/26/2023 11:59 PM [facility]ENTURE CAPITALIST Hospital Encounter Diagnostic Laboratory Center [facility]5 [facility], [place] [address] Ivan Rubi MD Adenocarcinoma, NOS of ascending colon Discharge Disposition: Home 03/26/2023 Orders Only Gastrointestinal Center [facility] [address] [facility], 7th [place] [address] Aracely Redmond [facility] 03/26/2023 Travel 03/12/2023 2:00 PM VENTURE CAPITALIST Telemedicine Colorectal Center - Medical Oncology [facility] [address] [facility], 7th [place] [address] Ivan Rubi MD Adenocarcinoma, NOS of ascending colon (Primary Dx) 03/12/2023 Orders Only Gastrointestinal Center [address] [place] [address] Main dg, 7th [place] [address] Aracely Redmond [facility] Adenocarcinoma, NOS of ascending colon (Primary Dx) 03/09/2023 Orders Only MD [facility] in [place] - Infusion [address] [place] [address] [address] [place] [address] Ivan Rubi MD Adenocarcinoma, NOS of ascending colon (Primary Dx) 03/02/2023 9:00 AM VENTURE CAPITALIST Infusion MD [facility] in [place] - Infusion [address] [address] Ivan Rubi MD Jacob, Saly, RN Adenocarcinoma, NOS of ascending colon 03/02/2023 Travel 02/28/2023 8:00 AM VENTURE CAPITALIST Infusion MD [facility] in [place] - Infusion [address] [place] [address] Ivan Rubi MD Silvan, Maureen Faith, RN Adenocarcinoma, NOS of ascending colon (Primary Dx) 02/28/2023 Travel 02/23/2023 Orders Only G[facility] Center [address] [place] [address] Main dg, 7th [place] [address] Ivan Rubi MD 02/21/2023 Orders Only MD [facility] in [place] - Infusion [address] [place] [address] Ivan Rubi MD Adenocarcinoma, NOS of ascending colon (Primary Dx) 02/19/2023 Orders Only Gastro[facility] Center [address] [place] [address] Main dg, 7th [place] [address] [facility] Adenocarcinoma, NOS of ascending colon (Primary Dx) 02/16/2023 8:00 AM VENTURE CAPITALIST Infusion MD [facility] in [place] - Infusion [address] [place] [address] Ivan Rubi MD Silvan, Maureen Faith, RN Adenocarcinoma, NOS of ascending colon 02/16/2023 Travel 02/14/2023 7:45 AM VENTURE CAPITALIST Infusion MD [facility] in [place] - Infusion [address] [place] [address] Ivan Rubi MD Silvan, Maureen Faith, RN Adenocarcinoma, NOS of ascending colon (Primary Dx) 02/14/2023 Travel 02/02/2023 11:45 AM VENTURE CAPITALIST Infusion MD [facility] in [place] - Infusion [address] [place] [address] Ivan Rubi MD Landicho, Michael S RN Adenocarcinoma, NOS of ascending colon 02/02/2023 Travel 01/31/2023 12:00 PM VENTURE CAPITALIST Infusion MD [facility] in [place] - Infusion [address] [facility] [address] [place] [address] Ivan Rubi MD Venegas, Carrie A, ERIC Adenocarcinoma, NOS of ascending colon (Primary Dx) 01/31/2023 Travel 01/31/2023 Orders Only MD [facility] in [place] - Infusion [address] [facility] [address] [place] [address] Ivan Rubi MD Adenocarcinoma, NOS of ascending colon (Primary Dx) 01/30/2023 Orders Only Gastrointestinal Center [address] [place] [address], 7th [place] [address] Ivan Rubi MD Adenocarcinoma, NOS of ascending colon (Primary Dx) 01/29/2023 9:20 AM VENTURE CAPITALIST Follow-Up Colorectal Center - Medical Oncology [address] [place] [address], 7th [place] [address] Ivan Rubi MD Adenocarcinoma, NOS of ascending colon (Primary Dx) 01/29/2023 6:55 AM VENTURE CAPITALIST Ancillary Procedure [facility] [address] [place] [address] Ivan Rubi MD Adenocarcinoma, NOS of ascending colon 01/29/2023 Travel 01/27/2023 10:46 AM VENTURE CAPITALIST - 01/27/2023 11:59 PM VENTURE CAPITALIST Hospital Encounter Diagnostic Laboratory Center [address] [place] [address], [place] [address] Ivan Rubi MD Adenocarcinoma, NOS of ascending colon Discharge Disposition: Home 01/24/2023 Orders Only Gastro[facility] Center [address] [place] [address], 7th [place] [address] Ivan Rubi MD Adenocarcinoma, NOS of ascending colon (Primary Dx) 01/24/2023 Orders Only Gastro[facility] Center [address] [place] [address], 7th [place] [address] Nanci Barr PA 01/24/2023 [facility] [address] [place] [address] 3 [place] [address] Jumana Bernard, ERIC 01/19/2023 12:00 PM VENTURE CAPITALIST Infusion MD [facility] in [place] - Infusion [address] [place] [address] Ivan Rubi MD Landicho, Michael S, RN Adenocarcinoma, NOS of ascending colon (Primary Dx) 01/19/2023 Travel 01/17/2023 12:00 PM VENTURE CAPITALIST Infusion MD [facility] in [place] - Infusion [address] [place] [address] Ivan Rubi MD Jones, Ashley D, RN Adenocarcinoma, NOS of ascending colon (Primary Dx) 01/17/2023 Travel 01/15/2023 [facility] [address] [place] [address], 7th [place] [address] Tevin Braswell MD 01/05/2023 11:00 AM CDT Infusion MD [facility] in [place] - Infusion [address] [place] [address] Ivan Rubi MD Rodil, Virginia C, RN Adenocarcinoma, NOS of ascending colon 01/05/2023 Travel 01/03/2023 10:00 AM CDT Infusion [place] [address] Ivan Rubi MD Pakeltis, Melody J, RN Adenocarcinoma, NOS of ascending colon (Primary Dx) 01/03/2023 Travel 01/03/2023 Orders Only MD [facility] in [place] - Infusion [address] [place] [address] Ivan Rubi MD Adenocarcinoma, NOS of ascending colon (Primary Dx) 01/01/2023 10:20 AM CDT Follow-Up Colorectal Center - Medical Oncology [address] [place] [address], 7th Floor Elevator [place] [phone] Ivan Rubi MD Adenocarcinoma, NOS of ascending colon (Primary Dx) 01/01/2023 7:56 AM CDT - 01/01/2023 11:59 PM CDT Hospital Encounter Diagnostic Laboratory Center [address] [place] [address], [place] [address] Walter Lin PA Adenocarcinoma, NOS of ascending colon Discharge Disposition: Home 01/01/2023 Orders Only Gastro[facility] Center [address] [place] [address], 7th [place] [address] Nanci Barr PA 01/01/2023 Travel 12/29/2022 11:03 AM CDT - 12/29/2022 11:59 PM CDT Hospital Encounter Quinn King MD Faber, Jamie M, PA Adenocarcinoma, NOS of ascending colon (Primary Dx) Discharge Disposition: Home 12/22/2022 12:45 PM CDT Infusion MD [facility] in [place] - Infusion [address] [place] [address] Ivan Rubi MD Mendoza, Gina B RN Adenocarcinoma, NOS of ascending colon 12/22/2022 Travel 2022 12:00 PM CDT Infusion MD [facility] in [place] - Infusion [address] [place] [address] Ivan Rubi MD Venegas, Carrie A, RN Adenocarcinoma, NOS of ascending colon (Primary Dx) 2022 Travel 2022 Orders Only Gastrointestinal [address], [address] [place] [address] [place] [address] Ivan Rubi MD 12/19/2022 10:30 AM CDT Telemedicine Gastrointestinal Center [address] [place] [address], [facility] [place] [address] Walter Lin PA Adenocarcinoma, NOS of ascending colon (Primary Dx) 12/14/2022 Orders Only Gastrointestinal Center [address] [place] [address], [facility] [place] [address] Walter Lin PA Adenocarcinoma, NOS of ascending colon (Primary Dx) 12/09/2022 11:15 AM CDT - 12/09/2022 11:59 PM CDT Hospital Encounter Ambulatory Treatment Center - Main Building [address] [place] [address], 2nd [place] [address] Ivan Rubi MD Argueta, Dorothy Anne Did, RN Adenocarcinoma, NOS of ascending colon Discharge Disposition: Home 12/09/2022 9:20 AM CDT - 12/09/2022 11:14 AM CDT Hospital Encounter V[facility] Access and Procedures Center [address] [place] [address], 8th [place] [address] Ivan Rubi MD Valeriano, Jermainecef D supervisor rod placing Disposition: Home 12/09/2022 Travel 12/07/2022 10:15 AM CDT Infusion MD [facility] in [place] - Infusion [address] [facility] [address] [place] [address] Ivan Rubi MD Mendoza, Gina B RN Adenocarcinoma, NOS of ascending colon (Primary Dx) 12/07/2022 Travel 12/05/2022 12:00 PM CDT Ancillary Procedure Diagnostic Center [facility], 2nd [place] [address] Ivan Rubi MD Adenocarcinoma, NOS of ascending colon 12/05/2022 Orders Only Gastrointestinal Center [address] [place] [address], 7th [place] [address] Ivan Rubi MD Neoplasm related pain (acute) (chronic) (Primary Dx) 12/04/2022 1:42 PM CDT - 12/04/2022 11:59 PM CDT Hospital Encounter Diagnostic Laboratory Center [address] [place] [address], [place] [address] Ivan Rubi MD Adenocarcinoma, NOS of ascending colon Discharge Disposition: Home 12/04/2022 11:00 AM CDT Follow-Up Colorectal Center - Medical Oncology [address] [place] [address], 7th Floor [place]ator [place] [phone] Ivan Rubi MD Adenocarcinoma, NOS of ascending colon 12/04/2022 8:57 AM CDT - 12/04/2022 1:41 PM CDT Hospital Encounter Diagnostic Laboratory Center [address] [place] [address], [place] [address] Walter Lin PA Adenocarcinoma, NOS of ascending colon Discharge Disposition: Home 12/04/2022 Orders Only Gastro[facility] Center [address] [place] [address], [facility] Floor Elevator [place] [phone] Ivan Rubi MD Adenocarcinoma, NOS of ascending colon (Primary Dx) 12/04/2022 Orders Only Gastrointestinal Center [address] [place] [address], [facility] [place] [address] Aracely Redmond, [facility] Adenocarcinoma, NOS of ascending colon (Primary Dx) 12/04/2022 Travel 11/21/2022 1:00 PM CDT Telemedicine Gastro[facility] Center [address] [place] [address], [address] [place] [address] [place] [address] Walter Lin PA Adenocarcinoma, NOS of ascending colon (Primary Dx) 11/20/2022 Lab Requisition [facility] Bj Ramos MD Ashly, MD Radha Discharge Disposition: Home 11/15/2022 10:00 AM CDT NPR [facility] PATIENT ACCESS 11/10/2022 Travel 11/02/2022 3:35 AM CDT Ancillary Procedure [facility] [address] [place] [address] Cancer 11/02/2022 3:30 AM CDT Ancillary Procedure [facility] [address] [place] [address] Cancer 11/02/2022 3:25 AM CDT Ancillary Procedure [facility] [address] [place] [address] Cancer 11/02/2022 3:20 AM CDT Ancillary Procedure [facility] [address] [place] [address] Cancer 11/02/2022 3:15 AM CDT Ancillary Procedure [facility] [address] [place] [address] Cancer 11/02/2022 3:10 AM CDT Ancillary Procedure [facility] [address] [place] [address] Cancer 11/02/2022 3:05 AM CDT Ancillary Procedure [facility] [address] [place] [address] Cancer 11/02/2022 3:00 AM CDT Ancillary Procedure [facility] [address] [place] [address] Cancer 11/02/2022 2:55 AM CDT Ancillary Procedure [facility] [address] [place] [address] Cancer 11/02/2022 2:50 AM CDT Ancillary Procedure [facility] [address] [place] [address] Cancer 11/02/2022 2:45 AM CDT Ancillary Procedure [facility] [address] [place] [address] Cancer 11/02/2022 2:40 AM CDT Ancillary Procedure [facility] [address] [place] [address] Cancer after 04/20/2022 Surgical History Surgery Date Site/Laterality Comments COLON SURGERY 2020 COLONOSCOPY 2020 CORONARY ARTERY BYPASS GRAFT 2022 CHOLECYSTECTOMY 1990 UPPER GASTROINTESTINAL ENDOSCOPY 2020 Medical History Medical History Date Comments Myocardial infarction 10/07/22 Irregular heart beat 1986 Lung nodule 2020 Cyst of breast 1986 Emphysema 2020 Diverticulitis 2020 Irritable bowel syndrome 2020 Polyp of colon [...] Comments Blood Pressure 116/82 03/26/2023 11:09 AM V[facility]URE CAPITALIST Pulse 86 03/26/2023 11:09 AM VENTURE CAPITALIST Temperature 36.4 C (97.5 F) 03/26/2023 11:[address] Respiratory Rate 18 03/26/2023 11:09 AM VENTURE CAPITALIST Oxygen Saturation 97% 03/26/2023 11:09 AM VENTURE CAPITALIST Inhaled Oxygen Concentration - - Weight 65.9 kg (145 lb 4.5 oz) 03/26/2023 11:00 AM VENTURE CAPITALIST Height 164 cm (5' 4.57") 12/04/2022 2:01 PM CDT Body Mass Index 24.5 12/04/2022 2:01 PM CDT Plan of Treatment Health Maintenance Due Date Last Done Comments COVID-19 Vaccination (3 - Pf izer risk series) 10/09/2020 09/11/2020, 08/16/2020 Procedures Procedure Name Priority Date/Time Associated Diagnosis Comments .CBC Routine 03/26/2023 9:47 AM [facility] CAPITALIST Adenocarcinoma, NOS of ascending colon CARCINOEMBRYONIC ANTIGEN Routine 024 9:47 AM VENTURE CAPITALIST Adenocarcinoma, NOS of ascending colon LACTATE DEHYDROGENASE Routine 03/26/2023 9:47 AM [facility]URE CAPITALIST Adenocarcinoma, NOS of ascending colon PHOSPHORUS LEVEL Routine 03/26/2023 9:47 AM [facility]URE CAPITALIST Adenocarcinoma, NOS of ascending colon MAGNESIUM LEVEL Routine 03/26/2023 9:47 AM [facility]URE CAPITALIST Adenocarcinoma, NOS of ascending colon COMPREHENSIVE METABOLIC PANEL Routine 03/26/2023 9:47 AM V[facility]URE CAPITALIST Adenocarcinoma, NOS of ascending colon COMPLETE BLOOD COUNT W/ DIFFERENTIAL Routine 03/26/2023 9:47 AM VENTURE CAPITALIST Adenocarcinoma, NOS of ascending colon .CBC Routine 02/28/2023 7:13 AM VENTURE CAPITALIST Adenocarcinoma, NOS of ascending colon COMPLETE BLOOD COUNT W/ DIFFERENTIAL Routine 02/28/2023 7:13 AM VENTURE CAPITALIST Adenocarcinoma, NOS of ascending colon MAGNESIUM LEVEL Routine 02/28/2023 7:13 AM VENTURE CAPITALIST Adenocarcinoma, NOS of ascending colon COMPREHENSIVE METABOLIC PANEL Routine 02/28/2023 7:13 AM VENTURE CAPITALIST Adenocarcinoma, NOS of ascending colon .CBC Routine 02/14/2023 6:46 AM VENTURE CAPITALIST Adenocarcinoma, NOS of ascending colon COMPLETE BLOOD COUNT W/ DIFFERENTIAL Routine 02/14/2023 6:46 AM V[facility]URE CAPITALIST Adenocarcinoma, NOS of ascending colon .CBC Routine 01/31/2023 11:09 AM VENTURE CAPITALIST Adenocarcinoma, NOS of ascending colon COMPLETE BLOOD COUNT W/ DIFFERENTIAL Routine 01/31/2023 11:09 AM VENTURE CAPITALIST Adenocarcinoma, NOS of ascending colon CT CHEST ABDOMEN PELVIS W CONTRAST Routine 01/29/2023 9:10 AM VENTURE CAPITALIST Adenocarcinoma, NOS of ascending colon .CBC Routine 01/27/2023 10:50 AM VENTURE CAPITALIST Adenocarcinoma, NOS of ascending colon CARCINOEMBRYONIC ANTIGEN Routine 023 10:50 AM VENTURE CAPITALIST Adenocarcinoma, NOS of ascending colon LACTATE DEHYDROGENASE Routine 01/27/2023 10:50 AM VENTURE CAPITALIST Adenocarcinoma, NOS of ascending colon PHOSPHORUS LEVEL Routine 01/27/2023 10:5 0 AM VENTURE CAPITALIST Adenocarcinoma, NOS of ascending colon MAGNESIUM LEVEL Routine 01/27/2023 10:50 AM VENTURE CAPITALIST Adenocarcinoma, NOS of ascending colon COMPREHENSIVE METABOLIC PANEL Routine 01/27/2023 10:50 AM VENTURE CAPITALIST Adenocarcinoma, NOS of ascending colon COMPLETE BLOOD COUNT W/ DIFFERENTIAL Routine 01/27/2023 10:50 AM V[facility]URE CAPITALIST Adenocarcinoma, NOS of ascending colon .CBC Routine 01/17/2023 11:12 AM VENTURE CAPITALIST Adenocarcinoma, NOS of ascending colon COMPLETE BLOOD COUNT W/ DIFFERENTIAL Routine 01/17/2023 11:12 AM V[facility]URE CAPITALIST Adenocarcinoma, NOS of ascending colon .CBC Routine [...] AM CDT Adenocarcinoma, NOS of ascending colon BOYDTON MISC TEST Routine 12/04/2022 1:49 PM CDT [...] Routine 10/07/2022 4:12 AM CDT Cancer after 04/20/2022 Results * (ABNORMAL) .CBC (03/26/2023 9:47 AM [facility]) Only the most recent of11 resultswithin the time period is included. White Blood Cell 9.0 4.1 - 10.5 K/uL 03/26/2023 10:02 AM [facility] Red Blood Cell 4.73 3.99 - 5.46 M/uL 03/26/2023 10:02 AM [facility] Hemoglobin 13.6 12.2 - 15.3 g/dL 03/26/2023 10:02 AM [facility] Hematocrit 42.5 36.4 - 46.8 % 03/26/2023 10:02 AM [facility] Mean Cell Volume 90 82 - 99 fL 03/26/2023 10:02 AM [facility] Mean Cell Hemoglobin 28.8 26.6 - 33.2 pg 03/26/2023 10:02 AM [facility] Mean Cell Hemoglobin Concentration 32.0 31.1 - 35.2 g/dL 03/26/2023 10:02 AM [facility] RDW-SD 58.3(H) 37.5 - 49.7 fL 03/26/2023 10:02 AM [facility] Red Cell Diameter Width 17.4(H) 11.6 - 15.5 % 03/26/2023 10:02 AM [facility] Platelet 298 160 - 397 K/uL 03/26/2023 10:02 AM [facility] Mean Platelet Volume 10.1 9.1 - 12.6 fL 03/26/2023 10:02 AM [facility] INRBC 0.0 0.0 - 0.1 /100 WBC 03/26/2023 10:02 AM [facility] Comment: The INRBC (instrument NRBC) value reflects the enumeration of nucleated red blood cells contained in a 200uL sample of whole blood analyzed by the instrument. This value may differ from the NRBC value reported in a manual differential, which is based on a 100 cell differential. Neutrophil % 52.4 43.2 - 72.7 % 03/26/2023 10:02 AM [facility] Lymphocyte % 37.8 16.8 - 46.2 % 03/26/2023 10:02 AM [facility] Monocyte % 7.2 5.1 - 12.5 % 03/26/2023 10:02 AM [facility] Eosinophil % 0.7 0.4 - 6.3 % 03/26/2023 10:02 AM [facility] Basophil % 1.6(H) 0.2 - 1.4 % 03/26/2023 10:02 AM [facility] IGRE % 0.3 0.1 - 1.5 % 03/26/2023 10:02 AM [facility] Comment:The IGRE% includes M etamyelocytes, Myelocytes and Promyelocytes. Neutrophil Abs 4.73 1.95 - 7.25 K/uL 03/26/2023 10:02 AM [facility] Lymphocyte Abs 3.41(H) 1.01 - 3.24 K/uL 03/26/2023 10:02 AM [facility] Monocyte Abs 0.65 0.24 - 0.85 K/uL 03/26/2023 10:02 AM [facility] Eosinophil Abs 0.06 0.02 - 0.50 K/uL 03/26/2023 10:02 AM [facility] Basophil Abs 0.14(H) 0.02 - 0.09 K/uL 03/26/2023 10:02 AM [facility] IG Abs 0.03 0.01 - 0.12 K/uL 03/26/2023 10:02 AM [facility] Blood Peripheral blood specimen / Unknown Venipuncture / Unknown 03/26/2023 9:47 AM [facility] 03/26/2023 9:52 AM [facility]IST Ivan Rubi MD LAB BLOOD ORDERABLES [facility] Unless otherwise noted, all lab tests performed by: Division of Pathology and Laboratory Medicine [address] [place] [id number] * (ABNORMAL) CMP (03/26/2023 9:47 AM [facility]) Only the most recent of4 resultswithin the time period is included. Bilirubin Total 0.6 <=1.2 mg/dL 03/26/2023 10:48 AM [facility] Comment: Indocyanine Green (ICG) may cause falsely elevated bilirubin results. Total and direct bilirubin must not be measured from samples containing indocyanine green. False elevation of total bilirubin can be seen in patients with IgG concentrations above 28 g/L. This result was previously suppressed from the chart. Bilirubin Direct 0.2 <=0.3 mg/dL 03/26/2023 10:48 AM [facility] Comment: Indocyanine Green (ICG) may cause falsely elevated bilirubin results. Total and direct bilirubin must not be measured from samples containing indocyanine green. This result was previously suppressed from the chart. Bilirubin Indirect 0.4 0.0 - 0.9 mg/dL 03/26/2023 10:48 AM [facility] Comment:This result was prev iously suppressed from the chart. eGFR 89 >=60 mL/min/1. 73 sq. m 03/26/2023 10:48 AM [facility] Comment: The eGFRcr is calculated with the [...] 6.4 - 8.3 gm/dL 03/26/2023 10:48 AM [facility] Comment:This result was prev iously suppressed from the chart. Calcium Level Total 9.9 8.2 - 10.2 mg/dL 03/26/2023 10:48 AM [facility] Comment:This result was prev iously suppressed from the chart. Alkaline Phosphatase 125(H) 35 - 104 U/L 03/26/2023 10:48 AM [facility] Comment:This result was prev iously suppressed from the chart. Albumin Level 4.3 3.5 - 5.2 gm/dL 03/26/2023 10:48 AM [facility] Comment:This result was prev iously suppressed from the chart. AST 21 <=32 U/L 03/26/2023 10:48 AM [facility] Comment:This result was prev iously suppressed from the chart. ALT 15 <=33 U/L 03/26/2023 10:48 AM [facility] Comment:This result was prev iously suppressed from the chart. Sodium Level 139 136 - 145 mmol/L 03/26/2023 10:48 AM [facility] Comment:This result was prev iously suppressed from the chart. Potassium Level 3.7 3.4 - 4.5 mmol/L 03/26/2023 10:48 AM [facility] Comment:This result was prev iously suppressed from the chart. Chloride 97(L) 98 - 107 mmol/L 03/26/2023 10:48 AM [facility] Comment:This result was prev iously suppressed from the chart. CO2 28 22 - 29 mmol/L 03/26/2023 10:48 AM [facility] Comment:This result was prev iously suppressed from the chart. Anion Gap 14 4 - 14 mmol/L 03/26/2023 10:48 AM [facility] Comment:This result was prev iously suppressed from the chart. Creatinine 0.76 0.51 - 0.95 mg/dL 03/26/2023 10:48 AM [facility] Comment:This result was prev iously suppressed from the chart. BUN 16 6 - 23 mg/dL 03/26/2023 10:48 AM [facility] Comment:This result was prev iously suppressed from the chart. Glucose Level 81 70 - 99 mg/dL 03/26/2023 10:48 AM [facility] Comment: Effective 09/29/15, the glucose reference intervals have been updated based on [place] Diabetes Association guidelines (Standards of Medical Care [...] Unknown Venipuncture / Unknown 03/26/2023 9:47 AM [facility] 03/26/2023 9:52 AM [facility] Ivan Rubi MD LAB BLOOD ORDERABLES Performing Organization Address [facility] Co de Phone Number [facility] Unless otherwise noted, all lab tests performed by: Division of Pathology and Laboratory Medicine [address] [place] [id number] * (ABNORMAL) Phosphorus Level (03/26/2023 9:47 AM [facility]) Only the most recent of4 resultswithin the time period is included. Phosphorus Level 4.8(H) 2.5 - 4.5 mg/dL 03/26/2023 10:48 AM [facility]ITALIST [facility] Blood Peripheral blood specimen / Unknown Venipuncture / Unknown 03/26/2023 9:47 AM [facility]IST 03/26/2023 9:52 AM [facility] Ivan Rubi MD LAB BLOOD ORDERABLES Performing Organization Address [facility] de Phone Number [facility] Unless otherwise noted, all lab tests performed by: Division of Pathology and Laboratory Medicine [address] [place] [address] * Magnesium Level (03/26/2023 9:47 AM VENTURE CAPITALIST) Only the most recent of5 resultswithin the time period is included. Magnesium Level 2.1 1.6 - 2.6 mg/dL 03/26/2023 10:48 AM VENTURE CAPITALIST [facility] Blood Peripheral blood specimen / Unknown Venipuncture / Unknown 03/26/2023 9:47 AM VENTURE CAPITALIST 03/26/2023 9:52 AM VENTURE CAPITALIST Ivan Rubi MD LAB BLOOD ORDERABLES Performing Organization Address [facility] Co de Phone Number [facility] Unless otherwise noted, all lab tests performed by: Division of Pathology and Laboratory Medicine [address] [place] [address] * (ABNORMAL) LDH (03/26/2023 9:47 AM VENTURE CAPITALIST) Only the most recent of4 resultswithin the time period is included. LDH 255(H) 135 - 214 U/L 03/26/2023 10:48 AM VENTURE CAPITALIST [facility] Blood Peripheral blood specimen / Unknown Venipuncture / Unknown 03/26/2023 9:47 AM VENTURE CAPITALIST 03/26/2023 9:52 AM VENTURE CAPITALIST Narrative [facility] - 03/26/2023 10:48 AM VENTURE CAPITALIST Results greater than 1651 U/L may not be reliable due to matrix effect with extended dilution as it exceeds the fruit buying grader's recommended limit. Caution should be exercised when interpreting such values and done in conjunction with clinical context. Ivan Rubi MD LAB BLOOD ORDERABLES [facility] Unless otherwise noted, all lab tests performed by: Division of Pathology and Laboratory Medicine [address] [place] [address] * (ABNORMAL) CEA (03/26/2023 9:47 AM VENTURE CAPITALIST) Only the most recent of4 resultswithin the time period is included. Carcinoembryonic Antigen 29.1(H) <=3.8 ng/mL 03/26/2023 11:04 AM VENTURE CAPITALIST [facility] Blood Peripheral blood specimen / Unknown Venipuncture / Unknown 03/26/2023 9:47 AM VENTURE CAPITALIST 03/26/2023 9:52 AM VENTURE CAPITALIST Narrative [facility] - 03/26/2023 11:04 AM VENTURE CAPITALIST Reference Ranges (age 20-69 years): Non-smoker: 0.0 - 3.8 ng/mL Smoker: 0.0 - 5.5 ng/mL This test is measured by electrochemiluminescence immunoassay on Darlene Ginna immunoassay analyzers. Results obtained in different methods are not interchangeable. 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 The omental nodules have slightly decreased in the interim. The pulmonary nodule in the right lung is unchanged. Fibrotic changes are noted within the lungs. ACTIONABLE ITEMS/RECOMMENDATIONS: None. Narrative 01/29/2023 10:27 AM VENTURE CAPITALIST FULL RESULT: Examination: CT CHEST ABDOMEN PELVIS [...] lungs. ACTIONABLE ITEMS/RECOMMENDATIONS: None. Ivan Rubi MD [facility] CT ORDERABLES * MD DAVIS FLAVIA: Mutation Analysis Precision Panel Interpretation and Report (12/29/2022 11:06 AM CDT) Source Material [id number] 01/15/2023 7:48 AM VENTURE CAPITALIST [facility] Tumor Block A2 01/15/2023 7:48 AM VENTURE CAPITALIST [facility] *Normal Control Material PB 01/15/2023 7:48 AM VENTURE CAPITALIST [facility]NOST[facility] Outside A7 01/15/2023 7:48 AM VENTURE CAPITALIST MOLECULAR DIAGNOSTICS MD DAVIS FLAVIA [id number] SNVs/Indels CNVs Fusions TMB MSI More than 5 genes. See details None None 7 mut/Mb Stable (NUPUR) Somatic Mutations (SNVs/Indels) Gene DNA Protein Location VAF Type ASPM c.4645A>T p.T2186F Exon 18 27% SNV - Missense BRAF c.1799T>A p.V600E Exon 15 29% SNV - Missense BTK c.1469G>A p.R490H Exon 15 25% SNV - Missense ERCC6 c.1620C>G p.I540M Exon 7 22% SNV - Missense H3-5 c.170C>T p.S57L Exon 1 9% SNV - Missense HGF c.532C>T p.R178* Exon 5 21% SNV - Nonsense LRP1B c.9373G>A p.Y9874U Exon 59 5% SNV - Missense DUW3S5F c.2747A>G p.H916R Exon 20 14% SNV - [...] Gene Genomic Variant COSMIC dbSNP ClinVar ASPM chr1:[id number] T>A c.4645A>T p.D2324W BRAF chr7:[id number] A>T c.1799T>A p.V600E [id number] 67408 BTK chrX:753042663 C>T c.1469G>A p.R490H ERCC6 chr10:70047692 G>C c.1620C>G p.I540M H3-5 chr12:28391602 G>A c.170C>T p.S57L HGF chr7:18890496 G>A c.532C>T p.R178* LRP1B chr2:977088410 C>T c.9373G>A p.R9353S [id number] IBS5H9R chr12:15669796 A>G c.2747A>G p.H916R PRKDC chr8:40404009 G>A c.7561C>T p.R2521* TP53 chr17:8940274 C>T c.427G>A p.V143M [id number] 310129 WT1 chr11:94305483 G>C c.613C>G p.P205A Link to COSMIC: https://cancer.sange r.ac.uk/cosmic Link to dbSNP: https://www.ncbi.nlm .nih.gov/snp Link to ClinVar: https://www.ncbi.nlm .nih.gov/clinvar METHODOLOGY: Test Description: The MD Anthony Mutation Analysis Precision Panel (MDA FLAVIA) assay [...] (See Appendix Table 1 and 2). MDA LFAVIA employs DNA extracted from both tumor tissue [...] with custom hybrid-capture, 120nt dsDNA probes. MDA Solaria assay uses the Kuliza 6000 next generation sequencing platform and bidirectional paired-end sequencing to identify nucleic acid variants for all coding regions from most genes in the panel, the TERT promoter, 1 non-coding RNA gene, and clinically relevant rearrangements. Reported somatic mutations are identified by comparison to the human genome reference sequence GRCh37/hg19 and reviewed in Shipey against a process-matched normal control. Data analysis is performed in house by the [employer] Bioinformatics pipeline (BIP) which relies on the dual-duplex molecular barcoding for consensus analysis to reduce sequencing artifacts and achieve greater sensitivity and positive predictive value. [employer] is intended to provide tumor mutation profiling in accordance with institutional guidelines in oncology for patients with solid malignant neoplasms. Report annotation and software: A post-variant calling analysis and annotation tool, Shipey version 1.10.1.583, was used in the construction of this report. The following additional software tools were utilized in the experimental setup and bioinformatic analysis: [employer] 1.7, [employer] Real Time Analysis Software 3.4.4, [employer]along [employer] Center TradeCloud.nl.2 and [employer] BIP v1.0. Detailed information about the signal-processing, [...] specificity near 100%. Limitations of the test: MDA FLAVIA requires a normal non-tumor sample for [...] and microsatellite stable (NUPUR) reported by MDA [facility] is based on the analysis of 40+ [...] of greater than or equal to 100 IPU-fqzbu-aftygwowt, collapsed reads (minimum 100x coverage). Mutations in [...] ACVR1B BTG1* CUL4B EXO1 GRIN2A JAK1 MPL [id number] PTPRT SETD2 TET1 ACVR2A BTG2* CUX1 EZH2 GRM3 JAK2 MRE11 PDGFB QKI SF3B1 TET2 ADGRA2 BTK CXCR4 FADD GSK3B JAK3 MSH2 PDGFRA RAB35 SGK1 TFE3 AJUBA BUB1 CYLD FANCA H1-2* JESSICA MSH3 PDGFRB RAC1 SH2B3 TGFB1 AKT1 CALR BJL0H78 FANCC H2AX* KAT6A MSH6 PDK1 RAD21 SH2D1A TGFBR1 AKT2 CARD11 DAXX FANCD2 H2BC5* KDM5A MST1 PER1 RAD50 SHLD1 TGFBR2 AKT3 CASP8 CAQMZ0T FANCE H3-3A* KDM5C MST1R PGD RAD51 SHLD2 QMYD747 AKTIP CBFB PLWF6X6 FANCF H3-3B* KDM6A MTAP PGR HZZ23QI7 SHPRH TMPRSS2 ALK CBL DDB1 FANCG H3-4* KDR MTOR PHF6 RAD51B SHQ1 TNF OVRI43G CCN6 DDR1 FANCI H3-5* KEAP1 MUTYH PHOX2B RAD51C WUB08X4 TNFAIP3 AMER1 CCNA2 DDR2 FANCL H3C1* STORM MXD4 AHV6Y4L RAD51D SLIT2 JRALWS54 ANKRD11 CCND1 DDX3X FANCM H3C10* KIT MYB QOX1F7J RAD52 SLX4 TOP1 APC CCND2 DICER1 FAS H3C11* KLF4 MYC PIK3C3 RAD54L SMAD2 TOP2A AR CCND3 DIS3 FAT1 H3C12* KLHL6 MYCL PIK3CA RAF1 SMAD3 TOP3A ARAF CCNE1 DLL3 FBXW7 H3C13* KMT2A MYCN PIK3CB RATNA SMAD4 TOPBP1 ARFRP1 CD274 DNA2 FGF10 H3C2* KMT2B MYD88 PIK3CD RASA1 SMARCA2 TP53 ARID1A CD276 DNAJB1 FGF14 H3C3* KMT2C MYOD1 PIK3CG RB1 SMARCA4 PQ61QI7 ARID1B CD74 DNMT1 FGF19 H3C4* KMT2D NBN PIK3R1 RBM10 SMARCAD1 TP53I3 ARID2 CD79A DNMT3A FGF23 H3C6* KNSTRN NCOA3 PIK3R2 RECQL4 SMARCB1 TP63 ARID5B CD79B DNMT3B FGF3 H3C7* KRAS NCOR1 PIK3R3 REL SMARCD1 TRAF2 ASCC3 CD8A DOT1L FGF4 H3C8* LATS1 NEGR1 PIM1 RET SMC1A TRAF7 ASPM CDC20 E2F3 FGF5 HDAC2 LATS2 NF1 PLCG1 REV3L SMC3 UEEZIW80 ASXL1 CDC27 EED FGF6 HDAC9 LCK NF2 [...] RIT1 SOX9 WRN RYAN CDKN1B EP300 FLT4 UDG27NR0 MAP2K4 NPM1 POLE RMI1 SPEN WT1 B2M CDKN2A EPCAM FOXA1 UCJ09NT8 MAP2K7 NRAS POLQ RMI2* SPOP XIAP BAP1 CDKN2B EPHA2 FOXL2 ICOSLG MAP3K1 NSD1 PPARG RNF43 SRC XPO1 BARD1 CDKN2C* EPHA3 FOXO1 ID3* UDH0I96 NSD3 PPM1D ROS1 SRSF2 XRCC2 BBC3 CEBPA EPHA5 FOXP1 IDH1 AVV0X42 NT5C2 QIW8C5F RPA1 SSBP1 XRCC3 BCL10 CENPA EPHA7 FRS2 IDH2 MAP3K4 NTRK1 FXL9R5T RPA2 STAG2 XRCC4 BCL11A CENPE EPHB1 FTO IFNGR1 MAPK1 NTRK2 QVH0E1U RPA3* STAT3 XRCC5 BCL2 CHAF1A ERBB2 FUBP1 IGF1 MAPK3 NTRK3 PPP4R4 RPA4 STAT4 XRCC6 BCL2L1 CHEK1 ERBB3 FYN IGF1R MAPK8 NUP93 PPP6C BWL5TJ6 STAT5A YAP1 KVT0Q36 CHEK2 ERBB4 GABRA6 IGF2 MAX NUTM1 PRC1 VEV1VM3 STAT5B YES1 BCL2L2* CIC ERCC1 KNWS03F IKBKE MCL1 PAK1 PRDM1 IPF0SY8 STK11 ZFHX3 BCL6 COL2A1 ERCC2 GATA1 IKZF1 MDC1 PAK3 PREX2 RPTOR STK19 OVO108 BCOR COP1 ERCC3 GATA2 IL10 MDM2 PAK5 PRG4 RSPO1 STK40 WHE754 BCORL1 CREBBP ERCC4 GATA3 IL7R MDM4 PALB2 YKXXY8C RSPO2 SUFU ZRSR2 BCR CRKL ERCC5 GATA4 INHA MED12 PARP1 PRKCI RUNX1 SUZ12 BIRC2 CRLF2 ERCC6 GATA6 INHBA MEF2B PARP2 PRKDC CNWX4T9 SYK BIRC3 CSF1R ERG GEN1 INO80 MEN1 [...] 16 MYB introns: 14 NTRK2 introns: 12 RATNA introns: 2 SDC4 introns: 2 BCR introns: 7-10 CD74 introns: 6-8 ETV5 introns: 6-7 FGFR1 introns: 1,5,17 KMT2A introns: 6-11 MYC introns: 1 NUTM1 introns: 1 RET introns: 7-11 ANY39T6 introns: 4 BRAF introns: 7-10 EGFR introns: [...] the Molecular Diagnostic Laboratory (MDL) at the [facility]. It has not been cleared by the U.S. Food and Drug Administration. However, such approval is not required for clinical implementation, and the test results on the ordered genes have been shown to be clinically useful. This laboratory is CAP accredited and CLIA certified to perform high complexity molecular testing for clinical purposes. 01/15/2023 7:48 AM VENTURE CAPITALIST MOLEC[facility] DIAGNOSTICS Pathologist Signature . 01/15/2023 7:48 AM VENTURE CAPITALIST [facility] DIAGNOST[facility] Tissue 12/29/2022 11:0 6 AM CDT 12/29/2022 11:06 AM CDT Walter CINTRON MOLECULAR BIO MARKERS [facility]CULAR DIAGNOSTICS [facility] [address] [place] [address] * Solid Tumor Genomic Assay Fusions 2018 Interpretation and Report (12/29/2022 11:06 AM CDT) Source Material [id number] 01/05/2023 2:07 PM CDT MOLECULAR DIAGNOSTIC Tumor Block A2 01/05/2023 2:07 PM CDT MOLECULAR DIAGNOSTIC Outside A7 01/05/2023 2:07 PM CDT MOLECULAR DIAGNOSTIC Solid Tumor Genomic Assay Fusion Result Tree SUZANNA [id number] Solid Tumor Genomic Assay 2018 - RNA [...] A post-variant calling analysis and annotation tool, Shipey version 1.10.1.581, was used in the construction of this report. DISCLAIMER: This test was developed and its performance characteristics determined by the Molecular Diagnostic Laboratory (MDL) at the [facility]. It has not been cleared by the [...] CDT 12/29/2022 11:06 AM CDT Walter CALLEJAS [facility] MOLECULAR BIO MARKERS MOLECULAR DIAGNOSTIC [facility] [address] [place] [address] * .Serum Creatinine (2022 11:10 AM CDT) Only the most recent of2 resultswithin the time period is included. Creatinine 0.65 0.51 - 0.95 mg/dL [place] Comment:Testing performed at [facility], [address] [place] [address] Blood 2022 11:1 0 AM CDT 2022 11:24 AM CDT Walter CALLEJAS LAB BLOOD ORDERABLES [address], [address] [place] [address] * Glomerular Filtration Rate (2022 11:10 AM CDT) Only the most recent of2 resultswithin the time period is included. eGFR 100 >=60 mL/min/1.7 3 sq. m [place] Comment: The eGFRcr is calculated with the [...] fulfill criteria for CKD. Testing performed at [facility], [address] [place] [address] Blood 2022 11:1 0 AM CDT 2022 11:24 AM CDT Walter CALLEJAS LAB BLOOD ORDERABLES [address], [address] [place] [address] * Fractionated Bilirubin (2022 11:10 AM CDT) Only the most recent of2 resultswithin the time period is included. Bili Total <0.3 <=1.2 mg/dL [place] Comment: Direct and indirect bilirubin will not be reported when Total bilirubin result is <0.3 mg/dL Indocyanine Green (ICG) may cause falsely elevated bilirubin results. Total and direct bilirubin must not be measured from samples containing indocyanine green. False elevation of total bilirubin can be seen in patients with IgG concentrations above 28 g/L. Testing performed at [facility], [address] [place], [place] [address] Blood 2022 11:1 0 AM CDT 2022 11:24 AM CDT Walter CALLEJAS LAB BLOOD ORDERABLES [address], [address] [place] [address] * Differential (2022 11:10 AM CDT) Only the most recent of3 resultswithin the time period is included. Neutrophil % 49.6 43.2 - 72.7 % [facility] Comment:All components of th e Differential performed at [facility], [address] [place] [address] Lymphocyte % 35.1 16.8 - 46.2 % [place] Comment:As part of Different ial, testing performed at [facility], [address] [place] [address] Monocyte % 12.3 5.1 - 12.5 % [place] Comment:As part of Different ial, testing performed at [facility], [address] [place] [address] Eosinophil % 1.8 0.4 - 6.3 % [place] Comment:As part of Different ial, testing performed at [facility], [address] [place] [address] Basophil % 1.2 0.2 - 1.4 % [place] Comment:As part of Different ial, testing performed at [facility], [address] [place] [address] Neutrophil Abs 3.28 1.95 - 7.25 K/uL [place] Comment:As part of Different ial, testing performed at [facility], [address] [place] [address] Lymphocyte Abs 2.32 1.01 - 3.24 K/uL [place] Comment:As part of Different ial, testing performed at [facility], [address] [place] [address] Monocyte Abs 0.81 0.24 - 0.85 K/uL [place] Comment:As part of Different ial, testing performed at [facility], [address] [place] [address],[place] [address] Eosinophil Abs 0.12 0.02 - 0.50 K/uL [place] Comment:As part of Different ial, testing performed at [facility], [address] [place] [address] Basophil Abs 0.08 0.02 - 0.09 K/uL [place] Comment:As part of Different ial, testing performed at [facility], [address] [place], [place] [address] Blood 2022 11:1 0 AM CDT 2022 11:24 AM CDT Narrative [place] - 2022 11:27 AM CDT Within 72 hours prior to each chemotherapy infusion. Walter CALLEJAS LAB BLOOD ORDERABLES [address], [address] [place] [address] * BUN (2022 11:10 AM CDT) Only the most recent of2 resultswithin the time period is included. BUN 6 6 - 23 mg/dL [place] Comment:Testing performed at [facility], [address] [place] [address], [place] [address] Blood 2022 11:1 0 AM CDT 2022 11:24 AM CDT Walter CALLEJAS LAB BLOOD ORDERABLES [address], [address] [place] [address] * ALT (2022 11:10 AM CDT) Only the most recent of2 resultswithin the time period is included. ALT 12 <=33 U/L [place] Comment:Testing performed at [facility], [address] [place] [address] Blood 2022 11:1 0 AM CDT 2022 11:24 AM CDT Walter CALLEJAS LAB BLOOD ORDERABLES [address], [address] [place] [address] * Aspartate Aminotransferase (2022 11:10 AM CDT) Only the most recent of2 resultswithin the time period is included. AST 14 <=32 U/L [place] Comment:Testing performed at [facility], [address] [place] [address] Blood 2022 11:1 0 AM CDT 2022 11:24 AM CDT Walter CALLEJAS LAB BLOOD ORDERABLES Performing Organization Address City/[facility]/ZIP Co de Phone Number [address], [place] [address] * Total Protein (2022 11:10 AM CDT) Only the most recent of2 resultswithin the time period is included. Total Protein 6.7 6.4 - 8.3 g/dL [place] Comment:Testing performed at [facility], [address] [place] [address] Blood 2022 11:1 0 AM CDT 2022 11:24 AM CDT Walter CALLEJAS LAB BLOOD ORDERABLES [address], [address] [place] [address] * Alkaline Phosphatase (2022 11:10 AM CDT) Only the most recent of2 resultswithin the time period is included. Alk Phos 101 35 - 104 U/L [place] Comment:Testing performed at [facility], [address] [place] [address] Blood 2022 11:1 0 AM CDT 2022 11:24 AM CDT Walter CALLEJAS LAB BLOOD ORDERABLES [address], [address] [place] [address] * (ABNORMAL) Glucose Level (2022 11:10 AM CDT) Only the most recent of2 resultswithin the time period is included. Glucose Level 101(H) 70 - 99 mg/dL [place] Comment: Effective 09/29/15, the glucose reference intervals have been updated based on [place] Diabetes Association guidelines (Standards of Medical Care in Diabetes 2016. Diabetes Care 2016; 39: S13-S22). Fasting blood glucose: Normal: 70-99 mg/dL Impaired fasting glucose (increased risk for diabetes or pre-diabetes): 100- 125 mg/dL Diabetes mellitus: >/=126 mg/dL Random blood glucose: Normal: 70-199 mg/dL Note: Random glucose >100 mg/dL is associated with increased risk for diabetes Testing performed at [facility], [address] [place] [address] Blood 2022 11:1 0 AM CDT 2022 11:24 AM CDT Walter CALLEJAS LAB BLOOD ORDERABLES [address], [address] [place] [address] * Calcium Level (2022 11:10 AM CDT) Only the most recent of2 resultswithin the time period is included. Calcium Lvl 9.2 8.4 - 10.2 mg/dL [place] Comment:Testing performed at [facility], [address] [place] [address] Blood 2022 11:1 0 AM CDT 2022 11:24 AM CDT Walter CALLEJAS LAB BLOOD ORDERABLES [address] [place] [address] * Albumin Level (2022 11:10 AM CDT) Only the most recent of2 resultswithin the time period is included. Albumin Lvl 3.9 3.5 - 5.2 gm/dL [place] Comment:Testing performed at [facility], [address] [place] [address] Blood 2022 11:1 0 AM CDT 2022 11:24 AM CDT Walter CALLEJAS LAB BLOOD ORDERABLES [address] [place] [address] * Electrolyte Panel (2022 11:10 AM CDT) Only the most recent of2 resultswithin the time period is included. Sodium Lvl 138 136 - 145 mEq/L [place] Comment:Testing performed at [facility], [address] [place], [place] [id number] Potassium Lvl 3.8 3.5 - 5.1 mEq/L [place] Comment:Testing performed at [facility], [address] [place], [place] [address] Chloride 104 98 - 107 mEq/L [place] Comment:Testing performed at [facility], [address] [place], [place] [address] CO2 23 22 - 29 mEq/L [place] Comment:Testing performed at [facility], [address] [place] [address] Anion Gap 11 4 - 14 mEq/L [place] Comment:Testing performed at [facility], [address] [place] [address] Blood 2022 11:1 0 AM CDT 2022 11:24 AM CDT Walter CALLEJAS LAB BLOOD ORDERABLES [facility] [address] [facility], [address] [place] [address] * NTRK3 Fusion Analysis with Interpretation and Report (12/14/2022 1:19 PM CDT) Archived Material The test is to be performed on tissue from case [id number]. The case report, slides, and blocks for [...] CDT Walter CALLEJAS [facility] [address] [address], * NTRK2 Fusion Analysis with Interpretation and Report (12/14/2022 1:19 PM CDT) Archived Material The test is to be performed on tissue from case [id number]. The case report, slides, and blocks for [...] be reported separately. 12/28/2022 11:26 AM CDT [facility] Pathologist Signature 12/28/2022 11:26 AM CDT [facility] Tissue 12/14/2022 1:19 PM CDT 12/14/2022 1:19 PM CDT Walter CALLEJAS [facility] IP AP BIOMARKERS Performing Organization Address [facility] Co de Phone Number [address] [address], [place] * MD NTRK1 Fusion Analysis with Interpretation and Report (12/14/2022 1:19 PM CDT) Archived Material The test is to be performed on tissue from case [id number]. The case report, slides, and blocks for [...] be reported separately. 12/28/2022 11:26 AM CDT [facility] Pathologist Signature 12/28/2022 11:26 AM CDT [facility] Tissue 12/14/2022 1:19 PM CDT 12/14/2022 1:19 PM CDT Walter CALLEJAS [facility] IP AP BIOMARKERS Performing Organization Address [facility] Co de Phone Number [address] [address], [place] * MD NRAS Mutation Interpretation and Report (12/14/2022 1:19 PM CDT) Archived Material The test is to be performed on tissue from case [id number]. The case report, slides, and blocks for [...] be reported separately. 12/28/2022 11:26 AM CDT [employer] [facility] Pathologist Signature 12/28/2022 11:26 AM CDT [facility] Tissue 12/14/2022 1:19 PM CDT 12/14/2022 1:19 PM CDT Walter CALLEJAS [facility] IP AP BIOMARKERS Performing Organization Address [facility] Co de Phone Number [place] [address], * KRAS Interpretation and Report (12/14/2022 1:19 PM CDT) Pathologist [facility] Archived Material The test is to be performed on tissue from case [id number]. The case report, slides, and blocks for [...] be reported separately. 12/28/2022 11:26 AM CDT [employer] [facility] Pathologist Signature 12/28/2022 11:26 AM CDT [facility] Tissue 12/14/2022 1:19 PM CDT 12/14/2022 1:19 PM CDT Walter CALLEJAS [facility] IP AP BIOMARKERS Performing Organization Address [facility] Co de Phone Number [facility] [address] [address], * BRAF Mutation Interpretation and Report (12/14/2022 1:19 PM CDT) Archived Material The test is to be performed on tissue from case [id number]. The case report, slides, and blocks for [...] be reported separately. 12/28/2022 11:26 AM CDT [facility] Pathologist Signature 12/28/2022 11:26 AM CDT [facility] Tissue 12/14/2022 1:19 PM CDT 12/14/2022 1:19 PM CDT Walter CALLEJAS [facility] IP AP [facility]ARKERS Performing Organization Address City/[facility] Co de Phone Number [facility] [place] [phone], [place] * IHC HER2/rachel Interpretation and Report (12/14/2022 1:19 PM CDT) Tissue specimen (specimen) 12/14/2022 1:19 PM CDT 12/14/2022 1:19 PM CDT Walter CALLEJAS [facility] IP AP BIOMARKERS Performing Organization Address City/[facility]/ZIP Co de Phone Number [address] [address], [place] * Verify Catheter Tip Placement/Venous Blood Return (12/07/2022 10:15 AM CDT) Ama Gallo APRN - 12/07/2022 10:15 AM CDT Ama [...] disease. ACTIONABLE ITEMS/RECOMMENDATIONS: None. Ivan Rubi MD [facility] DIAGNOSTIC IMAGI NG ORDERABLES * [place] Misc Test (12/04/2022 1:49 PM CDT) [facility] Test Result See Footnote [facility] [facility] [place] Comment: Test Result Flag Unit RefValue UGT1A1 [...] with atazanavir, belinostat, dolutegravir, pazopanib, or sacituzumab govitecan-hziy. The medication label should be consulted for [...] the 5'-nuclease polymerase degrades the probe, the manager fast food dye is released from the effects of the quencher dye, and a fluorescent signal is detected. Genotypes are assigned based on the allele-specific fluorescent signals that are detected. ([employer] SNP Genotyping Assays User Guide, [employer]) Disclaimer See Footnote Targeted analysis of the following UGT1A1 alleles was performed by a polymerase chain reaction (PCR)-based 5'-nuclease assay using fluorescently labeled detection probes. The variants detected (c.-2951A>G, c.-364C>T, c.-106T>C) are in linkage disequilibrium with the TA repeat alleles, TA5 or *36: c.-41_-40delTA ([id number]),TA7 or *28: c.-41_-40dupTA (g. [id number]). The cDNA positions are provided using [id number] as a reference; genomic coordinates are based on GRCh37. In addition, this assay detects *6 (c.211G>A). The TA7 or *28: c.-41_-40dupTA (g. [id number]) and the TA8 or *37: c.-43_-40dupTATA ([id number]) are both in linkage disequilibrium with c.-2951A>G [...] associated with the TA5 or *36: c.-41_-40delTA ([id number]) variant. This test does not detect or report variants other than the TA5 (*36), TA7 (*28), and *6 alleles. Numerous additional variants have been described that impair UGT1A1 activity. Results should be interpreted in the context of clinical findings, family history, and other laboratory testing. A negative test result does not exclude risk for adverse drug reactions with [id number] drugs or congenital unconjugated hyperbilirubinemia. If results [...] developed and its performance characteristics determined by [facility] in a manner consistent with CLIA requirements. This test has not been cleared or approved by the U.S. Food and Drug Administration. Reviewed by See Footnote RESULT: Dandre Hall MD Test Performed by: [place] [address] [facility]: Santos Black M.D. Ph.D.; CLIA# [id number] [facility] Test Name UGT1A1 Gene Polymorphism [facility] Varies 12/04/2022 1:49 PM CDT 12/04/2022 2:46 PM CDT Narrative [facility] - 12/22/2022 11:55 AM CDT U1A1Q UGT1A1 Gene Polymorphism (TA repeat)U1A1Q UGT1A1 Gene Polymorphism (TA repeat) Ivan Rubi MD LAB BLOOD ORDERABLES Performing Organization Address [facility] Co de Phone Number [facility] Unless otherwise noted, all lab tests performed by: Division of Pathology and Laboratory Medicine [address] [place] [id number] * LB Liquid Biopsy Panel V1 Interpretation and Report (12/04/2022 9:13 AM CDT) 12/04/2022 9:13 AM CDT Walter PALMA [facility] (LOUIE BOTELLO) Performing Organization Address [facility] Co de Phone Number [facility] Unless otherwise noted, all lab tests performed by: Division of Pathology and Laboratory Medicine [address] [place] [phone] * LB NRAS Mutation Analysis with Interpretation and Report - Liquid Biopsy genotyping when no tumor tissue is available (12/04/2022 9:13 AM CDT) Pathologist [facility] Molecular Diagnostics (Received) Yes [facility] Blood 12/04/2022 9:13 AM CDT 12/04/2022 1:39 PM CDT Walter CALLEJAS MDA HP MD BLOOD XAVIER ECTIONS Performing Organization Address City/[facility]/ZIP Co de Phone Number [facility] Unless otherwise noted, all lab tests performed by: Division of Pathology and Laboratory Medicine [address] [place] [phone] * LB BRAF Mutation Analysis with Interpretation and Report - Liquid Biopsy genotyping when no tumor tissue is available (12/04/2022 9:13 AM CDT) Pathologist [facility] Molecular Diagnostics (Received) Yes [facility] Blood 12/04/2022 9:13 AM CDT 12/04/2022 1:39 PM CDT Walter CALLEJAS MDA HP MD BLOOD XAVIER ECTIONS Performing Organization Address City/[facility]/ZIP Co de Phone Number [facility] Unless otherwise noted, all lab tests performed by: Division of Pathology and Laboratory Medicine [address] [place] [phone] * MD DUMONT Blood Control (12/04/2022 9:13 AM CDT) Pathologist [facility] Molecular Diagnostics (Received) Yes [facility] Blood 12/04/2022 9:1 3 AM CDT 12/04/2022 1:39 PM CDT Walter CALLEJAS MDA IP HP MOLECULAR DIAG IF ORDERABLES Performing Organization Address City/[facility] Co de Phone Number [facility] Unless otherwise noted, all lab tests performed by: Division of Pathology and Laboratory Medicine [address] [place] [phone] * OSI PET CT Skull to Mid Thigh (10/12/2022 4:12 AM CDT) Narrative Systemgenerated, Documentation - 11/02/2022 4:12 AM CDT Study acquired at another institution. For comparison only. No MD Cruz originated interpretation requested or available. Outside Physician IMG OUTSIDE IMAGE OR DERABLES * OSI Chest (10/07/2022 4:12 AM CDT) Narrative Systemgenerated, Documentation - 11/02/2022 4:12 AM CDT Study acquired at another institution. For comparison only. No MD Cruz originated interpretation requested or available. Outside Physician IMG OUTSIDE IMAGE OR DERABLES after 04/20/2022 Care Teams Experimental Electronics Developer Relationship Specialty Start Date End Date Anjel Yoder MD [address] [place] [phone] PCP - General Gastrointestinal Medical Oncology 11/15/22 11/20/22 Ivan Rubi MD [address] [place] [id number] PCP - General Gastrointestinal Medical Oncology 12/04/22 Walter Lin PA [address] [place] [phone] Physician Cable Machine Operator Gastrointestinal Medical Oncology 11/21/22
--- NOTE | 2023-04-20 19:18 | ER ---
Nurse's Notes [facility] Name: Arcelia Leavitt Age: 62 yrs Sex: Female : 1960 Arrival Date: 04/20/2023 Time: 17:29 Bed 12 Private MD: Diagnosis: Unspecified open wound of left upper arm, initial encounter-with bleeding Presentation: 04/20 17:44 Chief complaint: Patient states: had PICC line replaced yesterday and she is bleeding iw from the previous insertion site , is on blood thinners. Coronavirus screen: At this time, the client does not indicate any symptoms associated with coronavirus-19. Ebola Screen: Patient negative for fever greater than or equal to 101.5 degrees Fahrenheit, and additional compatible Ebola Virus Disease symptoms Patient denies exposure to infectious person. Patient denies travel to an Ebola-affected area in the 21 days before illness onset. No symptoms or risks identified at this time. Initial Sepsis Screen: Does the patient meet any 2 criteria? No. Patient's initial sepsis screen is negative. Does the patient have a suspected source of infection? No. Patient's initial sepsis screen is negative. Risk Assessment: Do you want to hurt yourself or someone else? Patient reports no desire to harm self or others. Onset of symptoms was April 20, 2023. 17:44 Method Of Arrival: Ambulatory iw 17:44 Acuity: GAV[place] 4 iw Historical: - Allergies: 17:45 IVP DYE; iw - PMHx: 17:45 colon cancer; Hypercholesterolemia; Myocardial infarction; iw - PSHx: 17:45 Appendectomy; bowel resection; Cholecystectomy; ileostomy; Port-a-cath; Stented artery; iw - Family history:: not pertinent. - Hospitalizations: : Patient was recently seen at [facility]. Screenin:24 [facility] ED Fall Risk Assessment (Adult) Score/Fall Risk Level. Abuse screen: Denies iw threats or abuse. Denies injuries from another. Nutritional screening: No deficits noted. Tuberculosis screening: No symptoms or risk factors identified. Assessment: 18:40 General: Appears in no apparent distress. Behavior is calm, cooperative. Pain: Denies iw pain. Neuro: Level of Consciousness is awake, alert, obeys commands, Oriented to person, place, time, situation, Moves all extremities. Respiratory: Airway is patent Respiratory effort is even, unlabored. Derm: Skin is fragile. Derm: bleeding noted to PICC line dressing. Musculoskeletal: Range of motion: intact in all extremities. Vital Signs: 17:44 BP 119 / 77; Pulse 98; Resp 16; Pulse Ox 100% on R/A; iw ED Course: 17:31 Patient arrived in ED. mg5 17:39 Yury Moreno MD is Attending Physician. rn 17:45 Triage completed. iw 17:45 Arm band placed on. iw 19:10 Assist provider with laceration repair on left arm Set up tray. Performed by Yury Moreno MD. Changed dressing on left PICC line. 19:24 Patient did not have IV access during this emergency room visit. iw Administered Medications: 18:09 CANCELLED (Physician Discretion): lidocaine(1 %) 1 vials 5 ml Infiltration once; to aa5 bedside 19:00 Drug: Lidocaine-Epinephrine Infiltration -1%: (1:100,000) 1 vials 20 ml Infiltration iw once; to bedside Volume: 20 ml; Route: Infiltration; Medication: 19:24 VIS not applicable for this client. iw Outcome: 19:17 Discharge ordered by . rn 19:24 Discharged to home ambulatory, with family, iw 19:24 Condition: good 19:24 Discharge instructions given to patient, family, Instructed on discharge instructions, follow up and referral plans. Demonstrated understanding of instructions, follow-up care, wound care, 19:24 Patient left the ED. iw Signatures: Anette Lucas RN RN Yury Moreno MD MD rn [place], [place] 5 Monika Kapadia RN 5 Corrections: (The following items were deleted from the chart) 17:45 17:44 Chief complaint: Patient states: had PICC line replaced and she is bleeding from iw the previous insertion site iw 17:46 17:44 Chief complaint: Patient states: had PICC line replaced and she is bleeding from iw the previous insertion site , is on blood thinners iw
--- NOTE | 2023-04-20 19:18 | EDPHYS ---
Physician Documentation [facility] Name: Arcelia Leavitt Age: 62 yrs Sex: Female : 1960 Arrival Date: 04/20/2023 Time: 17:29 Bed 12 Private MD: ED Physician Yury Moreno HPI: 04/20 17:47 This 62 yrs old Female presents to ER via Ambulatory with complaints of Picc Line rn Problem. 17:47 Patient reports discharge from [facility] yesterday, PICC line was rn placed on the same day of discharge, vein blew and so another PICC line was placed just lateral to it. For site was not sutured and has been bleeding slowly from the initial puncture site. Patient takes blood thinners. No fever. No syncope. Patient with cancer and has PICC line for IV hydration and other medications needed.. Onset: The symptoms/episode began/occurred today. Severity of symptoms: At their worst the symptoms were mild in the emergency department the symptoms are unchanged. The patient has not experienced similar symptoms in the past. The patient has been recently seen by a physician:. Historical: - Allergies: 17:45 IVP DYE; iw - PMHx: 17:45 colon cancer; Hypercholesterolemia; Myocardial infarction; iw - PSHx: 17:45 Appendectomy; bowel resection; Cholecystectomy; ileostomy; Port-a-cath; Stented artery; iw - Family history:: not pertinent. - Hospitalizations: : Patient was recently seen at [facility]. ROS: 17:47 Constitutional: Negative for fever, chills, and weight loss, Cardiovascular: Negative rn for chest pain, palpitations, and edema, Respiratory: Negative for shortness of breath, cough, wheezing, and pleuritic chest pain, Abdomen/GI: Negative for abdominal pain, nausea, vomiting, diarrhea, and constipation, Back: Negative for injury and pain, MS/Extremity: Negative for injury and deformity, Skin: Negative for injury, rash, and discoloration, Neuro: Negative for headache, weakness, numbness, tingling, and seizure, Exam: 17:47 Constitutional: This is a well developed, well nourished patient who is awake, alert, rn and in no acute distress. Head/Face: Normocephalic, atraumatic. Cardiovascular: Regular rate and rhythm. No pulse deficits. Respiratory: No increased work of breathing, no retractions or nasal flaring. MS/ Extremity: Pulses equal, no cyanosis. Neurovascular intact. Left upper extremity PICC line in place with small amount of blood underneath the dressing. No arterial bleeding. Vital Signs: 17:44 BP 119 / 77; Pulse 98; Resp 16; Pulse Ox 100% on R/A; iw Procedures: 19:14 Performed Cuxhpo-su-mwbih suture placed left arm and hold PICC insertion site for rn hemostasis. 3-0 Prolene used in xgytna-hp-tsfot fashion, superficial, hemostasis achieved and no further bleeding. Lidocaine with epinephrine used for anesthesia. Total of 2 cc lidocaine used. Patient tolerated procedure well. PICC line cleaned and redressed.. MDM: 17:39 Patient medically screened. rn 19:14 Differential Diagnosis wound bleeding. Data reviewed: vital signs, nurses notes, and as rn a result, I will discharge patient. Counseling: I had a detailed discussion with the patient and/or guardian regarding the historical points, exam findings, and any diagnostic results supporting the discharge/admit diagnosis, the need for outpatient follow up, to return to the emergency department if symptoms worsen or persist or if there are any questions or concerns that arise at home. Response to treatment: the patient's symptoms have resolved after treatment, the patient's condition has returned to base line, the patient is now symptom free, and as a result, I will discharge patient. Special discussion: I discussed with the patient/guardian in detail that at this point there is no indication for admission to the hospital. It is understood, however, that if the symptoms persist or worsen the patient needs to return immediately for re-evaluation. 04/20 17:46 Order name: Wound Care; Complete Time: 19:22 rn 04/20 17:50 Order name: Suture Tray at Bedside; Complete Time: 19:22 rn Administered Medications: 18:09 CANCELLED (Physician Discretion): lidocaine(1 %) 1 vials 5 ml Infiltration once; to aa5 bedside 19:00 Drug: Lidocaine-Epinephrine Infiltration -1%: (1:100,000) 1 vials 20 ml Infiltration iw once; to bedside Volume: 20 ml; Route: Infiltration; Disposition Summary: 04/20/23 19:17 Discharge Ordered Notes: Location: Home rn Problem: new rn Symptoms: are resolved rn Condition: Stable rn Diagnosis - Unspecified open wound of left upper arm, initial encounter - with bleeding rn Followup: rn - With: Emergency Department - When: 10 - 14 days - Reason: Staple/Suture removal Discharge Instructions: - Discharge Summary Sheet rn - Sutured environmental journalist - PICC Home Care Guide rn Forms: - Medication Reconciliation Form rn - Thank You Letter rn - Antibiotic corner bead operator - Prescription Opioid Use rn - Patient Portal Instructions rn - Leadership Thank You Letter rn Signatures: Anette Lucas RN RN Yury Barrios MD MD rn Calderon, Audri, RN RN aa5 Corrections: (The following items were deleted from the chart) 18:09 17:50 Lidocaine Infiltration (1 %) 1 vials 5 ml Infiltration once; to bedside ordered. aa5 rn
[2023-04-20 19:58] VITALS: BP 119/77; O2SAT 100
== END ==
LOC: ER 17:29
DX: T82.838A Hemorrhage due to vascular prosthetic devices, implants and grafts, initial encounter (principal); Z91.041 Radiographic dye allergy status
CPT/HCPCS: 99283